=== PATIENT | male | born 1935 | race Caucasian/White ===

== ENCOUNTER → 2018-05-29 | Outpatient (CLI) | payer MEDICARE, OTHER ==
[2018-05-29 09:29] LABS: HCT 48.2 % (39.0-53.0); HGB 15.1 gm/dL (13.0-17.5); MCH 31.4 pg (25.0-35.0); MCHC 31.4 g/dL (31.0-37.0); MCV 100.2 fL (80.0-100.0); Macrocytosis Slight; Mean Platelet Volume 7.2; Platelet Count 249 k/uL (150-450); RBC 4.82 m/uL (4.30-5.90); RDW 13.8 % (11.5-15.5); WBC 7.4 k/uL (3.8-10.6)
[2018-05-29 09:56] LABS: Albumin 4.2 g/dL (3.5-5.0); Calcium 9.7 mg/dL (8.4-10.2); Potassium 3.5 mmol/L (3.5-5.1); Total Bilirubin 0.6 mg/dL (0.2-1.3); Total Protein 7.5 g/dL (6.3-8.2)
== END | disposition home or self-care (01) ==
LOC: LABWHC1 08:42
PROVIDERS: ATTEND Internal Medicine Interventional Cardiology
DX: I25.10 Atherosclerotic heart disease of native coronary artery without angina pectoris (principal)
CPT/HCPCS: 36415; 80053; 85027

== ENCOUNTER 2018-05-31 05:35 | Day surgery (SDC) | payer MEDICARE, OTHER ==
[2018-05-29 14:04] VITALS: BMI 29.0
[2018-05-31] MEDS ORDERED: NITROGLYCERIN SL TABS 0.4 MG TAB SUBLINGUAL PRN ×2 (05:52→10:31)
[2018-05-31] MEDS ORDERED: ATORVASTATIN 80 MG TAB PO STA (05:52)
[2018-05-31] MEDS ORDERED: ALPRAZolam 0.5 MG TAB PO PRN (05:52)
[2018-05-31] MEDS ORDERED: ASPIRIN 325 MG TAB PO STA (05:52)
[2018-05-31] MEDS ORDERED: ALPRAZolam 0.25 MG TAB PO PRN (05:52)
[2018-05-31] MEDS ORDERED: SODIUM CHLORIDE 0.9% 1,000 ML in EMPTY BAG 1 BAG IV ONE (06:00)
[2018-05-31 06:27] LABS: INR 1.4 (<1.2); Prothrombin Time 12.8 sec (9.0-12.0)
[2018-05-31] MEDS ORDERED: ALPRAZolam 0.25 MG TAB PO ONE (06:59)
[2018-05-31] MEDS ORDERED: VERAPAMIL 2.5 MG/ML 2 ML AMP ONE (09:01)
[2018-05-31] MEDS ORDERED: LIDOCAINE 1% INJ 10MG/ML (20 ML MDV) ONE (09:01)
[2018-05-31] MEDS ORDERED: fentaNYL (PF) 50 MCG/ML 2 ML AMP ONE (09:01)
[2018-05-31] MEDS ORDERED: HEPARIN SODIUM 1,000 UN/ML (10ML VL) ONE (09:02)
[2018-05-31] MEDS ORDERED: fentaNYL (PF) 50 MCG/ML 2 ML AMP IV ONE (09:15)
[2018-05-31] MEDS ORDERED: LIDOCAINE 1% INJ 10MG/ML (20 ML MDV) SQ ONE (09:19)
[2018-05-31] MEDS ORDERED: VERAPAMIL SYRINGE (5 MG/10 ML) INTRAARTER ONE (09:21)
[2018-05-31] MEDS ORDERED: BIVALIRUDIN 250 MG in SODIUM CHLORIDE 0.9% 50 ML IV ONE (09:31)
[2018-05-31] MEDS ORDERED: BIVALIRUDIN BOLUS 250 MG/50 ML IV ONE (09:31)
[2018-05-31] MEDS ORDERED: CLOPIDOGREL 75 MG TAB PO ONE (09:32)
[2018-05-31] MEDS ORDERED: CLOPIDOGREL 75 MG TAB ONE (09:32)
[2018-05-31] MEDS ORDERED: NITROGLYCERIN 1000MCG/10ML SYRINGE INTRACORON ONE (09:55)
[2018-05-31] MEDS ORDERED: IOPAMIDOL-370 125ML BTL INJ ONE (09:59)
[2018-05-31] MEDS ORDERED: IOPAMIDOL-300 100ML BTL INJ ONE (10:09)
[2018-05-31] MEDS ORDERED: MAG HYDROX/AL HYDROX/SIMETH 30 ML CUP PO PRN (10:31)
[2018-05-31] MEDS ORDERED: ATROPINE SULFATE 0.1 MG/ML 10ML SYRINGE IV PRN (10:31)
[2018-05-31] MEDS ORDERED: RX INFO: IV CONTRAST WAS GIVEN 1 EACH MISC MISCELLANE PRN (10:31)
[2018-05-31] MEDS ORDERED: ZOLPIDEM 5 MG TAB PO PRN (10:31)
[2018-05-31] MEDS ORDERED: SODIUM CHLORIDE 0.9% 1,000 ML IV SCH (10:45)
--- NOTE | 2018-05-31 10:59 | PTCA ---
PERCUTANEOUSTRANS CORORONARY ANGIOGRAPHY Mr. Mejia is an 82-year-old male with a known history of coronary artery disease, who presented with new onset exertional chest discomfort, underwent cardiac catheterization, was found to have critical stenosis involving the first diagonal branch in the distal right coronary artery. In view of that, recommendation was made regarding angioplasty and stenting. The procedures, risks and complications were discussed with the patient who is in full understanding and agreement. PROCEDURE: A 6-Malay FL 3.5 guiding catheter was introduced in the system, after cannulating the left main, a 0.014 balanced medium weight J-wire was advanced and positioned distal diagonal branch. Following that, a 2.5 x 12 mm Trek balloon was advanced one inflation at 8 atmospheres was done. Following that, the balloon was removed and a 2.5 x 18 mm Xience Alpine stent was deployed, postdilated at 16 atmospheres. After the last inflation, after appropriate wait, the balloon and the guidewire were withdrawn back in the guiding catheter. Images were obtained and repeated. Those images reveal stable successful stenting. At that point, the guiding catheter, the balloon and the guidewire removed and a 6-Malay FR4 guiding catheter was introduced into the system. After cannulating the ostium of the right coronary artery, a 0.014 balanced medium weight J-wire was advanced and positioned distal right coronary artery. Following that, a 2.5 x 12 mm Trek balloon was advanced and one inflation at 8 atmospheres was done. Following that, the balloon was removed and a 2.5 x 23 mm Xience Alpine stent was deployed post-dilated to 16 atmospheres. After removing the balloon, a 2.75 x 15 mm NC Trek balloon was advanced. One inflation at 14 atmospheres was done. Following that, the balloon and the guidewire were withdrawn back in the guiding catheter. Images were obtained and repeated. Those images reveal stable successful stenting. At that point, the guiding catheter, the balloon and the guidewire were removed, sheath was removed, hemostasis was obtained with deployment of a TR band. There was no immediate complication. Patient is returned to his room in stable condition. Of note, the patient received Angiomax per protocol as well as oral loading dose of clopidogrel. He also received intra-arterial verapamil. He had EKG changes with the inflation with no significant chest pain. RESULTS: 1. Successful stenting of the first diagonal branch with reduction of stenosis from 99% to 0%. 2. Successful stenting of the distal right coronary artery with reduction of stenosis from 90% to 0%. RECOMMENDATION: Patient will be continued on aspirin, Plavix, beta natividad, MAGGI inhibitor, and statin. The importance of dual antiplatelet treatment, initially was discussed with the patient. He will be re-initiated on Coumadin. Subsequently, the aspirin will be stopped. Depending on his symptoms, he will be evaluated for the need to undergo revascularization of his LAD. Those findings and recommendation were discussed with the patient and his family and they are in full understanding and agreement. Duration of the procedure: 55 minutes. MURPHY / MELISSAN: [id number] /
--- NOTE | 2018-05-31 10:59 | CC ---
CARDIAC CATHETERIZATION REPORT Mr. Mejia is an 82-year-old male with a known history of coronary artery disease, status post percutaneous revascularization in 2012, history of atrial fibrillation, hypertension, hyperlipidemia, who presented with symptoms of new onset angina pectoris with physical activity. In view of that, recommendation made regarding cardiac catheterization. The procedures, risks and complications were discussed with the patient who is in full understanding and agreement. PROCEDURE: Patient was brought to the center medical and lab director in a fasting semi-sedated state after receiving fentanyl and Benadryl and achieving moderate conscious sedated state. Using Xylocaine anesthesia and Seldinger technique, a 6-Latvian sheath was introduced in the right radial artery. Selective right and left coronary angiography performed using 5-Latvian 3.5 bend right and left Lena catheter, multiple views of the coronary artery, including hemiaxial views were obtained. Following that, catheters were removed, images were reviewed. FINDINGS: LEFT MAIN: This is a large-sized vessel bifurcating into left circumflex, left anterior descending artery. Left main coronary artery has no evidence of high-grade stenosis. LEFT ANTERIOR DESCENDING ARTERY: This is a large-sized vessel, reaching toward the apex with a wraparound apex segment, giving rise to 2 diagonal branches. The first one is large in caliber and has a 99% stenosis in the mid segment. The mid LAD prior to the takeoff of the second diagonal branch in a calcified area has a 60% plaque. The rest of the vessel has intimal disease without any evidence of high-grade stenosis. LEFT CIRCUMFLEX: This is a nondominant vessel, moderate in caliber, giving rise to three obtuse marginal branch. The left circumflex has diffuse intimal disease. The third obtuse marginal branch distally has a 99% stenosis. The vessel beyond that is small in caliber. RIGHT CORONARY ARTERY: This is a large dominant vessel, bifurcating PDA, posterolateral segment and branches. The proximal stented segment of the RCA is patent with minimal intimal restenosis. At the distal RCA prior to the bifurcation has a long tubular lesion of up to 90%. The PDA has a lesion of 80%-90% stenosis in the midsegment and there is diffuse intimal disease in the PLV. LEFT VENTRICULOGRAM: Left ventriculogram was not performed. CONCLUSION: 1. Critical stenosis involving the first diagonal branch and the distal right coronary artery with significant disease in a small distal obtuse marginal branch. 2. Moderate disease in the mid left anterior descending artery. RECOMMENDATION: In view of finding anatomy, I recommend proceeding with angioplasty and stenting. The procedures, risks and complication were discussed with the patient who is in full understanding and agreement. MMODL / IJN: [id number] /
[2018-05-31] MEDS ORDERED: MAG HYDROX/AL HYDROX/SIMETH 30 ML CUP PO ONE (15:00)
[2018-05-31] MEDS ORDERED: amLODIPine 5 MG TAB PO STA (16:08)
[2018-06-01 06:27] LABS: Calcium 9.2 mg/dL (8.4-10.2); Potassium 4.3 mmol/L (3.5-5.1)
[2018-06-01] MEDS ORDERED: ASPIRIN 81 MG PO SCH (09:00)
[2018-06-01] MEDS ORDERED: PARoxetine 10 MG TAB PO SCH (09:00)
[2018-06-01] MEDS ORDERED: LISINOPRIL 20 MG TAB PO SCH (09:00)
[2018-06-01] MEDS ORDERED: amLODIPine 5 MG TAB PO SCH (09:00)
[2018-06-01] MEDS ORDERED: CLOPIDOGREL 75 MG TAB PO SCH (09:00)
[2018-06-01] MEDS ORDERED: ATORVASTATIN 40 MG TAB PO SCH (09:00)
[2018-06-01 09:01] VITALS: BP 132/58; PULSE 64; RESP 18; TEMP 97.4
--- NOTE | 2018-06-01 10:18 | PN ---
PROGRESS NOTE Mr. Mejia is an 82-year-old male with known history of coronary artery disease who has been having new onset angina pectoris, was admitted and underwent cardiac catheterization, was found to have significant stenosis involving the first diagonal branch as well as the distal right coronary artery, underwent stenting of both vessels. He is doing well this morning, ambulating without difficulty. Denying any chest pain. No dizziness. No palpitation. No nausea. He continued to be on aspirin 81 mg daily, Plavix 75 mg daily, lisinopril 20 mg daily, amlodipine 5 mg daily and Lipitor 80 mg daily. PHYSICAL EXAMINATION: Blood pressure 130/70 with a heart rate in the 70s. LUNGS: Clear. HEART: Irregular regular. S1, S2. No S3. No rub. With a systolic murmur. ABDOMEN: Soft, nontender. EXTREMITIES: No edema. Right radial pulse intact. LAB DATA: Lab data revealed BUN and creatinine 21 and 1.24. EKG revealed atrial fibrillation with no acute ST-segment changes. IMPRESSION: 1. Status post stenting of the diagonal branch and the right coronary artery. 2. History of atrial fibrillation. 3. Hypertension. 4. Hyperlipidemia. RECOMMENDATION: The patient will be discharged home today. We will re-initiate his Coumadin and in 4 weeks we will stop the aspirin. Continue on Plavix and Coumadin. Depending on his progress, further recommendation will be made. MMODL / IJN: [id number] /
[2018-06-01] MEDS ORDERED: MULTIVITAMINS, THERA 1 EACH TAB PO SCH (12:00)
== END 2018-06-01 10:35 | disposition home or self-care (01) ==
LOC: CATHCVL 05:35 → 6SEL 10:08 → CATHCVL 06-01 10:35
PROVIDERS: ATTEND Internal Medicine Interventional Cardiology
DX: I25.110 Atherosclerotic heart disease of native coronary artery with unstable angina pectoris (principal); I48.1 Persistent atrial fibrillation; I45.10 Unspecified right bundle-branch block; I10 Essential (primary) hypertension; E78.2 Mixed hyperlipidemia; Z95.5 Presence of coronary angioplasty implant and graft; Z79.01 Long term (current) use of anticoagulants; Z79.899 Other long term (current) drug therapy; Z82.49 Family history of ischemic heart disease and other diseases of the circulatory system; Z87.891 Personal history of nicotine dependence
CPT/HCPCS: 93454; 85347; 80048; 85610; C9600; C1769 ×2; C1887 ×2; C1894; C1725 ×2; C1874; J2001; J3010; J0583; Q9967 ×2

== ENCOUNTER 2018-12-18 08:50 | Observation (INO) | payer MEDICARE ==
[2018-12-18] MEDS ORDERED: NITROGLYCERIN OINT 1 INCH/GM PACKET TOPICAL STA (09:10)
[2018-12-18] MEDS ORDERED: ASPIRIN 81 MG PO STA (09:10)
--- NOTE | 2018-12-18 09:13 | ED ---
General Adult HPI - General Chief complaint: Chest Pain Stated complaint: CHEST PAIN Time Seen by Provider: 12/18/18 08:58 Source: patient, family, RN notes reviewed Mode of arrival: ambulatory Limitations: no limitations - History of Present Illness Initial comments: Patient is a pleasant 83-year-old male presenting to the emergency Department with complaints of chest discomfort. Onset was around 4:30 this morning. Discomfort has remaining mild. Discomfort feels like tightness. No associated dyspnea, nausea, or diaphoresis. No history of similar symptoms previously. No radiation. Patient did have 2 stents placed in May. - Related Data Home Medications Medication Instructions Recorded Confirmed PARoxetine [Paxil] 20 mg PO DAILY 03/13/14 12/18/18 Warfarin [Coumadin] 5 mg PO SUTUWEFRSA 03/13/14 12/18/18 Warfarin [Coumadin] 7.5 mg PO MOTH 03/13/14 12/18/18 Multivitamins, Thera [Multivitamin 1 tab PO DAILY 01/14/15 12/18/18 (formulary)] Aspirin 81 mg PO HS 05/29/18 12/18/18 Cholecalciferol [Vitamin D3] 5,000 unit PO HS 05/29/18 12/18/18 Magnesium Oxide [Balderas] 500 mg PO HS 05/29/18 12/18/18 amLODIPine BESYLATE/BENAZEPRIL 1 cap PO DAILY 05/29/18 12/18/18 [Lotrel 5-20 MG] ALPRAZolam [Xanax] 0.5 mg PO BID PRN 12/18/18 12/18/18 Atorvastatin [Lipitor] 40 mg PO HS 12/18/18 12/18/18 Calcium Citrate/Vitamin D3 1 tab PO HS 12/18/18 12/18/18 [Calcitrate + Vit D Caplet] Clopidogrel [Plavix] 75 mg PO HS 12/18/18 12/18/18 Glucosamine/[place] A Sod [Osteo 1 tab PO DAILY 12/18/18 12/18/18 Bi-Flex Caplet] L.acidoph,Paracasei, B.lactis 1 cap PO W/SUPPER 12/18/18 12/18/18 [Probiotic] Meclizine [Antivert] 12.5 - 25 mg PO QID PRN 12/18/18 12/18/18 Pravastatin Sodium [Pravachol] 40 mg PO HS 12/18/18 12/18/18 Raloxifene [Evista] 60 mg PO DAILY 12/18/18 12/18/18 Previous Rx's Medication Instructions Recorded Nitroglycerin Sl Tabs [Nitrostat] 0.4 mg SUBLINGUAL Q5M PRN #25 tab 06/01/18 Allergies Allergy/AdvReac Type Severity Reaction Status Date / Time No Known Allergies Allergy Verified 12/18/18 09:16 Review of Systems ROS Statement: Those systems with pertinent positive or pertinent negative responses have been documented in the HPI. ROS Other: All systems not noted in ROS Statement are negative. Constitutional: Denies: fever Eyes: Denies: eye pain ENT: Denies: ear pain Respiratory: Denies: cough, dyspnea Cardiovascular: Reports: chest pain Endocrine: Denies: fatigue Gastrointestinal: Denies: abdominal pain Genitourinary: Denies: dysuria Musculoskeletal: Denies: back pain Skin: Denies: rash Neurological: Denies: weakness Past Medical History Past Medical History: Cancer, GERD/Reflux, Hypertension, Myocardial Infarction (ME), Osteoarthritis (OA), Skin Disorder Additional Past Medical History / Comment(s): HX COLON CA., HX OF THROAT CANCER WITH RADIATION TX 04/06/14-05/20/14., SEASONAL ALLERGIES. Last Myocardial Infarction Date:: 1994 History of Any Multi-Drug Resistant Organisms: None Reported Past Surgical History: Appendectomy, Bowel Resection, Heart Catheterization, He art Catheterization With Stent, Orthopedic Surgery Additional Past Surgical History / Comment(s): HEART CATH X 3 - LAST ONE WITH A STENT09/05/12, ARTHROSCOPY RT KNEE ,RT ROTATOR CUFF, CATARACT CYDNEY. , BOWEL RESECTION-(2000) 8"COLON REMOVED. VOCAL CORD LESION REMOVED 03/2014. Past Anesthesia/Blood Transfusion Reactions: No Reported Reaction Date of Last Stent Placement:: 09/05/12 Past Psychological History: Depression Smoking Status: Former smoker - Past Family History Father Family Medical History: Myocardial Infarction (ME) Additional Family Medical History / Comment(s): FATHER @ AGE 46 WITH ME Sister(s) Family Medical History: Cancer Additional Family Medical History / Comment(s): BREAST & BONE CA General Exam Limitations: no limitations General appearance: alert, in no apparent distress Head exam: Present: normocephalic Eye exam: Present: normal appearance, PERRL ENT exam: Present: normal oropharynx Neck exam: Present: normal inspection Respiratory exam: Present: normal lung sounds bilaterally Cardiovascular Exam: Present: regular rate, irregular rhythm Expanded Peripheral pulses: 2+: Radial (R), Radial (L), Posterior Tibialis (R), Posterior Tibialis (L) GI/Abdominal exam: Present: soft. Absent: distended, tenderness Extremities exam: Present: normal inspection. 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 fib with rate of 66. QRS 162. QT 474. QTC 496. Normal axis. Right bundle branch block. Nonspecific T waves. Medical Decision Making - Medical Decision Making Patient reevaluated and improved. Discomfort is near resolved at this time. Patient and family updated on results and plan. Case was discussed in detail with Dr. Kim, who will admit his patient. Consult will be placed for Dr. Mckeon who patient has previously seen. Dr. Kim and family are made aware of pulmonary nodules. - Lab Data Result diagrams: 12/18/18 09:15 12/18/18 09:15 Lab Results 12/18/18 12/18/18 12/18/18 Range/Units 09:15 09:15 09:15 WBC 7.6 (3.8-10.6) k/uL RBC 4.59 (4.30-5.90) m/uL Hgb 14.1 (13.0-17.5) gm/dL Hct 44.4 (39.0-53.0) % MCV 96.8 (80.0-100.0) fL MCH 30.7 (25.0-35.0) pg MCHC 31.7 (31.0-37.0) g/dL RDW 14.0 (11.5-15.5) % Plt Count 259 (150-450) k/uL Neutrophils % 71 % Lymphocytes % 16 % Monocytes % 8 % Eosinophils % 1 % Basophils % 1 % Neutrophils # 5.4 (1.3-7.7) k/uL Lymphocytes # 1.2 (1.0-4.8) k/uL Monocytes # 0.6 (0-1.0) k/uL Eosinophils # 0.1 (0-0.7) k/uL Basophils # 0.1 (0-0.2) k/uL PT 14.5 H (9.0-12.0) sec INR 1.4 H (<1.2) APTT 27.8 (22.0-30.0) sec Sodium 143 (137-145) mmol/L Potassium 3.6 (3.5-5.1) mmol/L Chloride 106 (98-107) mmol/L Carbon Dioxide 29 (22-30) mmol/L Anion Gap 8 mmol/L BUN 27 H (9-20) mg/dL Creatinine 1.32 H (0.66-1.25) mg/dL Est GFR (CKD-EPI)AfAm 57 (>60 ml/min/1.73 sqM) Est GFR (CKD-EPI)NonAf 49 (>60 ml/min/1.73 sqM) Glucose 96 (74-99) mg/dL Calcium 10.1 (8.4-10.2) mg/dL Magnesium 2.0 (1.6-2.3) mg/dL Total Bilirubin 0.7 (0.2-1.3) mg/dL AST 25 (17-59) U/L ALT 35 (21-72) U/L Alkaline Phosphatase 97 (38-126) U/L Troponin I (0.000-0.034) ng/mL Total Protein 7.5 (6.3-8.2) g/dL Albumin 4.3 (3.5-5.0) g/dL 12/18/18 Range/Units 09:15 WBC (3.8-10.6) k/uL RBC (4.30-5.90) m/uL Hgb (13.0-17.5) gm/dL Hct (39.0-53.0) % MCV (80.0-100.0) fL MCH (25.0-35.0) pg MCHC (31.0-37.0) g/dL RDW (11.5-15.5) % Plt Count (150-450) k/uL Neutrophils % % Lymphocytes % % Monocytes % % Eosinophils % % Basophils % % Neutrophils # (1.3-7.7) k/uL Lymphocytes # (1.0-4.8) k/uL Monocytes # (0-1.0) k/uL Eosinophils # (0-0.7) k/uL Basophils # (0-0.2) k/uL PT (9.0-12.0) sec INR (<1.2) APTT (22.0-30.0) sec Sodium (137-145) mmol/L Potassium (3.5-5.1) mmol/L Chloride (98-107) mmol/L Carbon Dioxide (22-30) mmol/L Anion Gap mmol/L BUN (9-20) mg/dL Creatinine (0.66-1.25) mg/dL Est GFR (CKD-EPI)AfAm (>60 ml/min/1.73 sqM) Est GFR (CKD-EPI)NonAf (>60 ml/min/1.73 sqM) Glucose (74-99) mg/dL Calcium (8.4-10.2) mg/dL Magnesium (1.6-2.3) mg/dL Total Bilirubin (0.2-1.3) mg/dL AST (17-59) U/L ALT (21-72) U/L Alkaline Phosphatase (38-126) U/L Troponin I <0.012 (0.000-0.034) ng/mL Total Protein (6.3-8.2) g/dL Albumin (3.5-5.0) g/dL - Radiology Data Radiology results: image reviewed (Chest x-ray does show concern for nodules, similar to previous.) Disposition Clinical Impression: Chest pain Disposition: ADMITTED IP TO THIS HOSP Is patient prescribed a controlled substance at d/c from ED?: No Referrals: Jd Kim MD [Primary Care Provider] - 1-2 days Decision Time: 11:06
--- NOTE | 2018-12-18 09:37 | XR ---
EXAMINATION TYPE: XR chest 2V DATE OF EXAM: 12/18/2018 COMPARISON: Chest x-ray September 02, 2012 HISTORY: Chest pain and pressure today. TECHNIQUE: Frontal and lateral views of the chest are obtained. FINDINGS: There is persistent cardiomegaly. Some reticular interstitial prominence bilaterally is se en. In addition there is suggestion of multifocal parenchymal nodularity. No pleural effusion or pneu mothorax is evident. Bridging osteophytes and thoracic spine are redemonstrated. IMPRESSION: Cardiomegaly and chronic parenchymal changes still present, underlying pulmonary nodular ity is not excluded. Advise chest CT follow-up.
[2018-12-18 09:56] LABS: Basophils # (A) 0.1 k/uL (0-0.2); Basophils % (A) 1 %; Eosinophils # (A) 0.1 k/uL (0-0.7); Eosinophils % (A) 1 %; HCT 44.4 % (39.0-53.0); HGB 14.1 gm/dL (13.0-17.5); Lymphocytes # (A) 1.2 k/uL (1.0-4.8); Lymphocytes % (A) 16 %; MCH 30.7 pg (25.0-35.0); MCHC 31.7 g/dL (31.0-37.0); MCV 96.8 fL (80.0-100.0); Mean Platelet Volume 7.3; Monocytes # (A) 0.6 k/uL (0-1.0); Monocytes % (A) 8 %; Neutrophils # (A) 5.4 k/uL (1.3-7.7); Neutrophils % (A) 71 %; Platelet Count 259 k/uL (150-450); RBC 4.59 m/uL (4.30-5.90); WBC 7.6 k/uL (3.8-10.6)
[2018-12-18 10:07] LABS: Albumin 4.3 g/dL (3.5-5.0); Calcium 10.1 mg/dL (8.4-10.2); Potassium 3.6 mmol/L (3.5-5.1); Total Bilirubin 0.7 mg/dL (0.2-1.3); Total Protein 7.5 g/dL (6.3-8.2)
[2018-12-18 10:17] LABS: INR 1.4 (<1.2); Partial Thromboplastin Time 27.8 sec (22.0-30.0); Prothrombin Time 14.5 sec (9.0-12.0)
[2018-12-18] MEDS ORDERED: NITROGLYCERIN SL TABS 0.4 MG TAB SUBLINGUAL PRN ×2 (11:06→16:56)
[2018-12-18] MEDS ORDERED: ALPRAZolam 0.5 MG TAB PO PRN (16:56)
[2018-12-18] MEDS ORDERED: MECLIZINE 12.5 MG TAB PO PRN (16:56)
[2018-12-18] MEDS: NITROGLYCERIN OINT 1 INCH/GM PACKET TOPICAL SCH ×2 (17:04→17:51)
[2018-12-18] MEDS ORDERED: WARFARIN 5 MG TAB PO SCH (18:00)
[2018-12-18] MEDS: LACTOBACILLUS ACIDOPH & BULGAR 1 EACH PACKET PO SCH (18:21)
[2018-12-18] MEDS: ATORVASTATIN 40 MG TAB PO SCH (19:38)
[2018-12-18] MEDS: CLOPIDOGREL 75 MG TAB PO SCH (19:39)
[2018-12-18] MEDS: CHOLECALCIFEROL 1,000 UNIT TAB PO SCH (19:39)
[2018-12-18] MEDS ORDERED: ASPIRIN 81 MG PO SCH (21:00)
[2018-12-18] MEDS ORDERED: CALCIUM CARB-VIT D 500MG-200UN 1 EACH TAB PO SCH (21:00)
[2018-12-18] MEDS ORDERED: MAGNESIUM OXIDE 400 MG TAB PO SCH (21:00)
[2018-12-18] MEDS ORDERED: PRAVASTATIN SODIUM 40 MG TAB PO SCH (21:00)
--- NOTE | 2018-12-18 23:21 | HP ---
HISTORY AND PHYSICAL CHIEF COMPLAINT: Chest pain. HISTORY OF PRESENT ILLNESS: This gentleman, 83 years of age, presented with a complaint that at about 3:30 or 4:00 in the morning he woke up with tightness in the lower chest going across the chest with no associated nausea, vomiting, palpitations, dizziness or heartburn. The patient said the symptoms lasted briefly for a few minutes and then resolved. In the morning, the patient's spouse asked the patient to have it checked to make sure that things were okay. He does have a history of coronary artery disease; back in May he had 2 stents placed, one in the first diagonal and one in the distal RCA. The patient subsequent to that has had no symptoms. Also previous to that he had stents placed. In view of this, the patient presented to the emergency room. He was evaluated, noted to have negative troponins. However, his EKG showed complete right bundle branch block, and in view of this he was admitted to the hospital with his previous history of chest discomfort suggestive of angina and bundle branch block on EKG with atrial fibrillation. The patient recently had significant GI symptoms of heartburn, etc. However, these symptoms have resolved with the use of proton pump inhibitors and he has had no further significant problems. He also had symptoms that also improved after he was treated with Flagyl for C difficile colitis. The patient does exercise regularly. He had exercised on Sunday with no symptoms. PAST MEDICAL HISTORY: Significant for: 1. Essential hypertension, controlled. 2. Coronary artery disease, stable, with previous interventions. 3. Chronic atrial fibrillation, rate controlled. 4. Anticoagulated on Coumadin. 5. Hyperlipidemia, on medical therapy. 6. Degenerative arthritis with tolerable symptoms. 7. Chronic kidney disease, stage III. 8. Previous history of colon cancer Butcher A with no recurrence. 9. 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 PERSONAL HISTORY: He was a smoker; quit many years ago. He used to smoke a pack and a half per day. Alcohol none. SOCIAL HISTORY: Patient is , lives with his spouse. He is able to take care of himself. He does exercise regularly. FAMILY MEDICAL HISTORY: Father at age of 47 with myocardial infarction. Mother at the age of 82 with myocardial infarction. A brother of coronary artery disease at age 58. Brother at the age of 76 of coronary artery disease. A sister at the age of 59 of coronary artery disease. A sister 89 with a history of rheumatoid arthritis, coronary artery disease and mild dementia. A sister 93 with history of CVA. A sister who is 93 with history of cancer of the breast. The patient has a sister 75 in good health. The patient has no children. PAST SURGICAL HISTORY: Significant for: 1. Bilateral cataracts. 2. Partial colectomy. 3. Appendectomy. 4. Right knee scope. 5. Right shoulder surgery. 6. Laryngeal biopsy. MEDICATIONS: Medications at present include: 1. Pravastatin 40 mg daily. 2. Amlodipine/benazepril 5/20 one daily. 3. Meclizine p.r.n. 4. Aspirin 81 mg daily. 5. Coumadin 5 mg 4 days a week and 7.5 mg 3 days a week. 6. Xanax 0.5 mg b.i.d. p.r.n. 7. Pepcid 40 mg daily. 8. Paxil 20 mg daily. 9. Coumadin 7.5 mg Sunday and and 5 mg other 5 days of the week. 10.Multivitamin daily. 11.Plavix 75 mg at bedtime. REVIEW OF SYSTEMS: NEURO: Denies any headaches, dizziness. No double vision or blurred vision. No symptoms of TIA or syncope or seizures. PSYCH: No anxiety, depression. CARDIAC: No chest pain, angina, palpitation. RESPIRATORY: No shortness of breath, cough, hemoptysis. GI: No nausea, vomiting, abdominal pain, diarrhea, constipation. : No symptoms of dysuria, hematuria. EXTREMITIES: No pain, edema. CONSTITUTIONAL: No fever, chills. PHYSICAL EXAMINATION: Pleasant gentleman in no distress. Vital signs reveal temperature 98, pulse 70, respirations 18, blood pressure 150/72, pulse ox 100% on 2 L. HEENT: Normocephalic. Pupils reactive. Nostrils clear. Oral cavity is moist. NECK: Supple. No JVD, carotid bruits or thyromegaly. CHEST EXAMINATION: Clear to auscultation and percussion. CARDIAC: Normal S1, S2 with no gallops. Irregularly irregular rhythm. Systolic murmur 2/6, left sternal border. ABDOMEN: Soft. No palpable masses. Bowel sounds normal. No organomegaly. No abdominal bruits. Extremities reveal no edema. Good pulses, both upper and lower extremities. Neurologically awake, alert, oriented x3 with well-coordinated movements. LABORATORY ASSESSMENT: Normal CBC. INR 1.4. Creatinine 1.32. GFR of 49. Troponins are negative. CPK 90. EKG shows atrial fibrillation, complete right bundle branch block. ASSESSMENT: 1. Chest pain suggestive of angina pectoris at rest. 2. Known history of coronary artery disease with previous stents back in May of 2018. 3. Chronic atrial fibrillation. 4. Anticoagulated status. 5. Chronic kidney disease, stage III. 6. Essential hypertension, controlled. PLAN: The patient is stable. Continue present medical regimen. Patient does not seem to have had an infarct. Will keep the patient on nitrates. Will have Cardiology see the patient. Patient's condition was discussed with the patient and spouse. Prognosis remains guarded. May require catheterization for further definition of his ailment. MMODL / IJN: [id number] /
[2018-12-19] MEDS: NITROGLYCERIN OINT 1 INCH/GM PACKET TOPICAL SCH ×3 (01:43→20:06)
[2018-12-19 04:22] LABS: Cholesterol 121 mg/dL (<200); HDL Cholesterol 36 mg/dL (40-60); LDL Cholesterol,Calculated 51 mg/dL (0-99); Triglycerides 171 mg/dL (<150)
[2018-12-19] MEDS ORDERED: ASPIRIN 325 MG TAB PO SCH (09:00)
[2018-12-19] MEDS ORDERED: amLODIPine 5 MG TAB PO SCH (09:00)
[2018-12-19] MEDS ORDERED: NON-FORMULARY DRUG (Glucosamine/Chondr Su A Sod [Osteo Bi-Flex Caplet] 1 TAB) PO SCH (09:00)
[2018-12-19] MEDS ORDERED: RALOXIFENE 60 MG TAB PO SCH (09:00)
[2018-12-19] MEDS ORDERED: SODIUM CHLORIDE 0.9% 1,000 ML in EMPTY BAG 1 BAG IV ONE (11:11)
[2018-12-19] MEDS ORDERED: ASPIRIN 325 MG TAB PO STA (11:12)
[2018-12-19] MEDS: LISINOPRIL 20 MG TAB PO SCH (11:37)
[2018-12-19] MEDS: PARoxetine 20 MG TAB PO SCH (11:38)
--- NOTE | 2018-12-19 12:01 | P.CRDCN ---
History of Present Illness History of present illness: This is a pleasant 83-year-old male past medical history significant for coronary artery disease status post multiple angioplasties, paroxysmal atrial fibrillation on long-term anticoagulation, hypertension, dyslipidemia and colon cancer status post resection. He was recently diagnosed with C. diff and was treated with antibiotics. He follows in the office with Dr. Mckeon. We have been asked to see him in consultation for symptoms of chest discomfort. He states yesterday while he was getting ready to head to the gym for his routine exercise he started feeling a tight sensation in the midsternal region. There is no radiation through to the back, down the arm, into the neck or jaw. He denies associated shortness of breath, dizziness, nausea, vomiting or diaphoresis. The tightness persisted for approximately 4 hours until he decided to come to the hospital for evaluation. Ultimately once arriving in the hospital the symptoms did subside on their own with no specific alleviating factor. He states in the past when he needed stent placement his symptoms are typically fatigue and shortness of breath. He states he did exercise Sunday his typical routine of approximately 2 hours of exercise with no symptoms of chest discomfort or tightness. He recently underwent cardiac catheterization in May 2018 revealing left main with no evidence of high-grade stenosis, LAD giving rise to 2 diagonal branches. The first one has a 99% stenosis in the midsegment, the mid LAD has a calcified lesion approximately 60% with the remainder of the vessel having intimal disease without any evidence of high- grade stenosis, circumflex artery had diffuse intimal disease, third OM distally is a 99% stenosis, RCA distally has a tubular lesion approximately 90%, PDA has a lesion of 80-90% in the midsegment. At that time he underwent successful stent placement to the distal RCA and distal OM. Prior to that in 2011 he underwent stent placement to the proximal RCA. Most recent echocardiogram obtained in the office November 2017 revealed preserved left ventricular systo lic function with ejection fraction 55%, mild TR and mild MR noted. He states he was recently diagnosed with C. diff and started on antibiotics per his primary care physician. His dosing of Coumadin was decreased at that time since the cause for his subtherapeutic INR. EKG on arrival reveals atrial fibrillation with controlled ventricular response heart rate is 66 with a right bundle branch block. Chest x-ray reveals cardiomegaly and chronic parenchymal changes with underlying pulmonary nodule suspected. Laboratory data reviewed, WBC 7.6, hemoglobin 14.1, platelets 259, INR 1.4, sodium 143, potassium 3.6, creatinine 1.32, GFR 49, magnesium 2.0, cardiac enzymes negative 3, LDL 51 and HDL 36. Current cardiac medications include aspirin 81 mg daily, atorvastatin 40 mg daily, Plavix 75 mg daily, Coumadin, amlodipine/benazepril 5/20 mg daily. At the time of my exam: CONSTITUTIONAL: Denies fever. Denies chills. EYES: Denies blurred vision. Denies vision changes. Denies eye pain. EARS, NOSE, MOUTH & THROAT: Denies headache. Denies sore throat. Denies ear pain. CARDIOVASCULAR: Denies chest pain. Denies shortness of breath. Denies orthopnea. Denies PND. Denies palpitations. RESPIRATORY: Denies cough. GASTROINTESTINAL: Denies abdominal pain. Denies diarrhea. Denies constipation. Denies nausea. Denies vomiting. MUSCULOSKELETAL: Denies myalgias. INTEGUMENTARY: Denies pruitis. Denies rash. NEUROLOGIC: Denies numbness. Denies tingling. Denies weakness. PSYCHIATRIC: Denies anxiety. Denies depression. ENDOCRINE: Denies fatigue. Denies weight change. Denies polydipsia. Denies polyurina. GENITOURINARY: Denies burning, hematuria or urgency with micturation. HEMATOLOGIC: Denies history of anemia. Denies bleeding. Blood pressure 179/99 heart rate 88 afebrile maintaining oxygen saturation on room air GENERAL: This is a 83-year-old male in no apparent distress at the time of my examination. HEENT: Head is atraumatic, normocephalic. Pupils are equal, round. Sclerae anicteric. Conjunctivae are clear. Mucous membranes of the mouth are moist. Neck is supple. There is no jugular venous distention. No carotid bruit is heard. LUNGS: Clear to auscultation no wheezes, rales or rhonchi. No chest wall tenderness is noted on palpation or with deep breathing. HEART: Irregular rate and rhythm with systolic ejection murmur at the left sternal border, no rubs or gallops. S1 and S2 heard. ABDOMEN: Soft, nontender. Bowel sounds are heard. No organomegaly noted. EXTREMITIES: No evidence of peripheral edema and no calf tenderness noted. VASCULAR: Radial and dorsalis pedis pulses palpated, no evidence of clubbing. NEUROLOGIC: Patient is awake, alert and oriented x3. ASSESSMENT Chest discomfort suggestive of unstable angina. An acute coronary event has been ruled out. Chronic persistent atrial fibrillation on long-term anticoagulation with Coumadin Subtherapeutic INR Hypertension Dyslipidemia Chronic kidney disease, GFR 49 PLAN Hold Coumadin and proceed with cardiac catheterization to assess for progression of coronary artery disease. I have discussed the risks, benefits and alternative therapies for the above-mentioned procedure and for both sedation/analgesia as well as necessary blood product administration, if indicated, as they pertain to this patient. The patient has indicated understanding and acceptance of the risks and procedures discussed. Questions have been answered appropriately and he is agreeable to move forward with the above stated procedure. Check the cost of Eliquis 5 mg BID, if reasonable will change from Coumadin. Further recommendations to follow based on clinical course. Thank you kindly for this consultation. Nurse Practitioner note has been reviewed, I agree with a documented findings and plan of care. Patient was seen and examined. Past Medical History Past Medical History: Coronary Artery Disease (CAD), Cancer, Chest Pain / Angina, GERD/Reflux, Hyperlipidemia, Hypertension, Myocardial Infarction (OK), Osteoarthritis (OA), Pneumonia, Skin Disorder Additional Past Medical History / Comment(s): Colon cancer with resection, laryngeal cancer with radiation/suspension microlarygoscopy, colon and throat polyps, postitive stool for C-Diff/Lactoferrin 11/12/18, skin cancer with removal, equilibrium problems, arthritis hands and legs, seasonal allergies. Last Myocardial Infarction Date:: 1994 History of Any Multi-Drug Resistant Organisms: None Reported Past Surgical History: Appendectomy, Bowel Resection, Heart Catheterization, Heart Catheterization With Stent, Orthopedic Surgery Additional Past Surgical History / Comment(s): PCI with at total of 3 stents with last one placed 05/31/19, PTCA, EGD, colonoscopies, bowel resection-8 inches removed, suspension microlarygoscopy for laryngeal lesion, skin cancer removals, R knee arthroscopy, R rotator cuff repair, bilateral cataract removals/lens implants. Past Anesthesia/Blood Transfusion Reactions: No Reported Reaction Date of Last Stent Placement:: 05/31/18 Smoking Status: Former smoker - Past Family History Mother Family Medical History: Diabetes Mellitus Additional Family Medical History / Comment(s): Mother lived to be 78yrs old. Father Family Medical History: Myocardial Infarction ([place]) Additional Family Medical History / Comment(s): FATHER @ AGE 46 WITH [place] Sister(s) Family Medical History: Cancer Additional Family Medical History / Comment(s): BREAST & BONE CA Medications and Allergies Home Medications Medication Instructions Recorded Confirmed Type PARoxetine [Paxil] 20 mg PO DAILY 03/13/14 12/18/18 History Warfarin [Coumadin] 5 mg PO [id number] 03/13/14 12/18/18 History Warfarin [Coumadin] 7.5 mg PO MOTH 03/13/14 12/18/18 History Multivitamins, Thera [Multivitamin 1 tab PO DAILY 01/14/15 12/18/18 History (formulary)] Aspirin 81 mg PO HS 05/29/18 12/18/18 History Cholecalciferol [Vitamin D3] 5,000 unit PO HS 05/29/18 12/18/18 History Magnesium Oxide [Balderas] 500 mg PO HS 05/29/18 12/18/18 History amLODIPine BESYLATE/BENAZEPRIL 1 cap PO DAILY 05/29/18 12/18/18 History [Lotrel 5-20 MG] Nitroglycerin Sl Tabs [Nitrostat] 0.4 mg SUBLINGUAL Q5M PRN #25 tab 06/01/18 12/18/18 Rx ALPRAZolam [Xanax] 0.5 mg PO BID PRN 12/18/18 12/18/18 History Atorvastatin [Lipitor] 40 mg PO HS 12/18/18 12/18/18 History Calcium Citrate/Vitamin D3 1 tab PO HS 12/18/18 12/18/18 History [Calcitrate + Vit D Caplet] Clopidogrel [Plavix] 75 mg PO HS 12/18/18 12/18/18 History Glucosamine/[place] A Sod [Osteo 1 tab PO DAILY 12/18/18 12/18/18 History Bi-Flex Caplet] L.acidoph,Paracasei, B.lactis 1 cap PO W/SUPPER 12/18/18 12/18/18 History [Probiotic] Meclizine [Antivert] 12.5 - 25 mg PO QID PRN 12/18/18 12/18/18 History Pravastatin Sodium [Pravachol] 40 mg PO HS 12/18/18 12/18/18 History Raloxifene [Evista] 60 mg PO DAILY 12/18/18 12/18/18 History Allergies Allergy/AdvReac Type Severity Reaction Status Date / Time No Known Allergies Allergy Verified 12/18/18 09:16 Physical Exam Vitals: Vital Signs Temp Pulse Pulse Pulse Resp BP BP 12/19/18 07:47 98.3 F 80 18 179/99 12/19/18 03:44 98.1 F 73 16 12/19/18 03:16 52 L 16 12/19/18 00:00 53 L 16 12/18/18 23:38 98.4 F 55 L 16 12/18/18 20:00 43 L 16 12/18/18 19:58 98.4 F 49 L 16 12/18/18 16:00 97.6 F 60 18 12/18/18 15:26 53 L 18 155/72 12/18/18 14:00 62 18 153/72 12/18/18 12:00 68 18 142/70 12/18/18 11:00 98.0 F 70 18 154/72 12/18/18 10:31 57 L 18 151/90 12/18/18 09:07 63 BP Pulse Ox 12/19/18 07:47 96 12/19/18 03:44 150/70 97 12/19/18 03:16 12/19/18 00:00 12/18/18 23:38 157/66 94 L 12/18/18 20:00 12/18/18 19:58 131/64 96 12/18/18 16:00 184/97 98 12/18/18 15:26 100 12/18/18 14:00 100 12/18/18 12:00 100 12/18/18 11:00 100 12/18/18 10:31 100 12/18/18 09:07 Intake and Output 12/18/18 12/19/18 12/19/18 22:59 06:59 14:59 Intake Total 240 Balance 240 Intake: Oral 240 Other: Voiding Method Toilet Toilet Toilet # Voids 1 1 Results 12/18/18 09:15 12/18/18 09:15 Cardiac Enzymes 03/20/19 03/20/19 03/20/19 Range/Units 09:15 09:15 15:20 AST 25 (17-59) U/L Troponin I <0.012 <0.012 (0.000-0.034) ng/mL 12/18/18 Range/Units 20:51 AST (17-59) U/L Troponin I <0.012 (0.000-0.034) ng/mL Coagulation 12/18/18 Range/Units 09:15 PT 14.5 H (9.0-12.0) sec APTT 27.8 (22.0-30.0) sec Lipids 12/18/18 Range/Units 09:15 Triglycerides 171 H (<150) mg/dL Cholesterol 121 (<200) mg/dL HDL Cholesterol 36 L (40-60) mg/dL CBC 12/18/18 Range/Units 09:15 WBC 7.6 (3.8-10.6) k/uL RBC 4.59 (4.30-5.90) m/uL Hgb 14.1 (13.0-17.5) gm/dL Hct 44.4 (39.0-53.0) % Plt Count 259 (150-450) k/uL Comprehensive Metabolic Panel 12/18/18 Range/Units 09:15 Sodium 143 (137-145) mmol/L Potassium 3.6 (3.5-5.1) mmol/L Chloride 106 (98-107) mmol/L Carbon Dioxide 29 (22-30) mmol/L BUN 27 H (9-20) mg/dL Creatinine 1.32 H (0.66-1.25) mg/dL Glucose 96 (74-99) mg/dL Calcium 10.1 (8.4-10.2) mg/dL AST 25 (17-59) U/L ALT 35 (21-72) U/L Alkaline Phosphatase 97 (38-126) U/L Total Protein 7.5 (6.3-8.2) g/dL Albumin 4.3 (3.5-5.0) g/dL Current Medications Generic Name Dose Route Start Last Admin Trade Name Freq PRN Reason Stop Dose Admin Alprazolam 0.5 mg 12/18/18 16:56 Xanax PO BID PRN Anxiety Amlodipine Besylate 5 mg 12/19/18 09:00 Norvasc PO DAILY TASHA Aspirin 325 mg 12/19/18 09:00 Aspirin PO DAILY [facility] Atorvastatin Calcium 40 mg 12/18/18 21:00 12/18/18 19:38 Lipitor PO 40 mg HS [facility] Administration Calcium Carbonate 1 each 12/18/18 21:00 12/18/18 19:38 Oscal 500+D PO 1 each HS TASHA Administration Cholecalciferol 5,000 unit 12/18/18 21:00 12/18/18 19:39 Vitamin D3 PO 5,000 unit HS [facility] Administration Clopidogrel Bisulfate 75 mg 12/18/18 21:00 12/18/18 19:39 Plavix PO 75 mg HS [facility] Administration Lactobacillus Acidoph/Bulgaricus 1 each 12/18/18 17:30 12/18/18 18:21 Lactinex PO 1 each W/SUPPER [facility] Administration Lisinopril 20 mg 12/19/18 09:00 Zestril PO DAILY [facility] Magnesium Oxide 400 mg 12/18/18 21:00 12/18/18 19:39 Mag-Ox PO 400 mg HS [facility] Administration Meclizine HCl 12.5 mg 12/18/18 16:56 Antivert PO QID PRN Vertigo Multivitamins 1 each 12/19/18 12:00 Theragran PO DAILY@1200 [facility] Nitroglycerin 1 inch 12/18/18 12:00 12/19/18 05:06 Nitro-Bid Oint TOPICAL Not Given Q6HR [facility] Nitroglycerin 0.4 mg 12/18/18 11:06 Nitrostat SUBLINGUAL Q5M PRN Chest Pain Paroxetine HCl 20 mg 12/19/18 09:00 Paxil PO DAILY [facility] Raloxifene HCl 60 mg 12/19/18 09:00 Evista PO DAILY [facility] Sodium Chloride 10 ml 12/18/18 21:00 12/18/18 19:36 Saline Flush IV 10 ml BID [facility] Administration Warfarin Sodium 5 mg 12/18/18 18:00 12/18/18 18:21 Coumadin PO 5 mg [id number] [facility] Administration Warfarin Sodium 7.5 mg 12/19/18 18:00 Coumadin PO [id number]@1800 [facility] Intake and Output 12/18/18 12/19/18 12/19/18 22:59 06:59 14:59 Intake Total 240 Balance 240 Intake: Oral 240 Other: Voiding Method Toilet Toilet Toilet # Voids 1 1 12/18/18 09:15 12/18/18 09:15
[2018-12-19] MEDS ORDERED: fentaNYL (PF) 50 MCG/ML 2 ML AMP ONE (12:41)
[2018-12-19] MEDS ORDERED: HEPARIN SODIUM 1,000 UN/ML (10ML VL) ONE (12:41)
[2018-12-19] MEDS ORDERED: VERAPAMIL 2.5 MG/ML 2 ML AMP ONE (12:41)
[2018-12-19] MEDS ORDERED: LIDOCAINE 1% INJ 10MG/ML (20 ML MDV) ONE (12:41)
[2018-12-19] MEDS ORDERED: IV FLUID CONTINUATION 900 ML IV ONE (12:46)
[2018-12-19] MEDS ORDERED: fentaNYL (PF) 50 MCG/ML 2 ML AMP IV ONE (12:46)
[2018-12-19] MEDS ORDERED: LIDOCAINE 1% INJ 10MG/ML (20 ML MDV) SQ ONE (12:51)
[2018-12-19] MEDS ORDERED: VERAPAMIL SYRINGE (5 MG/10 ML) INTRAARTER ONE (12:52)
[2018-12-19] MEDS ORDERED: NITROGLYCERIN SL TABS 0.4 MG TAB SUBLINGUAL ONE ×2 (12:58→12:59)
[2018-12-19] MEDS ORDERED: BIVALIRUDIN BOLUS 250 MG/50 ML IV ONE (13:08)
[2018-12-19] MEDS ORDERED: BIVALIRUDIN 250 MG in SODIUM CHLORIDE 0.9% 50 ML IV ONE (13:08)
[2018-12-19] MEDS ORDERED: CLOPIDOGREL 75 MG TAB ONE (13:10)
[2018-12-19] MEDS ORDERED: CLOPIDOGREL 75 MG TAB PO ONE (13:12)
[2018-12-19] MEDS ORDERED: NITROGLYCERIN 1000MCG/10ML SYRINGE INTRACORON ONE (13:16)
[2018-12-19] MEDS ORDERED: IOPAMIDOL-370 125ML BTL INJ ONE (13:18)
[2018-12-19] MEDS ORDERED: IOPAMIDOL-370 100ML BTL INJ ONE (13:24)
[2018-12-19] MEDS ORDERED: RX INFO: IV CONTRAST WAS GIVEN 1 EACH MISC MISCELLANE PRN (13:40)
[2018-12-19] MEDS ORDERED: MAG HYDROX/AL HYDROX/SIMETH 30 ML CUP PO PRN (13:40)
[2018-12-19] MEDS ORDERED: ZOLPIDEM 5 MG TAB PO PRN (13:40)
[2018-12-19] MEDS ORDERED: NITROGLYCERIN SL TABS 0.4 MG TAB SUBLINGUAL PRN (13:40)
[2018-12-19] MEDS ORDERED: ATROPINE SULFATE 0.1 MG/ML 10ML SYRINGE IV PRN (13:40)
[2018-12-19] MEDS ORDERED: SODIUM CHLORIDE 0.9% 1,000 ML IV SCH (13:45)
--- NOTE | 2018-12-19 16:07 | CC ---
CARDIAC CATHETERIZATION REPORT Mr. Mejia is an 83-year-old male with known history of coronary artery disease status post multivessel coronary angioplasty in the past, history of chronic persistent atrial fibrillation who presented with symptoms of chest discomfort with no enzymatic changes. He was evaluated by Dr. Stanley Hall and recommendation made regarding cardiac catheterization. The procedures as well as risks and complications were discussed with the patient who is in full understanding and agreement. PROCEDURE: Patient was brought to pharmacy laboratory technician in a fasting semi-sedated state after receiving fentanyl and Benadryl and achieving moderate conscious sedated state. Using Xylocaine anesthesia and Seldinger technique, a 6-Bulgarian sheath was introduced in the right radial artery. Selective right and left coronary angiography was performed using 5- Bulgarian 3 and a half bend right Lena and a 4 bend left Lena catheter. Multiple views of the coronary artery including hemiaxial views obtained. Following that, angioplasty and stenting was performed. Following that, 5-Bulgarian tight pigtail catheter was introduced into the left ventricle and pressures were calculated. Following that, catheter and sheaths were removed. Hemostasis was obtained with deployment of a TR band. There was no immediate complication. Patient was returned to his room in stable condition. FINDINGS: LEFT MAIN: This is a large-sized vessel bifurcating into left circumflex, left anterior descending artery, left main coronary artery has no evidence of high-grade stenosis. LEFT ANTERIOR DESCENDING CORONARY ARTERY: Left anterior descending artery, this is a large-sized vessel reaching toward the apex with a wraparound apex segment, calcified in the mid segment. The left anterior descending artery gives rise to a proximal large diagonal branch. The stented segment and diagonal branch is patent with no evidence of high-grade restenosis. The mid LAD has a tubular 50-60 percent plaque that was noted in May of last year without progression of disease. LEFT CIRCUMFLEX: This is a nondominant vessel giving rise to 2 obtuse marginal branches of small to moderate caliber. Both obtuse marginal branches have diffuse intimal disease with area of stenosis up to 80% to 90% with no significant progression compared with the previous study. RIGHT CORONARY ARTERY : This is a large dominant vessel bifurcating distally into PDA and posterolateral segment and branches. The stented segment in the mid and distal right coronary artery are patent. The right PDA has a 99% stenosis. The PLV has diffuse intimal disease. LEFT VENTRICULOGRAM: The left ventriculogram was not performed. HEMODYNAMICS: There was no gradient across the aortic valve. The left ventricular end-diastolic pressure was 8-10 mmHg. CONCLUSION: 1. No evidence of restenosis at the stented segment of the diagonal branch and the right coronary artery. 2. Significant disease in the right PDA with some progression compared with the May of 2018. 3. Moderate disease in the mid LAD with no significant progression. 4. Significant disease in the small obtuse marginal branch. RECOMMENDATION: In view of the findings and the presentation, I have recommended proceeding with angioplasty and stenting of the right PDA. The procedure as well as risks and complications were discussed with the patient who is in full understanding and agreement. MMODL / IJN: [id number] /
--- NOTE | 2018-12-19 16:16 | PTCA ---
PERCUTANEOUSTRANS CORORONARY ANGIOGRAPHY Mr. Mejia is an 83-year-old male with known history of coronary artery disease and history of percutaneous revascularization who presented with symptoms of chest discomfort, underwent cardiac catheterization and was found to have critical stenosis involving the right PDA. Recommendation was made regarding angioplasty and stenting. The procedure, its risks and complication were discussed with the patient, who was in full understanding and agreement. PROCEDURE: A 6-Cypriot FR4 guiding catheter was introduced into the system. After cannulating the right coronary ostium a 0.014 balanced medium weight J-wire was advanced across the lesion, positioned distally. Following that, a 2.25 x 12 mm Trek balloon was advanced and one inflation at 8 atmospheres was done. Following that the balloon was removed and a 2.25 x 15 mm Xience [place] stent was advanced, deployed and post dilated at 14 atmospheres. After the last inflation, after appropriate wait, the balloon and the guidewire were withdrawn back into the guiding catheter. Images were obtained and repeated. Those images revealed stable successful stenting. At that point, the guiding catheter, the balloon and the guidewire were removed. Left ventricular end- diastolic pressure was measured. Following that, the sheath was removed. Hemostasis was obtained with deployment of a TR band. There was no immediate complication. Patient was returned to his room in stable condition. Of note, the patient had no chest discomfort or EKG changes with the inflations. He received Angiomax per protocol and was continued on clopidogrel. RESULTS: Successful stenting of the right PDA with reduction of stenosis from 99% to 0%. RECOMMENDATIONS: Patient will be continued on aspirin, Plavix and statin. Anticoagulation will be re- initiated because of his history of atrial fibrillation. Those findings and recommendations were discussed with the patient and his family, and they are in full understanding and agreement. Duration of procedure was 38 minutes. MMODL / IJN: [id number] /
[2018-12-19] MEDS: MULTIVITAMINS, THERA 1 EACH TAB PO SCH (16:53)
[2018-12-19] MEDS: LACTOBACILLUS ACIDOPH & BULGAR 1 EACH PACKET PO SCH (16:53)
[2018-12-19] MEDS ORDERED: WARFARIN 7.5 MG TAB PO SCH (18:00)
[2018-12-19] MEDS ORDERED: WARFARIN 5 MG TAB PO ONE (18:00)
[2018-12-19] MEDS: CLOPIDOGREL 75 MG TAB PO SCH (20:12)
[2018-12-19] MEDS: ATORVASTATIN 40 MG TAB PO SCH (20:12)
[2018-12-19] MEDS: CHOLECALCIFEROL 1,000 UNIT TAB PO SCH (20:12)
--- NOTE | 2018-12-19 23:40 | PN ---
PROGRESS NOTE CHIEF COMPLAINT: Re-evaluation. HISTORY OF PRESENT ILLNESS: This 83-year-old gentleman was admitted to the hospital yesterday with complaints of chest tightness. The patient's symptoms occurred while he was sleeping. The patient has negative troponins. He is seen by Cardiology. The patient does have an underlying history of previous stent placement. He also has chronic atrial fibrillation. The patient in view of his symptoms was taken in for cardiac cath. On catheterization was noted to have previous stents in adequate position and status and totally patent. He had a previous occlusion which has progressed. Patient's disease is in the right PDA and due to the progression compared with May of 2018, the patient had a stent placement. The patient is seen was seen preoperatively this morning and I again re- evaluated the patient this evening. He is doing well. Has had no further symptoms. REVIEW OF SYSTEMS: NEURO: Denies any headaches or dizziness. PSYCH: No anxiety. CARDIAC: No chest pain, angina, palpitations. RESPIRATORY: No shortness of breath or cough. GI: No nausea or vomiting. No abdominal pain, diarrhea. : No symptoms of dysuria or hematuria. EXTREMITIES: No pain. CONSTITUTIONAL: No fever or chills. PHYSICAL EXAMINATION: Pleasant gentleman in no distress. Vital signs reveal temperature 98.3, pulse 80, respirations 18, blood pressure 179/99 this morning. Later down to 149/72. HEENT: Normocephalic. NECK: No JVD. CHEST: Clear to auscultation and percussion. CARDIAC: Normal S1, S2 with no gallops. Irregularly, irregular rhythm. Systolic murmur 2/6 left sternal border. ABDOMEN: Soft. Bowel sounds present. EXTREMITIES: No no, no tenderness. NEUROLOGIC: Awake, alert, oriented with well-coordinated movements. LABORATORY ASSESSMENT: None new. Troponin was 0.012. ASSESSMENT: 1. Coronary artery disease, status post stent placement. 2. Chronic atrial fibrillation. 3. Hypertension. 4. Pulmonary nodules. PLAN: The patient is stable. Continue present medical regimen. The patient's condition is discussed with the patient. Prognosis is guarded. The patient is remaining stable, will be discharged home tomorrow. We will subsequently obtain a CT scan of the chest as an outpatient. MMODL / IJN: [id number] /
[2018-12-20 07:18] LABS: INR 1.3 (<1.2)
[2018-12-20 07:19] LABS: Prothrombin Time 13.6 sec (9.0-12.0)
[2018-12-20 07:27] LABS: Calcium 9.7 mg/dL (8.4-10.2); Potassium 3.4 mmol/L (3.5-5.1)
--- NOTE | 2018-12-20 07:50 | PN ---
PROGRESS NOTE Mr. Mejia is an 83-year-old male with known history of coronary artery disease, status post percutaneous revascularization who presented with chest discomfort with no enzymatic changes. Because of his symptoms and after evaluation by Dr. Hall, he underwent cardiac catheterization that revealed a significant disease in the right PDA, underwent stenting of that vessel. He is doing well this morning. Denying any chest pain. His breathing has been stable. He denies any dizziness or palpitation. He denies any nausea. He continued to be on amlodipine 10 mg daily, aspirin 81 mg daily, Lipitor 40 mg daily, Plavix 75 mg daily, Zestril 20 mg daily and Coumadin. PHYSICAL EXAMINATION: Blood pressure running in the 160s with the heart rate in the 60s. LUNGS: Clear. HEART: Irregular, irregular. S1, S2. No S3 with a systolic murmur. ABDOMEN: Soft, nontender. EXTREMITIES: No edema. Right radial pulse intact. LAB DATA: Lab data revealed a BUN and creatinine 22 and 1.13, potassium 3.4. INR 1.3. IMPRESSION: 1. Status post stenting of the right PDA. 2. Chronic persistent atrial fibrillation. 3. Hypertension. 4. Hyperlipidemia. RECOMMENDATION: Patient will be discharged home today. He will follow his blood pressure at home. His Coumadin will be continued. Depending on his progress, further recommendation will be made. MMODL / IJN: [id number] /
[2018-12-20 07:59] VITALS: BP 164/85; PULSE 70; RESP 20; TEMP 97.9
[2018-12-20] MEDS: LISINOPRIL 20 MG TAB PO SCH (08:11)
[2018-12-20] MEDS: PARoxetine 20 MG TAB PO SCH (08:11)
[2018-12-20] MEDS: MULTIVITAMINS, THERA 1 EACH TAB PO SCH (08:11)
[2018-12-20] MEDS ORDERED: ASPIRIN 81 MG PO SCH (09:00)
[2018-12-20] MEDS ORDERED: amLODIPine 10 MG TAB PO SCH (09:00)
== END 2018-12-20 09:08 | disposition home or self-care (01) ==
LOC: EC 08:50 → 1SOBS 11:06 → 3SCARD 12-19 13:53
PROVIDERS: ADMIT Internal Medicine; ATTEND Internal Medicine
DX: I25.10 Atherosclerotic heart disease of native coronary artery without angina pectoris (principal); I48.2 Chronic atrial fibrillation; R91.8 Other nonspecific abnormal finding of lung field; K21.9 Gastro-esophageal reflux disease without esophagitis; I45.10 Unspecified right bundle-branch block; D02.0 Carcinoma in situ of larynx; I12.9 Hypertensive chronic kidney disease with stage 1 through stage 4 chronic kidney disease, or unspecified chronic kidney disease; N18.3 Chronic kidney disease, stage 3 (moderate); I25.2 Old myocardial infarction; M19.90 Unspecified osteoarthritis, unspecified site; R79.1 Abnormal coagulation profile; E78.5 Hyperlipidemia, unspecified; F32.9 Major depressive disorder, single episode, unspecified; M19.042 Primary osteoarthritis, left hand; M19.041 Primary osteoarthritis, right hand; Z79.899 Other long term (current) drug therapy; Z79.02 Long term (current) use of antithrombotics/antiplatelets; Z79.01 Long term (current) use of anticoagulants; Z79.82 Long term (current) use of aspirin; Z85.038 Personal history of other malignant neoplasm of large intestine; Z92.3 Personal history of irradiation; Z85.819 Personal history of malignant neoplasm of unspecified site of lip, oral cavity, and pharynx; Z95.5 Presence of coronary angioplasty implant and graft; Z90.49 Acquired absence of other specified parts of digestive tract; Z87.891 Personal history of nicotine dependence; Z85.828 Personal history of other malignant neoplasm of skin; Z87.01 Personal history of pneumonia (recurrent); Z80.3 Family history of malignant neoplasm of breast; Z80.8 Family history of malignant neoplasm of other organs or systems; Z82.3 Family history of stroke; Z81.8 Family history of other mental and behavioral disorders; Z83.3 Family history of diabetes mellitus
CPT/HCPCS: 99285; 36415; 93005; 93458; 85347; 80061; 80053; 80048; 83735; 84484; 85025; 85610 ×2; 85730; 71046; G0378 ×3; C9600; C1887; C1894; C1725; C1769 ×2; C1874; J2001; J3010; J0583; Q9967 ×2

== ENCOUNTER → 2019-02-26 | Outpatient (CLI) | payer MEDICARE ==
--- NOTE | 2019-03-10 23:31 | ENG ---
ELECTRONYSTAGMOGRAM REPORT DATE OF SERVICE: 02/26/2019 REQUEST PHYSICIAN: Dr. Harshil Sanchez. VNG INDICATIONS: 83-year-old male with vertigo ongoing for about 1 year, gradual in onset, getting worse, lasting for 10-30 seconds at a time. Can be triggered by rolling over in bed, right or left, going from a lying to a seated position, looking up or head back position, moving the head. VIDEO ELECTRONYSTAGMOGRAPHIC REPORT: AGE: 83 VNG INDICATIONS: Vertigo. VNG FINDINGS: SPONTANEOUS NYSTAGMUS: @@ SACCADES: VNG findings shows impaired saccade and latencies and fair peak velocities in accuracies. GAZE TEST: Gaze with fixation shows no nystagmus in any of the directions of gaze including centrally with vision denied SINUSOIDAL TRACKING: Tracking shows no significant break-ups OKN TEST: Optokinetic nystagmus shows no significant asymmetry at faster stapes but shows more than 50% asymmetry is slower speeds. ISA-HALLPIKE TEST: POSITION TEST: Static position testing was limited due to back and neck problems. Four positions tested including seated, supine, head right and head left and no nystagmus was evoked. CALORIC TEST: Caloric testing shows a bilateral weak caloric response. IMPRESSION: This is a limited VNG, however abnormalities of saccades and optokinetic nystagmus or features favoring central nervous system dysfunction. There was bilateral caloric weakness. Another test such as the head thrust test or if available, active and passive rotation testing is required to confirm presence of bilateral vestibular dysfunction. Isa Hallpike maneuvers were not able to be performed or its variation due to back and neck pain. Could not exclude benign positional vertigo. MMODL / IJN: [id number] /
== END | disposition home or self-care (01) ==
LOC: NEUROMAIN 08:37
PROVIDERS: ATTEND Otolaryngology
DX: R94.121 Abnormal vestibular function study (principal); R42 Dizziness and giddiness
CPT/HCPCS: 92537; 92540

== ENCOUNTER → 2019-03-20 | Outpatient (CLI) | payer MEDICARE ==
--- NOTE | 2019-03-20 19:03 | CT ---
EXAMINATION TYPE: CT iac wo con DATE OF EXAM: 03/20/2019 COMPARISON: None HISTORY: Vertigo, tinnitus, hearing loss CT DLP: 150mGycm Automated exposure control for dose reduction was used. FINDINGS: The external auditory canals are patent bilaterally. Mastoid air cells show no evidence of abnormal opacification bilaterally. The middle ear ossicles are symmetric and unremarkable. There is no evidence of suspicious surrounding soft tissue density to suggest cholesteatoma. The scu sincere is preserved bilaterally. The cochlea and the semicircular canals are symmetric and unremarkable. Vestibular aqueduct and inte rnal carotid canal appear unremarkable. Temporomandibular joints are maintained bilaterally. Athero sclerotic change in the intracranial vasculature. IMPRESSION: No significant abnormality seen to account for patient's symptoms.
== END | disposition home or self-care (01) ==
LOC: RADCTMAIN 15:57
PROVIDERS: ATTEND Otolaryngology
DX: H93.19 Tinnitus, unspecified ear (principal); H91.90 Unspecified hearing loss, unspecified ear; R42 Dizziness and giddiness
CPT/HCPCS: 70480

== ENCOUNTER → 2019-07-21 | Outpatient (CLI) | payer MEDICARE ==
[2019-07-21 16:22] LABS: African American GFR (CKD) 48.2 (60.0-200.0); Albumin 4.9 g/dL (3.80-4.90); Albumin/Globulin Ratio 1.88 (1.60-3.17); Anion Gap 8.7 mmol/L (4.00-12.00); BUN/Creat Ratio 19.33 Ratio (12.00-20.00); Calcium 10.3 mg/dL (8.7-10.3); Carbon Dioxide 30.3 mmol/L (21.6-31.8); Chol/HDL Ratio 3.46; Globulin 2.6 g/dL (1.6-3.3); LDL Cholesterol,Calculated 56.6 mg/dL (0.0-131.0); Potassium 4.8 mmol/L (3.5-5.5); Total Bilirubin 0.8 mg/dL (0.3-1.2); Total Protein 7.5 g/dL (6.2-8.2); VLDL Calculation 39.4 mg/dL (5.00-40.00)
== END | disposition home or self-care (01) ==
LOC: LABWHC1 08:22
PROVIDERS: ATTEND Internal Medicine Interventional Cardiology
DX: E78.2 Mixed hyperlipidemia (principal); I48.19 Other persistent atrial fibrillation
CPT/HCPCS: 36415; 80053; 80061

== ENCOUNTER 2019-09-12 22:37 | Observation (INO) | payer MEDICARE ==
--- NOTE | 2019-09-12 23:01 | ED ---
Chest Pain HPI - General Chief Complaint: Chest Pain Stated Complaint: chest pain Time Seen by Provider: 09/12/19 22:43 Source: patient, RN notes reviewed, old records reviewed Mode of arrival: ambulatory Limitations: no limitations - History of Present Illness Initial Comments: this is an 84-year-old male date ER for evaluation patient rested for evaluation regards chest pain. Patient is along come. Chest and heart history multiple stents placed 3 within the last year. Current heaviness across the anterior aspect of his chest prior to arrival been episodic felt today he has not taken nitro. No history of angina despite prior history of heart attack. Patient was able to do his normal workout today normal activity level. No sweating or shor tness of breath currently. Patient denying that this feels his prior heart attacks but with his history of heart disease very concerned for heart disease. Currently the chest pain does seem to be eased up MD Complaint: chest pain -: hour(s) Onset: during rest Pain Location: substernal, left chest Pain Radiation: none Severity: moderate Severity scale (1-10): 4 Quality: heaviness Consistency: constant, intermittent Improves With: nothing Worsens With: nothing Anginal Symptoms: dyspnea Other Symptoms: cough, palpitations Treatments Prior to Arrival: none - Related Data Home Medications Medication Instructions Recorded Confirmed PARoxetine [Paxil] 30 mg PO DAILY 03/13/14 09/13/19 Warfarin [Coumadin] 5 mg PO SUWE 03/13/14 09/13/19 Warfarin [Coumadin] 7.5 mg PO MOTUTHSA 03/13/14 09/13/19 Multivitamins, Thera [Multivitamin 1 tab PO DAILY 01/14/15 09/13/19 (formulary)] Cholecalciferol [Vitamin D3 (25 5,000 unit PO AC-SUPPER 05/29/18 09/13/19 Mcg = 1000 Iu)] ALPRAZolam [Xanax] 0.5 mg PO BID PRN 12/18/18 09/13/19 Atorvastatin [Lipitor] 40 mg PO HS 12/18/18 09/13/19 Clopidogrel [Plavix] 75 mg PO HS 12/18/18 09/13/19 L.acidoph,Paracasei, B.lactis 1 cap PO W/SUPPER 12/18/18 09/13/19 [Probiotic] Meclizine [Antivert] 12.5 - 25 mg PO QID PRN 12/18/18 09/13/19 Triamterene-Hctz 37.5-25Mg 1 tab PO DAILY 09/13/19 09/13/19 [Maxzide 37.5-25] amLODIPine BESYLATE/BENAZEPRIL 1 cap PO DAILY 09/13/19 09/13/19 [Lotrel 10-20 MG] Previous Rx's Medication Instructions Recorded Metoprolol Tartrate [Lopressor] 25 mg PO BID #60 tab 09/13/19 Allergies Allergy/AdvReac Type Severity Reaction Status Date / Time No Known Allergies Allergy Verified 09/13/19 08:17 Review of Systems ROS Statement: Those systems with pertinent positive or pertinent negative responses have been documented in the HPI. ROS Other: All systems not noted in ROS Statement are negative. EKG Findings - EKG Comments: EKG Findings:: EKG shows A. fib of 66, QRS 162, QTc 478 Past Medical History Past Medical History: Coronary Artery Disease (CAD), Cancer, Chest Pain / Angina, GERD/Reflux, Hyperlipidemia, Hypertension, Myocardial Infarction ([place]), Osteoarthritis (OA), Pneumonia, Skin Disorder Additional Past Medical History / Comment(s): Colon cancer with resection, laryngeal cancer with radiation/suspension microlarygoscopy, colon and throat polyps, postitive stool for C-Diff/Lactoferrin 11/12/18, skin cancer with removal, equilibrium problems, arthritis hands and legs, seasonal allergies. Last Myocardial Infarction Date:: 1994 History of Any Multi-Drug Resistant Organisms: None Reported Past Surgical History: Appendectomy, Bowel Resection, Heart Catheterization, Heart Catheterization With Stent, Orthopedic Surgery Additional Past Surgical History / Comment(s): PCI with at total of 3 stents with last one placed 05/31/19, PTCA, EGD, colonoscopies, bowel resection-8 inches removed, suspension microlarygoscopy for laryngeal lesion, skin cancer removals, R knee arthroscopy, R rotator cuff repair, bilateral cataract remov als/lens implants. Past Anesthesia/Blood Transfusion Reactions: No Reported Reaction Date of Last Stent Placement:: 05/31/18 Past Psychological History: Depression Smoking Status: Former smoker Past Alcohol Use History: Occasional Past Drug Use History: None Reported - Past Family History Mother Family Medical History: Diabetes Mellitus Additional Family Medical History / Comment(s): Mother lived to be 78yrs old. Father Family Medical History: Myocardial Infarction ([place]) Additional Family Medical History / Comment(s): FATHER @ AGE 46 WITH [place] Sister(s) Family Medical History: Cancer Additional Family Medical History / Comment(s): BREAST & BONE CA General Exam Limitations: no limitations General appearance: alert, in no apparent distress Head exam: Present: atraumatic, normocephalic, normal inspection Eye exam: Present: normal appearance, PERRL, EOMI. Absent: scleral icterus, conjunctival injection, periorbital swelling ENT exam: Present: normal exam, mucous membranes moist Neck exam: Present: normal inspection. Absent: tenderness, meningismus, lymphadenopathy Respiratory exam: Present: normal lung sounds bilaterally. Absent: respiratory distress, wheezes, rales, rhonchi, stridor Cardiovascular Exam: Present: regular rate, normal rhythm, normal heart sounds. Absent: systolic murmur, diastolic murmur, rubs, gallop, clicks GI/Abdominal exam: Present: soft, normal bowel sounds. Absent: distended, tenderness, guarding, rebound, rigid Extremities exam: Present: normal inspection, full ROM, normal capillary refill. Absent: tenderness, pedal edema, joint swelling, calf tenderness Back exam: Present: normal inspection Neurological exam: Present: alert, oriented X3, CN II-XII intact Psychiatric exam: Present: normal affect, normal mood Skin exam: Present: warm, dry, intact, normal color. Absent: rash Course Vital Signs 09/12/19 09/13/19 22:39 00:00 Temperature 98.5 F Pulse Rate 73 64 Respiratory 16 18 Rate Blood Pressure 174/70 148/85 O2 Sat by Pulse 97 100 Oximetry - Reevaluation(s) Reevaluation #1: 09/13/19 00:11 records reviewed including significant history of heart disease Reevaluation #2: 09/13/19 00:11 patient with episodic chest pain although much improved prior to ER visit - Consultations Consultation #1: with found doctor, Dr. Acevedo for admission is agreeable Chest Pain MDM - MDM 84 male to the ER who presented for chest pain, will look for chest pain observation telemetry cardiology consult management Critical Care Time Critical Care Time: Yes Total Critical Care Time: 31 Disposition Clinical Impression: Chest pain Disposition: ADMITTED IP TO THIS HOSP Condition: Stable Is patient prescribed a controlled substance at d/c from ED?: No
[2019-09-12 23:41] LABS: Basophils % (A) 1 %; Eosinophils # (A) 0.1 k/uL (0-0.7); Eosinophils % (A) 2 %; HCT 41.2 % (39.0-53.0); HGB 13.1 gm/dL (13.0-17.5); Lymphocytes # (A) 1.7 k/uL (1.0-4.8); Lymphocytes % (A) 25 %; MCH 29.7 pg (25.0-35.0); MCHC 31.8 g/dL (31.0-37.0); MCV 93.4 fL (80.0-100.0); Mean Platelet Volume 8.3; Monocytes # (A) 0.5 k/uL (0-1.0); Monocytes % (A) 8 %; Neutrophils # (A) 4.2 k/uL (1.3-7.7); Neutrophils % (A) 62 %; Platelet Count 245 k/uL (150-450); RBC 4.42 m/uL (4.30-5.90); RDW 14.4 % (11.5-15.5); WBC 6.8 k/uL (3.8-10.6)
[2019-09-12] MEDS ORDERED: ASPIRIN 81 MG PO STA (23:43)
[2019-09-12] MEDS ORDERED: NITROGLYCERIN SL TABS 0.4 MG TAB SUBLINGUAL PRN (23:43)
--- NOTE | 2019-09-12 23:50 | XR ---
EXAMINATION TYPE: XR chest 2V DATE OF EXAM: 09/12/2019 COMPARISON: 12/18/2018 HISTORY: Chest pain TECHNIQUE: 2 views FINDINGS: There are numerous nodules in both lungs. These measure up to 2 cm. There is no heart failu re. There is no pleural effusion. There are chest leads. Bony thorax is intact. IMPRESSION: Numerous pulmonary nodules increased in size compared to last exam. This could relate to metastatic disease. No heart failure seen.
[2019-09-13 00:05] LABS: Albumin 4.6 g/dL (3.5-5.0); Calcium 10.3 mg/dL (8.4-10.2); Magnesium 2.1 mg/dL (1.6-2.3); Potassium 3.8 mmol/L (3.5-5.1); Total Bilirubin 0.6 mg/dL (0.2-1.3); Total Protein 7.8 g/dL (6.3-8.2)
[2019-09-13 00:30] LABS: INR 2.7 (<1.2); Partial Thromboplastin Time 34.2 sec (22.0-30.0); Prothrombin Time 25.9 sec (9.0-12.0)
[2019-09-13] MEDS ORDERED: RX INFO: IV CONTRAST WAS GIVEN 1 EACH MISC MISCELLANE PRN (00:55)
--- NOTE | 2019-09-13 01:09 | P.HPIM ---
History of Present Illness H&P Date: 09/13/19 The patient is an 84 yo M with a PMH of CAD s/p multiple stents, paroxysmal Afib (on Coumadin), HTN, HLD, colon ca s/p resection (2000), and laryngeal ca s/p resection (2013) presented to the ED with complaints of chest pain. The patient notes that when he woke up this morning, he noticed a pressure like discomfort in the sternal region, lasting only a few seconds, with radiation to his L chest, with no associated SOB, palpitations, nausea, vomiting, diaphoresis, or dizziness. The pain was non-exertional. It occurred 3-4x throughout the day, which prompted the patient to come to the ED. He notes that each time, he was not exerting himself, the pain would last only a few seconds, and resolve spontaneously. The patient denied fever, chills, cough, LE pain, or recent travel. At time of the interview, he reported no complaints and states he feels back to his baseline. He underwent an extensive evaluation in the ED w/ CXR showing multiple nodularities suspicious for metastatic disease. EKG revealed Afib @ 66 bpm w/ RBBB. Laboratory evaluation revealed a Troponin of < 0.012, BNP of 872, WBC 6.8, Hgb 13.1, plt 245, Na 143, K 3.8, BUN 30, and Cr 1.39. The patient is being admitted to the medicine service for further management of chest discomfort. Review of Systems Pertinent positives and negatives as discussed in HPI, a complete review of systems was performed and all other systems are negative. Past Medical History Past Medical History: Coronary Artery Disease (CAD), Cancer, GERD/Reflux, Hyperlipidemia, Hypertension, Myocardial Infarction ([place]), Osteoarthritis (OA), Skin Disorder Additional Past Medical History / Comment(s): Colon cancer with resection, laryngeal cancer with radiation/suspension microlarygoscopy, colon and throat polyps, postitive stool for C-Diff/Lactoferrin 11/12/18, equilibrium problems, arthritis hands and legs, seasonal allergies. Last Myocardial Infarction Date:: 1994 History of Any Multi-Drug Resistant Organisms: None Reported Past Surgical History: Appendectomy, Bowel Resection, Heart Catheterization, Heart Catheterization With Stent, Orthopedic Surgery Additional Past Surgical History / Comment(s): PCI with at total of 3 stents with last one placed 05/31/19, PTCA, EGD, colonoscopies, bowel resection-8 inches removed, suspension microlarygoscopy for laryngeal lesion, skin cancer removals, R knee arthroscopy, R rotator cuff repair, bilateral cataract removals/lens implants. Past Anesthesia/Blood Transfusion Reactions: No Reported Reaction Date of Last Stent Placement:: 05/31/18 Past Psychological History: Depression Smoking Status: Former smoker Past Alcohol Use History: Occasional Past Drug Use History: None Reported - Past Family History Mother Family Medical History: Diabetes Mellitus Additional Family Medical History / Comment(s): Mother lived to be 78yrs old. Father Family Medical History: Myocardial Infarction ([place]) Additional Family Medical History / Comment(s): FATHER @ AGE 46 WITH [place] Sister(s) Family Medical History: Cancer Additional Family Medical History / Comment(s): BREAST & BONE CA Medications and Allergies Home Medications Medication Instructions Recorded Confirmed Type PARoxetine [Paxil] 20 mg PO DAILY 03/13/14 12/18/18 History Warfarin [Coumadin] 5 mg PO SUTUWEFRSA 03/13/14 12/18/18 History Warfarin [Coumadin] 7.5 mg PO MOTH 03/13/14 12/18/18 History Multivitamins, Thera [Multivitamin 1 tab PO DAILY 01/14/15 12/18/18 History (formulary)] Cholecalciferol [Vitamin D3 (25 5,000 unit PO HS 05/29/18 12/18/18 History Mcg = 1000 Iu)] amLODIPine BESYLATE/BENAZEPRIL 1 cap PO DAILY 05/29/18 12/18/18 History [Lotrel 5-20 MG] Nitroglycerin Sl Tabs [Nitrostat] 0.4 mg SUBLINGUAL Q5M PRN #25 tab 06/01/18 12/18/18 Rx ALPRAZolam [Xanax] 0.5 mg PO BID PRN 12/18/18 12/18/18 History Atorvastatin [Lipitor] 40 mg PO HS 12/18/18 12/18/18 History Clopidogrel [Plavix] 75 mg PO HS 12/18/18 12/18/18 History L.acidoph,Paracasei, B.lactis 1 cap PO W/SUPPER 12/18/18 12/18/18 History [Probiotic] Meclizine [Antivert] 12.5 - 25 mg PO QID PRN 12/18/18 12/18/18 History Aspirin 81 mg PO DAILY chew 12/20/18 Rx Nitroglycerin Sl Tabs [Nitrostat] 0.4 mg SUBLINGUAL Q5M PRN tab 12/20/18 Rx amLODIPine [Norvasc] 5 mg PO DAILY #30 tab 12/20/18 Rx Allergies Allergy/AdvReac Type Severity Reaction Status Date / Time No Known Allergies Allergy Verified 09/12/19 22:41 Physical Exam Vitals: Vital Signs Temp Pulse Resp BP Pulse Ox 09/13/19 00:00 64 18 148/85 100 09/12/19 22:39 98.5 F 73 16 174/70 97 Intake and Output 09/12/19 09/12/19 09/13/19 14:59 22:59 06:59 Other: Weight 106.594 kg General: non toxic, no distress, appears at stated age, normal weight Derm: no unusual rashes/lesions no unusual ecchymoses, warm, dry Head: atraumatic, normocephalic, symmetric Eyes: EOMI, no lid lag, anicteric sclera, pupils equal round reactive to light ENT: Nose and ears atraumatic, no thrush, no pharyngeal erythema Neck: No thyromegaly, no cervical lymphadenopathy, trachea midline, supple Mouth: no lip lesion, mucus membranes moist Cardiovascular: S1S2 reg, no chest wall tenderness, no murmur, positive posterior tibial pulse bilateral, 1+ krista LE edema, capillary refill less than 2 seconds Lungs: CTA bilateral, no rhonchi, no rales , no accessory muscle use Abdominal: soft, nontender to palpation, no guarding, no appreciable organomegaly, normal bowel sounds Ext: no gross muscle atrophy, muscle strength 5 out of 5 in all 4 extremities grossly, no contractures, Neuro: CN II-XI grossly intact, light touch intact all 4 extremities, finger to nose within normal limits, Psych: Alert, oriented, appropriate affect Results CBC & Chem 7: 09/12/19 22:50 09/12/19 22:50 Labs: Abnormal Lab Results - Last 24 Hours (Table) 09/12/19 09/12/19 Range/Units 22:50 22:50 PT 25.9 H (9.0-12.0) sec INR 2.7 H (<1.2) APTT 34.2 H (22.0-30.0) sec BUN 30 H (9-20) mg/dL Creatinine 1.39 H (0.66-1.25) mg/dL Glucose 124 H (74-99) mg/dL Calcium 10.3 H (8.4-10.2) mg/dL Assessment and Plan Plan: Chest pain, r/o ACS -Cardiology consult -Cardiac monitoring -Continue with aspirin -Trend troponin -Supplemental oxygen Nodularities on CXR -CT scan w/ contrast ordered to further evaluate -Patient agreed to CT scan Chronic conditions: HTN, HLD, Paroxysmal Afib -C/w home meds DVT prophylaxis -Coumadin The patient is admitted with an anticipated less than 2 midnight stay for evaluation of chest pain CODE STATUS: Full Code Discussed with: Patient, Anticipated discharge date: 1-[address]: Home A total of 35 minutes was spent on the care of this complex patient more than 50% of the time was spent in counseling and care coordination.
--- NOTE | 2019-09-13 01:36 | CT ---
EXAMINATION TYPE: CT chest w con DATE OF EXAM: 09/13/2019 COMPARISON: Chest x-ray today HISTORY: evaluate lung nodule CT DLP: 547.8 mGycm Automated exposure control for dose reduction was used. CONTRAST: Performed with IV Contrast, patient injected with 80 mL of Isovue 300. Multiple axial sections were obtained from the thoracic inlet to the diaphragm with intravenous contr ast. There are numerous pulmonary nodules bilaterally. These measure up to 18 mm. Most of the nodules cont ain calcification. There is no mediastinal adenopathy. Thoracic aorta is intact. There is no aneurysm or dissection. The re are a few bronchial lymph nodes that measure up to 1 cm. There is no pleural effusion. There is so me cavitation of the left lower lobe nodule that measures 2.1 cm. This also contains calcium. There is spurring in the thoracic spine. There is no compression fracture. I see no bony destructive process. There is small calcified gallstone. Bile ducts are not dilated. Heart is slightly enlarged. IMPRESSION: Numerous bilateral pulmonary nodules mostly contain calcium and are most consistent with granulomatou s disease. Some of the nodules show minimal cavitation. I have a low suspicion of malignancy.
[2019-09-13 06:56] LABS: Cholesterol 105 mg/dL (<200); HDL Cholesterol 39 mg/dL (40-60); LDL Cholesterol,Calculated 49 mg/dL (0-99); Triglycerides 83 mg/dL (<150)
[2019-09-13 07:24] VITALS: RESP 18
[2019-09-13] MEDS ORDERED: ALPRAZolam 0.5 MG TAB PO PRN (08:52)
[2019-09-13] MEDS ORDERED: TRIAMTERENE-HCTZ 37.5-25MG 1 EACH TAB PO SCH (09:00)
[2019-09-13] MEDS ORDERED: ASPIRIN 325 MG TAB PO SCH (09:00)
[2019-09-13] MEDS ORDERED: amLODIPine 10 MG TAB PO SCH (09:00)
[2019-09-13] MEDS ORDERED: PARoxetine 10 MG TAB PO SCH (09:00)
[2019-09-13] MEDS ORDERED: LISINOPRIL 20 MG TAB PO SCH (09:00)
[2019-09-13] MEDS ORDERED: METOPROLOL TARTRATE 25 MG TAB PO SCH (09:00)
[2019-09-13] MEDS ORDERED: SODIUM CHLORIDE 0.9% 1,000 ML IV ONE (11:18)
[2019-09-13 11:25] VITALS: BP 171/90; PULSE 55; TEMP 97.3
--- NOTE | 2019-09-13 11:36 | P.CRDCN ---
History of Present Illness Consult date: 09/13/19 Chief complaint: Chest tightness History of present illness: This is a very pleasant 84-year-old gentleman who sees Dr. Mckeon in the office on a regular basis with a past medical history significant for coronary artery disease and prior angioplasty and stenting, long-standing persistent atrial fibrillation on oral anticoagulation was Coumadin, hypertension, and dyslipidemia, presented to the hospital because he was having chest pain as well as shortness of breath. The patient was admitted to the hospital back in November 2018 with symptoms suggestive of unstable angina and at that point he underwent heart catheterization which revealed critical disease involving the RCA. He underwent successful stenting of the RCA. He has done well since then until yesterday when he woke up in the morning complaining of chest discomfort, in the mid of the chest, without any radiation and without any associated symptoms. The discomfort lasted for about 15 minutes and it has resolved after that. Subsequently he went to the gym and started walking and he did not have any symptoms of chest pain or chest discomfort. His was quite concerned about him and she asked her to come to the hospital. The EKG showed atrial fibrillation with no significant ST or T-wave abnormalities suggestive of ischemia. 3 sets of cardiac enzymes were checked and came in to be unremarkable. The rest of the blood work came in to be unremarkable. The INR yesterday was 2.4. The patient continues to be stable and continues to be chest pain-free since he was admitted to the hospital. The patient was seen today, Sunday, September 13. I did advise the patient to get up and around. If he is asymptomatic, he might be able to be discharged home. He was started in the hospital on metoprolol. Past Medical History Past Medical History: Coronary Artery Disease (CAD), Cancer, GERD/Reflux, Hyperlipidemia, Hypertension, Myocardial Infarction (NM), Osteoarthritis (OA), Skin Disorder Additional Past Medical History / Comment(s): Colon cancer with resection, laryngeal cancer with radiation/suspension microlarygoscopy, colon and throat polyps, postitive stool for C-Diff/Lactoferrin 11/12/18, equilibrium problems, arthritis hands and legs, seasonal allergies. Last Myocardial Infarction Date:: 1994 History of Any Multi-Drug Resistant Organisms: None Reported Date of last positivie culture/infection: 11/12/2018 MDRO Source:: stool Past Surgical History: Appendectomy, Bowel Resection, Heart Catheterization, Heart Catheterization With Stent, Orthopedic Surgery Additional Past Surgical History / Comment(s): PCI with at total of 3 stents wit h last one placed 05/31/19, PTCA, EGD, colonoscopies, bowel resection-8 inches removed, suspension microlarygoscopy for laryngeal lesion, skin cancer removals, R knee arthroscopy, R rotator cuff repair, bilateral cataract removals/lens implants. Past Anesthesia/Blood Transfusion Reactions: No Reported Reaction Date of Last Stent Placement:: 05/31/18 Past Psychological History: Depression Smoking Status: Former smoker Past Alcohol Use History: Occasional Past Drug Use History: None Reported - Past Family History Mother Family Medical History: Diabetes Mellitus Additional Family Medical History / Comment(s): Mother lived to be 78yrs old. Father Family Medical History: Myocardial Infarction (NM) Additional Family Medical History / Comment(s): FATHER @ AGE 46 WITH NM Sister(s) Family Medical History: Cancer Additional Family Medical History / Comment(s): BREAST & BONE CA Medications and Allergies Home Medications Medication Instructions Recorded Confirmed Type PARoxetine [Paxil] 30 mg PO DAILY 03/13/14 09/13/19 History Warfarin [Coumadin] 5 mg PO SUWE 03/13/14 09/13/19 History Warfarin [Coumadin] 7.5 mg PO MOTUTHSA 03/13/14 09/13/19 History Multivitamins, Thera [Multivitamin 1 tab PO DAILY 01/14/15 09/13/19 History (formulary)] Cholecalciferol [Vitamin D3 (25 5,000 unit PO AC-SUPPER 05/29/18 09/13/19 History Mcg = 1000 Iu)] ALPRAZolam [Xanax] 0.5 mg PO BID PRN 12/18/18 09/13/19 History Atorvastatin [Lipitor] 40 mg PO HS 12/18/18 09/13/19 History Clopidogrel [Plavix] 75 mg PO HS 12/18/18 09/13/19 History L.acidoph,Paracasei, B.lactis 1 cap PO W/SUPPER 12/18/18 09/13/19 History [Probiotic] Meclizine [Antivert] 12.5 - 25 mg PO QID PRN 12/18/18 09/13/19 History Triamterene-Hctz 37.5-25Mg 1 tab PO DAILY 09/13/19 09/13/19 History [Maxzide 37.5-25] amLODIPine BESYLATE/BENAZEPRIL 1 cap PO DAILY 09/13/19 09/13/19 History [Lotrel 10-20 MG] Allergies Allergy/AdvReac Type Severity Reaction Status Date / Time No Known Allergies Allergy Verified 09/13/19 08:17 Physical Exam Vitals: Vital Signs Temp Pulse Pulse Pulse Resp BP BP 09/13/19 11:24 97.3 F L 55 L 18 09/13/19 07:05 98.1 F 67 18 174/66 09/13/19 04:56 98.1 F 60 17 133/64 09/13/19 01:33 98.0 F 67 16 162/74 09/13/19 00:00 64 18 148/85 09/12/19 22:39 98.5 F 73 16 174/70 BP Pulse Ox 09/13/19 11:24 171/90 98 09/13/19 07:05 95 09/13/19 04:56 97 09/13/19 01:33 98 09/13/19 00:00 100 09/12/19 22:39 97 Intake and Output 09/12/19 09/13/19 09/13/19 22:59 06:59 14:59 Intake Total 0 Balance 0 Intake: Oral 0 Other: Voiding Method Toilet # Voids 1 Weight 106.594 kg 106.594 kg - Constitutional General appearance: no acute distress - Respiratory Respiratory: bilateral: CTA - Cardiovascular Rhythm: irregularly irregular Heart sounds: normal: S1, S2 Abnormal Heart Sounds: systolic murmur Results 09/12/19 22:50 09/12/19 22:50 Cardiac Enzymes 09/12/19 09/12/19 09/13/19 Range/Units 22:50 22:50 05:37 AST 25 (17-59) U/L Troponin I <0.012 <0.012 (0.000-0.034) ng/mL 09/13/19 Range/Units 10:29 AST (17-59) U/L Troponin I <0.012 (0.000-0.034) ng/mL Coagulation 09/12/19 Range/Units 22:50 PT 25.9 H (9.0-12.0) sec APTT 34.2 H (22.0-30.0) sec Lipids 09/13/19 Range/Units 05:37 Triglycerides 83 (<150) mg/dL Cholesterol 105 (<200) mg/dL HDL Cholesterol 39 L (40-60) mg/dL CBC 09/12/19 Range/Units 22:50 WBC 6.8 (3.8-10.6) k/uL RBC 4.42 (4.30-5.90) m/uL Hgb 13.1 (13.0-17.5) gm/dL Hct 41.2 (39.0-53.0) % Plt Count 245 (150-450) k/uL Comprehensive Metabolic Panel 09/12/19 Range/Units 22:50 Sodium 143 (137-145) mmol/L Potassium 3.8 (3.5-5.1) mmol/L Chloride 105 (98-107) mmol/L Carbon Dioxide 27 (22-30) mmol/L BUN 30 H (9-20) mg/dL Creatinine 1.39 H (0.66-1.25) mg/dL Glucose 124 H (74-99) mg/dL Calcium 10.3 H (8.4-10.2) mg/dL AST 25 (17-59) U/L ALT 22 (4-49) U/L Alkaline Phosphatase 113 (38-126) U/L Total Protein 7.8 (6.3-8.2) g/dL Albumin 4.6 (3.5-5.0) g/dL Current Medications Generic Name Dose Route Start Last Admin Trade Name Freq PRN Reason Stop Dose Admin Alprazolam 0.5 mg 09/13/19 08:52 Xanax PO BID PRN Anxiety Amlodipine Besylate 10 mg 09/13/19 09:00 09/13/19 10:42 Norvasc PO 10 mg DAILY TASHA Administration Aspirin 325 mg 09/13/19 09:00 09/13/19 10:41 Aspirin PO 325 mg DAILY TASHA Administration Atorvastatin Calcium 40 mg 09/13/19 21:00 Lipitor PO HS TASHA Clopidogrel Bisulfate 75 mg 09/13/19 21:00 Plavix PO HS TASHA Sodium Chloride 1,000 mls @ 999 mls/hr 09/13/19 11:18 Saline 0.9% IV 09/13/19 12:18 .Q1H1M ONE Lisinopril 20 mg 09/13/19 09:00 09/13/19 10:41 Zestril PO 20 mg DAILY TASHA Administration Metoprolol Tartrate 25 mg 09/13/19 09:00 09/13/19 10:40 Lopressor PO 25 mg BID TASHA Administration Miscellaneous Information 1 each 09/13/19 00:55 Rx Info: Iv Contrast Was Given MISCELLANE 09/15/19 00:56 DAILY PRN Per Protocol Nitroglycerin 0.4 mg 09/12/19 23:43 Nitrostat SUBLINGUAL Q5M PRN Chest Pain Paroxetine HCl 30 mg 09/13/19 09:00 09/13/19 10:41 Paxil PO 30 mg DAILY TASHA Administration Triamterene/HCTZ 1 each 09/13/19 09:00 09/13/19 10:40 Maxzide-25 PO 1 each DAILY TASHA Administration Warfarin Sodium 5 mg 09/14/19 18:00 Coumadin PO [id number]@1800 TASHA Warfarin Sodium 7.5 mg 09/13/19 18:00 Coumadin PO [id number]@1800 [facility] Intake and Output 09/12/19 09/13/19 09/13/19 22:59 06:59 14:59 Intake Total 0 Balance 0 Intake: Oral 0 Other: Voiding Method Toilet # Voids 1 Weight 106.594 kg 106.594 kg 09/12/19 22:50 09/12/19 22:50 Assessment and Plan Assessment: Assessment #1 intermittent episodes of chest discomfort #2 known CAD and prior angioplasty and stenting #3 long-standing persistent atrial fibrillation #4 multiple risk factors including hypertension and dyslipidemia graft Plan #1 acute coronary event was ruled out #2 the patient was started on metoprolol #3 continue the current medical regimen #4 get the patient up and around and if he is asymptomatic he might be to be discharged home #5 if the patient develop any symptoms with exertion I would consider proceeding was coronary angiogram Thank you for allowing us participate in his care
--- NOTE | 2019-09-13 13:47 | P.DS ---
Providers Date of admission: 09/12/19 23:44 Expected date of discharge: 09/13/19 Attending physician: Crow Calderon MD Consults: 09/12/19 23:44 Consult Physician Urgent Consulting Provider: Pradip Mcekon Consult Reason/Comments: cp Do you want consulting provider notified?: Yes Primary care physician: [facility] Course: The patient is an 84 yo M with a PMH of CAD s/p multiple stents, paroxysmal Afib (on Coumadin), HTN, HLD, colon ca s/p resection (2000), and laryngeal ca s/p resection (2013) presented to the ED with complaints of chest pain. The patient notes that when he woke up this morning, he noticed a pressure like discomfort in the sternal region, lasting only a few seconds, with radiation to his L chest, with no associated SOB, palpitations, nausea, vomiting, diaphoresis, or dizziness. The pain was non-exertional. It occurred 3-4x throughout the day, which prompted the patient to come to the ED. He notes that each time, he was not exerting himself, the pain would last only a few seconds, and resolve spontaneously. The patient denied fever, chills, cough, LE pain, or recent travel. At time of the interview, he reported no complaints and states he feels back to his baseline. He underwent an extensive evaluation in the ED w/ CXR showing multiple nodularities suspicious for metastatic disease. EKG revealed Afib @ 66 bpm w/ RBBB. Laboratory evaluation revealed a Troponin of < 0.012, BNP of 872, WBC 6.8, Hgb 13.1, plt 245, Na 143, K 3.8, BUN 30, and Cr 1.39. The patient is being admitted to the medicine service for further management of chest discomfort. With regard to his chest pain, troponins was less than 0.012 3 with EKG showing atrial fibrillation RBBB. Acute coronary syndrome was ruled out. Chest x-ray showed numerous pulmonary nodules and there are some concerns of cancer. CT chest was performed showed bilateral pulmonary nodules most consistent with granulomatous disease. Patient was advised to follow-up with his PCP for repeat computed tomography scan in a year. Cardiology evaluated the patient for chest pain and recommended outpatient follow-up. Patient was seen and examined. No acute events overnight. Patient was completely resolution of his chest pain. He denies shortness of breath or palpitations. No nausea or vomiting. No fever or chills. Patient is in no acute distress. assessment and plan Chest pain, rule out acute coronary syndrome with CAD and history of stent placement Nodularities on chest x-ray Acute kidney injury Chronic conditions: Hypertension, dyslipidemia, paroxysmal A. fib Acute coronary syndrome has been ruled out. Troponins have been negative 3 with EKG showing atrial fibrillation and RBBB. Patient has been evaluated by cardiology and cleared for discharge. He will need adequate follow-up with PCP and cardiology in the outpatient setting. Chest CT shows granulomatous disease. Low concerns for malignancy. He will need follow-up in the outpatient setting with his PCP for repeat CT chest in one year. [I would typically like the patient to stay overnight for IV hydration and to repeat BMP to check creatinine tomorrow morning.but patient is adamant about leaving. I will encourage hydration by mouth. Repeat BMP in 3 days. Follow-up results with PCP.] Pertinent Studies: chest x-ray, chest CT Patient Condition at Discharge: Stable Plan - Discharge Summary Discharge Rx Participant: No New Discharge Prescriptions: New Metoprolol Tartrate [Lopressor] 25 mg PO BID #60 tab Continue Warfarin [Coumadin] 7.5 mg PO MOTUTHSA Warfarin [Coumadin] 5 mg PO SUWE PARoxetine [Paxil] 30 mg PO DAILY Multivitamins, Thera [Multivitamin (formulary)] 1 tab PO DAILY Cholecalciferol [Vitamin D3 (25 Mcg = 1000 Iu)] 5,000 unit PO AC-SUPPER Meclizine [Antivert] 12.5 - 25 mg PO QID PRN PRN Reason: Vertigo L.acidoph,Paracasei, B.lactis [Probiotic] 1 cap PO W/SUPPER ALPRAZolam [Xanax] 0.5 mg PO BID PRN PRN Reason: Anxiety Clopidogrel [Plavix] 75 mg PO HS Atorvastatin [Lipitor] 40 mg PO HS Triamterene-Hctz 37.5-25Mg [Maxzide 37.5-25] 1 tab PO DAILY amLODIPine BESYLATE/BENAZEPRIL [Lotrel 10-20 MG] 1 cap PO DAILY Discharge Medication List PARoxetine [Paxil] 30 mg PO DAILY 03/13/14 [History] Warfarin [Coumadin] 5 mg PO SUWE 03/13/14 [History] Warfarin [Coumadin] 7.5 mg PO MOTUTHSA 03/13/14 [History] Multivitamins, Thera [Multivitamin (formulary)] 1 tab PO DAILY 01/14/15 [History] Cholecalciferol [Vitamin D3 (25 Mcg = 1000 Iu)] 5,000 unit PO AC-SUPPER 05/29/18 [History] ALPRAZolam [Xanax] 0.5 mg PO BID PRN 12/18/18 [History] Atorvastatin [Lipitor] 40 mg PO HS 12/18/18 [History] Clopidogrel [Plavix] 75 mg PO HS 12/18/18 [History] L.acidoph,Paracasei, B.lactis [Probiotic] 1 cap PO W/SUPPER 12/18/18 [History] Meclizine [Antivert] 12.5 - 25 mg PO QID PRN 12/18/18 [History] Metoprolol Tartrate [Lopressor] 25 mg PO BID #60 tab 09/13/19 [Rx] Triamterene-Hctz 37.5-25Mg [Maxzide 37.5-25] 1 tab PO DAILY 09/13/19 [History] amLODIPine BESYLATE/BENAZEPRIL [Lotrel 10-20 MG] 1 cap PO DAILY 09/13/19 [History] Follow up Appointment(s)/Referral(s): Jd Kim MD [Primary Care Provider] - 1-2 days Pradip Mckeon MD [STAFF PHYSICIAN] - 09/19/19 10:00 am Ambulatory/Diagnostic Orders: Basic Metabolic Panel [LAB.AMB] Time Frame: 3 Days, Location: None Selected Patient Instructions/Handouts: Chest Pain (ED) Activity/Diet/Wound Care/Special Instructions: diet: Cardiac Follow-up PCP within 3 days of discharge. Repeat BMP within 3 days of discharge. Follow-up the results with PCP.encourage hydration by mouth. Follow-up cardiology within 1 week of discharge. Discharge Disposition: HOME SELF-CARE
--- NOTE | 2019-09-13 15:45 | ECHOF ---
Referral Reason:CP MEASUREMENTS -------- HEIGHT: 188.0 cm WEIGHT: 106.6 kg BP: 174/66 RVIDd: 4.2 cm (< 3.3) IVSd: 1.7 cm (0.6 - 1.1) LVIDd: 3.6 cm (3.9 - 5.3) LVPWd: 1.6 cm (0.6 - 1.1) IVSs: 2.3 cm LVIDs: 2.2 cm LVPWs: 1.9 cm LAESV Index (A-L): 28.56 ml/m Ao Diam: 3.2 cm (2.0 - 3.7) AV Cusp: 1.9 cm (1.5 - 2.6) LA Diam: 5.9 cm (2.7 - 3.8) MV EXCURSION: 15.618 mm (> 18.000) MV EF SLOPE: 50 mm/s (70 - 150) EPSS: 0.5 cm FINDINGS -------- Resting bradycardia (HR<60bpm). This was a technically adequate study. The left ventricular size is normal. There is mild concentric left ventricular hypertrophy. Overa ll left ventricular systolic function is normal with, an EF between 55 - 60 %. The right ventricle is moderate to severely enlarged. Normal LA size by volume 22+/-6 ml/m2. The right atrial size is normal. Interatrial and interventricular septum intact. There is mild aortic valve sclerosis. There is no evidence of aortic regurgitation. There is no e vidence of aortic stenosis. Mild mitral regurgitation is present. Mild tricuspid regurgitation present. There is no evidence of pulmonary hypertension. The right v entricular systolic pressure, as measured by Doppler, is {RVSP}. There is no pulmonic regurgitation present. The aortic root size is normal. IVC Not well visulized. There is no pericardial effusion. CONCLUSIONS -------- 1. Resting bradycardia (HR<60bpm). 2. This was a technically adequate study. 3. The left ventricular size is normal. 4. There is mild concentric left ventricular hypertrophy. 5. Overall left ventricular systolic function is normal with, an EF between 55 - 60 %. 6. The right ventricle is moderate to severely enlarged. 7. Normal LA size by volume 22+/-6 ml/m2. 8. The right atrial size is normal. 9. Interatrial and interventricular septum intact. 10. There is mild aortic valve sclerosis. 11. There is no evidence of aortic regurgitation. 12. There is no evidence of aortic stenosis. 13. Mild mitral regurgitation is present. 14. Mild tricuspid regurgitation present. 15. There is no evidence of pulmonary hypertension. 16. The right ventricular systolic pressure, as measured by Doppler, is {RVSP}. 17. There is no pulmonic regurgitation present. 18. The aortic root size is normal. 19. IVC Not well visulized. 20. There is no pericardial effusion. RESOURCE MANAGER: Gillian Sparks RDCS
[2019-09-13] MEDS ORDERED: WARFARIN 7.5 MG TAB PO SCH (18:00)
[2019-09-13] MEDS ORDERED: CLOPIDOGREL 75 MG TAB PO SCH (21:00)
[2019-09-13] MEDS ORDERED: ATORVASTATIN 40 MG TAB PO SCH (21:00)
[2019-09-14] MEDS ORDERED: WARFARIN 5 MG TAB PO SCH (18:00)
== END 2019-09-13 14:38 | disposition home or self-care (01) ==
LOC: EC 22:37 → 1SOBS 23:44
PROVIDERS: ADMIT Internal Medicine; ATTEND Internal Medicine
DX: R07.89 Other chest pain (principal); R91.8 Other nonspecific abnormal finding of lung field; N17.9 Acute kidney failure, unspecified; I10 Essential (primary) hypertension; E78.5 Hyperlipidemia, unspecified; I48.11 Longstanding persistent atrial fibrillation; I25.2 Old myocardial infarction; I25.10 Atherosclerotic heart disease of native coronary artery without angina pectoris; K21.9 Gastro-esophageal reflux disease without esophagitis; M19.042 Primary osteoarthritis, left hand; M19.041 Primary osteoarthritis, right hand; M19.91 Primary osteoarthritis, unspecified site; F32.9 Major depressive disorder, single episode, unspecified; I45.10 Unspecified right bundle-branch block; Z95.5 Presence of coronary angioplasty implant and graft; Z79.899 Other long term (current) drug therapy; Z79.01 Long term (current) use of anticoagulants; Z79.02 Long term (current) use of antithrombotics/antiplatelets; Z87.01 Personal history of pneumonia (recurrent); Z87.2 Personal history of diseases of the skin and subcutaneous tissue; Z85.038 Personal history of other malignant neoplasm of large intestine; Z90.49 Acquired absence of other specified parts of digestive tract; Z85.21 Personal history of malignant neoplasm of larynx; Z92.3 Personal history of irradiation; Z86.010 Personal history of colon polyps; Z86.19 Personal history of other infectious and parasitic diseases; Z86.69 Personal history of other diseases of the nervous system and sense organs; Z91.048 Other nonmedicinal substance allergy status; Z98.890 Other specified postprocedural states; Z98.42 Cataract extraction status, left eye; Z98.41 Cataract extraction status, right eye; Z96.1 Presence of intraocular lens; Z87.891 Personal history of nicotine dependence; Z83.3 Family history of diabetes mellitus; Z82.49 Family history of ischemic heart disease and other diseases of the circulatory system; Z80.3 Family history of malignant neoplasm of breast; Z80.8 Family history of malignant neoplasm of other organs or systems
CPT/HCPCS: 93005 ×2; 99291; 36415; 93306; 83880; 80061; 80053; 83690; 83735; 84484 ×2; 85025; 85610; 85730; 71046; 71260; G0378; Q9967

== ENCOUNTER → 2020-08-25 | Outpatient (CLI) | payer MEDICARE ==
[2020-08-25 09:16] LABS: Basophils # (A) 0.1 k/uL (0-0.2); Basophils % (A) 1 %; Eosinophils # (A) 0.1 k/uL (0-0.7); Eosinophils % (A) 1 %; HCT 41.9 % (39.0-53.0); HGB 12.9 gm/dL (13.0-17.5); Hypochromasia Slight; Lymphocytes # (A) 1.4 k/uL (1.0-4.8); Lymphocytes % (A) 18 %; MCH 29.7 pg (25.0-35.0); MCHC 30.9 g/dL (31.0-37.0); MCV 96.3 fL (80.0-100.0); Mean Platelet Volume 8.5; Monocytes # (A) 0.5 k/uL (0-1.0); Monocytes % (A) 6 %; Neutrophils # (A) 5.5 k/uL (1.3-7.7); Neutrophils % (A) 72 %; Platelet Count 257 k/uL (150-450); RBC 4.35 m/uL (4.30-5.90); RDW 14.3 % (11.5-15.5); WBC 7.7 k/uL (3.8-10.6)
== END | disposition home or self-care (01) ==
LOC: LABWHC1 07:52
PROVIDERS: ATTEND Internal Medicine
DX: R19.7 Diarrhea, unspecified (principal)
CPT/HCPCS: 36415; 85025

== ENCOUNTER → 2020-10-12 | Outpatient (CLI) | payer MEDICARE ==
[2020-10-13 00:13] LABS: African American GFR (CKD) 38.4 (60.0-200.0); Albumin 4.5 g/dL (3.80-4.90); Albumin/Globulin Ratio 1.8 (1.60-3.17); Anion Gap 8.6 mmol/L (4.00-12.00); BUN/Creat Ratio 20.56 Ratio (12.00-20.00); Calcium 10.1 mg/dL (8.7-10.3); Carbon Dioxide 28.4 mmol/L (21.6-31.8); Chol/HDL Ratio 2.87; Globulin 2.5 g/dL (1.6-3.3); LDL Cholesterol,Calculated 47.6 mg/dL (0.0-131.0); Non-African American GFR(CKD) 33.1 (60.0-200.0); Potassium 3.7 mmol/L (3.5-5.5); Total Bilirubin 0.7 mg/dL (0.2-1.2); VLDL Calculation 23.4 mg/dL (5.00-40.00)
== END | disposition home or self-care (01) ==
LOC: LABWHC1 10:11
PROVIDERS: ATTEND Nurse Practitioner Adult Health
DX: I10 Essential (primary) hypertension (principal); E78.2 Mixed hyperlipidemia
CPT/HCPCS: 36415; 80053; 80061

== ENCOUNTER → 2021-05-18 | Outpatient (CLI) | payer MEDICARE ==
[2021-05-18 18:40] LABS: Albumin 4.5 g/dL (3.80-4.90); Albumin/Globulin Ratio 1.67 (1.60-3.17); Anion Gap 11.2 mmol/L (4.00-12.00); BUN/Creat Ratio 18.57 Ratio (12.00-20.00); Calcium 9.6 mg/dL (8.7-10.3); Carbon Dioxide 27.8 mmol/L (21.6-31.8); Chol/HDL Ratio 2.88; Globulin 2.7 g/dL (1.6-3.3); LDL Cholesterol,Calculated 62.8 mg/dL (0.0-131.0); Non-African American GFR(CKD) 44.9 (60.0-200.0); Potassium 4.1 mmol/L (3.5-5.5); Total Bilirubin 0.6 mg/dL (0.3-1.2); Total Protein 7.2 g/dL (6.2-8.2); VLDL Calculation 16.2 mg/dL (5.00-40.00)
== END | disposition home or self-care (01) ==
LOC: LABWHC1 07:12
PROVIDERS: ATTEND Nurse Practitioner Adult Health
DX: I10 Essential (primary) hypertension (principal); E78.2 Mixed hyperlipidemia
CPT/HCPCS: 36415; 80053; 80061

== ENCOUNTER 2021-06-25 10:11 | Emergency (ER) | payer MEDICARE ==
[2021-06-25 10:20] VITALS: BP 162/81; PULSE 96; RESP 18; TEMP 98
[2021-06-25] MEDS ORDERED: KETOROLAC 15 MG/ML 1 ML VIAL IM STA (10:28)
--- NOTE | 2021-06-25 10:58 | XR ---
EXAMINATION TYPE: XR humerus LT DATE OF EXAM: 06/25/2021 CLINICAL HISTORY: pain TECHNIQUE: Frontal and lateral images of the left humerus are obtained. COMPARISON: None. FINDINGS: There is no acute fracture/dislocation evident. The joint spaces appear within normal limi ts. The overlying soft tissue appears unremarkable. IMPRESSION: There is no acute fracture or dislocation. ICD 10 NO FRACTURE, INITIAL EVALUATION
--- NOTE | 2021-06-25 11:38 | ED ---
Upper Extremity HPI - General Chief Complaint: Extremity Injury, Upper Stated Complaint: Fall/Lt Shoulder Pain Time Seen by Provider: 06/25/21 10:21 Source: patient, RN notes reviewed Mode of arrival: ambulatory Limitations: no limitations - History of Present Illness Initial Comments: Patient is an 85-year-old male that presents to emergency department with left shoulder pain. He notes that he fell last night to losing his balance. He reports that he's been having equilibrium problems and is trying to get in with a neurologist. He denied losing consciousness hitting his head or any headaches. He was otherwise a well-appearing 85-year-old male. He notes that he does have some pain with full range of motion mostly on the abduction of his left arm. Patient did report that he hasn't some abrasions to his left elbow that occurred from the fall. Him and his both report that they cleaned it well water but antibiotic ointment on it and abdomen keeping an eye on it. He denied any chest pain shortness of breath headache nausea vomiting diarrhea constipation fever fatigue chills weakness numbness tingling in his left upper extremity. - Related Data Home Medications Medication Instructions Recorded Confirmed PARoxetine [Paxil] 30 mg PO DAILY 03/13/14 09/13/19 Warfarin [Coumadin] 5 mg PO SUWE 03/13/14 09/13/19 Warfarin [Coumadin] 7.5 mg PO MOTUTHSA 03/13/14 09/13/19 Multivitamins, Thera [Multivitamin 1 tab PO DAILY 01/14/15 09/13/19 (formulary)] Cholecalciferol [Vitamin D3 (25 5,000 unit PO AC-SUPPER 05/29/18 09/13/19 Mcg = 1000 Iu)] ALPRAZolam [Xanax] 0.5 mg PO BID PRN 12/18/18 09/13/19 Atorvastatin [Lipitor] 40 mg PO HS 12/18/18 09/13/19 Clopidogrel [Plavix] 75 mg PO HS 12/18/18 09/13/19 L.acidoph,Paracasei, B.lactis 1 cap PO W/SUPPER 12/18/18 09/13/19 [Probiotic] Meclizine [Antivert] 12.5 - 25 mg PO QID PRN 12/18/18 09/13/19 Triamterene-Hctz 37.5-25Mg 1 tab PO DAILY 09/13/19 09/13/19 [Maxzide 37.5-25] amLODIPine BESYLATE/BENAZEPRIL 1 cap PO DAILY 09/13/19 09/13/19 [Lotrel 10-20 MG] Previous Rx's Medication Instructions Recorded Metoprolol Tartrate [Lopressor] 25 mg PO BID #60 tab 09/13/19 Allergies Allergy/AdvReac Type Severity Reaction Status Date / Time No Known Allergies Allergy Verified 09/13/19 08:17 Review of Systems ROS Statement: Those systems with pertinent positive or pertinent negative responses have been documented in the HPI. ROS Other: All systems not noted in ROS Statement are negative. Past Medical History Past Medical History: Coronary Artery Disease (CAD), Cancer, Chest Pain / Angina, GERD/Reflux, Hyperlipidemia, Hypertension, Myocardial Infarction (CO), Osteoarthritis (OA), Pneumonia, Skin Disorder Additional Past Medical History / Comment(s): Colon cancer with resection, laryngeal cancer with radiation/suspension microlarygoscopy, colon and throat polyps, postitive stool for C-Diff/Lactoferrin 11/12/18, skin cancer with removal, equilibrium problems, arthritis hands and legs, seasonal allergies. Last Myocardial Infarction Date:: 1994 History of Any Multi-Drug Resistant Organisms: None Reported Date of last positivie culture/infection: 11/12/2018 MDRO Source:: stool Past Surgical History: Appendectomy, Bowel Resection, Heart Catheterization, Heart Catheterization With Stent, Orthopedic Surgery Additional Past Surgical History / Comment(s): PCI with at total of 3 stents with last one placed 05/31/19, PTCA, EGD, colonoscopies, bowel resection-8 inches removed, suspension microlarygoscopy for laryngeal lesion, skin cancer removals, R knee arthroscopy, R rotator cuff repair, bilateral cataract removals/lens implants. Past Anesthesia/Blood Transfusion Reactions: No Reported Reaction Date of Last Stent Placement:: 05/31/18 Past Psychological History: Depression Smoking Status: Never smoker Past Alcohol Use History: Occasional Past Drug Use History: None Reported - Past Family History Mother Family Medical History: Diabetes Mellitus Additional Family Medical History / Comment(s): Mother lived to be 78yrs old. Father Family Medical History: Myocardial Infarction (CO) Additional Family Medical History / Comment(s): FATHER @ AGE 46 WITH CO Sister(s) Family Medical History: Cancer Additional Family Medical History / Comment(s): BREAST & BONE CA General Exam Limitations: no limitations General appearance: alert, in no apparent distress Head exam: Present: atraumatic, normocephalic, normal inspection Eye exam: Present: normal appearance, PERRL, EOMI. Absent: scleral icterus, conjunctival injection, periorbital swelling ENT exam: Present: normal exam, mucous membranes moist Neck exam: Present: normal inspection Respiratory exam: Present: normal lung sounds bilaterally. Absent: respiratory distress, wheezes, rales, rhonchi, stridor Cardiovascular Exam: Present: regular rate, normal rhythm, normal heart sounds. Absent: systolic murmur, diastolic murmur, rubs, gallop, clicks Left Shoulder Exam: Present: normal inspection, tenderness (Over the distal lateral deltoid), ecchymosis (Over the deltoid). Absent: full ROM (Secondary to pain decreased abduction), swelling, abrasion, laceration, deformity, crepitus, dislocation, erythema Elbow exam: Present: normal inspection, full ROM, abrasion. Absent: tenderness, swelling Neurological exam: Present: alert, oriented X3 Psychiatric exam: Present: normal affect, normal mood Skin exam: Present: warm, dry, intact, normal color. Absent: rash Course Vital Signs 06/25/21 10:17 Temperature 98 F Pulse Rate 96 Respiratory 18 Rate Blood Pressure 162/81 O2 Sat by Pulse 98 Oximetry Medical Decision Making - Medical Decision Making 85-year-old male status post fall with left shoulder pain. Left shoulder x-ray, 15 mg of Toradol ordered. X-ray negative for any acute fractures or dislocations. Case discussed with Dr. Adler, patient can discharge home with follow-up to primary care and with pieces needed. - Radiology Data Radiology results: report reviewed, image reviewed Left shoulder x-ray: No acute fractures or dislocations. Disposition Clinical Impression: Left shoulder pain, Contusion of left shoulder, Abrasion of left elbow Disposition: HOME SELF-CARE Condition: Stable Instructions (If sedation given, give patient instructions): Shoulder Sprain (ED) Additional Instructions: Please return to the Emergency Department if symptoms worsen or any other concerns. Follow-up with primary care 1-3 days. Follow-up with neurologist as possible. Follow-up with orthopedics as needed. Is patient prescribed a controlled substance at d/c from ED?: No Referrals: Pradip Ceron MD [Primary Care Provider] - 1-2 days Erlin Perez MD [Medical Doctor] - 1-2 days Simón Jensen MD [STAFF PHYSICIAN] - 1-2 days Time of Disposition: 11:37
== END 2021-06-25 11:46 | disposition home or self-care (01) ==
LOC: EC 10:11
DX: S40.012A Contusion of left shoulder, initial encounter (principal); S50.312A Abrasion of left elbow, initial encounter; E78.5 Hyperlipidemia, unspecified; I10 Essential (primary) hypertension; I25.10 Atherosclerotic heart disease of native coronary artery without angina pectoris; I25.2 Old myocardial infarction; M19.90 Unspecified osteoarthritis, unspecified site; Z79.01 Long term (current) use of anticoagulants; Z79.02 Long term (current) use of antithrombotics/antiplatelets; Z79.899 Other long term (current) drug therapy; W19.XXXA Unspecified fall, initial encounter
CPT/HCPCS: 73060; 99283; 96372; J1885

== ENCOUNTER 2021-07-29 11:29 | Day surgery (SDC) | payer MEDICARE ==
[2021-07-27 14:01] VITALS: BMI 28.8
[~2021-07-29 11:29] MED LIST: LACTATED RINGERS 1,000 ML IV SCH
[2021-07-29 12:07] VITALS: RESP 16; TEMP 98.3
[2021-07-29] MEDS ORDERED: PROPOFOL 10 MG/ML 20 ML VIAL IV ONE (13:32)
--- NOTE | 2021-07-29 13:55 | P.PCN ---
Date of Procedure: 07/29/21 Procedure(s) Performed: BRIEF HISTORY: Patient is a 86-year-old pleasant white male scheduled for an elective colonoscopy as a part of value should of chronic diarrhea and intermittent rectal bleeding for the last few days duration. PROCEDURE PERFORMED: Colonoscopy with with random biopsies PREOPERATIVE DIAGNOSIS: diarrhea and intermittent rectal bleeding. IV sedation per Anesthesia. PROCEDURE: After informed consent was obtained, the patient, was brought into the endoscopy unit. IV sedation was administered by Anesthesia under continuous monitoring. Digital rectal examination was normal. Initially the Olympus CF-160 flexible video colonoscope was then inserted in the rectum, gradually advanced into the right colon without any difficulty. Careful examination was performed as the scope was gradually being withdrawn. The ileocolonic anastomosis was identified that appeared normal. Prep was excellent. Mucosa of the ascending colon, transverse colon, descending colon, sigmoid colon, and rectum appeared normal. Random biopsies were done from ascending and descending colon to rule out microscopic/collagenous colitis.Retroflexion was performed in the rectum and grade 2 internal hemorrhoids were seen. The patient tolerated the procedure well. IMPRESSION: Grade 2 internal hemorrhoids No evidence of colitis or colorectal neoplasia RECOMMENDATIONS: Findings of this examination were discussed with the patient as well as his family. He was advised to be a high-fiber diet and take fiber supplements a regular basis. Avoid straining and constipation..resume Coumadin today.
[2021-07-29 14:09] VITALS: BP 152/79; PULSE 62
== END 2021-07-29 14:45 | disposition home or self-care (01) ==
LOC: ORWHC2ENDO 11:29
PROVIDERS: ATTEND Internal Medicine Gastroenterology
DX: K52.831 Collagenous colitis (principal); K64.1 Second degree hemorrhoids; K52.9 Noninfective gastroenteritis and colitis, unspecified; K62.5 Hemorrhage of anus and rectum; I25.10 Atherosclerotic heart disease of native coronary artery without angina pectoris; I10 Essential (primary) hypertension; E78.5 Hyperlipidemia, unspecified; Z87.891 Personal history of nicotine dependence; Z85.21 Personal history of malignant neoplasm of larynx; K21.9 Gastro-esophageal reflux disease without esophagitis; I25.2 Old myocardial infarction; Z95.5 Presence of coronary angioplasty implant and graft; Z98.890 Other specified postprocedural states; Z79.01 Long term (current) use of anticoagulants; Z79.82 Long term (current) use of aspirin; Z79.899 Other long term (current) drug therapy
CPT/HCPCS: 88305; 88313; 45380; J2704

== ENCOUNTER → 2021-08-31 | Outpatient (CLI) | payer MEDICARE ==
[2021-08-31 15:03] LABS: HCT 29.3 % (39.6-50.0); HGB 8.3 g/dL (13.0-17.0); MCH 26.9 pg (27.0-32.0); MCHC 28.3 g/dL (32.0-37.0); MCV 94.8 fL (80.0-97.0); Mean Platelet Volume 10.7 fL (9.5-12.2); Platelet Count 331 X 10*3/uL (140-440); RBC 3.09 X 10*6/uL (4.40-5.60); RDW 16.4 % (11.5-14.5); WBC 7.78 X 10*3/uL (4.50-10.00)
[2021-08-31 15:47] LABS: African American GFR (CKD) 56.5 (60.0-200.0); Albumin 4.3 g/dL (3.8-4.9); Albumin/Globulin Ratio 1.59 (1.60-3.17); Anion Gap 13.7 mmol/L (10.00-18.00); BUN/Creat Ratio 15.38 Ratio (12.00-20.00); Calcium 9.8 mg/dL (8.7-10.3); Carbon Dioxide 24.3 mmol/L (20.0-27.5); Globulin 2.7 g/dL (1.6-3.3); Non-African American GFR(CKD) 48.7 (60.0-200.0); Potassium 4.9 mmol/L (3.5-5.5); Total Bilirubin 0.6 mg/dL (0.30-1.20)
== END | disposition home or self-care (01) ==
LOC: LABWHC1 08:15
PROVIDERS: ATTEND Internal Medicine Interventional Cardiology
DX: I25.10 Atherosclerotic heart disease of native coronary artery without angina pectoris (principal)
CPT/HCPCS: 36415; 80053; 85027

== ENCOUNTER → 2021-09-05 | Outpatient (CLI) | payer MEDICARE ==
[2021-09-05 23:45] LABS: Reticulocyte % 2.68 % (0.10-1.80)
[2021-09-06 03:18] LABS: % Iron Saturation 4.14 (15.00-50.00); Ferritin 24.1 ng/mL (22.0-322.0); Iron 19 ug/dL (65-175); Total Iron Binding Capacity 466 ug/dL (228-460)
[2021-09-06 04:30] LABS: Folate, Serum >20.00 ng/mL (4.40-31.00)
[2021-09-06 05:23] LABS: HCT 31.8 % (39.6-50.0); HGB 8.8 g/dL (13.0-17.0); MCH 26.1 pg (27.0-32.0); MCHC 27.7 g/dL (32.0-37.0); MCV 94.4 fL (80.0-97.0); Mean Platelet Volume 10.5 fL (9.5-12.2); Platelet Count 382 X 10*3/uL (140-440); RBC 3.37 X 10*6/uL (4.40-5.60); RDW 16.4 % (11.5-14.5); WBC 7.44 X 10*3/uL (4.50-10.00)
[2021-09-06 05:24] LABS: Hypochromasia (M) 2+
== END | disposition home or self-care (01) ==
LOC: LABWHC1 13:20
PROVIDERS: ATTEND Internal Medicine Gastroenterology
DX: D64.9 Anemia, unspecified (principal)
CPT/HCPCS: 36415; 82607; 82728; 82746; 83540; 83550; 85027; 85045

== ENCOUNTER 2021-09-07 09:31 | Day surgery (SDC) | payer MEDICARE ==
[2021-09-06 10:11] VITALS: BMI 28.2
[~2021-09-07 09:31] MED LIST changes: -LACTATED RINGERS 1,000 ML IV SCH; +LIDOCAINE 1% (10MG/ML) FOR IV START INTRADERMA PRN
[2021-09-07 10:43] VITALS: RESP 16; TEMP 98
[2021-09-07] MEDS: LACTATED RINGERS 1,000 ML IV SCH ×2 (10:59→11:33)
[2021-09-07] MEDS ORDERED: LIDOCAINE 1% INJ 10MG/ML (20 ML MDV) ONE (11:33)
[2021-09-07] MEDS ORDERED: PROPOFOL 10 MG/ML 20 ML VIAL IV ONE (11:33)
--- NOTE | 2021-09-07 11:45 | P.PCN ---
Date of Procedure: 09/07/21 Procedure(s) Performed: BRIEF HISTORY: Patient is a 86-year-old, pleasant, white male scheduled for an upper endoscopy as a part of evaluation of iron deficiency anemia. He was having some chest pain and scheduled for an elective cardiac catheterization by Dr. Mckeon 2 days ago but this preoperative ago revealed anemia with a hemoglobin of 9.3 and hence the procedure was canceled. He scheduled for an upper endoscopy to evaluate for iron deficiency anemia. He recently had a colonoscopy in July 2021 that showed grade 2 internal hemorrhoids. Patient has history of A. fib and has been on Coumadin which is currently on hold.. PROCEDURE PERFORMED: Esophagogastroduodenoscopy with biopsy. PREOPERATIVE DIAGNOSIS: . Iron Deficiency anemia and negative colonoscopy 2 months ago. IV sedation per anesthesia. PROCEDURE: After informed consent was obtained, the patient was brought into the endoscopy unit. IV sedation was administered by Anesthesia under continuous monitoring. Initially the Olympus GIF-140 video endoscope was inserted into the mouth. Esophagus intubated without any difficulty. It was gradually advanced into the stomach and duodenum and carefully examined. The bulb multiple scattered erosions and the second part of the duodenum appeared normal. Abscesses were done from the duodenum to rule out celiac disease. The scope at this time was withdrawn to the stomach, adequately insufflated with air, and upon careful examination, mucosa of the antrum multiple scattered erosions but no active bleeding. Biopsies were done from this area. The body, cardia and the fundus appeared normal. The scope was then withdrawn into the esophagus. The GE junction was located at 39 cm from the incisors. Small hiatal hernia noted. The esophagus appeared normal. There were no erosions or ulcerations seen and the patient tolerated the procedure well. IMPRESSION: 1. Multiple scattered duodenal erosions but no active bleeding. 2. Antral erosive gastritis. 3. Small hiatal hernia RECOMMENDATIONS: The findings of this examination were discussed with the patient as well as his family. He was advised to follow with the biopsy results. He will be started on Prilosec 20 mg daily and avoid NSAIDs. Start iron supplements one tablet twice daily and monitor CBC every month. If he continues to have persistent iron deficiency anemia will consider small bowel capsule endoscopy. He was advised to follow with Dr. Mckeon and start anticoagulation as per cardiology recommendations.
[2021-09-07 12:08] VITALS: PULSE 68
[2021-09-07 12:09] VITALS: BP 144/79
== END 2021-09-07 12:37 | disposition home or self-care (01) ==
LOC: ORWHC2ENDO 09:31
PROVIDERS: ATTEND Internal Medicine Gastroenterology
DX: D50.9 Iron deficiency anemia, unspecified (principal); K29.50 Unspecified chronic gastritis without bleeding; K44.9 Diaphragmatic hernia without obstruction or gangrene; I25.10 Atherosclerotic heart disease of native coronary artery without angina pectoris; I10 Essential (primary) hypertension; E78.5 Hyperlipidemia, unspecified; I48.91 Unspecified atrial fibrillation; Z79.899 Other long term (current) drug therapy; Z79.01 Long term (current) use of anticoagulants
CPT/HCPCS: 88305; 43239; J2001; J2704

== ENCOUNTER → 2021-10-26 | Outpatient (CLI) | payer MEDICARE | END | disposition home or self-care (01) | LOC: LABWHC1 11:23 | PROVIDERS: ATTEND Internal Medicine | DX: Z20.822 Contact with and (suspected) exposure to COVID-19 (principal); R50.9 Fever, unspecified | CPT/HCPCS: 87502; U0003; C9803 ==

== ENCOUNTER → 2021-11-02 | Day surgery (SDC) | payer MEDICARE ==
[2021-10-28 11:55] VITALS: BMI 28.2
[~2021-11-02] MED LIST changes: +ALPRAZolam 0.25 MG TAB PO PRN; +ALPRAZolam 0.5 MG TAB PO PRN; +ASPIRIN 325 MG TAB PO STA; +ASPIRIN 81 MG PO SCH; +ATORVASTATIN 40 MG TAB PO SCH; +HEPARIN SODIUM 1,000 UN/ML (10ML VL) IVP ONE; +HEPARIN SODIUM 1,000 UN/ML (10ML VL) ONE; +HEPARIN SODIUM,PORCINE 10,000 UNIT in SODIUM CHLORIDE 0.9% 1,000 ML IRRIGATION PRN; +HEPARIN SODIUM,PORCINE 2,500 UNIT in SODIUM CHLORIDE 0.9% 250 ML IRRIGATION PRN; +IOPAMIDOL-370 125ML BTL INJ ONE; -LIDOCAINE 1% (10MG/ML) FOR IV START INTRADERMA PRN; +LIDOCAINE 1% INJ 10MG/ML (20 ML MDV) ONE; +LIDOCAINE 1% INJ 10MG/ML (20 ML MDV) SQ ONE; +NITROGLYCERIN SL TABS 0.4 MG TAB SUBLINGUAL PRN; +RX INFO: IV CONTRAST WAS GIVEN 1 EACH MISC MISCELLANE PRN; +SODIUM CHLORIDE 0.9% 1,000 ML IV SCH; +SODIUM CHLORIDE 0.9% 1,000 ML in EMPTY BAG 1 BAG IV ONE; +VERAPAMIL 2.5 MG/ML 2 ML AMP ONE; +VERAPAMIL SYRINGE (5 MG/10 ML) INTRAARTER ONE; +amLODIPine 10 MG TAB PO SCH; +amLODIPine 10 MG TAB PO STA; +fentaNYL (PF) 50 MCG/ML 2 ML AMP IVP ONE; +fentaNYL (PF) 50 MCG/ML 2 ML AMP ONE; +lisinopriL 20 MG TAB PO SCH; +lisinopriL 20 MG TAB PO STA
[2021-11-02 07:22] VITALS: RESP 18; TEMP 98.4
--- NOTE | 2021-11-02 10:07 | P.CARDCATH ---
Date of Procedure: 11/02/21 Description of Procedure: Cardiac Catheterization: The patient is an 86-year-old male with a known history of multiple stenting, history of chronic atrial fibrillation, hypertension and hyperlipidemia who has been complaining of progressive dyspnea on exertion and progressive fatigue. In view of his multiple risk factors and his symptoms recommendations were made regarding cardiac catheterization, the risks and the complications were discussed with the patient who is in full understanding and agreement. Procedure Description: Patient was brought to collaborating supervising physician in fasting semi-sedated state after receiving Fentanyl and Benadryl achieiving moderate conscious sedated state. Using Xylocaine Anesthesia and Seldinger technique, a 6-Bengali sheath was introduced in the [] radial artery . Subsequently, selective [left] angiography performed using a [5]-Bengali [3.5] bend [left Lena] and 4 bend right Judkinscatheter. Multiple views of the coronary artery including hemiaxial views were obtained. The [right Lena] catheter was used to cross the aortic valve and [LVEDP] was calculated. Following that, catheter and sheath were removed. Hemostasis was obtained with deployment of TR band . There was no immediate complication. Patient was returned to room in stable condition. Of note, the patient received a total of [5000] units of intravenous heparin as well as intra-arterial verapamil. There was no immediate complications. Findings: Fluoroscopy there was calcification involving the LAD Left main: [This is a large size vessel, bifurcating into LAD and left circumflex, left main has no evidence of high-grade stenosis.] LAD: [This is a large size vessel, reaching to the apex, calcified, giving rise to a large diagonal branch proximally. The stented segment in the diagonal branch is patent. The LAD has diffuse intimal disease throughout its course of 30-50% with no evidence of high-grade stenosis.] Left circumflex: [This is a nondominant vessel, giving rise to a proximal large obtuse marginal branch, the second obtuse marginal branch is small in caliber. The proximal left circumflex 30-40% plaque. There is a 70-80% disease in the third obtuse marginal branch which is small in caliber.] RCA: [This is a dominant vessel, bifurcating into PDA and PLV the stented segment in the RCA and the PDA are patent. The PLV has a branching segment hospital in caliber that has 80% stenosis with no progression. The PDA beyond the stent has a 50% tubular lesion.] [Left] Ventriculogram: Was not performed Hemodynamics: [There was no gradient across the aortic valve, LVEDP 10-14 mmHg] Conclusion: 1. [Calcified LAD] 2. [Patent stent in the RCA and that branch] 3. [Significant disease in the small third obtuse marginal branch] 4. 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 The findings and recommendations were discussed with the patient and his family and they are in full understanding and agreement.] Duration of sedation is [16] minutes.
[2021-11-02 13:15] VITALS: BP 148/67; PULSE 76
== END | disposition home or self-care (01) ==
LOC: CATHCVL 06:44
PROVIDERS: ATTEND Internal Medicine Interventional Cardiology
DX: I48.20 Chronic atrial fibrillation, unspecified (principal); E78.5 Hyperlipidemia, unspecified; R06.09 Other forms of dyspnea
CPT/HCPCS: 93458; C1894; C1769; J2001; J3010; J1644; Q9967

== ENCOUNTER 2021-12-16 23:27 | Inpatient (IN) | payer MEDICARE ==
--- NOTE | 2021-12-16 23:42 | ED ---
Chest Pain HPI - General Chief Complaint: Chest Pain Stated Complaint: chest pain Time Seen by Provider: 12/16/21 23:42 Source: patient, RN notes reviewed, old records reviewed Mode of arrival: wheelchair Limitations: no limitations - History of Present Illness Initial Comments: This is an 86-year-old male here for evaluation. Patient presents today for evaluation regards to chest pain. Patient having severe anterior chest pain occasional shortness of breath symptoms woke her from sleep. Patient does have history of prior [place] with history of multiple surgeries. MD Complaint: chest pain -: minutes(s) Onset: during rest Pain Location: substernal, left chest, right chest Pain Radiation: none Severity: moderate Severity scale (1-10): 5 Quality: tightness, heaviness Consistency: constant Improves With: nothing Worsens With: nothing Context: recent illness Other Symptoms: palpitations Treatments Prior to Arrival: none - Related Data Home Medications Medication Instructions Recorded Confirmed PARoxetine [Paxil] 30 mg PO DAILY 03/13/14 12/17/21 Multivitamins, Thera [Multivitamin 1 tab PO DAILY 01/14/15 12/17/21 (formulary)] Cholecalciferol [Vitamin D3 (25 2,000 unit PO DAILY 05/29/18 12/17/21 Mcg = 1000 Iu)] Atorvastatin [Lipitor] 40 mg PO HS 12/18/18 12/17/21 LMyra alfredo B.lactis 1 cap PO DAILY 12/18/18 12/17/21 [Probiotic] amLODIPine BESYLATE/BENAZEPRIL 1 cap PO DAILY 09/13/19 12/17/21 [Lotrel 10-20 MG] Acetaminophen [Tylenol Extra 500 - 1,000 mg PO DIRECTED PRN 07/27/21 12/17/21 Strength] Aspirin [Adult Low Dose Aspirin EC] 81 mg PO HS 07/27/21 12/17/21 Apixaban [Eliquis] 2.5 mg PO BID 10/28/21 12/17/21 Ascorbic Acid [Vitamin C] 500 mg PO DAILY 10/28/21 12/17/21 Ferrous Sulfate [Iron] 325 mg PO BID 10/28/21 12/17/21 Omeprazole 20 mg PO DAILY 10/28/21 12/17/21 Triamterene-Hctz 37.5-25Mg 1 cap PO DAILY PRN 10/28/21 12/17/21 [Dyazide 37.5-25 Capsule] Nitroglycerin Sl Tabs [Nitrostat] 0.4 mg SUBLINGUAL Q5M PRN 12/17/21 12/17/21 Allergies Allergy/AdvReac Type Severity Reaction Status Date / Time No Known Allergies Allergy Verified 12/17/21 12:28 Review of Systems ROS Statement: Those systems with pertinent positive or pertinent negative responses have been documented in the HPI. ROS Other: All systems not noted in ROS Statement are negative. EKG Findings - EKG Comments: EKG Findings:: EKG is A. fib 90 QRS 153 QTC 438 Past Medical History Past Medical History: Myocardial Infarction ([place]) Additional Past Medical History / Comment(s): spouse states "unable to do recent heartcath due to low hgb, having increased SOB, and fatigue. Recent fall injurying left shoulder/rotator cuff-needing to have surgery with Dr Alcantara",Colon cancer w/ resection, laryngeal cancer w/ radiation/surgery-has intermittent coughing at times swallowing saliva, colon & throat polyps, postitive stool for C-Diff/Lactoferrin 11/12/18, skin cancer removal, equilibrium problems, arthritis hands/legs, seasonal allergies. Hx fall w/ injury Lt shoulder, in PT. Last Myocardial Infarction Date:: 1994 History of Any Multi-Drug Resistant Organisms: None Reported, C-DIFF Date of last positivie culture/infection: 2018 MDRO Source:: stool Past Surgical History: Appendectomy, Bowel Resection, Heart Catheterization, Heart Catheterization With Stent, Orthopedic Surgery Additional Past Surgical History / Comment(s): PCI with total 4 stents. EGD, colonoscopies, bowel resection-8 inches removed, suspension microlarygoscopy for laryngeal lesion, skin cancer removals, R knee arthroscopy, R rotator cuff repair, bilat cataract removals/lens implants. Past Anesthesia/Blood Transfusion Reactions: No Reported Reaction Date of Last Stent Placement:: 12/19/18 Past Psychological History: Depression Smoking Status: Former smoker Past Alcohol Use History: None Reported Past Drug Use History: None Reported - Past Family History Mother Family Medical History: Diabetes Mellitus Additional Family Medical History / Comment(s): Mother lived to be 78yrs old. Father Family Medical History: Myocardial Infarction ([place]) Additional Family Medical History / Comment(s): FATHER @ AGE 46 WITH [place] Sister(s) Family Medical History: Cancer Additional Family Medical History / Comment(s): BREAST & BONE CA Course Vital Signs 12/16/21 12/17/21 12/17/21 23:31 00:35 03:00 Temperature 98.9 F Pulse Rate 100 92 81 Pulse Rate [ Pulse Oximetery ] Respiratory 21 22 18 Rate Blood Pressure 161/92 166/86 Blood Pressure [Right Arm] O2 Sat by Pulse 97 94 L 94 L Oximetry 12/17/21 12/17/21 12/17/21 04:00 06:00 08:44 Temperature 98.4 F Pulse Rate 81 70 Pulse Rate [ 70 Pulse Oximetery ] Respiratory 18 18 18 Rate Blood Pressure 139/76 135/69 Blood Pressure 143/84 [Right Arm] O2 Sat by Pulse 96 95 98 Oximetry 12/17/21 12/17/21 12/17/21 08:48 11:26 13:29 Temperature 98.4 F Pulse Rate Pulse Rate [ 70 65 65 Pulse Oximetery ] Respiratory 18 18 18 Rate Blood Pressure Blood Pressure 137/80 [Right Arm] O2 Sat by Pulse 90 L Oximetry - Reevaluation(s) Reevaluation #1: 12/16/21 Medical records reviewed Reevaluation #2: 12/16/21 Patient still with chest pain and shortness of breath occasionally here in the emergency room Reevaluation #3: 12/16/21 A patient informed results and questions answered - Consultations Consultation #1: Spoke with sound physicians agreeable to admit this patient Chest Pain MDM - MDM 86 male to the emergency department for evaluation of chest pain, chest pain radiating across anterior chest does have bilateral pneumonia. Patient reevaluated on antibiotics. Due to chest pain history of heart disease, we'll trend cardiac enzymes Disposition Clinical Impression: Chest pain, Community acquired pneumonia, Bilateral pneumonia Disposition: ADMITTED IP TO THIS HOSP Condition: Good Is patient prescribed a controlled substance at d/c from ED?: No
[2021-12-17 00:44] LABS: Anisocytosis Slight; Basophils # (A) 0.1 k/uL (0-0.2); Basophils % (A) 1 %; Eosinophils # (A) 0.2 k/uL (0-0.7); Eosinophils % (A) 1 %; HCT 35.4 % (39.0-53.0); HGB 10.8 gm/dL (13.0-17.5); Hypochromasia Moderate; Lymphocytes # (A) 0.6 k/uL (1.0-4.8); Lymphocytes % (A) 5 %; MCH 26.9 pg (25.0-35.0); MCHC 30.5 g/dL (31.0-37.0); MCV 88.4 fL (80.0-100.0); Mean Platelet Volume 7.3; Monocytes # (A) 0.6 k/uL (0-1.0); Monocytes % (A) 4 %; Neutrophils # (A) 11.7 k/uL (1.3-7.7); Neutrophils % (A) 87 %; Platelet Count 592 k/uL (150-450); RDW 16.5 % (11.5-15.5); WBC 13.4 k/uL (3.8-10.6)
[2021-12-17 00:59] LABS: INR 1.1 (<1.2); Partial Thromboplastin Time 26.3 sec (22.0-30.0)
[2021-12-17 01:00] LABS: Albumin 3.9 g/dL (3.5-5.0); Calcium 9.7 mg/dL (8.4-10.2); Potassium 3.7 mmol/L (3.5-5.1); Total Bilirubin 0.7 mg/dL (0.2-1.3); Total Protein 7.6 g/dL (6.3-8.2)
--- NOTE | 2021-12-17 01:19 | XR ---
EXAMINATION TYPE: XR chest 2V DATE OF EXAM: 12/17/2021 COMPARISON: 09/12/2019 HISTORY: Chest pain TECHNIQUE: 2 view FINDINGS: Heart is enlarged. There is bilateral upper lobe pulmonary airspace patchy consolidation. T here are smaller infiltrates in the lower lung [place]. Bony thorax is intact. IMPRESSION: Patchy bilateral pneumonia there is mainly in the upper lobes and significantly increased compared to old exam. No heart failure. Stable cardiomegaly.
[2021-12-17 01:38] LABS: Magnesium 1.9 mg/dL (1.6-2.3)
[2021-12-17] MEDS ORDERED: MORPHINE SULFATE 4 MG/ML SYRINGE IV PRN (02:06)
[2021-12-17] MEDS ORDERED: ONDANSETRON 4 MG/2 ML VIAL IVP PRN (02:06)
[2021-12-17] MEDS ORDERED: NALOXONE 0.4 MG/ML 1 ML VIAL IV PRN (02:06)
[2021-12-17] MEDS ORDERED: IBUPROFEN 400 MG TAB PO PRN (02:06)
[2021-12-17] MEDS ORDERED: LORazepam 2 MG/ML INJ IV PRN (02:06)
[2021-12-17] MEDS ORDERED: IPRATROPIUM-ALBUTEROL 3 ML NEB INHALATION PRN (02:09)
[2021-12-17] MEDS ORDERED: AZITHROMYCIN 500 MG in SODIUM CHLORIDE 0.9% 250 ML IVPB ONE (02:30)
[2021-12-17 03:21] LABS: C Reactive Protein 4.6 mg/dL (<1.0)
[2021-12-17] MEDS: SODIUM CHLORIDE 0.9% 1,000 ML IV SCH ×3 (03:38→20:42)
--- NOTE | 2021-12-17 04:06 | P.HPIM ---
History of Present Illness H&P Date: 12/17/21 Chief Complaint: Chest tightness 86-year-old male with throat cancer, hypertension, coronary artery disease, atrial fibrillation Patient comes in with complaints of chest pain and describes it as chest tightness across his chest which started all of a sudden today about 4 hours prior to presentation to the hospital was associated with shortness of breath difficulty breathing and chills he denies any associated dizziness lightheadedness palpitations nausea vomiting or sweating. However he does feel generalized weakness and fatigue for about a month now. He is also reporting some coughing over the past few days which got worse from his baseline. This time is productive of yellowish thick phlegm denies any hemoptysis. He tried some Tylenol at home to help with his chest tightness with no improvement. Hours later he decided to come to the hospital for evaluation He otherwise denies any recent travel or hospitalization he denies any leg edema denies any smoking drug abuse or alcohol abuse. 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 He is vaccinated against Covid, Covid testing negative In the ED he was found to have bilateral pneumonia with sepsis Hemoglobin show some anemia stable patient denies any GI bleeding or melena [facility] directive types to EKG showed no acute changes compared to before. Patient had left heart cath done November of this year no intervention was required patient has history of stents in the past Review of Systems Pertinent positives as noted in HPI. All other systems were reviewed and are negative Past Medical History Past Medical History: Myocardial Infarction ([place]) Additional Past Medical History / Comment(s): spouse states "unable to do recent heartcath due to low hgb, having increased SOB, and fatigue. Recent fall injurying left shoulder/rotator cuff-needing to have surgery with Dr Jose A cutler",Colon cancer w/ resection, laryngeal cancer w/ radiation/surgery-has intermittent coughing at times swallowing saliva, colon & throat polyps, postitive stool for C-Diff/Lactoferrin 11/12/18, skin cancer removal, equilibrium problems, arthritis hands/legs, seasonal allergies. Hx fall w/ injury Lt shoulder, in PT. Last Myocardial Infarction Date:: 1994 History of Any Multi-Drug Resistant Organisms: None Reported, C-DIFF Date of last positivie culture/infection: 2018 MDRO Source:: stool Past Surgical History: Appendectomy, Bowel Resection, Heart Catheterization, Heart Catheterization With Stent, Orthopedic Surgery Additional Past Surgical History / Comment(s): PCI with total 4 stents. EGD, colonoscopies, bowel resection-8 inches removed, suspension microlarygoscopy for laryngeal lesion, skin cancer removals, R knee arthroscopy, R rotator cuff repair, bilat cataract removals/lens implants. Past Anesthesia/Blood Transfusion Reactions: No Reported Reaction Date of Last Stent Placement:: 12/19/18 Past Psychological History: Depression Smoking Status: Former smoker Past Alcohol Use History: None Reported Past Drug Use History: None Reported - Past Family History Mother Family Medical History: Diabetes Mellitus Additional Family Medical History / Comment(s): Mother lived to be 78yrs old. Father Family Medical History: Myocardial Infarction ([place]) Additional Family Medical History / Comment(s): FATHER @ AGE 46 WITH [place] Sister(s) Family Medical History: Cancer Additional Family Medical History / Comment(s): BREAST & BONE CA Medications and Allergies Home Medications Medication Instructions Recorded Confirmed Type PARoxetine [Paxil] 30 mg PO QAM 03/13/14 11/02/21 History Multivitamins, Thera [Multivitamin 1 tab PO DAILY 01/14/15 11/02/21 History (formulary)] Cholecalciferol [Vitamin D3 (25 5,000 unit PO AC-SUPPER 05/29/18 11/02/21 History Mcg = 1000 Iu)] Atorvastatin [Lipitor] 40 mg PO HS 12/18/18 11/02/21 History L.acidoph,Paracasei, B.lactis 1 cap PO W/SUPPER 12/18/18 11/02/21 History [Probiotic] amLODIPine BESYLATE/BENAZEPRIL 1 cap PO QAM 09/13/19 11/02/21 History [Lotrel 10-20 MG] Acetaminophen [Tylenol Extra 500 - 1,000 mg PO DIRECTED PRN 07/27/21 11/02/21 History Strength] Aspirin [Adult Low Dose Aspirin EC] 81 mg PO DAILY 07/27/21 11/02/21 History Apixaban [Eliquis] 2.5 mg PO BID 10/28/21 11/02/21 History Ascorbic Acid [Vitamin C] 500 mg PO DAILY 10/28/21 11/02/21 History Ferrous Sulfate [Iron] 325 mg PO BID 10/28/21 11/02/21 History Omeprazole 20 mg PO DAILY 10/28/21 11/02/21 History Triamterene-Hctz 37.5-25Mg 1 cap PO DAILY 10/28/21 11/02/21 History [Dyazide 37.5-25 Capsule] Allergies Allergy/AdvReac Type Severity Reaction Status Date / Time No Known Allergies Allergy Verified 12/16/21 23:35 Physical Exam Vitals: Vital Signs Temp Pulse Resp BP Pulse Ox 12/17/21 03:00 81 18 94 L 12/17/21 00:35 92 22 166/86 94 L 12/16/21 23:31 98.9 F 100 21 161/92 97 Intake and Output 12/16/21 12/16/21 12/17/21 14:59 22:59 06:59 Other: Weight 99.79 kg Constitutional: No acute distress, conversant, pleasant Eyes: Anicteric sclerae, moist conjunctiva, Pupils equal round reactive to light ENMT: NC/AT Oropharynx clear, no erythema, or exudates Neck: Supple, no masses, or JVD No carotid bruits No thyromegaly Lungs: Good breath sounds bilaterally no wheezing rhonchi or rales Clear to percussion Normal respiratory effort, no accessory muscle use Cardiovascular: Heart irregular No murmurs, gallops, or rubs No peripheral edema Abdominal: Soft Nontender, no guarding, rebound or rigidity Abdomen moving with respiration Normoactive bowel sounds No hepatomegaly, No splenomegaly No palpable mass No abdominal wall hernia noted Skin: Normal temperature, tone, texture, turgor No induration No subcutaneous nodules No rash, lesions No ulcers Extremities: No digital cyanosis No clubbing Pedal pulses intact and symmetrical Radial pulses intact and symmetrical No calf tenderness Psychiatric: Alert and oriented to person, place and time Appropriate affect fair judgement Neuro Muscles Strength 4/5 in all 4 extremities except for limited exam over the left upper extremity with proximal muscle groups due to pain in his left shoulder Sensation to light touch grossly present throughout Cranial nerves II-XII grossly intact No focal sensory deficits Lymphatics: no palpable cervical or supraclavicular , or inguinal lymph nodes Results CBC & Chem 7: 12/17/21 00:36 12/17/21 00:36 Labs: Abnormal Lab Results - Last 24 Hours (Table) 12/17/21 12/17/21 12/17/21 Range/Units 00:36 00:36 02:30 WBC 13.4 H (3.8-10.6) k/uL RBC 4.00 L (4.30-5.90) m/uL Hgb 10.8 L (13.0-17.5) gm/dL Hct 35.4 L (39.0-53.0) % MCHC 30.5 L (31.0-37.0) g/dL RDW 16.5 H (11.5-15.5) % Plt Count 592 H (150-450) k/uL Neutrophils # 11.7 H (1.3-7.7) k/uL Lymphocytes # 0.6 L (1.0-4.8) k/uL BUN 24 H (9-20) mg/dL Glucose 119 H (74-99) mg/dL Alkaline Phosphatase 189 H (38-126) U/L C-Reactive Protein 4.6 H (<1.0) mg/dL Assessment and Plan Assessment: Sepsis secondary to pneumonia Follow-up cultures Covid test negative Chest x-ray showed bilateral pneumonia Supplemental oxygen as needed Initiated on azithromycin and Rocephin Monitor vital signs Gentle IV fluid hydration no saline Symptomatic control Tylenol for fever Fall precautions Atypical chest pain most likely pleuritic secondary to above History of coronary artery disease status post stents Recent left heart cath in November of this year no intervention required Continue with cardiac meds Chronic conditions Chronic anemia, denies any GI bleeding A. fib on Salena Jassi History of throat cancer [facility] than [facility] midnights
[2021-12-17] MEDS: amLODIPine 10 MG TAB PO SCH (09:05)
[2021-12-17] MEDS: APIXABAN 2.5 MG TABLET PO SCH ×2 (09:05→20:44)
[2021-12-17] MEDS: ASPIRIN 81 MG PO SCH (09:05)
[2021-12-17] MEDS: lisinopriL 20 MG TAB PO SCH (09:05)
[2021-12-17] MEDS: PANTOPRAZOLE 40 MG TABLET PO SCH (09:05)
[2021-12-17] MEDS: PARoxetine 20 MG TAB PO SCH (09:06)
[2021-12-17] MEDS: TRIAMTERENE-HCTZ 37.5-25MG 1 EACH CAP PO SCH (09:06)
--- NOTE | 2021-12-17 17:22 | P.PN ---
Subjective Progress Note Date: 12/17/21 (delayed charting seen at 1215) Principal diagnosis: fevers and chest pain Patient is an 78-year-old male with history of hypertension, coronary artery disease, A. fib, and shoulder problems who presented to the emergency department with complaints of difficulty in breathing, chills, and some chest tightness. In the ER he underwent an extensive evaluation. He was ultimately found to have an elevated white blood cell count and chest x-ray consistent with bilateral u pper lobe interstitial infiltrates. He was started on antibiotics and arrangements were made for admission. He did undergo cardiac catheterization on 11/02/21 which demonstrated a calcified LAD with a patent stent in the RCA and significant disease in the third obtuse marginal branch as well as mild to moderate triple-vessel disease. There was no disease progression on the calf and they recommended continued aggressive coronary risk medications. Patient seen and examined at bedside with present. He is feeling much better at this time. He states he is breathing easier since the antibiotics. He is no longer having chills. His color is better. General: non toxic, no distress, appears at stated age Derm: warm, dry Head: atraumatic, normocephalic, symmetric Eyes: EOMI, no lid lag, anicteric sclera Mouth: no lip lesion, mucus membranes moist Cardiovascular: S1S2 reg, no murmur, positive posterior tibial pulse bilateral, Lungs: rochi bilateral apices , no accessory muscle use Abdominal: soft, nontender to palpation, no guarding, no appreciable organomegaly Ext: no gross muscle atrophy, no edema, no contractures Neuro: CN II-XI grossly intact, no focal neuro deficits Psych: Alert, oriented, appropriate affect Assesssment/plan: Community-acquired pneumonia with sepsis on presentation secondary to heart rate of 100 and white blood cell count 13. Chest pain likely due to Costochondritis Acute hypoxic respiratory failure P. A fib on eliquis CAD HLD HTN -Continue with Rocephin and Zithromax -Covid, flu, and RSV are negative -Pulmonary hygiene -Follow chest x-ray until clear - cardio recs -meds reviewed and no additional changes. Likely home in AM Objective - Vital Signs Vital signs: Vital Signs Temp 97.6 F 12/17/21 15:04 Pulse 77 12/17/21 15:04 Resp 18 03/19/22 15:04 BP 134/79 12/17/21 15:04 Pulse Ox 92 L 12/17/21 15:04 Intake & Output 12/16/21 12/17/21 12/17/21 18:59 06:59 18:59 Output Total 200 Balance -200 Weight 99.79 kg 99.79 kg Output: Urine 200 Other: Voiding Method Toilet # Voids 1 # Bowel Movements 1 - Labs CBC & Chem 7: 12/17/21 00:36 12/17/21 00:36 Labs: Abnormal Lab Results - Last 24 Hours (Table) 12/17/21 12/17/21 12/17/21 Range/Units 00:36 00:36 02:30 WBC 13.4 H (3.8-10.6) k/uL RBC 4.00 L (4.30-5.90) m/uL Hgb 10.8 L (13.0-17.5) gm/dL Hct 35.4 L (39.0-53.0) % MCHC 30.5 L (31.0-37.0) g/dL RDW 16.5 H (11.5-15.5) % Plt Count 592 H (150-450) k/uL Neutrophils # 11.7 H (1.3-7.7) k/uL Lymphocytes # 0.6 L (1.0-4.8) k/uL BUN 24 H (9-20) mg/dL Glucose 119 H (74-99) mg/dL Alkaline Phosphatase 189 H (38-126) U/L C-Reactive Protein 4.6 H (<1.0) mg/dL
--- NOTE | 2021-12-17 17:43 | P.CRDCN ---
History of Present Illness History of present illness: HISTORY OF PRESENTING ILLNESS Patient is pleasant 86-year-old male with a history of persistent atrial fibrillation, coronary artery disease with previous stenting, hypertension, hyperlipidemia, anemia. Preserved EF by echo last 09/13/2019. He follows in the office with Dr. Mckeon. He had a recent workup every second 2021 with heart catheterization which showed calcified LAD, patent RCA stent and small obtuse marginal third branch with significant disease however treated medically. He was being evaluated for possible surgery due to orthopedic complaints. Unfortunately he has been having increased episodes of chest tightness which was happening when he was just resting associated shortness breath. He was found to have new onset of bilateral infiltrates and does admit to mild cough. He states he is also been feeling fatigued over the last week. He denies any association with exertion. He states he is feeling much better since coming to the hospital yesterday. EKG shows atrial fibrillation with right bundle azul block and nonspecific ST, T-wave abnormalities. Blood work showed troponin is normal 3, white blood cell 13.4, hemoglobin 10.8, proBNP 1630. REVIEW OF SYSTEMS At the time of my exam: CONSTITUTIONAL: Denies fever, +chills. CARDIOVASCULAR: +chest pain, + mild shortness of breath, no orthopnea, PND or palpitations. RESPIRATORY: Denies cough. GASTROINTESTINAL: Denies abdominal pain, diarrhea, constipation, nausea or vomiting. MUSCULOSKELETAL: Denies myalgias. NEUROLOGIC: Denies numbness, tingling or weakness. ENDOCRINE: Denies fatigue, weight change, polydipsia or polyurina. GENITOURINARY: Denies burning, hematuria or urgency with micturation. HEMATOLOGIC: Denies history of anemia or bleeding. PHYSICAL EXAMINATION Vital signs reviewed. CONSTITUTIONAL: No apparent distress. HEENT: Head is normocephalic. Pupils are equal, round. Sclerae anicteric. Mucous membranes of the mouth are moist. No JVD. No carotid bruit. CHEST EXAMINATION: Lungs are clear to auscultation. No chest wall tenderness is noted on palpation or with deep breathing. HEART EXAMINATION: Irregular rate and rhythm. S1, S2 heard. No murmurs, gallops or rub. ABDOMEN: Soft, nontender. Positive bowel sounds. EXTREMITIES: 2+ peripheral pulses, no lower extremity edema and no calf tenderness. NEUROLOGIC EXAMINATION: Patient is awake, alert and oriented x3. ASSESSMENT 1. Chest pressure likely related to acute pneumonia, troponin is normal 3. Acute coronary syndrome ruled out 2. History of coronary artery disease with recent heart catheterization 11/2021 showing mild to moderate CAD as well as very small caliber obtuse marginal third branch treated medically 3. Hypertension 4. Hyperlipidemia 5. Persistent atrial fibrillation with controlled ventricular rates 6. Anemia appears stable 7. Community acquired pneumonia PLAN Patient's main symptoms of cough, chest pressure, shortness breath appear related to pneumonia with bilateral infiltrates, mild chills, fatigue, elevated white blood cell count. Troponin is noted to be normal 3. Patient with most recent workup including heart catheterization which was unrevealing treated medically. Do not suspect cardiac etiology of his symptoms. A. fib appears controlled. Continue with current medications. No further recommendations from a cardiology standpoint. Please call with any questions. Past Medical History Past Medical History: Myocardial Infarction ([place]) Additional Past Medical History / Comment(s): spouse states "unable to do recent heartcath due to low hgb, having increased SOB, and fatigue. Recent fall injurying left shoulder/rotator cuff-needing to have surgery with Dr Alcantara",Colon cancer w/ resection, laryngeal cancer w/ radiation/surgery-has intermittent coughing at times swallowing saliva, colon & throat polyps, postitive stool for C-Diff/Lactoferrin 11/12/18, skin cancer removal, equilibrium problems, arthritis hands/legs, seasonal allergies. Hx fall w/ injury Lt shoulder, in PT. Last Myocardial Infarction Date:: 1994 History of Any Multi-Drug Resistant Organisms: None Reported, C-DIFF Date of last positivie culture/infection: 2018 MDRO Source:: stool Past Surgical History: Appendectomy, Bowel Resection, Heart Catheterization, Heart Catheterization With Stent, Orthopedic Surgery Additional Past Surgical History / Comment(s): PCI with total 4 stents. EGD, colonoscopies, bowel resection-8 inches removed, suspension microlarygoscopy for laryngeal lesion, skin cancer removals, R knee arthroscopy, R rotator cuff repair, bilat cataract removals/lens implants. Past Anesthesia/Blood Transfusion Reactions: No Reported Reaction Date of Last Stent Placement:: 12/19/18 Past Psychological History: Depression Additional Psychological History / Comment(s): Pt resides with his spouse. He works out at the gym 3 days a week. He drives. Smoking Status: Former smoker Past Alcohol Use History: None Reported Additional Past Alcohol Use History / Comment(s): Pt started smoking in 1948, quit in 1966 Past Drug Use History: None Reported - Past Family History Mother Family Medical History: Diabetes Mellitus Additional Family Medical History / Comment(s): Mother lived to be 78yrs old. Father Family Medical History: Myocardial Infarction ([place]) Additional Family Medical History / Comment(s): FATHER @ AGE 46 WITH [place] Sister(s) Family Medical History: Cancer Additional Family Medical History / Comment(s): BREAST & BONE CA Medications and Allergies Home Medications Medication Instructions Recorded Confirmed Type PARoxetine [Paxil] 30 mg PO DAILY 03/13/14 12/17/21 History Multivitamins, Thera [Multivitamin 1 tab PO DAILY 01/14/15 12/17/21 History (formulary)] Cholecalciferol [Vitamin D3 (25 2,000 unit PO DAILY 05/29/18 12/17/21 History Mcg = 1000 Iu)] Atorvastatin [Lipitor] 40 mg PO HS 12/18/18 12/17/21 History L.acidoph,Paracasei, B.lactis 1 cap PO DAILY 12/18/18 12/17/21 History [Probiotic] amLODIPine BESYLATE/BENAZEPRIL 1 cap PO DAILY 09/13/19 12/17/21 History [Lotrel 10-20 MG] Acetaminophen [Tylenol Extra 500 - 1,000 mg PO DIRECTED PRN 07/27/21 12/17/21 History Strength] Aspirin [Adult Low Dose Aspirin EC] 81 mg PO HS 07/27/21 12/17/21 History Apixaban [Eliquis] 2.5 mg PO BID 10/28/21 12/17/21 History Ascorbic Acid [Vitamin C] 500 mg PO DAILY 10/28/21 12/17/21 History Ferrous Sulfate [Iron] 325 mg PO BID 10/28/21 12/17/21 History Omeprazole 20 mg PO DAILY 10/28/21 12/17/21 History Triamterene-Hctz 37.5-25Mg 1 cap PO DAILY PRN 10/28/21 12/17/21 History [Dyazide 37.5-25 Capsule] Nitroglycerin Sl Tabs [Nitrostat] 0.4 mg SUBLINGUAL Q5M PRN 12/17/21 12/17/21 History Allergies Allergy/AdvReac Type Severity Reaction Status Date / Time No Known Allergies Allergy Verified 12/17/21 12:28 Physical Exam Vitals: Vital Signs Temp Pulse Pulse Resp BP BP Pulse Ox 12/17/21 15:04 97.6 F 77 18 134/79 92 L 12/17/21 13:29 65 18 12/17/21 11:26 98.4 F 65 18 137/80 90 L 12/17/21 08:48 70 18 12/17/21 08:44 98.4 F 70 18 143/84 98 12/17/21 06:00 70 18 135/69 95 12/17/21 04:00 81 18 139/76 96 12/17/21 03:00 81 18 94 L 12/17/21 00:35 92 22 166/86 94 L 12/16/21 23:31 98.9 F 100 21 161/92 97 Intake and Output 12/17/21 12/17/21 12/17/21 06:59 14:59 22:59 Output Total 200 Balance -200 Output: Urine 200 Other: Voiding Method Toilet # Voids 1 1 # Bowel Movements 1 Weight 99.79 kg 99.79 kg Results 12/17/21 00:36 12/17/21 00:36 Cardiac Enzymes 12/17/21 12/17/21 12/17/21 Range/Units 00:36 00:36 02:28 AST 28 (17-59) U/L Lactate Dehydrogenase (313-618) U/L Troponin I <0.012 <0.012 (0.000-0.034) ng/mL 12/17/21 12/17/21 Range/Units 02:30 06:05 AST (17-59) U/L Lactate Dehydrogenase 358 (313-618) U/L Troponin I <0.012 (0.000-0.034) ng/mL Coagulation 12/17/21 Range/Units 00:36 PT 12.0 (9.0-12.0) sec APTT 26.3 (22.0-30.0) sec CBC 12/17/21 Range/Units 00:36 WBC 13.4 H (3.8-10.6) k/uL RBC 4.00 L (4.30-5.90) m/uL Hgb 10.8 L (13.0-17.5) gm/dL Hct 35.4 L (39.0-53.0) % Plt Count 592 H (150-450) k/uL Comprehensive Metabolic Panel 12/17/21 Range/Units 00:36 Sodium 139 (137-145) mmol/L Potassium 3.7 (3.5-5.1) mmol/L Chloride 102 (98-107) mmol/L Carbon Dioxide 27 (22-30) mmol/L BUN 24 H (9-20) mg/dL Creatinine 1.18 (0.66-1.25) mg/dL Glucose 119 H (74-99) mg/dL Calcium 9.7 (8.4-10.2) mg/dL AST 28 (17-59) U/L ALT 30 (4-49) U/L Alkaline Phosphatase 189 H (38-126) U/L Total Protein 7.6 (6.3-8.2) g/dL Albumin 3.9 (3.5-5.0) g/dL Current Medications Generic Name Dose Route Start Last Admin Trade Name Freq PRN Reason Stop Dose Admin Acetaminophen 650 mg 12/17/21 02:06 Acetaminophen Tab 325 Mg Tab PO Q6HR PRN Mild Pain or Fever > 100.5 Albuterol/Ipratropium 3 ml 12/17/21 02:09 Ipratropium-Albuterol 3 Ml Neb INHALATION RT-TID PRN Shortness Of Breath Or Wheezing Amlodipine Besylate 10 mg 12/17/21 09:00 12/17/21 09:05 Amlodipine 10 Mg Tab PO Not Given QAM [facility] Apixaban 2.5 mg 12/17/21 09:00 12/17/21 09:05 Apixaban 2.5 Mg Tablet PO Not Given BID [facility] Protocol Aspirin 81 mg 12/17/21 09:00 12/17/21 09:05 Aspirin 81 Mg PO Not Given DAILY [facility] Atorvastatin Calcium 40 mg 12/17/21 21:00 Atorvastatin 40 Mg Tab PO HS [facility] Sodium Chloride 1,000 mls @ 130 mls/hr 12/17/21 02:15 12/17/21 10:24 Saline 0.9% IV Not Given .Q7H42M [facility] Azithromycin 500 mg/ Sodium 250 mls @ 250 mls/hr 12/18/21 06:00 Chloride IVPB 03/21/22 09:59 DAILY [facility] Protocol Ceftriaxone Sodium 2 gm/ 50 mls @ 100 mls/hr 12/17/21 21:00 Sodium Chloride IVPB Q24H [facility] Protocol Ibuprofen 400 mg 12/17/21 02:06 Ibuprofen 400 Mg Tab PO Q6HR PRN Mild Pain or Fever > 100.5 Lisinopril 20 mg 12/17/21 09:00 12/17/21 09:05 Lisinopril 20 Mg Tab PO Not Given DAILY [facility] Lorazepam 0.5 mg 12/17/21 02:06 Lorazepam 2 Mg/Ml Inj IV Q6HR PRN Anxiety Morphine Sulfate 4 mg 12/17/21 02:06 Morphine Sulfate 4 Mg/Ml Syringe IV Q4HR PRN Severe Pain Naloxone HCl 0.2 mg 12/17/21 02:06 Naloxone 0.4 Mg/Ml 1 Ml Vial IV Q2M PRN Opioid Reversal Ondansetron HCl 4 mg 12/17/21 02:06 Ondansetron 4 Mg/2 Ml Vial IVP Q8HR PRN Nausea And Vomiting Pantoprazole Sodium 40 mg 12/17/21 09:00 12/17/21 09:05 Pantoprazole 40 Mg Tablet PO Not Given DAILY [facility] Paroxetine HCl 30 mg 12/17/21 09:00 12/17/21 09:06 Paroxetine 20 Mg Tab PO Not [facility] Triamterene/Hydrochlorothiazide 1 each 12/17/21 09:00 12/17/21 09:06 Triamterene-Hctz 37.5-25mg 1 Each Cap PO Not Given DAILY [facility] Intake and Output 12/17/21 12/17/21 12/17/21 06:59 14:59 22:59 Output Total 200 Balance -200 Output: Urine 200 Other: Voiding Method Toilet # Voids 1 1 # Bowel Movements 1 Weight 99.79 kg 99.79 kg Patient Weight 12/18/21 06:59 Weight 99.79 kg 12/17/21 00:36 12/17/21 00:36
[2021-12-17] MEDS: ACETAMINOPHEN TAB 325 MG TAB PO PRN (18:05)
[2021-12-17] MEDS ORDERED: ATORVASTATIN 40 MG TAB PO SCH (21:00)
[2021-12-18] MEDS: SODIUM CHLORIDE 0.9% 1,000 ML IV SCH (04:10)
[2021-12-18] MEDS: AZITHROMYCIN 500 MG in SODIUM CHLORIDE 0.9% 250 ML IVPB SCH ×2 (06:20→09:34)
[2021-12-18 07:49] LABS: Albumin 3.4 g/dL (3.5-5.0); Calcium 9.4 mg/dL (8.4-10.2); Potassium 3.8 mmol/L (3.5-5.1); Total Bilirubin 0.7 mg/dL (0.2-1.3)
[2021-12-18 08:23] LABS: Anisocytosis Slight; Basophils # (A) 0.1 k/uL (0-0.2); Basophils % (A) 1 %; Eosinophils # (A) 0.1 k/uL (0-0.7); Eosinophils % (A) 1 %; Hypochromasia Marked; Lymphocytes % (A) 10 %; MCH 26.7 pg (25.0-35.0); MCHC 29.4 g/dL (31.0-37.0); MCV 90.9 fL (80.0-100.0); Mean Platelet Volume 7.8; Monocytes # (A) 0.7 k/uL (0-1.0); Monocytes % (A) 7 %; Neutrophils # (A) 7.9 k/uL (1.3-7.7); Neutrophils % (A) 79 %; Platelet Count 482 k/uL (150-450); RBC 3.41 m/uL (4.30-5.90); RDW 16.3 % (11.5-15.5)
[2021-12-18 08:25] LABS: HGB 9.1 gm/dL (13.0-17.5)
--- NOTE | 2021-12-18 08:41 | XR ---
EXAMINATION TYPE: XR chest 1V portable DATE OF EXAM: 12/18/2021 CLINICAL HISTORY: Difficulty breathing and pneumonia progress study. TECHNIQUE: Single AP portable upright view of the chest is obtained. COMPARISON: Chest x-ray from one day earlier. CT chest September 13, 2019. FINDINGS: Chronic parenchymal changes bilaterally with increased left basilar and bilateral upper myrna ng increased opacities remain present. Stable cardiomegaly. Multilevel spurring and thoracic spine re demonstrated. IMPRESSION: Chronic changes and cardiomegaly with bilateral upper lung and left basilar opacities cou ld reflect areas of acute infiltrate. Patient has known underlying bilateral chronic nodularity. Luis Antonio elate clinically. No significant change from most recent x-ray.
[2021-12-18] MEDS ORDERED: CEFDINIR 300 MG CAP PO STA (09:15)
[2021-12-18 09:32] VITALS: BP 136/66; PULSE 63; RESP 18; TEMP 98.2
[2021-12-18] MEDS: PARoxetine 20 MG TAB PO SCH (09:33)
[2021-12-18] MEDS: APIXABAN 2.5 MG TABLET PO SCH (09:33)
[2021-12-18] MEDS: amLODIPine 10 MG TAB PO SCH (09:34)
[2021-12-18] MEDS: PANTOPRAZOLE 40 MG TABLET PO SCH (09:34)
[2021-12-18] MEDS: lisinopriL 20 MG TAB PO SCH (09:34)
[2021-12-18] MEDS: ASPIRIN 81 MG PO SCH (09:34)
[2021-12-18] MEDS: TRIAMTERENE-HCTZ 37.5-25MG 1 EACH CAP PO SCH (09:37)
[2021-12-18] MEDS: ACETAMINOPHEN TAB 325 MG TAB PO PRN (11:43)
--- NOTE | 2021-12-18 16:33 | P.DS ---
Providers Date of admission: 12/17/21 02:08 Expected date of discharge: 12/18/21 Attending physician: Janette León MD Primary care physician: Pradip Ceron MD Hospital Course: Discharge Diagnosis: Community-acquired pneumonia with sepsis on presentation secondary to heart rate of 100 and white blood cell count 13. Chest pain likely due to Costochondritis Acute hypoxic respiratory failure P. A fib on eliquis CAD HLD HTN Hospital Course: Patient is an 78-year-old male with history of hypertension, coronary artery disease, A. fib, and shoulder problems who presented to the emergency department with complaints of difficulty in breathing, chills, and some chest tightness. In the ER he underwent an extensive evaluation. He was ultimately found to have an elevated white blood cell count and chest x-ray consistent with bilateral upper lobe interstitial infiltrates. He was started on antibiotics and arrangements were made for admission. He did undergo cardiac catheterization on 11/02/21 which demonstrated a calcified LAD with a patent stent in the RCA and significant disease in the third obtuse marginal branch as well as mild to moderate triple-vessel disease. There was no disease progression on the calf and they recommended continued aggressive coronary risk medications. He was seen by cardiology and acute coronary syndrome was ruled out. His white blood cell count improved and chest x-ray was minimally improved. He was determined stable for discharge home on oral antibiotics. He will follow-up with Dr. Ceron next week prior to his shoulder surgery to ensure that his pneumonia is cleared prior to surgery. Patient seen and examined at bedside. No chest pain, SOB and cough are improved, No Nausea or vomiting. No other complaints currently. Vital signs reviewed and stable. General: non toxic, no distress, appears at stated age Derm: warm, dry Head: atraumatic, normocephalic, symmetric Eyes: EOMI, no lid lag, anicteric sclera Mouth: no lip lesion, mucus membranes moist Cardiovascular: S1S2 reg, no murmur, positive posterior tibial pulse bilateral, Lungs: COurse bs bilateral, no rhonchi, no rales , no accessory muscle use Abdominal: soft, nontender to palpation, no guarding, no appreciable organomegaly Ext: no gross muscle atrophy, no edema, no contractures Neuro: CN II-XI grossly intact, no focal neuro deficits Psych: Alert, oriented, appropriate affect A total of 37 minutes of time were spent preparing this complex discharge summary . Patient Condition at Discharge: Good Plan - Discharge Summary Discharge Rx Participant: No New Discharge Prescriptions: New Cefdinir [Omnicef] 300 mg PO Q12HR #6 capsule Azithromycin [Zithromax] 500 mg PO DAILY 3 Days #3 tab Continue PARoxetine [Paxil] 30 mg PO DAILY Multivitamins, Thera [Multivitamin (formulary)] 1 tab PO DAILY Cholecalciferol [Vitamin D3 (25 Mcg = 1000 Iu)] 2,000 unit PO DAILY L.acidoph,Paracasei, B.lactis [Probiotic] 1 cap PO DAILY Atorvastatin [Lipitor] 40 mg PO HS amLODIPine BESYLATE/BENAZEPRIL [Lotrel 10-20 MG] 1 cap PO DAILY Aspirin [Adult Low Dose Aspirin EC] 81 mg PO HS Acetaminophen [Tylenol Extra Strength] 500 - 1,000 mg PO DIRECTED PRN PRN Reason: Pain Ascorbic Acid [Vitamin C] 500 mg PO DAILY Triamterene-Hctz 37.5-25Mg [Dyazide 37.5-25 Capsule] 1 cap PO DAILY PRN PRN Reason: SWEELLING Nitroglycerin Sl Tabs [Nitrostat] 0.4 mg SUBLINGUAL Q5M PRN PRN Reason: Chest Pain Omeprazole 20 mg PO DAILY Ferrous Sulfate [Iron] 325 mg PO BID Apixaban [Eliquis] 2.5 mg PO BID Discharge Medication List PARoxetine [Paxil] 30 mg PO DAILY 03/13/14 [History] Multivitamins, Thera [Multivitamin (formulary)] 1 tab PO DAILY 01/14/15 [History] Cholecalciferol [Vitamin D3 (25 Mcg = 1000 Iu)] 2,000 unit PO DAILY 05/29/18 [History] Atorvastatin [Lipitor] 40 mg PO HS 12/18/18 [History] L.acidoph,Paracasei, B.lactis [Probiotic] 1 cap PO DAILY 12/18/18 [History] amLODIPine BESYLATE/BENAZEPRIL [Lotrel 10-20 MG] 1 cap PO DAILY 09/13/19 [History] Acetaminophen [Tylenol Extra Strength] 500 - 1,000 mg PO DIRECTED PRN 07/27/21 [History] Aspirin [Adult Low Dose Aspirin EC] 81 mg PO HS 07/27/21 [History] Apixaban [Eliquis] 2.5 mg PO BID 10/28/21 [History] Ascorbic Acid [Vitamin C] 500 mg PO DAILY 10/28/21 [History] Ferrous Sulfate [Iron] 325 mg PO BID 10/28/21 [History] Omeprazole 20 mg PO DAILY 10/28/21 [History] Triamterene-Hctz 37.5-25Mg [Dyazide 37.5-25 Capsule] 1 cap PO DAILY PRN 10/28/21 [History] Nitroglycerin Sl Tabs [Nitrostat] 0.4 mg SUBLINGUAL Q5M PRN 12/17/21 [History] Azithromycin [Zithromax] 500 mg PO DAILY 3 Days #3 tab 12/18/21 [Rx] Cefdinir [Omnicef] 300 mg PO Q12HR #6 capsule 12/18/21 [Rx] Follow up Appointment(s)/Referral(s): Pradip Ceron MD [Primary Care Provider] - 1-2 days Patient Instructions/Handouts: Community Acquired Pneumonia (DC) Activity/Diet/Wound Care/Special Instructions: Activity: as tolerated Diet: heart healthy Special Instructions: Take all antibiotics as prescribed Discharge Disposition: HOME SELF-CARE
== END 2021-12-18 11:49 | disposition home or self-care (01) | DRG 871 ==
LOC: EC 23:27 → 3SCARD 12-17 02:08
PROVIDERS: ADMIT Internal Medicine; ATTEND Internal Medicine
DX: A41.9 Sepsis, unspecified organism (principal); J18.9 Pneumonia, unspecified organism; J96.01 Acute respiratory failure with hypoxia; I48.19 Other persistent atrial fibrillation; I25.10 Atherosclerotic heart disease of native coronary artery without angina pectoris; I10 Essential (primary) hypertension; I45.10 Unspecified right bundle-branch block; J30.2 Other seasonal allergic rhinitis; Z20.822 Contact with and (suspected) exposure to COVID-19; D64.9 Anemia, unspecified; E78.5 Hyperlipidemia, unspecified; F32.A Depression, unspecified; I25.2 Old myocardial infarction; M94.0 Chondrocostal junction syndrome [Tietze]; Z79.01 Long term (current) use of anticoagulants; Z79.82 Long term (current) use of aspirin; Z82.49 Family history of ischemic heart disease and other diseases of the circulatory system; Z83.3 Family history of diabetes mellitus; Z85.038 Personal history of other malignant neoplasm of large intestine; Z85.21 Personal history of malignant neoplasm of larynx; Z85.819 Personal history of malignant neoplasm of unspecified site of lip, oral cavity, and pharynx; Z85.828 Personal history of other malignant neoplasm of skin; Z87.891 Personal history of nicotine dependence; Z95.5 Presence of coronary angioplasty implant and graft; Z96.1 Presence of intraocular lens; Z98.42 Cataract extraction status, left eye; Z98.41 Cataract extraction status, right eye; Z79.899 Other long term (current) drug therapy; Z92.3 Personal history of irradiation
CPT/HCPCS: 36415; 71045; 71046; 80053; 83615; 83735; 83880; 84484; 85025; 85610; 85730; 86140; 87040; 87502; 87634; 87635; 93005; 96365; 96366; 96367; 99285

== ENCOUNTER 2021-12-27 10:16 | Emergency (ER) | payer MEDICARE ==
[2021-12-27] MEDS ORDERED: ASPIRIN 81 MG PO STA (10:47)
[2021-12-27 11:02] LABS: Anisocytosis Slight; Basophils # (A) 0.1 k/uL (0-0.2); Basophils % (A) 1 %; Eosinophils # (A) 0.2 k/uL (0-0.7); Eosinophils % (A) 2 %; HCT 33.5 % (39.0-53.0); HGB 10.1 gm/dL (13.0-17.5); Hypochromasia Marked; Lymphocytes # (A) 0.9 k/uL (1.0-4.8); Lymphocytes % (A) 9 %; MCH 27.1 pg (25.0-35.0); MCHC 30.1 g/dL (31.0-37.0); MCV 90.1 fL (80.0-100.0); Mean Platelet Volume 7.4; Monocytes # (A) 0.7 k/uL (0-1.0); Monocytes % (A) 6 %; Neutrophils # (A) 8.8 k/uL (1.3-7.7); Neutrophils % (A) 81 %; Platelet Count 533 k/uL (150-450); RBC 3.72 m/uL (4.30-5.90); RDW 16.4 % (11.5-15.5)
[2021-12-27 11:12] LABS: INR 1.1 (<1.2); Partial Thromboplastin Time 27.2 sec (22.0-30.0)
[2021-12-27 11:13] LABS: Albumin 3.7 g/dL (3.5-5.0); Calcium 9.9 mg/dL (8.4-10.2); Magnesium 2.1 mg/dL (1.6-2.3); Potassium 4.2 mmol/L (3.5-5.1); Total Bilirubin 0.7 mg/dL (0.2-1.3); Total Protein 7.4 g/dL (6.3-8.2)
--- NOTE | 2021-12-27 11:29 | ED ---
General Adult HPI - General Chief complaint: Shortness of Breath Stated complaint: SOB Time Seen by Provider: 12/27/21 10:35 Source: patient, RN notes reviewed, old records reviewed Mode of arrival: ambulatory Limitations: no limitations - History of Present Illness Initial comments: Patient is an 86-year-old male with past medical history remarkable for prior MIs with stents, recently diagnosed pneumonia after a full course of antibiotics was completed who presents emergency Department complaining of return of generalized fatigue as well as shortness of breath with mild cough. These are similar symptoms that he had when he was diagnosed with pneumonia. He is also complaining of a chest "tightness sensation" across his chest. He did recently have a heart catheterization 3 weeks ago with no acute intervention. Denies any nausea, vomiting. Denies any worsening leg swelling but does have a degree of baseline leg swelling. Denies any fevers, sick contacts. Patient is on Eliquis. He denies any nausea, vomiting, diarrhea. No other acute complaints at this time. Has been compliant with his blood thinner medication. No other acute complaints at this time. - Related Data Home Medications Medication Instructions Recorded Confirmed PARoxetine [Paxil] 30 mg PO DAILY 03/13/14 12/17/21 Multivitamins, Thera [Multivitamin 1 tab PO DAILY 01/14/15 12/17/21 (formulary)] Atorvastatin [Lipitor] 40 mg PO HS 12/18/18 12/17/21 L.acidoph,Paracasei, B.lactis 1 cap PO DAILY 12/18/18 12/17/21 [Probiotic] amLODIPine BESYLATE/BENAZEPRIL 1 cap PO DAILY 09/13/19 12/17/21 [Lotrel 10-20 MG] Acetaminophen [Tylenol Extra 500 - 1,000 mg PO DIRECTED PRN 07/27/21 12/17/21 Strength] Aspirin [Adult Low Dose Aspirin EC] 81 mg PO HS 07/27/21 12/17/21 Apixaban [Eliquis] 2.5 mg PO BID 10/28/21 12/17/21 Ascorbic Acid [Vitamin C] 500 mg PO DAILY 10/28/21 12/17/21 Ferrous Sulfate [Iron] 325 mg PO BID 10/28/21 12/17/21 Omeprazole 20 mg PO DAILY 10/28/21 12/17/21 Triamterene-Hctz 37.5-25Mg 1 cap PO DAILY PRN 10/28/21 12/17/21 [Dyazide 37.5-25 Capsule] Nitroglycerin Sl Tabs [Nitrostat] 0.4 mg SUBLINGUAL Q5M PRN 12/17/21 12/17/21 Cholecalciferol [Vitamin D3 (25 50 mcg PO DAILY 12/27/21 12/27/21 Mcg = 1000 Iu)] Previous Rx's Medication Instructions Recorded Levofloxacin [Levaquin] 750 mg PO DAILY 7 Days #7 tab 12/27/21 Allergies Allergy/AdvReac Type Severity Reaction Status Date / Time No Known Allergies Allergy Verified 12/27/21 14:21 Review of Systems ROS Statement: Those systems with pertinent positive or pertinent negative responses have been documented in the HPI. Review of Systems: CONST: Denies fever EYES: Denies blurry vision ENT: Denies nasal congestion C/V: Endorses chest tightness RESP: Endorses shortness of breath GI: Denies abdominal pain : Denies dysuria SKIN: Denies rash. MSK: Denies joint pain. NEURO: Denies headache ROS Other: All systems not noted in ROS Statement are negative. Past Medical History Past Medical History: Myocardial Infarction ([place]) Additional Past Medical History / Comment(s): spouse states "unable to do recent heartcath due to low hgb, having increased SOB, and fatigue. Recent fall injurying left shoulder/rotator cuff-needing to have surgery with Dr Alcantara",Colon cancer w/ resection, laryngeal cancer w/ radiation/surgery-has intermittent coughing at times swallowing saliva, colon & throat polyps, postitive stool for C-Diff/Lactoferrin 11/12/18, skin cancer removal, equilibrium problems, arthritis hands/legs, seasonal allergies. Hx fall w/ injury Lt shoulder, in PT. Last Myocardial Infarction Date:: 1994 History of Any Multi-Drug Resistant Organisms: None Reported, C-DIFF Date of last positivie culture/infection: 2018 MDRO Source:: stool Past Surgical History: Appendectomy, Bowel Resection, Heart Catheterization, Heart Catheterization With Stent, Orthopedic Surgery Additional Past Surgical History / Comment(s): PCI with total 4 stents. EGD, colonoscopies, bowel resection-8 inches removed, suspension microlarygoscopy for laryngeal lesion, skin cancer removals, R knee arthroscopy, R rotator cuff repair, bilat cataract removals/lens implants. Past Anesthesia/Blood Transfusion Reactions: No Reported Reaction Date of Last Stent Placement:: 12/19/18 Past Psychological History: Depression Smoking Status: Former smoker Past Alcohol Use History: None Reported Past Drug Use History: None Reported - Past Family History Mother Family Medical History: Diabetes Mellitus Additional Family Medical History / Comment(s): Mother lived to be 78yrs old. Father Family Medical History: Myocardial Infarction ([place]) Additional Family Medical History / Comment(s): FATHER @ AGE 46 WITH NC Sister(s) Family Medical History: Cancer Additional Family Medical History / Comment(s): BREAST & BONE CA General Exam - General Exam Comments Initial Comments: General: Appears in no acute distress. HEAD: Normal with no signs of head trauma. EYES: PERRLA, EOMI, conjunctiva normal, no discharge. ENT: Hearing grossly intact, normal oropharynx. RESPIRATORY: Clear breath sounds bilaterally. No wheezes, rales, or rhonchi. No hypoxia. No increased work of breathing. C/V: Regular rate and rhythm. S1 and S2 auscultated. Peripheral pulses 2+ intact. 1-2+ pitting edema in bilateral lower extremities which is chronic for the patient. Unchanged per patient. ABD: Abd is soft, nontender, nondistended EXT: Normal range of motion, no obvious deformity SKIN: No rashes or lesions observed on exposed skin. NEURO: Alert and oriented 4. No focal deficits. Limitations: no limitations Course Vital Signs 12/27/21 12/27/21 12/27/21 10:23 10:39 12:11 Temperature 97.4 F L Pulse Rate 72 96 62 Respiratory 18 22 18 Rate Blood Pressure 140/80 142/95 141/74 O2 Sat by Pulse 97 98 96 Oximetry 12/27/21 12/27/21 12:55 14:04 Temperature Pulse Rate 79 73 Respiratory 18 18 Rate Blood Pressure 144/80 136/84 O2 Sat by Pulse 97 97 Oximetry Medical Decision Making - Medical Decision Making Based on the patient's presentation and physical exam, I'm concerned for cardio pulmonary cause for current symptoms. Patient is a recent pneumonia. Therefore we will obtain chest x-ray in addition to cardiac labs. He was in agreement this plan. Patient is compliant with his anticoagulation and I have no concern for PE. She was given an aspirin. EKG shows no signs of acute ischemia. Chest x-ray reveals slightly worsening upper lobe pneumonia and bilateral upper lobes. Appears infiltrates are more dense. Laboratory studies are remarkable for a leukocytosis of 11. Covid influenza negative. Troponin is negative. Remainder the labs are unremarkable. Patient does have a normocytic anemia with a hemoglobin of 10.1.Patient's lactic acid is unremarkable. Remainder the labs are unremarkable. On reevaluation, states she patient states he feels improved. He ambulates without difficulty. States he is not short of breath. I discussed the findings with him. Due to his symptomatic URI, which appears to be return of his bilateral upper lobe pneumonia, I would like to continue him on antibiotics. Patient would like to go home. I believe this is reasonable as he is not hypoxic, in no respiratory distress, with relatively normal workup. We will start him on Levaquin, and provide him with IV piggyback dose prior to discharge today. He was in agreement this plan. I will provide the patient with a prescription for Levaquin 750 mg daily for 7 days. I instructed the patient to follow up with their PCP in the next 3 days. I explained that the patient should return to the emergency department if they experience any worsening symptoms. Strict return precautions were discussed with the patient. The patient expressed understanding of these instructions. I answered all questions that the patient had. The patient was discharged home in good condition with their prescriptions and follow up information. - Lab Data Result diagrams: 12/27/21 10:50 12/27/21 10:50 Lab Results 12/27/21 12/27/21 12/27/21 Range/Units 10:50 10:50 10:50 WBC 11.0 H (3.8-10.6) k/uL RBC 3.72 L (4.30-5.90) m/uL Hgb 10.1 L (13.0-17.5) gm/dL Hct 33.5 L (39.0-53.0) % MCV 90.1 (80.0-100.0) fL MCH 27.1 (25.0-35.0) pg MCHC 30.1 L (31.0-37.0) g/dL RDW 16.4 H (11.5-15.5) % Plt Count 533 H (150-450) k/uL MPV 7.4 Neutrophils % 81 % Lymphocytes % 9 % Monocytes % 6 % Eosinophils % 2 % Basophils % 1 % Neutrophils # 8.8 H (1.3-7.7) k/uL Lymphocytes # 0.9 L (1.0-4.8) k/uL Monocytes # 0.7 (0-1.0) k/uL Eosinophils # 0.2 (0-0.7) k/uL Basophils # 0.1 (0-0.2) k/uL Hypochromasia Marked Anisocytosis Slight PT 12.0 (9.0-12.0) sec INR 1.1 (<1.2) APTT 27.2 (22.0-30.0) sec Sodium 140 (137-145) mmol/L Potassium 4.2 (3.5-5.1) mmol/L Chloride 107 (98-107) mmol/L Carbon Dioxide 23 (22-30) mmol/L Anion Gap 10 mmol/L BUN 29 H (9-20) mg/dL Creatinine 1.22 (0.66-1.25) mg/dL Est GFR (CKD-EPI)AfAm 61 (>60 ml/min/1.73 sqM) Est GFR (CKD-EPI)NonAf 53 (>60 ml/min/1.73 sqM) Glucose 118 H (74-99) mg/dL Plasma Lactic Acid Sahil (0.7-2.0) mmol/L Calcium 9.9 (8.4-10.2) mg/dL Magnesium 2.1 (1.6-2.3) mg/dL Total Bilirubin 0.7 (0.2-1.3) mg/dL AST 28 (17-59) U/L ALT 31 (4-49) U/L Alkaline Phosphatase 175 H (38-126) U/L Troponin I (0.000-0.034) ng/mL NT-Pro-B Natriuret Pep pg/mL Total Protein 7.4 (6.3-8.2) g/dL Albumin 3.7 (3.5-5.0) g/dL Urine Color Urine Appearance (Clear) Urine pH (5.0-8.0) Ur Specific [place] (1.001-1.035) Urine Protein (Negative) Urine Glucose (UA) (Negative) Urine Ketones (Negative) Urine Blood (Negative) Urine Nitrite (Negative) Urine Bilirubin (Negative) Urine Urobilinogen (<2.0) mg/dL Ur Leukocyte Esterase (Negative) Coronavirus (PCR) (Not Detectd) Influenza Type A RNA (Not Detectd) Influenza Type B (PCR) (Not Detectd) 12/27/21 12/27/21 12/27/21 Range/Units 10:50 10:50 10:50 WBC (3.8-10.6) k/uL RBC (4.30-5.90) m/uL Hgb (13.0-17.5) gm/dL Hct (39.0-53.0) % MCV (80.0-100.0) fL MCH (25.0-35.0) pg MCHC (31.0-37.0) g/dL RDW (11.5-15.5) % Plt Count (150-450) k/uL MPV Neutrophils % % Lymphocytes % % Monocytes % % Eosinophils % % Basophils % % Neutrophils # (1.3-7.7) k/uL Lymphocytes # (1.0-4.8) k/uL Monocytes # (0-1.0) k/uL Eosinophils # (0-0.7) k/uL Basophils # (0-0.2) k/uL Hypochromasia Anisocytosis PT (9.0-12.0) sec INR (<1.2) APTT (22.0-30.0) sec Sodium (137-145) mmol/L Potassium (3.5-5.1) mmol/L Chloride (98-107) mmol/L Carbon Dioxide (22-30) mmol/L Anion Gap mmol/L BUN (9-20) mg/dL Creatinine (0.66-1.25) mg/dL Est GFR (CKD-EPI)AfAm (>60 ml/min/1.73 sqM) Est GFR (CKD-EPI)NonAf (>60 ml/min/1.73 sqM) Glucose (74-99) mg/dL Plasma Lactic Acid Sahil 1.3 (0.7-2.0) mmol/L Calcium (8.4-10.2) mg/dL Magnesium (1.6-2.3) mg/dL Total Bilirubin (0.2-1.3) mg/dL AST (17-59) U/L ALT (4-49) U/L Alkaline Phosphatase (38-126) U/L Troponin I <0.012 (0.000-0.034) ng/mL NT-Pro-B Natriuret Pep 687 pg/mL Total Protein (6.3-8.2) g/dL Albumin (3.5-5.0) g/dL Urine Color Urine Appearance (Clear) Urine pH (5.0-8.0) Ur Specific [place] (1.001-1.035) Urine Protein (Negative) Urine Glucose (UA) (Negative) Urine Ketones (Negative) Urine Blood (Negative) Urine Nitrite (Negative) Urine Bilirubin (Negative) Urine Urobilinogen (<2.0) mg/dL Ur Leukocyte Esterase (Negative) Coronavirus (PCR) (Not Detectd) Influenza Type A RNA (Not Detectd) Influenza Type B (PCR) (Not Detectd) 12/27/21 12/27/21 12/27/21 Range/Units 10:50 10:50 11:29 WBC (3.8-10.6) k/uL RBC (4.30-5.90) m/uL Hgb (13.0-17.5) gm/dL Hct (39.0-53.0) % MCV (80.0-100.0) fL MCH (25.0-35.0) pg MCHC (31.0-37.0) g/dL RDW (11.5-15.5) % Plt Count (150-450) k/uL MPV Neutrophils % % Lymphocytes % % Monocytes % % Eosinophils % % Basophils % % Neutrophils # (1.3-7.7) k/uL Lymphocytes # (1.0-4.8) k/uL Monocytes # (0-1.0) k/uL Eosinophils # (0-0.7) k/uL Basophils # (0-0.2) k/uL Hypochromasia Anisocytosis PT (9.0-12.0) sec INR (<1.2) APTT (22.0-30.0) sec Sodium (137-145) mmol/L Potassium (3.5-5.1) mmol/L Chloride (98-107) mmol/L Carbon Dioxide (22-30) mmol/L Anion Gap mmol/L BUN (9-20) mg/dL Creatinine (0.66-1.25) mg/dL Est GFR (CKD-EPI)AfAm (>60 ml/min/1.73 sqM) Est GFR (CKD-EPI)NonAf (>60 ml/min/1.73 sqM) Glucose (74-99) mg/dL Plasma Lactic Acid Sahil (0.7-2.0) mmol/L Calcium (8.4-10.2) mg/dL Magnesium (1.6-2.3) mg/dL Total Bilirubin (0.2-1.3) mg/dL AST (17-59) U/L ALT (4-49) U/L Alkaline Phosphatase (38-126) U/L Troponin I (0.000-0.034) ng/mL NT-Pro-B Natriuret Pep pg/mL Total Protein (6.3-8.2) g/dL Albumin (3.5-5.0) g/dL Urine Color Yellow Urine Appearance Clear (Clear) Urine pH 5.0 (5.0-8.0) Ur Specific [place] 1.016 (1.001-1.035) Urine Protein Negative (Negative) Urine Glucose (UA) Negative (Negative) Urine Ketones Negative (Negative) Urine Blood Negative (Negative) Urine Nitrite Negative (Negative) Urine Bilirubin Negative (Negative) Urine Urobilinogen <2.0 (<2.0) mg/dL Ur Leukocyte Esterase Negative (Negative) Coronavirus (PCR) Not Detected (Not Detectd) Influenza Type A RNA Not Detected (Not Detectd) Influenza Type B (PCR) Not Detected (Not Detectd) - EKG Data -: EKG Interpreted by Me EKG Comments: 12-lead Electrocardiogram Interpretation Note EKG was reviewed and interpreted by myself. 12-lead ECG performed at 1035 is interpreted by me as revealing atrial fibrillation at a rate of 80 beats per minute. [place] is normal. There is a right bundle branch block. MN interval is unobtainable. QRS durations 154 ms, QTc is 431 ms.. There were no acute ST or T wave abnormalities to suggest myocardial ischemia or injury. MN wave progression across the precordium was satisfactory. By my interpretation this EKG is non-diagnostic for acute ischemia. Her chronic changes seen on this EKG which are unchanged from priors. Disposition Clinical Impression: Pneumonia Disposition: HOME SELF-CARE Condition: Good Instructions (If sedation given, give patient instructions): Bacterial Pneumonia (ED) Prescriptions: Levofloxacin [Levaquin] 750 mg PO DAILY 7 Days #7 tab Is patient prescribed a controlled substance at d/c from ED?: No Referrals: Pradip Ceron MD [Primary Care Provider] - 1-2 days
[2021-12-27 12:03] LABS: Appearance,Urine Clear (Clear); Bilirubin,Urine Negative (Negative); Blood,Urine Negative (Negative); Color,Urine Yellow; Glucose,Urine (UA) Negative (Negative); Ketones,Urine Negative (Negative); Leukocyte Esterase,Urine Negative (Negative); Nitrite,Urine Negative (Negative); Protein,Urine Negative (Negative); Specific Gravity,Urine 1.016 (1.001-1.035); Urobilinogen,Urine <2.0 mg/dL (<2.0)
[2021-12-27 12:12] VITALS: RESP 18
--- NOTE | 2021-12-27 12:13 | XR ---
EXAMINATION TYPE: XR chest 2V DATE OF EXAM: 12/27/2021 COMPARISON: Chest x-ray 12/18/[address] chest 09/13/2019 HISTORY: Chest pain TECHNIQUE: Frontal and lateral views of the chest are obtained. FINDINGS: Patchy bilateral areas of increased attenuation are again noted within the lungs. No evide nt pneumothorax or pleural effusion. The heart is enlarged. Coronary artery calcifications are presen t. IMPRESSION: Findings are similar to prior exam. Correlate to exclude pneumonia, there is underlying old granulomatous disease, coronary artery disease. Suggested.
[2021-12-27] MEDS ORDERED: LEVOFLOXACIN 750MG-D5W PMX 750 MG in DEXTROSE/WATER 1 150ML.BAG IVPB STA (12:54)
[2021-12-27 14:48] VITALS: BP 152/85; PULSE 76; TEMP 98.6
== END 2021-12-27 14:48 | disposition home or self-care (01) ==
LOC: EC 10:16
DX: J18.9 Pneumonia, unspecified organism (principal); I25.2 Old myocardial infarction; F32.A Depression, unspecified; Z79.82 Long term (current) use of aspirin; Z79.01 Long term (current) use of anticoagulants; Z85.21 Personal history of malignant neoplasm of larynx; Z90.49 Acquired absence of other specified parts of digestive tract; Z85.828 Personal history of other malignant neoplasm of skin; Z87.891 Personal history of nicotine dependence; Z85.038 Personal history of other malignant neoplasm of large intestine; Z20.822 Contact with and (suspected) exposure to COVID-19
CPT/HCPCS: 99285; 96365; 96366; 36415; 93005; 83880; 80053; 83605; 83735; 84484; 85025; 85610; 85730; 81003; 87040; 87502; 87635; 71046; J1956

== ENCOUNTER 2021-12-31 19:24 | Inpatient (IN) | payer MEDICARE ==
--- NOTE | 2021-12-31 20:08 | ED ---
General Adult HPI - General Chief complaint: Shortness of Breath Stated complaint: SOB, chest pain Time Seen by Provider: 12/31/21 19:50 Source: patient, family Mode of arrival: ambulatory Limitations: no limitations - History of Present Illness Initial comments: Dictation was produced using [employer] dictation software. please excuse any grammatical, word or spelling errors. Chief Complaint: 86-year-old male presents to the emergency department for chest tightness and shortness of breath History of Present Illness: Patient is an 86-year-old male who presents to the emergency department for shortness of breath and chest tightness. He is accompanied by . Patient states his symptoms have been ongoing for the last couple days. He is recently diagnosed with pneumonia. Patient was seen here in emergency department 3 days ago treated for pneumonia. He was prescribed antibiotics for discharge. Advised follow-up with PCP. Patient states the symptoms did not go away. States he feels short of breath especially with ambul ation. Worse when he lies flat. Patient denies any history of heart failure. Feels like his legs are much more swollen this morning. Denies any fevers. No cough constitutional symptoms. The ROS documented in this emergency department record has been reviewed and confirmed by me. Those systems with pertinent positive or negative responses have been documented in the HPI. All other systems are other negative and/or noncontributory. PHYSICAL EXAM: General Impression: Alert and oriented x3, not in acute distress HEENT: Normocephalic atraumatic, extra-ocular movements intact, pupils equal and reactive to light bilaterally, mucous membranes moist. Cardiovascular: Heart regular rate and rhythm Chest: Able to complete full sentences, no retractions, no tachypnea, clear to auscultation Abdomen: abdomen soft, non-tender, non-distended, no organomegaly Musculoskeletal: Pulses present and equal in all extremities, 4+ pitting edema to bilateral lower extremities Motor: no focal deficits noted Neurological: CN II-XII grossly intact, no focal motor or sensory deficits noted Skin: Intact with no visualized rashes Psych: Normal affect and mood ED course: 78-year-old male presents emergency department for exertional shortness of breath, chest tightness and orthopnea. Vital signs upon arrival shows findings within acceptable limits. Patient is unable course. EKG shows A. fib. Laboratory evaluation obtained. Mild leukocytosis of 14.9. Patient has been taking antibiotics. His last dose was yesterday. Platelet count 533. Coag panel is negative. Metabolic panel was within acceptable limits. Troponin is negative. Brain natruretic peptide is elevated at 1480. For panel viral PCR is negative. Chest x-ray shows unchanged mild cardiomegaly with bilateral upper lobe opacities unchanged since December 27. Patient given a dose of Unasyn. Lasix. Patient states he feels short of breath however is not hypoxic he is mildly dyspneic. Patient agreeable to trial of BiPAP. Patient be admitted for serial troponins, cardiac monitoring and inpatient management of heart failure. Chart review shows that most recent echocardiogram was from August 2019 showing normal EF. Patient had a cardiac catheterization in November of this year showing coronary artery disease. Patient and is agreeable. EKG interpretation: Ventricular rate 95, A. fib, QS 144, QTC 424. , no QTC prolongation, no ST or T-wave changes noted. EKG compared to 12/27/2021 showing no changes. Overall, this EKG is unremarkable - Related Data Home Medications Medication Instructions Recorded Confirmed PARoxetine [Paxil] 30 mg PO DAILY 03/13/14 12/31/21 Multivitamins, Thera [Multivitamin 1 tab PO DAILY 01/14/15 12/31/21 (formulary)] Atorvastatin [Lipitor] 40 mg PO HS 12/18/18 12/31/21 L.acidoph,Paracasei, B.lactis 1 cap PO DAILY 12/18/18 12/31/21 [Probiotic] amLODIPine BESYLATE/BENAZEPRIL 1 cap PO DAILY 09/13/19 12/31/21 [Lotrel 10-20 MG] Acetaminophen [Tylenol Extra 500 - 1,000 mg PO Q6H PRN 07/27/21 12/31/21 Strength] Aspirin [Adult Low Dose Aspirin EC] 81 mg PO HS 07/27/21 12/31/21 Apixaban [Eliquis] 2.5 mg PO BID 10/28/21 12/31/21 Ascorbic Acid [Vitamin C] 500 mg PO DAILY 10/28/21 12/31/21 Ferrous Sulfate [Iron] 325 mg PO BID 10/28/21 12/31/21 Omeprazole 20 mg PO DAILY 10/28/21 12/31/21 Triamterene-Hctz 37.5-25Mg 1 cap PO DAILY PRN 10/28/21 12/31/21 [Dyazide 37.5-25 Capsule] Nitroglycerin Sl Tabs [Nitrostat] 0.4 mg SL Q5M PRN 12/17/21 12/31/21 Cholecalciferol [Vitamin D3 (25 50 mcg PO DAILY 12/27/21 12/31/21 Mcg = 1000 Iu)] Amoxicillin 1,000 mg PO Q8H 12/31/21 12/31/21 Azithromycin [Zithromax Z-pack (6 See Taper PO DAILY 12/31/21 12/31/21 tabs)] Allergies Allergy/AdvReac Type Severity Reaction Status Date / Time No Known Allergies Allergy Verified 12/31/21 21:08 Review of Systems ROS Statement: Those systems with pertinent positive or pertinent negative responses have been documented in the HPI. ROS Other: All systems not noted in ROS Statement are negative. Past Medical History Past Medical History: Myocardial Infarction ([place]) Additional Past Medical History / Comment(s): spouse states "unable to do recent heartcath due to low hgb, having increased SOB, and fatigue. Recent fall injury ing left shoulder/rotator cuff-needing to have surgery with Dr Alcantara",Colon cancer w/ resection, laryngeal cancer w/ radiation/surgery-has intermittent coughing at times swallowing saliva, colon & throat polyps, postitive stool for C-Diff/Lactoferrin 11/12/18, skin cancer removal, equilibrium problems, arthritis hands/legs, seasonal allergies. Hx fall w/ injury Lt shoulder, in PT. Last Myocardial Infarction Date:: 1994 History of Any Multi-Drug Resistant Organisms: None Reported, C-DIFF Date of last positivie culture/infection: 2018 MDRO Source:: stool Past Surgical History: Appendectomy, Bowel Resection, Heart Catheterization, Heart Catheterization With Stent, Orthopedic Surgery Additional Past Surgical History / Comment(s): PCI with total 4 stents. EGD, colonoscopies, bowel resection-8 inches removed, suspension microlarygoscopy for laryngeal lesion, skin cancer removals, R knee arthroscopy, R rotator cuff repair, bilat cataract removals/lens implants. Past Anesthesia/Blood Transfusion Reactions: No Reported Reaction Date of Last Stent Placement:: 12/19/18 Past Psychological History: Depression Smoking Status: Former smoker Past Alcohol Use History: None Reported Past Drug Use History: None Reported - Past Family History Mother Family Medical History: Diabetes Mellitus Additional Family Medical History / Comment(s): Mother lived to be 78yrs old. Father Family Medical History: Myocardial Infarction ([place]) Additional Family Medical History / Comment(s): FATHER @ AGE 46 WITH [place] Sister(s) Family Medical History: Cancer Additional Family Medical History / Comment(s): BREAST & BONE CA General Exam Limitations: no limitations Course Vital Signs 12/31/21 12/31/21 19:29 19:57 Temperature 99.8 F H Pulse Rate 89 Respiratory 24 18 Rate Blood Pressure 117/81 O2 Sat by Pulse 97 Oximetry Medical Decision Making - Lab Data Result diagrams: 12/31/21 20:08 12/31/21 20:08 Lab Results 12/31/21 12/31/21 12/31/21 Range/Units 20:08 20:08 20:08 WBC 14.9 H (3.8-10.6) k/uL RBC 3.86 L (4.30-5.90) m/uL Hgb 10.2 L (13.0-17.5) gm/dL Hct 34.1 L (39.0-53.0) % MCV 88.3 (80.0-100.0) fL MCH 26.4 (25.0-35.0) pg MCHC 29.9 L (31.0-37.0) g/dL RDW 16.7 H (11.5-15.5) % Plt Count 533 H (150-450) k/uL MPV 7.2 Neutrophils % 87 % Lymphocytes % 5 % Monocytes % 5 % Eosinophils % 2 % Basophils % 0 % Neutrophils # 12.9 H (1.3-7.7) k/uL Lymphocytes # 0.7 L (1.0-4.8) k/uL Monocytes # 0.8 (0-1.0) k/uL Eosinophils # 0.2 (0-0.7) k/uL Basophils # 0.1 (0-0.2) k/uL Hypochromasia Moderate Anisocytosis Slight PT 13.0 H (9.0-12.0) sec INR 1.2 H (<1.2) APTT 28.6 (22.0-30.0) sec Sodium 136 L (137-145) mmol/L Potassium 3.9 (3.5-5.1) mmol/L Chloride 105 (98-107) mmol/L Carbon Dioxide 20 L (22-30) mmol/L Anion Gap 11 mmol/L BUN 30 H (9-20) mg/dL Creatinine 1.18 (0.66-1.25) mg/dL Est GFR (CKD-EPI)AfAm 63 (>60 ml/min/1.73 sqM) Est GFR (CKD-EPI)NonAf 55 (>60 ml/min/1.73 sqM) Glucose 146 H (74-99) mg/dL Calcium 9.4 (8.4-10.2) mg/dL Magnesium 2.0 (1.6-2.3) mg/dL Total Bilirubin 0.8 (0.2-1.3) mg/dL AST 32 (17-59) U/L ALT 27 (4-49) U/L Alkaline Phosphatase 135 H (38-126) U/L Troponin I (0.000-0.034) ng/mL NT-Pro-B Natriuret Pep pg/mL Total Protein 7.0 (6.3-8.2) g/dL Albumin 3.5 (3.5-5.0) g/dL Influenza Type A (PCR) (Not Detectd) Influenza Type B (PCR) (Not Detectd) RSV (PCR) (Not Detectd) SARS-CoV-2 (PCR) (Not Detectd) 12/31/21 12/31/21 12/31/21 Range/Units 20:08 20:08 20:10 WBC (3.8-10.6) k/uL RBC (4.30-5.90) m/uL Hgb (13.0-17.5) gm/dL Hct (39.0-53.0) % MCV (80.0-100.0) fL MCH (25.0-35.0) pg MCHC (31.0-37.0) g/dL RDW (11.5-15.5) % Plt Count (150-450) k/uL MPV Neutrophils % % Lymphocytes % % Monocytes % % Eosinophils % % Basophils % % Neutrophils # (1.3-7.7) k/uL Lymphocytes # (1.0-4.8) k/uL Monocytes # (0-1.0) k/uL Eosinophils # (0-0.7) k/uL Basophils # (0-0.2) k/uL Hypochromasia Anisocytosis PT (9.0-12.0) sec INR (<1.2) APTT (22.0-30.0) sec Sodium (137-145) mmol/L Potassium (3.5-5.1) mmol/L Chloride (98-107) mmol/L Carbon Dioxide (22-30) mmol/L Anion Gap mmol/L BUN (9-20) mg/dL Creatinine (0.66-1.25) mg/dL Est GFR (CKD-EPI)AfAm (>60 ml/min/1.73 sqM) Est GFR (CKD-EPI)NonAf (>60 ml/min/1.73 sqM) Glucose (74-99) mg/dL Calcium (8.4-10.2) mg/dL Magnesium (1.6-2.3) mg/dL Total Bilirubin (0.2-1.3) mg/dL AST (17-59) U/L ALT (4-49) U/L Alkaline Phosphatase (38-126) U/L Troponin I <0.012 (0.000-0.034) ng/mL NT-Pro-B Natriuret Pep 1480 pg/mL Total Protein (6.3-8.2) g/dL Albumin (3.5-5.0) g/dL Influenza Type A (PCR) Not Detected (Not Detectd) Influenza Type B (PCR) Not Detected (Not Detectd) RSV (PCR) Not Detected (Not Detectd) SARS-CoV-2 (PCR) Not Detected (Not Detectd) Disposition Clinical Impression: Chest pain Disposition: ADMITTED IP TO THIS HOSP Condition: Serious Referrals: Pradip Ceron MD [Primary Care Provider] - 1-2 days
[2021-12-31 20:14] LABS: Anisocytosis Slight; Basophils # (A) 0.1 k/uL (0-0.2); Basophils % (A) 0 %; Eosinophils # (A) 0.2 k/uL (0-0.7); Eosinophils % (A) 2 %; HCT 34.1 % (39.0-53.0); HGB 10.2 gm/dL (13.0-17.5); Hypochromasia Moderate; Lymphocytes # (A) 0.7 k/uL (1.0-4.8); Lymphocytes % (A) 5 %; MCH 26.4 pg (25.0-35.0); MCHC 29.9 g/dL (31.0-37.0); MCV 88.3 fL (80.0-100.0); Mean Platelet Volume 7.2; Monocytes # (A) 0.8 k/uL (0-1.0); Monocytes % (A) 5 %; Neutrophils # (A) 12.9 k/uL (1.3-7.7); Neutrophils % (A) 87 %; Platelet Count 533 k/uL (150-450); RBC 3.86 m/uL (4.30-5.90); RDW 16.7 % (11.5-15.5); WBC 14.9 k/uL (3.8-10.6)
[2021-12-31 20:24] LABS: INR 1.2 (<1.2); Partial Thromboplastin Time 28.6 sec (22.0-30.0)
[2021-12-31 20:27] LABS: Albumin 3.5 g/dL (3.5-5.0); Calcium 9.4 mg/dL (8.4-10.2); Potassium 3.9 mmol/L (3.5-5.1); Total Bilirubin 0.8 mg/dL (0.2-1.3)
--- NOTE | 2021-12-31 20:27 | XR ---
EXAMINATION TYPE: XR chest 1V portable DATE OF EXAM: 12/31/2021 Comparison: 12/27/2021 Clinical History: 86-year-old male dyspnea, chest tightness Findings: Heart mildly enlarged. Patchy peripheral opacities in the bilateral upper lobes and left lower lung. Appearance is relatively unchanged from prior exam. Impression: 1. Unchanged mild cardiomegaly. 2. Bilateral upper lobe opacities as well as left basilar opacity remain unchanged from 12/27/2021. Co rrelate for underlying pneumonia.
[2021-12-31] MEDS ORDERED: AMPICILLIN-SULBACTAM 3 GM in SODIUM CHLORIDE 0.9% 100 ML IVPB STA (21:49)
[2021-12-31] MEDS ORDERED: FUROSEMIDE 10 MG/ML 4 ML VIAL IV STA (21:49)
[2021-12-31] MEDS ORDERED: NITROGLYCERIN SL TABS 0.4 MG TAB SUBLINGUAL PRN (21:53)
[2021-12-31] MEDS ORDERED: ASPIRIN 81 MG PO STA (21:53)
[2022-01-01] MEDS ORDERED: ALPRAZolam 0.5 MG TAB PO STA (01:02)
--- NOTE | 2022-01-01 03:34 | P.HPIM ---
History of Present Illness H&P Date: 12/31/21 Patient is an 86-year-old male with a PMH of coronary artery disease, A. fib on Eliquis, hypertension, and history of laryngeal cancer who presents to the emergency room with complaints of shortness of breath. The patient reports that he has been experiencing exertional dyspnea for the past 2-3 weeks as well as worsening lower extremity edema and PND. He states receiving multiple courses of antibiotics for pneumonia. Reports the chest tightness accompanied with the exertional dyspnea. Denied cough, fever, chills. Also denied nausea, vomiting, abdominal pain. Reports that his legs have been persistently edematous for the past several years but recently worsened in the past 2 weeks. Of note, the patient underwent cardiac cath on 11/02/21 with no progression of disease and no intervention made. He was initially admitted on 12/17 for chest discomfort and was discharged on 12/18 after ACS was ruled out and following cardiology evaluation. Chest x-ray in the emergency room revealed bilateral upper lobe opacities unchanged from 12/27 with unchanged mild cardiomegaly. EKG revealed A. fib at 95 bpm with PVCs and right bundle branch block. Laboratory evaluation was remarkable for leukocytosis of 14.9, hemoglobin 10.2, platelets 533, BUN 30, creatinine 1.18, troponin less than 0.012, and proBNP 1480. Review of systems: Pertinent positives and negatives as discussed in HPI, a complete review of systems was performed and all other systems are negative. Physical examination: General: non toxic, no distress, appears at stated age, overweight Derm: no unusual rashes/lesions no unusual ecchymoses, warm, dry Head: atraumatic, normocephalic, symmetric Eyes: EOMI, no lid lag, anicteric sclera, pupils equal round reactive to light ENT: Nose and ears atraumatic, no thrush, no pharyngeal erythema Neck: No thyromegaly, no cervical lymphadenopathy, trachea midline, supple Mouth: no lip lesion, mucus membranes moist Cardiovascular: S1S2 reg, no murmur, positive posterior tibial pulse bilateral, no edema, capillary refill less than 2 seconds Lungs: Scattered rhonchi with mild bibasilar rales, no accessory muscle use Abdominal: soft, nontender to palpation, no guarding, no appreciable organomegaly, normal bowel sounds Ext: no gross muscle atrophy, muscle strength 5 out of 5 in all 4 extremities grossly, no contractures, Neuro: CN II-XI grossly intact, light touch intact all 4 extremities, finger to nose within normal limits, Psych: Alert, oriented, appropriate affect Assessment/plan Shortness of breath, suspected secondary to acute CHF exacerbation, unable to rule out persistent pneumonia -Obtain pro-calcitonin -Obtain CT chest -Continue with Lasix IV 40 every 12 hourly -Cardiology consult -Cardiac monitoring -Intake output -Daily weights -Continue with Unasyn for now in light of worsening leukocytosis Chronic conditions: A. fib, coronary artery disease, hypertension -Continue with home meds DVT prophylaxis -Eliquis The patient is admitted with an anticipated greater than 2 midnight stay for evaluation of SOB CODE STATUS: No Code Discussed with: Patient Anticipated discharge date: 01/[address]: Home Past Medical History Past Medical History: [place] Inf[place]ction ([place]) Additional Past Medical History / Comment(s): spouse states "unable to do recent heartcath due to low hgb, having increased SOB, and fatigue. Recent fall injurying left shoulder/rotator cuff-needing to have surgery with Dr Alcantara",Colon cancer w/ resection, laryngeal cancer w/ radiation/surgery-has intermittent coughing at times swallowing saliva, colon & throat polyps, postitive stool for C-Diff/Lactoferrin 11/12/18, skin cancer removal, equilibrium problems, arthritis hands/legs, seasonal allergies. Hx fall w/ injury Lt shoulder, in PT. Last Myocardial Infarction Date:: 1994 History of Any Multi-Drug Resistant Organisms: None Reported, C-DIFF Date of last positivie culture/infection: 2018 MDRO Source:: stool Past Surgical History: Appendectomy, Bowel Resection, Heart Catheterization, Heart Catheterization With Stent, Orthopedic Surgery Additional Past Surgical History / Comment(s): PCI with total 4 stents. EGD, colonoscopies, bowel resection-8 inches removed, suspension microlarygoscopy for laryngeal lesion, skin cancer removals, R knee arthroscopy, R rotator cuff repair, bilat cataract removals/lens implants. Past Anesthesia/Blood Transfusion Reactions: No Reported Reaction Date of Last Stent Placement:: 12/19/18 Past Psychological History: Depression Smoking Status: Former smoker Past Alcohol Use History: None Reported Past Drug Use History: None Reported - Past Family History Mother Family Medical History: Diabetes Mellitus Additional Family Medical History / Comment(s): Mother lived to be 78yrs old. Father Family Medical History: Myocardial Infarction ([place]) Additional Family Medical History / Comment(s): FATHER @ AGE 46 WITH [place] Sister(s) Family Medical History: Cancer Additional Family Medical History / Comment(s): BREAST & BONE CA Medications and Allergies Home Medications Medication Instructions Recorded Confirmed Type PARoxetine [Paxil] 30 mg PO DAILY 03/13/14 12/31/21 History Multivitamins, Thera [Multivitamin 1 tab PO DAILY 01/14/15 12/31/21 History (formulary)] Atorvastatin [Lipitor] 40 mg PO HS 12/18/18 12/31/21 History L.acidoph,Paracasei, B.lactis 1 cap PO DAILY 12/18/18 12/31/21 History [Probiotic] amLODIPine BESYLATE/BENAZEPRIL 1 cap PO DAILY 09/13/19 12/31/21 History [Lotrel 10-20 MG] Acetaminophen [Tylenol Extra 500 - 1,000 mg PO Q6H PRN 07/27/21 12/31/21 History Strength] Aspirin [Adult Low Dose Aspirin EC] 81 mg PO HS 07/27/21 12/31/21 History Apixaban [Eliquis] 2.5 mg PO BID 10/28/21 12/31/21 History Ascorbic Acid [Vitamin C] 500 mg PO DAILY 10/28/21 12/31/21 History Ferrous Sulfate [Iron] 325 mg PO BID 10/28/21 12/31/21 History Omeprazole 20 mg PO DAILY 10/28/21 12/31/21 History Triamterene-Hctz 37.5-25Mg 1 cap PO DAILY PRN 10/28/21 12/31/21 History [Dyazide 37.5-25 Capsule] Nitroglycerin Sl Tabs [Nitrostat] 0.4 mg SL Q5M PRN 12/17/21 12/31/21 History Cholecalciferol [Vitamin D3 (25 50 mcg PO DAILY 12/27/21 12/31/21 History Mcg = 1000 Iu)] Amoxicillin 1,000 mg PO Q8H 12/31/21 12/31/21 History Azithromycin [Zithromax Z-pack (6 See Taper PO DAILY 12/31/21 12/31/21 History tabs)] Allergies Allergy/AdvReac Type Severity Reaction Status Date / Time No Known Allergies Allergy Verified 12/31/21 21:08 Physical Exam Vitals: Vital Signs Temp Pulse Resp BP Pulse Ox 12/31/21 23:00 87 22 147/91 100 12/31/21 22:00 93 20 160/68 95 12/31/21 19:57 18 12/31/21 19:29 99.8 F H 89 24 117/81 97 Intake and Output 12/31/21 12/31/21 01/01/22 14:59 22:59 06:59 Other: Weight 102.058 kg Results CBC & Chem 7: 12/31/21 20:08 12/31/21 20:08 Labs: Abnormal Lab Results - Last 24 Hours (Table) 12/31/21 12/31/21 12/31/21 Range/Units 20:08 20:08 20:08 WBC 14.9 H (3.8-10.6) k/uL RBC 3.86 L (4.30-5.90) m/uL Hgb 10.2 L (13.0-17.5) gm/dL Hct 34.1 L (39.0-53.0) % MCHC 29.9 L (31.0-37.0) g/dL RDW 16.7 H (11.5-15.5) % Plt Count 533 H (150-450) k/uL Neutrophils # 12.9 H (1.3-7.7) k/uL Lymphocytes # 0.7 L (1.0-4.8) k/uL PT 13.0 H (9.0-12.0) sec INR 1.2 H (<1.2) Sodium 136 L (137-145) mmol/L Carbon Dioxide 20 L (22-30) mmol/L BUN 30 H (9-20) mg/dL Glucose 146 H (74-99) mg/dL Alkaline Phosphatase 135 H (38-126) U/L
[2022-01-01] MEDS: AMPICILLIN-SULBACTAM 1.5 GM in SODIUM CHLORIDE 0.9% 50 ML IVPB SCH ×3 (05:49→17:46)
[2022-01-01] MEDS: PARoxetine 10 MG TAB PO SCH (07:06)
[2022-01-01] MEDS: amLODIPine 10 MG TAB PO SCH (07:06)
[2022-01-01] MEDS: APIXABAN 2.5 MG TABLET PO SCH ×2 (07:06→23:16)
[2022-01-01] MEDS: lisinopriL 20 MG TAB PO SCH (07:06)
[2022-01-01] MEDS: FUROSEMIDE 10 MG/ML 4 ML VIAL IV SCH ×2 (07:53→23:16)
--- NOTE | 2022-01-01 08:50 | CT ---
EXAMINATION TYPE: CT chest wo con DATE OF EXAM: 01/01/2022 COMPARISON: CT chest September 13, 2019. Chest x-ray from yesterday. HISTORY: SOB, Persistent Pneumonia CT DLP: 591 mGycm. Automated Exposure Control for Dose Reduction was Utilized. TECHNIQUE: CT scan of the thorax is performed without IV contrast. FINDINGS: Current exam is suboptimal as patient unable to hold breath, repeat sequences performed darnell w persistent respiratory motion artifact degradation. LUNGS: There are new small to moderate sized bilateral pleural effusions extending to lung apex level s. Scattered bilateral pulmonary nodules with some areas of calcification are redemonstrated. There i s new consolidation in the right upper lobe along with new thin-walled 1.5 cm cyst having central den sity axial image 16. There is mild to moderate bibasilar linear scarring and/or atelectasis. Some krista ateral interstitial edema is felt present. MEDIASTINUM: Lack of IV contrast is noted to limit evaluation for mediastinal and especially hilar ad enopathy. There are no definitive new greater than 1 cm mediastinal lymph nodes. New small to moderat e sized pericardial effusion. This measures up to 2.6 cm inferiorly axial image 48. Heart size stable and upper limits of normal. Severe three-vessel coronary artery calcification redemonstrated. Main p ulmonary artery measures upper limits of normal at 2.9 cm. Adjacent ascending aorta measures up to 3. 9 cm in size. Moderate right atrial dilatation redemonstrated. OTHER: Small degree of bilateral gynecomastia is redemonstrated. Large bridging osteophytes in the th oracic spine are again seen, possible underlying DISH. IMPRESSION: 1. New small to moderate-sized pleural effusions and mild interstitial edema. Correlate for CHF exace rbation and/or fluid overload state. 2. Scattered partially calcified bilateral pulmonary nodules suboptimally evaluated likely benign and stable. 3. New right upper lung pneumonic consolidation is thought present. Correlate clinically. 4. New small to moderate-sized pericardial effusion of uncertain etiology.
[2022-01-01] MEDS ORDERED: ASPIRIN 325 MG TAB PO SCH (09:00)
[2022-01-01 10:01] LABS: HGB 9.2 g/dL (13.0-17.0); MCH 25.7 pg (27.0-32.0); MCHC 28.8 g/dL (32.0-37.0); MCV 89.4 fL (80.0-97.0); Mean Platelet Volume 9.9 fL (9.5-12.2); NRBC Per 100 WBC 0 /100 WBCS (0.0-0.0); Platelet Count 455 X 10*3/uL (140-440); RBC 3.58 X 10*6/uL (4.40-5.60); RDW 17.6 % (11.5-14.5); WBC 16.19 X 10*3/uL (4.50-10.00)
[2022-01-01 10:26] LABS: HDL Cholesterol 42.5 mg/dL (40.00-60.00); Triglycerides 47.5 mg/dL (0.00-149.00)
[2022-01-01 10:38] LABS: Chol/HDL Ratio 1.8 Ratio; LDL Cholesterol,Direct Reflex 28.2 mg/dL (0.00-129.00)
--- NOTE | 2022-01-01 11:01 | P.PN ---
Subjective Progress Note Date: 01/01/22 Patient is requiring 4 L of oxygen today. Able to ambulate with minimal support. Had chest CT done today, which shows large pleural effusions bilaterally which are new, also demonstrates findings of right upper lobe cavitary lesion with calcified mass inside, as well as several pulmonary nodules. Gen: awake, alert HEENT: normocephalic, atraumatic, good hearing acuity, moist mucous membranes Resp: good air exchange, breathing comfortably with no accessory muscle use CVS: good distal perfusion x 4, GI: soft, NTTP, ND : no SPT, no CVAT, camarena catheter not present MSK: no pitting edema, no clubbing Neuro: non-focal, moving all extremities Psych: cooperative, euthymic mood Assessment/plan: Sepsis with acute hypoxemic respiratory failure Right upper lobe pneumonia Possible mycetoma Acute Congestive heart failure, previously preserved ejection fraction -Obtain pro-calcitonin -Obtain CT chest -Continue with Lasix IV 40 every 12 hourly -Cardiology consult -Cardiac monitoring -Intake output -Daily weights -Continue with Unasyn for now in light of worsening leukocytosis Chronic conditions: A. fib, coronary artery disease, hypertension -Continue with home meds DVT prophylaxis -Eliquis The patient is admitted with an anticipated greater than 2 midnight stay for evaluation of SOB CODE STATUS: No Code Discussed with: Patient Anticipated discharge date: 01/[address]: Home Objective - Vital Signs Vital signs: Vital Signs Temp 98.8 F 01/01/22 08:00 Pulse 99 01/01/22 08:00 Resp 17 01/01/22 07:54 BP 106/66 01/01/22 08:00 Pulse Ox 96 01/01/22 08:00 Intake & Output 12/31/21 01/01/22 01/01/22 18:59 06:59 18:59 Intake Total 100 Output Total 900 100 Balance -800 -100 Weight 94.3 kg Intake: Oral 100 Output: Urine 900 100 Other: Voiding Method Urinal Urinal - Labs CBC & Chem 7: 01/01/22 05:38 12/31/21 20:08 Labs: Abnormal Lab Results - Last 24 Hours (Table) 12/31/21 12/31/21 12/31/21 Range/Units 20:08 20:08 20:08 WBC 14.9 H (3.8-10.6) k/uL RBC 3.86 L (4.30-5.90) m/uL Hgb 10.2 L (13.0-17.5) gm/dL Hct 34.1 L (39.0-53.0) % MCH (27.0-32.0) pg MCHC 29.9 L (31.0-37.0) g/dL RDW 16.7 H (11.5-15.5) % Plt Count 533 H (150-450) k/uL Neutrophils # 12.9 H (1.3-7.7) k/uL Lymphocytes # 0.7 L (1.0-4.8) k/uL PT 13.0 H (9.0-12.0) sec INR 1.2 H (<1.2) Sodium 136 L (137-145) mmol/L Carbon Dioxide 20 L (22-30) mmol/L BUN 30 H (9-20) mg/dL Glucose 146 H (74-99) mg/dL Alkaline Phosphatase 135 H (38-126) U/L 01/01/22 Range/Units 05:38 WBC 16.19 H (3.8-10.6) k/uL RBC 3.58 L (4.30-5.90) m/uL Hgb 9.2 L (13.0-17.5) gm/dL Hct 32.0 L (39.0-53.0) % MCH 25.7 L (27.0-32.0) pg MCHC 28.8 L (31.0-37.0) g/dL RDW 17.6 H (11.5-15.5) % Plt Count 455 H (150-450) k/uL Neutrophils # (1.3-7.7) k/uL Lymphocytes # (1.0-4.8) k/uL PT (9.0-12.0) sec INR (<1.2) Sodium (137-145) mmol/L Carbon Dioxide (22-30) mmol/L BUN (9-20) mg/dL Glucose (74-99) mg/dL Alkaline Phosphatase (38-126) U/L
[2022-01-01 11:13] LABS: African American GFR (CKD) 51.6 (60.0-200.0); Anion Gap 18.6 mmol/L (10.00-18.00); BUN/Creat Ratio 20.21 Ratio (12.00-20.00); Blood Urea Nitrogen 28.3 mg/dL (9.0-27.0); Calcium 9.6 mg/dL (8.7-10.3); Carbon Dioxide 18.4 mmol/L (20.0-27.5); Magnesium 2.1 mg/dL (1.5-2.4); Non-African American GFR(CKD) 44.5 (60.0-200.0); Potassium 4.6 mmol/L (3.5-5.5)
--- NOTE | 2022-01-01 14:44 | P.CNPUL ---
History of Present Illness Consult date: 01/01/22 Requesting physician: Bon Adler Reason for consult: dyspnea, chest pain Chief complaint: chest tightness, shortness of breath History of present illness: 86-year-old white male patient of Dr. Ceron and Dr. Mckeon, was recently hospitalized for community acquired pneumonia in November 2021, presented to the emergency department on December 31, 2021 with complaints of shortness of breath and chest tightness. His symptoms have been ongoing for the past couple of days. Patient was also in the emergency department 3 days prior and was treated for pneumonia she was prescribed antibiotics for discharge, however his symptoms did not improve. Patient felt short of breath especially with ambulation, he was having symptoms of orthopnea, and increased swelling in his bilateral lower extremities. Denied any fevers, no cough, no phlegm production. Patient has an extensive medical history including history of coronary artery disease with previous stenting, chronic A. fib on Eliquis, previous history of myocardial infarction, recent fall with injury to the left shoulder and rotator cuff and this is being followed by orthopedic surgery, previous history of colon cancer with resection, laryngeal cancer with radiation and surgery, depression, and former smoking history. His chest x-ray on admission showed mild cardiomegaly, bilateral upper lobe opacities as well as left basilar opacity which was unchanged compared to the previous chest x-ray from 12/27/2021. Patient tested negative for COVID-19, RSV and influenza A and B. Admission blood work showed white blood cell count of 14.9, hemoglobin of 10.2, platelet count of 533, INR is 1.2, sodium is 136, potassium is 3.9, CO2 is 20, BUN is 30, creatinine is 1.18, troponins were less than 0.012, proBNP was 1480. CT of the chest has been completely showing new small to moderate-sized pleural effusions and mild interstitial edema correlating for CHF and fluid overload state. There was a new right upper lung pneumonic consolidation, and a new small to moderate-sized pericardial effusion of uncertain etiology. Patient was started on Unasyn for empiric antibiotic coverage. Review of Systems All systems: negative Constitutional: Denies chills, Denies fever Eyes: denies blurred vision, denies pain Ears, nose, mouth and throat: Denies headache, Denies sore throat Cardiovascular: Reports decreased exercise tolerance, Reports dyspnea on exertion, Reports edema, Denies chest pain, Denies shortness of breath Respiratory: Reports dyspnea, Denies cough Gastrointestinal: Denies abdominal pain, Denies diarrhea, Denies nausea, Denies vomiting Musculoskeletal: Denies myalgias Integumentary: Denies pruritus, Denies rash Neurological: Denies numbness, Denies weakness Psychiatric: Denies anxiety, Denies depression Endocrine: Denies fatigue, Denies weight change Past Medical History Past Medical History: Myocardial Infarction ([place]) Additional Past Medical History / Comment(s): spouse states "unable to do recent heartcath due to low hgb, having increased SOB, and fatigue. Recent fall injurying left shoulder/rotator cuff-needing to have surgery with Dr Alcantara",Colon cancer w/ resection, laryngeal cancer w/ radiation/surgery-has intermittent coughing at times swallowing saliva, colon & throat polyps, postitive stool for C-Diff/Lactoferrin 11/12/18, skin cancer removal, equilibrium problems, arthritis hands/legs, seasonal allergies. Hx fall w/ injury Lt shoulder, in PT. Last Myocardial Infarction Date:: 1994 History of Any Multi-Drug Resistant Organisms: None Reported, C-DIFF Date of last positivie culture/infection: 2018 MDRO Source:: stool Past Surgical History: Appendectomy, Bowel Resection, Heart Catheterization, Heart Catheterization With Stent, Orthopedic Surgery Additional Past Surgical History / Comment(s): PCI with total 4 stents. EGD, colonoscopies, bowel resection-8 inches removed, suspension microlarygoscopy for laryngeal lesion, skin cancer removals, R knee arthroscopy, R rotator cuff repair, bilat cataract removals/lens implants. Past Anesthesia/Blood Transfusion Reactions: No Reported Reaction Date of Last Stent Placement:: 12/19/18 Past Psychological History: Depression Smoking Status: Former smoker Past Alcohol Use History: None Reported Past Drug Use History: None Reported - Past Family History Mother Family Medical History: Diabetes Mellitus Additional Family Medical History / Comment(s): Mother lived to be 78yrs old. Father Family Medical History: Myocardial Infarction ([place]) Additional Family Medical History / Comment(s): FATHER @ AGE 46 WITH [place] Sister(s) Family Medical History: Cancer Additional Family Medical History / Comment(s): BREAST & BONE CA Medications and Allergies Home Medications Medication Instructions Recorded Confirmed Type PARoxetine [Paxil] 30 mg PO DAILY 03/13/14 12/31/21 History Multivitamins, Thera [Multivitamin 1 tab PO DAILY 01/14/15 12/31/21 History (formulary)] Atorvastatin [Lipitor] 40 mg PO HS 12/18/18 12/31/21 History L.acidoph,Paracasei, B.lactis 1 cap PO DAILY 12/18/18 12/31/21 History [Probiotic] amLODIPine BESYLATE/BENAZEPRIL 1 cap PO DAILY 09/13/19 12/31/21 History [Lotrel 10-20 MG] Acetaminophen [Tylenol Extra 500 - 1,000 mg PO Q6H PRN 07/27/21 12/31/21 History Strength] Aspirin [Adult Low Dose Aspirin EC] 81 mg PO HS 07/27/21 12/31/21 History Apixaban [Eliquis] 2.5 mg PO BID 10/28/21 12/31/21 History Ascorbic Acid [Vitamin C] 500 mg PO DAILY 10/28/21 12/31/21 History Ferrous Sulfate [Iron] 325 mg PO BID 10/28/21 12/31/21 History Omeprazole 20 mg PO DAILY 10/28/21 12/31/21 History Triamterene-Hctz 37.5-25Mg 1 cap PO DAILY PRN 10/28/21 12/31/21 History [Dyazide 37.5-25 Capsule] Nitroglycerin Sl Tabs [Nitrostat] 0.4 mg SL Q5M PRN 12/17/21 12/31/21 History Cholecalciferol [Vitamin D3 (25 50 mcg PO DAILY 12/27/21 12/31/21 History Mcg = 1000 Iu)] Amoxicillin 1,000 mg PO Q8H 12/31/21 12/31/21 History Azithromycin [Zithromax Z-pack (6 See Taper PO DAILY 12/31/21 12/31/21 History tabs)] Allergies Allergy/AdvReac Type Severity Reaction Status Date / Time No Known Allergies Allergy Verified 12/31/21 21:08 Physical Exam Vitals: Vital Signs Temp Pulse Pulse Resp BP BP Pulse Ox 01/01/22 08:00 98.8 F 99 106/66 96 01/01/22 07:54 99 17 01/01/22 04:53 98.9 F 01/01/22 02:00 97.6 F 81 17 105/55 100 01/01/22 00:05 18 12/31/21 23:00 87 22 147/91 100 12/31/21 22:00 93 20 160/68 95 12/31/21 19:57 18 12/31/21 19:29 99.8 F H 89 24 117/81 97 Intake and Output 12/31/21 01/01/22 01/01/22 22:59 06:59 14:59 Intake Total 100 Output Total 900 100 Balance -800 -100 Intake: Oral 100 Output: Urine 900 100 Other: Voiding Method Urinal Urinal Weight 102.058 kg 94.3 kg GENERAL EXAM: Alert, very pleasant, 86-year-old white male, on 4 L of oxygen and the pulse ox 100%, comfortable in no apparent distress. HEAD: Normocephalic/atraumatic. EYES: Normal reaction of pupils, equal size. Conjunctiva pink, sclera white. NOSE: Clear with pink turbinates. THROAT: No erythema or exudates. NECK: No masses, no JVD, no thyroid enlargement, no adenopathy. CHEST: No chest wall deformity. Symmetrical expansion. LUNGS: Equal air entry with diminished breath sounds at the bases CVS: Irregular rate and rhythm, normal S1 and S2, no gallops, no murmurs, no rubs ABDOMEN: Soft, nontender. No hepatosplenomegaly, normal bowel sounds, no guarding or rigidity. EXTREMITIES: No clubbing, 2+ pitting lower extremity edema, no cyanosis, 2+ pulses and upper and lower extremities. MUSCULOSKELETAL: Muscle strength and tone normal. SPINE: No scoliosis or deformity SKIN: No rashes CENTRAL NERVOUS SYSTEM: Alert and oriented -3. No focal deficits, tone is normal in all 4 extremities. PSYCHIATRIC: Alert and oriented -3. Appropriate affect. Intact judgment and insight. Results - Laboratory Findings CBC and BMP: 01/01/22 05:38 01/01/22 05:38 PT/INR, D-dimer PT 13.0 sec (9.0-12.0) H 12/31/21 20:08 INR 1.2 (<1.2) H 12/31/21 20:08 Abnormal lab findings: Abnormal Labs 12/31/21 12/31/21 12/31/21 20:08 20:08 20:08 WBC 14.9 H RBC 3.86 L Hgb 10.2 L Hct 34.1 L MCH MCHC 29.9 L RDW 16.7 H Plt Count 533 H Neutrophils # 12.9 H Lymphocytes # 0.7 L PT 13.0 H INR 1.2 H Sodium 136 L Carbon Dioxide 20 L Anion Gap BUN 30 H Est GFR (CKD-EPI)AfAm Est GFR (CKD-EPI)NonAf BUN/Creatinine Ratio Glucose 146 H Alkaline Phosphatase 135 H 01/01/22 01/01/22 05:38 05:38 WBC 16.19 H RBC 3.58 L Hgb 9.2 L Hct 32.0 L MCH 25.7 L MCHC 28.8 L RDW 17.6 H Plt Count 455 H Neutrophils # Lymphocytes # PT INR Sodium Carbon Dioxide 18.4 L Anion Gap 18.60 H BUN 28.3 H Est GFR (CKD-EPI)AfAm 51.6 L Est GFR (CKD-EPI)NonAf 44.5 L BUN/Creatinine Ratio 20.21 H Glucose 126 H Alkaline Phosphatase - Diagnostic Findings Chest x-ray: report reviewed, image reviewed CT scan - chest: report reviewed, image reviewed Assessment and Plan Plan: Assessment: #1. Acute hypoxic respiratory failure related to acute exacerbation of CHF with diastolic dysfunction and possibility of pneumonia #2. Bilateral pleural effusions, and pericardial effusion #3. Recent hospitalization for community acquired pneumonia in November 2021 #4. Chronic anemia #5. Chronic atrial on Eliquis, currently in controlled Afib #6. History of coronary artery disease with previous stenting #7. Hypertension #8. Hyperlipidemia #9. Depression #10. Left shoulder injury from a recent fall, awaiting medical clearance for surgery #11. Previous history of bowel resection for colon cancer #12. History of laryngeal cancer with radiation and surgery #13. History of skin cancer Plan: Continue current antibiotics Currently on Unasyn Chest x-ray and CT chest have been reviewed Agree with IV diuretics Obtain echocardiogram, and ultrasound of the chest We'll continue to follow his clinical course I have personally seen and examined the patient, performed the documentation and the assessment and plan as written. Number of minutes spent on the visit: [10] Time with Patient: Greater than 30
--- NOTE | 2022-01-01 15:47 | US ---
EXAMINATION TYPE: US chest DATE OF EXAM: 01/01/2022 COMPARISON: NONE CLINICAL HISTORY: shortnes of breath, pleural effusions. SOB TECHNIQUE: Targeted ultrasound of the posterior lower bilateral hemithoraces EXAM MEASUREMENTS: Right Pleural Effusion pocket size: 10.1 cm Right skin surface to fluid distance: 2.8 cm Left Pleural Effusion pocket size: 10.9 cm Left skin surface to fluid distance: 2.4 cm Right side marked for possible thoracentesis outside the dept. Left side marked for possible thoracentesis outside the dept. Pulmonologists are able to review the images in the patient?s EMR. Bilateral Pleural Effusions seen IMPRESSIONS: Moderate bilateral pleural effusions.
--- NOTE | 2022-01-01 17:48 | P.CRDCN ---
History of Present Illness History of present illness: HISTORY OF PRESENTING ILLNESS Patient is pleasant 86-year-old male with a history of persistent atrial fibrillation, coronary artery disease with previous stenting, hypertension, hyperlipidemia, anemia, preserved EF by echo last 09/13/2019. He follows in the office with Dr. Mckeon. He had a recent workup nov with heart catheterization which showed calcified LAD, patent RCA stent and small obtuse marginal third branch with significant disease however treated medically. He was being evaluated for possible surgery due to orthopedic complaints. Patient was recently hospitalized for pneumonia in November 2021 where he had been having some fevers and chills and cough. He admits he never really recovered from prior admission and still having significant dyspnea. He does have lower extremity edema and appears to have JVD however admits he has actually lost 10 pounds in the last month or so with significant decreased appetite. He does have a history of cancer however no recent recurrence. He also admits that since his catheterization in November he feels he has still been having chest pain and shortness breath which can occur with exertion but also at rest. CT of the chest showed new small to moderate-sized pleural effusions and interstitial edema as well as a right upper lung consolidation a new small to moderate size pericardial effusion. EKG shows atrial fibrillation with right bundle branch block and nonspecific ST, T-wave abnormalities. REVIEW OF SYSTEMS At the time of my exam: CONSTITUTIONAL: Denies fever, +chills. CARDIOVASCULAR: +chest pain, + mild shortness of breath, no orthopnea, PND or palpitations. RESPIRATORY: Denies cough. GASTROINTESTINAL: Denies abdominal pain, diarrhea, constipation, nausea or vomiting. MUSCULOSKELETAL: Denies myalgias. NEUROLOGIC: Denies numbness, tingling or weakness. ENDOCRINE: Denies fatigue, weight change, polydipsia or polyurina. GENITOURINARY: Denies burning, hematuria or urgency with micturation. HEMATOLOGIC: Denies history of anemia or bleeding. PHYSICAL EXAMINATION Vital signs reviewed. CONSTITUTIONAL: Ill appearing HEENT: Head is normocephalic. Pupils are equal, round. Sclerae anicteric. Mucous membranes of the mouth are moist. No JVD. No carotid bruit. CHEST EXAMINATION: Lungs are clear to auscultation. No chest wall tenderness is noted on palpation or with deep breathing. HEART EXAMINATION: Irregular rate and rhythm. S1, S2 heard. No murmurs, gallops or rub. ABDOMEN: Soft, nontender. Positive bowel sounds. EXTREMITIES: 2+ peripheral pulses, n2+ lower extremity edema and no calf tenderness. NEUROLOGIC EXAMINATION: Patient is awake, alert and oriented x3. ASSESSMENT 1. Atypical chest pain likely related to pneumonia with normal troponins 2. History of coronary artery disease with recent heart catheterization 11/2021 showing mild to moderate CAD as well as very small caliber obtuse marginal third branch treated medically 3. Hypertension 4. Hyperlipidemia 5. Persistent atrial fibrillation with controlled ventricular rates 6. Anemia appears stable 7. Community acquired pneumonia, failed outpatient therapy, recently treated last month 8. Acute on chronic diastolic heart failure 9. Small to moderate pericardial effusion by CAT scan PLAN Patient with complex presentation with recent hospitalization appearing mainly related to pneumonia however has not had any improvement. He does appear volume overloaded on exam with JVD and lower extremity edema and bilateral crackles however also has infiltrates noted on CAT scan. Continue diuresis however monitor closely especially with pericardial effusion. If patient becomes hypotensive give fluids back. Check 2-D echo to evaluate pericardial effusion. Check blood cultures. Chest pain overall appears fairly atypical and recent heart catheterization showing no significant interventional targets. Past Medical History Past Medical History: Myocardial Infarction ([place]) Additional Past Medical History / Comment(s): spouse states "unable to do recent heartcath due to low hgb, having increased SOB, and fatigue. Recent fall injurying left shoulder/rotator cuff-needing to have surgery with Dr Alcantara",Colon cancer w/ resection, laryngeal cancer w/ radiation/surgery-has intermittent coughing at times swallowing saliva, colon & throat polyps, p ostitive stool for C-Diff/Lactoferrin 11/12/18, skin cancer removal, equilibrium problems, arthritis hands/legs, seasonal allergies. Hx fall w/ injury Lt shoulder, in PT. Last Myocardial Infarction Date:: 1994 History of Any Multi-Drug Resistant Organisms: None Reported, C-DIFF Date of last positivie culture/infection: 2018 MDRO Source:: stool Past Surgical History: Appendectomy, Bowel Resection, Heart Catheterization, Heart Catheterization With Stent, Orthopedic Surgery Additional Past Surgical History / Comment(s): PCI with total 4 stents. EGD, colonoscopies, bowel resection-8 inches removed, suspension microlarygoscopy for laryngeal lesion, skin cancer removals, R knee arthroscopy, R rotator cuff repair, bilat cataract removals/lens implants. Past Anesthesia/Blood Transfusion Reactions: No Reported Reaction Date of Last Stent Placement:: 12/19/18 Past Psychological History: Depression Smoking Status: Former smoker Past Alcohol Use History: None Reported Past Drug Use History: None Reported - Past Family History Mother Family Medical History: Diabetes Mellitus Additional Family Medical History / Comment(s): Mother lived to be 78yrs old. Father Family Medical History: Myocardial Infarction ([place]) Additional Family Medical History / Comment(s): FATHER @ AGE 46 WITH [place] Sister(s) Family Medical History: Cancer Additional Family Medical History / Comment(s): BREAST & BONE CA Medications and Allergies Home Medications Medication Instructions Recorded Confirmed Type PARoxetine [Paxil] 30 mg PO DAILY 03/13/14 12/31/21 History Multivitamins, Thera [Multivitamin 1 tab PO DAILY 01/14/15 12/31/21 History (formulary)] Atorvastatin [Lipitor] 40 mg PO HS 12/18/18 12/31/21 History L.acidoph,Paracasei, B.lactis 1 cap PO DAILY 12/18/18 12/31/21 History [Probiotic] amLODIPine BESYLATE/BENAZEPRIL 1 cap PO DAILY 09/13/19 12/31/21 History [Lotrel 10-20 MG] Acetaminophen [Tylenol Extra 500 - 1,000 mg PO Q6H PRN 07/27/21 12/31/21 History Strength] Aspirin [Adult Low Dose Aspirin EC] 81 mg PO HS 07/27/21 12/31/21 History Apixaban [Eliquis] 2.5 mg PO BID 10/28/21 12/31/21 History Ascorbic Acid [Vitamin C] 500 mg PO DAILY 10/28/21 12/31/21 History Ferrous Sulfate [Iron] 325 mg PO BID 10/28/21 12/31/21 History Omeprazole 20 mg PO DAILY 10/28/21 12/31/21 History Triamterene-Hctz 37.5-25Mg 1 cap PO DAILY PRN 10/28/21 12/31/21 History [Dyazide 37.5-25 Capsule] Nitroglycerin Sl Tabs [Nitrostat] 0.4 mg SL Q5M PRN 12/17/21 12/31/21 History Cholecalciferol [Vitamin D3 (25 50 mcg PO DAILY 12/27/21 12/31/21 History Mcg = 1000 Iu)] Amoxicillin 1,000 mg PO Q8H 12/31/21 12/31/21 History Azithromycin [Zithromax Z-pack (6 See Taper PO DAILY 12/31/21 12/31/21 History tabs)] Allergies Allergy/AdvReac Type Severity Reaction Status Date / Time No Known Allergies Allergy Verified 12/31/21 21:08 Physical Exam Vitals: Vital Signs Temp Pulse Pulse Resp BP BP Pulse Ox 01/01/22 14:00 97.9 F 81 129/73 100 01/01/22 08:00 98.8 F 99 106/66 96 01/01/22 07:54 99 17 01/01/22 04:53 98.9 F 01/01/22 02:00 97.6 F 81 17 105/55 100 01/01/22 00:05 18 12/31/21 23:00 87 22 147/91 100 12/31/21 22:00 93 20 160/68 95 12/31/21 19:57 18 12/31/21 19:29 99.8 F H 89 24 117/81 97 Intake and Output 01/01/22 01/01/22 01/01/22 06:59 14:59 22:59 Intake Total 100 Output Total 900 100 Balance -800 -100 Intake: Oral 100 Output: Urine 900 100 Other: Voiding Method Urinal Urinal Weight 94.3 kg Results 01/01/22 05:38 01/01/22 05:38 Cardiac Enzymes 12/31/21 12/31/21 01/01/22 Range/Units 20:08 20:08 02:00 AST 32 (17-59) U/L Troponin I <0.012 <0.012 (0.000-0.034) ng/mL Coagulation 12/31/21 Range/Units 20:08 PT 13.0 H (9.0-12.0) sec APTT 28.6 (22.0-30.0) sec Lipids 01/01/22 Range/Units 02:00 Triglycerides 47.50 (0.00-149.00) mg/dL Cholesterol 77.00 (0.00-200.00) mg/dL HDL Cholesterol 42.50 (40.00-60.00) mg/dL Cholesterol/HDL Ratio 1.80 Ratio CBC 12/31/21 01/01/22 Range/Units 20:08 05:38 WBC 14.9 H 16.19 H (3.8-10.6) k/uL RBC 3.86 L 3.58 L (4.30-5.90) m/uL Hgb 10.2 L 9.2 L (13.0-17.5) gm/dL Hct 34.1 L 32.0 L (39.0-53.0) % Plt Count 533 H 455 H (150-450) k/uL Comprehensive Metabolic Panel 12/31/21 01/01/22 Range/Units 20:08 05:38 Sodium 136 L 140 (137-145) mmol/L Potassium 3.9 4.6 (3.5-5.1) mmol/L Chloride 105 103 (98-107) mmol/L Carbon Dioxide 20 L 18.4 L (22-30) mmol/L BUN 30 H 28.3 H (9-20) mg/dL Creatinine 1.18 1.4 (0.66-1.25) mg/dL Glucose 146 H 126 H (74-99) mg/dL Calcium 9.4 9.6 (8.4-10.2) mg/dL AST 32 (17-59) U/L ALT 27 (4-49) U/L Alkaline Phosphatase 135 H (38-126) U/L Total Protein 7.0 (6.3-8.2) g/dL Albumin 3.5 (3.5-5.0) g/dL Current Medications Generic Name Dose Route Start Last Admin Trade Name Freq PRN Reason Stop Dose Admin Amlodipine Besylate 10 mg 01/01/22 09:00 01/01/22 07:06 Amlodipine 10 Mg Tab PO 10 mg DAILY TASHA Administration Apixaban 2.5 mg 01/01/22 09:00 01/01/22 07:06 Apixaban 2.5 Mg Tablet PO 2.5 mg BID TASHA Administration Protocol Aspirin 81 mg 01/01/22 21:00 Aspirin 81 Mg PO HS TASHA Atorvastatin Calcium 40 mg 01/01/22 21:00 Atorvastatin 40 Mg Tab PO HS TASHA Furosemide 40 mg 01/01/22 09:00 01/01/22 07:53 Furosemide 10 Mg/Ml 4 Ml Vial IV 40 mg Q12HR TASHA Administration Ampicillin Sodium/Sulbactam 50 mls @ 100 mls/hr 01/01/22 06:00 01/01/22 11:20 Sodium 1.5 gm/ Sodium Chloride IVPB 100 mls/hr Q6HR TASHA Administration Protocol Lisinopril 20 mg 01/01/22 09:00 01/01/22 07:06 Lisinopril 20 Mg Tab PO 20 mg DAILY TASHA Administration Nitroglycerin 0.4 mg 12/31/21 21:53 Nitroglycerin Sl Tabs 0.4 Mg Tab SUBLINGUAL Q5M PRN Chest Pain Paroxetine HCl 30 mg 01/01/22 09:00 01/01/22 07:06 Paroxetine 10 Mg Tab PO 30 mg DAILY TASHA Administration Intake and Output 01/01/22 01/01/22 01/01/22 06:59 14:59 22:59 Intake Total 100 Output Total 900 100 Balance -800 -100 Intake: Oral 100 Output: Urine 900 100 Other: Voiding Method Urinal Urinal Weight 94.3 kg 01/01/22 05:38 01/01/22 05:38
[2022-01-01] MEDS: ACETAMINOPHEN TAB 325 MG TAB PO PRN (18:51)
--- NOTE | 2022-01-01 20:44 | P.CONS ---
History of Present Illness - Reason for Consult Consult date: 01/01/22 Cavitation with inner mass Requesting physician: Heri Levin - Chief Complaint Shortness of breath x weeks - History of Present Illness Patient is 86-year-old male presenting to the ER last night for evaluation of increasing shortness of breath and this patient symptom has been going on for more than a week or 2 and has been mostly shortness of breath and some chest tightness patient apparently was recently evaluated in the ER has been diagnosed with a pneumonia and was discharged home on oral antibiotic however the patient symptoms did not improve and have been increasing shortness of breath on minimal exertion and even at rest he also have a chest pressure patient denies significant cough or sputum production he denies any nausea no vomiting no abdominal pain no diarrhea did have some lower extremity swelling with the symptom the patient was reevaluated by the ER physician on arrival to the ER did have a low-grade fever of 99.8 F patient is currently 96% on 4 L nasal cannula did have white count of 16.19 with a left shift creatinine is 1.4 morales PCR was negative Covid testing is negative Covid assay was negative patient did have a chest x-ray mild cardiomegaly bilateral upper lobe opacities as well as left basilar process remains unchanged patient subsequent did have a CT of the chest new small to moderate pleural effusion and mild interstitial edema correlate for CHF exacerbation there was scattered partially calcified bilateral pulmonary nodules new upper lobe pneumonia consolidation and moderate- sized pericardial effusion patient has been started on Unasyn has been admitted to hospital infectious disease was consulted for pneumonia concern for underlying cavitation blood cultures obtained which are currently pending Review of Systems Positive point has been mentioned in the HPI rest of the systems are negative Past Medical History Past Medical History: Myocardial Infarction ([place]) Additional Past Medical History / Comment(s): spouse states "unable to do recent heartcath due to low hgb, having increased SOB, and fatigue. Recent fall injurying left shoulder/rotator cuff-needing to have surgery with Dr Alcantara",Colon cancer w/ resection, laryngeal cancer w/ radiation/surgery-has intermittent coughing at times swallowing saliva, colon & throat polyps, postitive stool for C-Diff/Lactoferrin 11/12/18, skin cancer removal, equilibrium problems, arthritis hands/legs, seasonal allergies. Hx fall w/ injury Lt shoulder, in PT. Last Myocardial Infarction Date:: 1994 History of Any Multi-Drug Resistant Organisms: None Reported, C-DIFF Year Discovered:: 2019 MDRO Source:: stool Past Surgical History: Appendectomy, Bowel Resection, Heart Catheterization, Heart Catheterization With Stent, Orthopedic Surgery Additional Past Surgical History / Comment(s): PCI with total 4 stents. EGD, colonoscopies, bowel resection-8 inches removed, suspension microlarygoscopy for laryngeal lesion, skin cancer removals, R knee arthroscopy, R rotator cuff repair, bilat cataract removals/lens implants. Past Anesthesia/Blood Transfusion Reactions: No Reported Reaction Date of Last Stent Placement:: 12/19/18 Past Psychological History: Depression Smoking Status: Former smoker Past Alcohol Use History: None Reported Past Drug Use History: None Reported - Past Family History Mother Family Medical History: Diabetes Mellitus Additional Family Medical History / Comment(s): Mother lived to be 78yrs old. Father Family Medical History: Myocardial Infarction ([place]) Additional Family Medical History / Comment(s): FATHER @ AGE 46 WITH [place] Sister(s) Family Medical History: Cancer Additional Family Medical History / Comment(s): BREAST & BONE CA Medications and Allergies Home Medications Medication Instructions Recorded Confirmed Type PARoxetine [Paxil] 30 mg PO DAILY 03/13/14 12/31/21 History Multivitamins, Thera [Multivitamin 1 tab PO DAILY 01/14/15 12/31/21 History (formulary)] Atorvastatin [Lipitor] 40 mg PO HS 12/18/18 12/31/21 History L.acidoph,Paracasei, B.lactis 1 cap PO DAILY 12/18/18 12/31/21 History [Probiotic] amLODIPine BESYLATE/BENAZEPRIL 1 cap PO DAILY 09/13/19 12/31/21 History [Lotrel 10-20 MG] Acetaminophen [Tylenol Extra 500 - 1,000 mg PO Q6H PRN 07/27/21 12/31/21 History Strength] Aspirin [Adult Low Dose Aspirin EC] 81 mg PO HS 07/27/21 12/31/21 History Apixaban [Eliquis] 2.5 mg PO BID 10/28/21 12/31/21 History Ascorbic Acid [Vitamin C] 500 mg PO DAILY 10/28/21 12/31/21 History Ferrous Sulfate [Iron] 325 mg PO BID 10/28/21 12/31/21 History Omeprazole 20 mg PO DAILY 10/28/21 12/31/21 History Triamterene-Hctz 37.5-25Mg 1 cap PO DAILY PRN 10/28/21 12/31/21 History [Dyazide 37.5-25 Capsule] Nitroglycerin Sl Tabs [Nitrostat] 0.4 mg SL Q5M PRN 12/17/21 12/31/21 History Cholecalciferol [Vitamin D3 (25 50 mcg PO DAILY 12/27/21 12/31/21 History Mcg = 1000 Iu)] Amoxicillin 1,000 mg PO Q8H 12/31/21 12/31/21 History Azithromycin [Zithromax Z-pack (6 See Taper PO DAILY 12/31/21 12/31/21 History tabs)] Allergies Allergy/AdvReac Type Severity Reaction Status Date / Time No Known Allergies Allergy Verified 12/31/21 21:08 Physical Exam Vitals: Vital Signs Temp Pulse Pulse Resp BP BP Pulse Ox 01/01/22 08:00 98.8 F 99 106/66 96 01/01/22 07:54 99 17 01/01/22 04:53 98.9 F 01/01/22 02:00 97.6 F 81 17 105/55 100 01/01/22 00:05 18 12/31/21 23:00 87 22 147/91 100 12/31/21 22:00 93 20 160/68 95 12/31/21 19:57 18 12/31/21 19:29 99.8 F H 89 24 117/81 97 Intake and Output 12/31/21 01/01/22 01/01/22 22:59 06:59 14:59 Intake Total 100 Output Total 900 100 Balance -800 -100 Intake: Oral 100 Output: Urine 900 100 Other: Voiding Method Urinal Urinal Weight 102.058 kg 94.3 kg GENERAL DESCRIPTION: An elderly male up in the chair, no distress. No tachypnea or accessory muscle of respiration use. HEENT: Shows Pallor , no scleral icterus. Oral mucous membrane is dry. No pharyngeal erythema or thrush NECK: Trachea central, no thyromegaly. LUNGS: Unlabored breathing. Decreased present at the base. No wheeze or crackle. HEART: S1, S2, regular rate and rhythm. No loud murmur ABDOMEN: Soft, no tenderness , guarding or rigidity, no organomegaly EXTREMITIES: 2+ edema of feet. SKIN: No rash, no masses palpable. NEUROLOGICAL: The patient is awake, alert, oriented x3, mood and affect normal. Results CBC & Chem 7: 01/01/22 05:38 01/01/22 05:38 Labs: Abnormal Lab Results - Last 24 Hours (Table) 12/31/21 12/31/21 12/31/21 Range/Units 20:08 20:08 20:08 WBC 14.9 H (3.8-10.6) k/uL RBC 3.86 L (4.30-5.90) m/uL Hgb 10.2 L (13.0-17.5) gm/dL Hct 34.1 L (39.0-53.0) % MCH (27.0-32.0) pg MCHC 29.9 L (31.0-37.0) g/dL RDW 16.7 H (11.5-15.5) % Plt Count 533 H (150-450) k/uL Neutrophils # 12.9 H (1.3-7.7) k/uL Lymphocytes # 0.7 L (1.0-4.8) k/uL PT 13.0 H (9.0-12.0) sec INR 1.2 H (<1.2) Sodium 136 L (137-145) mmol/L Carbon Dioxide 20 L (22-30) mmol/L Anion Gap (10.00-18.00) mmol/L BUN 30 H (9-20) mg/dL Est GFR (CKD-EPI)AfAm (60.0-200.0) Est GFR (CKD-EPI)NonAf (60.0-200.0) BUN/Creatinine Ratio (12.00-20.00) Ratio Glucose 146 H (74-99) mg/dL Alkaline Phosphatase 135 H (38-126) U/L 01/01/22 01/01/22 Range/Units 05:38 05:38 WBC 16.19 H (3.8-10.6) k/uL RBC 3.58 L (4.30-5.90) m/uL Hgb 9.2 L (13.0-17.5) gm/dL Hct 32.0 L (39.0-53.0) % MCH 25.7 L (27.0-32.0) pg MCHC 28.8 L (31.0-37.0) g/dL RDW 17.6 H (11.5-15.5) % Plt Count 455 H (150-450) k/uL Neutrophils # (1.3-7.7) k/uL Lymphocytes # (1.0-4.8) k/uL PT (9.0-12.0) sec INR (<1.2) Sodium (137-145) mmol/L Carbon Dioxide 18.4 L (22-30) mmol/L Anion Gap 18.60 H (10.00-18.00) mmol/L BUN 28.3 H (9-20) mg/dL Est GFR (CKD-EPI)AfAm 51.6 L (60.0-200.0) Est GFR (CKD-EPI)NonAf 44.5 L (60.0-200.0) BUN/Creatinine Ratio 20.21 H (12.00-20.00) Ratio Glucose 126 H (74-99) mg/dL Alkaline Phosphatase (38-126) U/L Assessment and Plan (1) Pneumonia Current Visit: No Status: Acute Code(s): J18.9 - PNEUMONIA, UNSPECIFIED ORGANISM SNOMED Code(s): 776897323 Plan: 1patient presented to hospital with increasing shortness of breath symptom has been going on for more than a week or 2 recently admitted to the hospital and treated for pneumonia in November now with worsening respiratory symptoms and evidence of right upper lobe pneumonia question of aspiration etiology versus underlying malignancy and secondary postobstructive pneumonia 2- we will try to obtain a sputum for Gram stain culture 3-discontinue Unasyn start the patient on Zosyn as high risk for gram-negative infection We will follow on clinical condition and cultures to further adjust medication if needed Thank you for this consultation will follow this patient along with you Time with Patient: Greater than 30
[2022-01-01] MEDS ORDERED: ASPIRIN 81 MG PO SCH (21:00)
[2022-01-01] MEDS: ATORVASTATIN 40 MG TAB PO SCH (23:17)
[2022-01-01] MEDS: PIPERACILLIN-TAZOBACTAM 3.375 GM in SODIUM CHLORIDE 0.9% 100 ML IVPB SCH (23:17)
[2022-01-02] MEDS: lisinopriL 20 MG TAB PO SCH (07:41)
[2022-01-02] MEDS: PIPERACILLIN-TAZOBACTAM 3.375 GM in SODIUM CHLORIDE 0.9% 100 ML IVPB SCH ×2 (07:41→19:31)
[2022-01-02] MEDS: PARoxetine 10 MG TAB PO SCH (07:42)
[2022-01-02] MEDS: FUROSEMIDE 10 MG/ML 4 ML VIAL IV SCH ×2 (07:42→19:30)
[2022-01-02] MEDS: amLODIPine 10 MG TAB PO SCH (07:42)
[2022-01-02] MEDS: APIXABAN 2.5 MG TABLET PO SCH ×2 (07:42→19:31)
[2022-01-02 08:48] LABS: Basophils # (A) 0.06 X 10*3/uL (0.00-0.10); Basophils % (A) 0.5 %; Eosinophils # (A) 0.06 X 10*3/uL (0.04-0.35); Eosinophils % (A) 0.5 %; HCT 30.2 % (39.6-50.0); HGB 8.6 g/dL (13.0-17.0); Immature Grans, Automated 0.5 %; Lymphocytes # (A) 0.89 X 10*3/uL (0.90-5.00); MCH 25.8 pg (27.0-32.0); MCHC 28.5 g/dL (32.0-37.0); MCV 90.7 fL (80.0-97.0); Mean Platelet Volume 9.7 fL (9.5-12.2); Monocytes # (A) 1.42 X 10*3/uL (0.20-1.00); Monocytes % (A) 11.1 %; NRBC Per 100 WBC 0 /100 WBCS (0.0-0.0); Neutrophils # (A) 10.29 X 10*3/uL (1.80-7.70); Neutrophils % (A) 80.4 %; Platelet Count 426 X 10*3/uL (140-440); RBC 3.33 X 10*6/uL (4.40-5.60); RDW 17.8 % (11.5-14.5); WBC 12.79 X 10*3/uL (4.50-10.00)
[2022-01-02 09:19] LABS: African American GFR (CKD) 43.9 (60.0-200.0); Anion Gap 17.8 mmol/L (10.00-18.00); BUN/Creat Ratio 24.81 Ratio (12.00-20.00); Blood Urea Nitrogen 39.7 mg/dL (9.0-27.0); Calcium 9.5 mg/dL (8.7-10.3); Carbon Dioxide 19.2 mmol/L (20.0-27.5); Magnesium 2.2 mg/dL (1.5-2.4); Non-African American GFR(CKD) 37.9 (60.0-200.0); Potassium 4.6 mmol/L (3.5-5.5)
--- NOTE | 2022-01-02 10:30 | P.PN ---
Subjective Progress Note Date: 01/02/22 PROGRESS NOTE The patient is an 86-year-old male with a known history of atrial fibrillation, coronary disease prior stenting who recently underwent repeat cardiac catheterization that showed no evidence of significant progression of disease. He presented with symptoms of progressive dyspnea and cough as well as worsening peripheral edema. He was diagnosed with pneumonia and pleural effusion. He continues to be dyspneic. He denies any chest discomfort dizziness or palpitations. He has been evaluated by the infectious disease and pulmonary service. He continues to be on amlodipine 10 mg daily, aspirin 81 mg daily, Lipitor 40 mg daily, Lasix 40 mg IV every 12 hours, lisinopril 20 mg daily,Eliqu is 20 half milligrams twice a day. PHYSICAL EXAMINATION: Blood pressure 117/65. heart rate 90 LUNGS: Decreased breath sounds bilaterally, mainly at the bases HEART: Irregular rate and rhythm, S1, S2. No S3. systolic ejection murmur at the base ABDOMEN: Soft, nontender, no organomegaly EXTREMETIES: 2+ pitting edema bilaterally LAB: BUN 39, creatinine 1.6, potassium 4.6, hemoglobin 8.6 IMPRESSION: 1. Progressive dyspnea with CHF exacerbation and preserved systolic function in addition to pneumonia 2. History of CAD stable 3. Chronic persistent H for ablation, anticoagulated 4. Anemia, noted in the past and underwent workup recently 5. History of hypertension 6. Hyperlipidemia PLAN: 1. Continue IV diuresis for 24 hours and depending on the progress further recommendations will be made in that regard 2. Follow hemoglobin and renal function 3. Depending on the pleural effusion he may require thoracentesis 4. Hold aspirin for now 5. Depending on his progress further recommendations will be made. Objective - Vital Signs Vital signs: Vital Signs Temp 98.2 F 01/02/22 07:39 Pulse 91 01/02/22 07:39 Resp 16 01/02/22 07:39 BP 117/65 01/02/22 07:39 Pulse Ox 100 01/02/22 07:39 Intake & Output 01/01/22 01/02/22 01/02/22 18:59 06:59 18:59 Intake Total 100 Output Total 100 1850 Balance -100 -1750 Intake: Oral 100 Output: Urine 100 1850 Other: Voiding Method Urinal Toilet Urinal # Voids 1 1 - Labs CBC & Chem 7: 01/02/22 03:42 01/02/22 03:42 Labs: Abnormal Lab Results - Last 24 Hours (Table) 01/01/22 01/01/22 01/02/22 Range/Units 05:38 05:38 03:42 WBC (4.50-10.00) X 10*3/uL RBC (4.40-5.60) X 10*6/uL Hgb (13.0-17.0) g/dL Hct (39.6-50.0) % MCH (27.0-32.0) pg MCHC (32.0-37.0) g/dL RDW (11.5-14.5) % Immature Gran # (0.00-0.04) X 10*3/uL Neutrophils # (1.80-7.70) X 10*3/uL Lymphocytes # (0.90-5.00) X 10*3/uL Monocytes # (0.20-1.00) X 10*3/uL Carbon Dioxide 18.4 L 19.2 L (20.0-27.5) mmol/L Anion Gap 18.60 H (10.00-18.00) mmol/L BUN 28.3 H 39.7 H (9.0-27.0) mg/dL Creatinine 1.6 H (0.6-1.5) mg/dL Est GFR (CKD-EPI)AfAm 51.6 L 43.9 L (60.0-200.0) Est GFR (CKD-EPI)NonAf 44.5 L 37.9 L (60.0-200.0) BUN/Creatinine Ratio 20.21 H 24.81 H (12.00-20.00) Ratio Glucose 126 H 114 H (70-110) mg/dL Procalcitonin 0.12 H (0.02-0.09) ng/mL 01/02/22 Range/Units 03:42 WBC 12.79 H (4.50-10.00) X 10*3/uL RBC 3.33 L (4.40-5.60) X 10*6/uL Hgb 8.6 L (13.0-17.0) g/dL Hct 30.2 L (39.6-50.0) % MCH 25.8 L (27.0-32.0) pg MCHC 28.5 L (32.0-37.0) g/dL RDW 17.8 H (11.5-14.5) % Immature Gran # 0.07 H (0.00-0.04) X 10*3/uL Neutrophils # 10.29 H (1.80-7.70) X 10*3/uL Lymphocytes # 0.89 L (0.90-5.00) X 10*3/uL Monocytes # 1.42 H (0.20-1.00) X 10*3/uL Carbon Dioxide (20.0-27.5) mmol/L Anion Gap (10.00-18.00) mmol/L BUN (9.0-27.0) mg/dL Creatinine (0.6-1.5) mg/dL Est GFR (CKD-EPI)AfAm (60.0-200.0) Est GFR (CKD-EPI)NonAf (60.0-200.0) BUN/Creatinine Ratio (12.00-20.00) Ratio Glucose (70-110) mg/dL Procalcitonin (0.02-0.09) ng/mL Microbiology - Last 24 Hours (Table) 12/31/21 23:02 Blood Culture - Preliminary Blood No Growth after 24 hours 12/31/21 22:45 Blood Culture - Preliminary Blood No Growth after 24 hours
--- NOTE | 2022-01-02 11:19 | P.PN ---
Subjective Progress Note Date: 01/02/22 Patient is requiring 4 L of oxygen today. Able to ambulate with minimal support. Had chest CT done today, which shows large pleural effusions bilaterally which are new, also demonstrates findings of right upper lobe cavitary lesion with calcified mass inside, as well as several pulmonary nodules. Gen: awake, alert HEENT: normocephalic, atraumatic, good hearing acuity, moist mucous membranes Resp: good air exchange, breathing comfortably with no accessory muscle use CVS: good distal perfusion x 4, GI: soft, NTTP, ND : no SPT, no CVAT, camarena catheter not present MSK: no pitting edema, no clubbing Neuro: non-focal, moving all extremities Psych: cooperative, euthymic mood Assessment/plan: Sepsis with acute hypoxemic respiratory failure Right upper lobe pneumonia Possible mycetoma Acute Congestive heart failure, previously preserved ejection fraction -Obtain pro-calcitonin = 0.12 -Obtain CT chest, b/l pleural effusions, RUL pneumonia with cavitary lesion -Continue with Lasix IV 40 every 12 hourly -Cardiology consult -Cardiac monitoring -Intake output -Daily weights -Continue with Unasyn for now in light of worsening leukocytosis -echo read is pending -ID consult, pulmonary consult Chronic conditions: A. fib, coronary artery disease, hypertension -Continue with home meds DVT prophylaxis -Eliquis The patient is admitted with an anticipated greater than 2 midnight stay for evaluation of SOB CODE STATUS: No Code Discussed with: Patient Anticipated discharge date: 01/[address]: Home Objective - Vital Signs Vital signs: Vital Signs Temp 98.2 F 01/02/22 07:39 Pulse 91 01/02/22 07:39 Resp 16 01/02/22 07:39 BP 117/65 01/02/22 07:39 Pulse Ox 100 01/02/22 07:39 Intake & Output 01/01/22 01/02/22 01/02/22 18:59 06:59 18:59 Intake Total 100 Output Total 100 1850 Balance -100 -1750 Intake: Oral 100 Output: Urine 100 1850 Other: Voiding Method Urinal Toilet Urinal # Voids 1 1 - Labs CBC & Chem 7: 01/02/22 03:42 01/02/22 03:42 Labs: Abnormal Lab Results - Last 24 Hours (Table) 01/01/22 01/02/2222 Range/Units 05:38 03:42 03:42 WBC 12.79 H (4.50-10.00) X 10*3/uL RBC 3.33 L (4.40-5.60) X 10*6/uL Hgb 8.6 L (13.0-17.0) g/dL Hct 30.2 L (39.6-50.0) % MCH 25.8 L (27.0-32.0) pg MCHC 28.5 L (32.0-37.0) g/dL RDW 17.8 H (11.5-14.5) % Immature Gran # 0.07 H (0.00-0.04) X 10*3/uL Neutrophils # 10.29 H (1.80-7.70) X 10*3/uL Lymphocytes # 0.89 L (0.90-5.00) X 10*3/uL Monocytes # 1.42 H (0.20-1.00) X 10*3/uL Carbon Dioxide 19.2 L (20.0-27.5) mmol/L BUN 39.7 H (9.0-27.0) mg/dL Creatinine 1.6 H (0.6-1.5) mg/dL Est GFR (CKD-EPI)AfAm 43.9 L (60.0-200.0) Est GFR (CKD-EPI)NonAf 37.9 L (60.0-200.0) BUN/Creatinine Ratio 24.81 H (12.00-20.00) Ratio Glucose 114 H (70-110) mg/dL Procalcitonin 0.12 H (0.02-0.09) ng/mL Microbiology - Last 24 Hours (Table) 12/31/21 23:02 Blood Culture - Preliminary Blood No Growth after 24 hours 12/31/21 22:45 Blood Culture - Preliminary Blood No Growth after 24 hours
[2022-01-02] MEDS: IPRATROPIUM-ALBUTEROL 3 ML NEB INHALATION PRN ×2 (12:12→16:25)
--- NOTE | 2022-01-02 12:31 | ECHOF ---
Referral Reason:pericardial effusion MEASUREMENTS -------- HEIGHT: 188.0 cm WEIGHT: 93.9 kg BP: 115/69 RVIDd: 4.4 cm (< 3.3) IVSd: 1.4 cm (0.6 - 1.1) LVIDd: 4.1 cm (3.9 - 5.3) LVPWd: 1.3 cm (0.6 - 1.1) IVSs: 2.2 cm LVIDs: 2.3 cm LVPWs: 1.6 cm LAESV Index (A-L): 45.00 ml/m Ao Diam: 3.6 cm (2.0 - 3.7) AV Cusp: 2.0 cm (1.5 - 2.6) RAP: 5.00 mmHg RVSP: 37.85 mmHg FINDINGS -------- Atrial fibrillation. This was a technically difficult study with suboptimal views. The left ventricular size is normal. There is moderate concentric left ventricular hypertrophy. O verall left ventricular systolic function is low-normal with, an EF between 50 - 55 %. Septal wall motion is delayed, and consistent with conduction delay/bundle branch block. The right ventricle is severely enlarged. LA is severely dilated >40 ml/m2 The right atrium was not well visualized. 5.0mg of Lumason was utilized for enhancement of images Interatrial and interventricular septum intact. There is mild aortic valve sclerosis. There is no evidence of aortic regurgitation. There is no e vidence of aortic stenosis. Mild mitral annular calcification present. Mild mitral regurgitation is present. The tricuspid valve appears structurally normal. Mild tricuspid regurgitation present. There is m ild pulmonary hypertension. The right ventricular systolic pressure, as measured by Doppler, is 37. 85mmHg. There is no pulmonic regurgitation present. The aortic root size is normal. IVC Not well visulized. There is a small, generalized pericardial effusion present. CONCLUSIONS -------- 1. Atrial fibrillation. 2. This was a technically difficult study with suboptimal views. 3. There is moderate concentric left ventricular hypertrophy. 4. Overall left ventricular systolic function is low-normal with, an EF between 50 - 55 %. 5. The right ventricle is severely enlarged. 6. LA is severely dilated >40 ml/m2 7. Mild mitral regurgitation is present. 8. Mild tricuspid regurgitation present. 9. There is mild pulmonary hypertension. 10. There is a small, generalized pericardial effusion present. ORGANISATIONAL PSYCHOLOGIST: Gillian Sparks RDCS
[2022-01-02] MEDS: ACETAMINOPHEN TAB 325 MG TAB PO PRN (14:21)
--- NOTE | 2022-01-02 15:52 | P.PN ---
Subjective Progress Note Date: 01/02/22 Principal diagnosis: Shortness of breath 86-year-old white male patient of Dr. Ceron and Dr. Mckeon, was recently hospitalized for community acquired pneumonia in November 2021, presented to the emergency department on December 31, 2021 with complaints of shortness of breath and chest tightness. His symptoms have been ongoing for the past couple of days. Patient was also in the emergency department 3 days prior and was treated for pneumonia she was prescribed antibiotics for discharge, however his symptoms did not improve. Patient felt short of breath especially with ambulation, he was having symptoms of orthopnea, and increased swelling in his bilateral lower extremities. Denied any fevers, no cough, no phlegm production. Patient has an extensive medical history including history of coronary artery disease with previous stenting, chronic A. fib on Eliquis, previous history of myocardial infarction, recent fall with injury to the left shoulder and rotator cuff and t his is being followed by orthopedic surgery, previous history of colon cancer with resection, laryngeal cancer with radiation and surgery, depression, and former smoking history. His chest x-ray on admission showed mild cardiomegaly, bilateral upper lobe opacities as well as left basilar opacity which was unchanged compared to the previous chest x-ray from 12/27/2021. Patient tested negative for COVID-19, RSV and influenza A and B. Admission blood work showed white blood cell count of 14.9, hemoglobin of 10.2, platelet count of 533, INR is 1.2, sodium is 136, potassium is 3.9, CO2 is 20, BUN is 30, creatinine is 1.18, troponins were less than 0.012, proBNP was 1480. CT of the chest has been completely showing new small to moderate-sized pleural effusions and mild interstitial edema correlating for CHF and fluid overload state. There was a new right upper lung pneumonic consolidation, and a new small to moderate-sized pericardial effusion of uncertain etiology. Patient was started on Unasyn for empiric antibiotic coverage. On 01/02/2022 patient seen in follow-up on medical surgical floor. He is awake and alert, he is still very short of breath with any exertion, audibly wheezing today, he is currently on 2 L of oxygen pulse ox is 100%, afebrile, hemodynamically blood pressure has been stable. Still has quite significant edema in his bilateral lower extremities. Chest ultrasound has been completed showing a moderately sized bilateral pleural effusions with 10.1 cm pocket on the right, and 10.9 cm left pleural effusion pocket. Echocardiogram has been completed showing moderate concentric LVH, EF of 50-55%, severely enlarged right ventricle no evidence of AAI or left ear, mild MR and mild TR, mild pulmonary hypertension with right-sided pressure of 37.8 mmHg. And there was a small generalized pericardial effusion. Patient remains on empiric antibiotics in the form of Zosyn, patient remains on IV Lasix at 40 mg every 12 hours. He is in - 1.8 L net fluid balance over 24 hours Objective - Vital Signs Vital signs: Vital Signs Temp 98.2 F 01/02/22 07:39 Pulse 88 01/02/22 12:21 Resp 16 01/02/22 07:39 BP 117/65 01/02/22 07:39 Pulse Ox 100 01/02/22 07:39 Intake & Output 01/01/22 01/02/22 01/02/22 18:59 06:59 18:59 Intake Total 100 Output Total 100 1850 Balance -100 -1750 Intake: Oral 100 Output: Urine 100 1850 Other: Voiding Method Urinal Toilet Urinal # Voids 1 1 - Exam GENERAL EXAM: Alert, very pleasant, 86-year-old white male, on 4 L of oxygen and the pulse ox 100%, dyspneic with ambulation HEAD: Normocephalic/atraumatic. EYES: Normal reaction of pupils, equal size. Conjunctiva pink, sclera white. NOSE: Clear with pink turbinates. THROAT: No erythema or exudates. NECK: No masses, no JVD, no thyroid enlargement, no adenopathy. CHEST: No chest wall deformity. Symmetrical expansion. LUNGS: Equal air entry with diminished breath sounds at the bases CVS: Irregular rate and rhythm, normal S1 and S2, no gallops, no murmurs, no rubs ABDOMEN: Soft, nontender. No hepatosplenomegaly, normal bowel sounds, no guarding or rigidity. EXTREMITIES: No clubbing, 2+ pitting lower extremity edema, no cyanosis, 2+ pulses and upper and lower extremities. MUSCULOSKELETAL: Muscle strength and tone normal. SPINE: No scoliosis or deformity SKIN: No rashes CENTRAL NERVOUS SYSTEM: Alert and oriented -3. No focal deficits, tone is normal in all 4 extremities. PSYCHIATRIC: Alert and oriented -3. Appropriate affect. Intact judgment and insight. - Labs CBC & Chem 7: 01/02/22 03:42 01/02/22 03:42 Labs: Abnormal Lab Results - Last 24 Hours (Table) 01/01/22 01/02/22 01/02/22 Range/Units 05:38 03:42 03:42 WBC 12.79 H (4.50-10.00) X 10*3/uL RBC 3.33 L (4.40-5.60) X 10*6/uL Hgb 8.6 L (13.0-17.0) g/dL Hct 30.2 L (39.6-50.0) % MCH 25.8 L (27.0-32.0) pg MCHC 28.5 L (32.0-37.0) g/dL RDW 17.8 H (11.5-14.5) % Immature Gran # 0.07 H (0.00-0.04) X 10*3/uL Neutrophils # 10.29 H (1.80-7.70) X 10*3/uL Lymphocytes # 0.89 L (0.90-5.00) X 10*3/uL Monocytes # 1.42 H (0.20-1.00) X 10*3/uL Carbon Dioxide 19.2 L (20.0-27.5) mmol/L BUN 39.7 H (9.0-27.0) mg/dL Creatinine 1.6 H (0.6-1.5) mg/dL Est GFR (CKD-EPI)AfAm 43.9 L (60.0-200.0) Est GFR (CKD-EPI)NonAf 37.9 L (60.0-200.0) BUN/Creatinine Ratio 24.81 H (12.00-20.00) Ratio Glucose 114 H (70-110) mg/dL Procalcitonin 0.12 H (0.02-0.09) ng/mL Microbiology - Last 24 Hours (Table) 12/31/21 23:02 Blood Culture - Preliminary Blood No Growth after 24 hours 12/31/21 22:45 Blood Culture - Preliminary Blood No Growth after 24 hours Assessment and Plan Plan: Assessment: #1. Acute hypoxic respiratory failure related to acute exacerbation of CHF with diastolic dysfunction and possibility of pneumonia. CT chest has been completed showing moderately sized pleural effusions, interstitial edema, scattered partially calcified bilateral pulmonary nodules. The possibilities would include chronic granulomatous infections, atypical mycobacterial and the possibility of malignancy cannot be completely ruled out based on the CAT scan findings. There are multiple calcified pulmonary nodules in addition to areas of cavitation #2. Bilateral pleural effusions, and pericardial effusion #3. Recent hospitalization for community acquired pneumonia in November 2021 #4. Chronic anemia #5. Chronic atrial on Eliquis, currently in controlled Afib #6. History of coronary artery disease with previous stenting #7. Hypertension #8. Hyperlipidemia #9. Depression #10. Left shoulder injury from a recent fall, awaiting medical clearance for surgery #11. Previous history of bowel resection for colon cancer #12. History of laryngeal cancer with radiation and surgery #13. History of skin cancer Plan: Current medical treatment Continue IV Lasix and antibiotics Patient is still quite fluid overloaded Monitor electrolytes and renal profile If renal function continues to get worse we may consider thoracentesis Follow-up chest x-ray in the morning I have personally seen and examined the patient, performed the documentation and the assessment and plan as written. Number of minutes spent on the visit: [10] I have personally seen and examined the patient, reviewed the [employer] /PAs history, exam and MDM and agree with the assessment and plan as written. Based on total visit time, I have performed more than 50% of the visit.. Continue IV Lasix regarding decompensated heart failure. Pleural effusions were noted. May consider thoracentesis if no improvement. CAT scan of the chest was noted. The patient has multiple calcified nodular lesions in addition to areas of cavitation. Consider underlying chronic granulomatous/atypical mycobacterium infection. Malignancy cannot be completely ruled out. Time with Patient: Less than 30
--- NOTE | 2022-01-02 18:51 | P.PN ---
Subjective Progress Note Date: 01/02/22 Principal diagnosis: Pneumonia Patient is 86 year old male with a past medical history. 8. Patient chronic stasis hypertension presenting to the hospital with increasing shortness of breath that have been getting worse for more than a week or 2, patient on presentation to hospital did have a low-grade fever and evidence of pleural effusion and upper lobe consultation concerning for pneumonia. On today's evaluation that is 01/02/2022, patient denies having any fevers or any chills, the patient is breathing slightly comfortably, denies having any chest pain did have minimal cough but not bringing up any sputum abdominal pain no diarrhea Objective - Vital Signs Vital signs: Vital Signs Temp 98.2 F 01/02/22 07:39 Pulse 88 01/02/22 12:21 Resp 16 01/02/22 07:39 BP 117/65 01/02/22 07:39 Pulse Ox 100 01/02/22 07:39 Intake & Output 01/01/22 01/02/22 01/02/22 18:59 06:59 18:59 Intake Total 100 Output Total 100 1850 Balance -100 -1750 Intake: Oral 100 Output: Urine 100 1850 Other: Voiding Method Urinal Toilet Urinal # Voids 1 1 - Exam GENERAL DESCRIPTION: An elderly male lying in bed in no distress RESPIRATORY SYSTEM: Unlabored breathing , decreased breath sounds at bases HEART: S1 S2 regular rate and rhythm , ABDOMEN: Soft , no tenderness EXTREMITIES: 2+ edema feet - Labs CBC & Chem 7: 01/02/22 03:42 01/02/22 03:42 Labs: Abnormal Lab Results - Last 24 Hours (Table) 01/01/22 01/02/22 01/02/22 Range/Units 05:38 03:42 03:42 WBC 12.79 H (4.50-10.00) X 10*3/uL RBC 3.33 L (4.40-5.60) X 10*6/uL Hgb 8.6 L (13.0-17.0) g/dL Hct 30.2 L (39.6-50.0) % MCH 25.8 L (27.0-32.0) pg MCHC 28.5 L (32.0-37.0) g/dL RDW 17.8 H (11.5-14.5) % Immature Gran # 0.07 H (0.00-0.04) X 10*3/uL Neutrophils # 10.29 H (1.80-7.70) X 10*3/uL Lymphocytes # 0.89 L (0.90-5.00) X 10*3/uL Monocytes # 1.42 H (0.20-1.00) X 10*3/uL Carbon Dioxide 19.2 L (20.0-27.5) mmol/L BUN 39.7 H (9.0-27.0) mg/dL Creatinine 1.6 H (0.6-1.5) mg/dL Est GFR (CKD-EPI)AfAm 43.9 L (60.0-200.0) Est GFR (CKD-EPI)NonAf 37.9 L (60.0-200.0) BUN/Creatinine Ratio 24.81 H (12.00-20.00) Ratio Glucose 114 H (70-110) mg/dL Procalcitonin 0.12 H (0.02-0.09) ng/mL Microbiology - Last 24 Hours (Table) 12/31/21 23:02 Blood Culture - Preliminary Blood No Growth after 24 hours 12/31/21 22:45 Blood Culture - Preliminary Blood No Growth after 24 hours Assessment and Plan (1) Pneumonia Current Visit: No Status: Acute Code(s): J18.9 - PNEUMONIA, UNSPECIFIED ORGANISM SNOMED Code(s): 444951393 Plan: 1patient presented to hospital with increasing shortness of breath symptom has been going on for more than a week or 2 recently admitted to the hospital and treated for pneumonia in November now with worsening respiratory symptoms and evidence of right upper lobe pneumonia question of aspiration etiology versus underlying malignancy and secondary postobstructive pneumonia 2- we will try to obtain a sputum for Gram stain culture Patient to continue with Zosyn while waiting for the cultures to finalize Time with Patient: Less than 30
[2022-01-02] MEDS: ATORVASTATIN 40 MG TAB PO SCH (19:31)
[2022-01-03] MEDS: PIPERACILLIN-TAZOBACTAM 3.375 GM in SODIUM CHLORIDE 0.9% 100 ML IVPB SCH ×3 (03:25→18:34)
[2022-01-03 05:33] LABS: African American GFR (CKD) 49 (>60 ml/min/1.73 sqM); Anion Gap 8 mmol/L; Blood Urea Nitrogen 41 mg/dL (9-20); Calcium 9.1 mg/dL (8.4-10.2); Carbon Dioxide 28 mmol/L (22-30); Chloride 102 mmol/L (98-107); Glucose 102 mg/dL (74-99); Magnesium 2.2 mg/dL (1.6-2.3); Non-African American GFR(CKD) 43 (>60 ml/min/1.73 sqM); Potassium 4.5 mmol/L (3.5-5.1); Sodium 138 mmol/L (137-145)
[2022-01-03] MEDS: APIXABAN 2.5 MG TABLET PO SCH ×2 (08:31→22:14)
[2022-01-03] MEDS: lisinopriL 20 MG TAB PO SCH (08:32)
[2022-01-03] MEDS: amLODIPine 10 MG TAB PO SCH (08:32)
--- NOTE | 2022-01-03 08:33 | XR ---
EXAMINATION TYPE: XR chest 1V portable DATE OF EXAM: 01/03/2022 COMPARISON: Chest x-ray 12/31/[address] chest 01/01/2022 HISTORY: Shortness of breath TECHNIQUE: Single frontal view of the chest is obtained. FINDINGS: Lung volumes are low. Left heart border and portions of the left hemidiaphragm are obscure d. Patchy densities present within the lungs. No evident pneumothorax. There are overlying leads. Int erstitium is increased. IMPRESSION: Correlate for pneumonia, atelectasis versus scarring, possible associated effusions and congestive failure. Cardiomegaly, patient with known pericardial effusion.
[2022-01-03] MEDS: PARoxetine 10 MG TAB PO SCH (08:35)
[2022-01-03] MEDS: FUROSEMIDE 10 MG/ML 4 ML VIAL IV SCH ×2 (08:37→22:14)
[2022-01-03] MEDS: ACETAMINOPHEN TAB 325 MG TAB PO PRN ×2 (08:57→22:19)
[2022-01-03 09:12] LABS: Basophils # (A) 0.04 X 10*3/uL (0.00-0.10); Basophils % (A) 0.3 %; Eosinophils # (A) 0.12 X 10*3/uL (0.04-0.35); Eosinophils % (A) 0.9 %; HCT 29.7 % (39.6-50.0); HGB 8.6 g/dL (13.0-17.0); Immature Grans, Automated 0.5 %; Lymphocytes # (A) 0.82 X 10*3/uL (0.90-5.00); Lymphocytes % (A) 6.4 %; MCH 25.9 pg (27.0-32.0); MCV 89.5 fL (80.0-97.0); Mean Platelet Volume 9.9 fL (9.5-12.2); Monocytes # (A) 1.14 X 10*3/uL (0.20-1.00); Monocytes % (A) 8.9 %; NRBC Per 100 WBC 0 /100 WBCS (0.0-0.0); Neutrophils # (A) 10.65 X 10*3/uL (1.80-7.70); Platelet Count 419 X 10*3/uL (140-440); RBC 3.32 X 10*6/uL (4.40-5.60); RDW 17.6 % (11.5-14.5); WBC 12.83 X 10*3/uL (4.50-10.00)
--- NOTE | 2022-01-03 11:07 | P.PN ---
Subjective Progress Note Date: 01/03/22 Patient is requiring 2 L of oxygen today. Able to ambulate with minimal support. Repeat CXR for tomorrow is pending. Gen: awake, alert HEENT: normocephalic, atraumatic, good hearing acuity, moist mucous membranes Resp: good air exchange, breathing comfortably with no accessory muscle use CVS: good distal perfusion x 4, GI: soft, NTTP, ND : no SPT, no CVAT, camarena catheter not present MSK: no pitting edema, no clubbing Neuro: non-focal, moving all extremities Psych: cooperative, euthymic mood Assessment/plan: Sepsis with acute hypoxemic respiratory failure Right upper lobe pneumonia Possible mycetoma Acute Congestive heart failure, previously preserved ejection fraction -Obtain pro-calcitonin = 0.12 -Obtain CT chest, b/l pleural effusions, RUL pneumonia with cavitary lesion -Continue with Lasix IV 40 every 12 hourly -Cardiology consult -Cardiac monitoring -Intake output -Daily weights -Continue with zosyn for now -echo with low normal EF, severe RVE, mild pHTN -ID consult, pulmonary consult Chronic conditions: A. fib, coronary artery disease, hypertension -Continue with home meds DVT prophylaxis -Eliquis The patient is admitted with an anticipated greater than 2 midnight stay for evaluation of SOB CODE STATUS: No Code Discussed with: Patient Anticipated discharge date: 01/[address]: Home Objective - Vital Signs Vital signs: Vital Signs Temp 97.7 F 01/03/22 07:24 Pulse 86 01/03/22 08:09 Resp 24 01/03/22 08:09 BP 142/74 01/03/22 07:24 Pulse Ox 97 01/03/22 08:02 Intake & Output 01/02/22 01/03/22 01/03/22 18:59 06:59 18:59 Intake Total 480 Output Total 100 Balance 480 -100 Weight 104.808 kg Intake: Oral 480 Output: Urine 100 Other: Voiding Method Toilet Urinal # Voids 1 3 1 # Bowel Movements 1 - Labs CBC & Chem 7: 01/03/22 03:46 01/03/22 03:46 Labs: Abnormal Lab Results - Last 24 Hours (Table) 01/03/22 01/03/22 Range/Units 03:46 03:46 WBC 12.83 H (4.50-10.00) X 10*3/uL RBC 3.32 L (4.40-5.60) X 10*6/uL Hgb 8.6 L (13.0-17.0) g/dL Hct 29.7 L (39.6-50.0) % MCH 25.9 L (27.0-32.0) pg MCHC 29.0 L (32.0-37.0) g/dL RDW 17.6 H (11.5-14.5) % Immature Gran # 0.06 H (0.00-0.04) X 10*3/uL Neutrophils # 10.65 H (1.80-7.70) X 10*3/uL Lymphocytes # 0.82 L (0.90-5.00) X 10*3/uL Monocytes # 1.14 H (0.20-1.00) X 10*3/uL BUN 41 H (9-20) mg/dL Creatinine 1.45 H (0.66-1.25) mg/dL Glucose 102 H (74-99) mg/dL Microbiology - Last 24 Hours (Table) 12/31/21 23:02 Blood Culture - Preliminary Blood No Growth after 48 hours 12/31/21 22:45 Blood Culture - Preliminary Blood No Growth after 48 hours
--- NOTE | 2022-01-03 11:22 | P.PN ---
Subjective Progress Note Date: 01/03/22 HISTORY OF PRESENT ILLNESS: Patient is pleasant 86-year-old male with a history of persistent atrial fibrillation, coronary artery disease with previous stenting, hypertension, hype rlipidemia, anemia, preserved EF by echo last 09/13/2019. He follows in the office with Dr. Mckeon. He had a recent workup nov with heart catheterization which showed calcified LAD, patent RCA stent and small obtuse marginal third branch with significant disease however treated medically. He was being evaluated for possible surgery due to orthopedic complaints. Patient was recently hospitalized for pneumonia in November 2021 where he had been having some fevers and chills and cough. He admits he never really recovered from prior admission and still having significant dyspnea. He does have lower extremity edema and appears to have JVD however admits he has actually lost 10 pounds in the last month or so with significant decreased appetite. He does have a history of cancer however no recent recurrence. He also admits that since his catheterization in November he feels he has still been having chest pain and shortness breath which can occur with exertion but also at rest. CT of the chest showed new small to moderate-sized pleural effusions and interstitial edema as well as a right upper lung consolidation a new small to moderate size pericardial effusion. EKG shows atrial fibrillation with right bundle branch block and nonspecific ST, T-wave abnormalities. 01/02/2022 The patient is an 86-year-old male with a known history of atrial fibrillation, coronary disease prior stenting who recently underwent repeat cardiac catheterization that showed no evidence of significant progression of disease. He presented with symptoms of progressive dyspnea and cough as well as worsening peripheral edema. He was diagnosed with pneumonia and pleural effusion. He continues to be dyspneic. He denies any chest discomfort dizziness or palpitations. He has been evaluated by the infectious disease and pulmonary service. He continues to be on amlodipine 10 mg daily, aspirin 81 mg daily, Lipitor 40 mg daily, Lasix 40 mg IV every 12 hours, lisinopril 20 mg daily,Eliquis 20 half milligrams twice a day. PHYSICAL EXAM: VITAL SIGNS: Reviewed. GENERAL: Well-developed in no acute distress. NECK: Supple. No JVD or thyromegaly LUNGS: Respirations even and unlabored. Lungs diminished with mild expiratory wheezing. HEART: Irregular rate and rhythm. S1 and S2 heard. Systolic murmur noted. EXTREMITIES: Normal range of motion. No clubbing or cyanosis. Peripheral pulses intact. 1+ bilateral lower extremity edema ASSESSMENT: 1. Progressive dyspnea with CHF exacerbation and preserved systolic function in addition to pneumonia 2. History of CAD stable 3. Chronic persistent atrial fibrillation, anticoagulated 4. Anemia, noted in the past and underwent workup recently 5. History of hypertension 6. Hyperlipidemia PLAN: Continue current cardiac medications Continue IV lasix Pulmonary following CT chest ordered Further recommendations pending evaluation by Dr. Mckeon Nurse practitioner note has been reviewed by physician. Signing provider agrees with the documented findings, assessment, and plan of care. Objective - Vital Signs Vital signs: Vital Signs Temp 97.7 F 01/03/22 07:24 Pulse 86 01/03/22 08:09 Resp 24 01/03/22 08:09 BP 142/74 01/03/22 07:24 Pulse Ox 97 01/03/22 08:02 Intake & Output 01/02/22 01/03/22 01/03/22 18:59 06:59 18:59 Intake Total 480 Output Total 100 Balance 480 -100 Weight 104.808 kg Intake: Oral 480 Output: Urine 100 Other: Voiding Method Toilet Urinal # Voids 1 3 1 # Bowel Movements 1 - Labs CBC & Chem 7: 01/03/22 03:46 01/03/22 03:46 Labs: Abnormal Lab Results - Last 24 Hours (Table) 01/03/22 01/03/22 Range/Units 03:46 03:46 WBC 12.83 H (4.50-10.00) X 10*3/uL RBC 3.32 L (4.40-5.60) X 10*6/uL Hgb 8.6 L (13.0-17.0) g/dL Hct 29.7 L (39.6-50.0) % MCH 25.9 L (27.0-32.0) pg MCHC 29.0 L (32.0-37.0) g/dL RDW 17.6 H (11.5-14.5) % Immature Gran # 0.06 H (0.00-0.04) X 10*3/uL Neutrophils # 10.65 H (1.80-7.70) X 10*3/uL Lymphocytes # 0.82 L (0.90-5.00) X 10*3/uL Monocytes # 1.14 H (0.20-1.00) X 10*3/uL BUN 41 H (9-20) mg/dL Creatinine 1.45 H (0.66-1.25) mg/dL Glucose 102 H (74-99) mg/dL Microbiology - Last 24 Hours (Table) 12/31/21 23:02 Blood Culture - Preliminary Blood No Growth after 48 hours 12/31/21 22:45 Blood Culture - Preliminary Blood No Growth after 48 hours
--- NOTE | 2022-01-03 12:57 | P.PN ---
Subjective Progress Note Date: 01/03/22 86-year-old white male patient of Dr. Ceron and Dr. Mckeon, was recently hospitalized for community acquired pneumonia in November 2021, presented to the emergency department on December 31, 2021 with complaints of shortness of breath and chest tightness. His symptoms have been ongoing for the past couple of days. Patient was also in the emergency department 3 days prior and was treated for pneumonia she was prescribed antibiotics for discharge, however his symptoms did not improve. Patient felt short of breath especially with ambulation, he was having symptoms of orthopnea, and increased swelling in his bilateral lower extremities. Denied any fevers, no cough, no phlegm production. Patient has an extensive medical history including history of coronary artery disease with previous stenting, chronic A. fib on Eliquis, previous history of myocardial infarction, recent fall with injury to the left shoulder and rotator cuff and this is being followed by orthopedic surgery, previous history of colon cancer with resection, laryngeal cancer with radiation and surgery, depression, and former smoking history. His chest x-ray on admission showed mild cardiomegaly, bilateral upper lobe opacities as well as left basilar opacity which was unchanged compared to the previous chest x-ray from 12/27/2021. Patient tested negative for COVID-19, RSV and influenza A and B. Admission blood work showed w qi blood cell count of 14.9, hemoglobin of 10.2, platelet count of 533, INR is 1.2, sodium is 136, potassium is 3.9, CO2 is 20, BUN is 30, creatinine is 1.18, troponins were less than 0.012, proBNP was 1480. CT of the chest has been completely showing new small to moderate-sized pleural effusions and mild interstitial edema correlating for CHF and fluid overload state. There was a new right upper lung pneumonic consolidation, and a new small to moderate-sized pericardial effusion of uncertain etiology. Patient was started on Unasyn for empiric antibiotic coverage. On 01/02/2022 patient seen in follow-up on medical surgical floor. He is awake and alert, he is still very short of breath with any exertion, audibly wheezing today, he is currently on 2 L of oxygen pulse ox is 100%, afebrile, hemodynamically blood pressure has been stable. Still has quite significant edema in his bilateral lower extremities. Chest ultrasound has been completed showing a moderately sized bilateral pleural effusions with 10.1 cm pocket on the right, and 10.9 cm left pleural effusion pocket. Echocardiogram has been completed showing moderate concentric LVH, EF of 50-55%, severely enlarged right ventricle no evidence of AAI or left ear, mild MR and mild TR, mild pulmonary hypertension with right-sided pressure of 37.8 mmHg. And there was a small generalized pericardial effusion. Patient remains on empiric antibiotics in the form of Zosyn, patient remains on IV Lasix at 40 mg every 12 hours. He is in - 1.8 L net fluid balance over 24 hours Patient is seen today the 2019 follow-up on the regular medical floor. He is currently sitting up in a chair at the bedside. Awake and alert in no acute distress. He remains in atrial fibrillation with a controlled ventricular response. 18 in good O2 saturations in the mid 90s on 2 L/m per nasal cannula. He's been afebrile. Hemodynamically stable. Chest x-ray reveals atelectasis versus scarring with associated effusions and evidence of congestive heart failure. There is cardiomegaly. Known pericardial effusion. Blood cultures r eveal no growth to date. White count 12.8. Hemoglobin 8.6. Platelet count 419. Sodium 138. Potassium 4.5. BUN 41. Creatinine 1.45. Glucose 102. He is continued on Lasix 40 mg IV every 12 hours. Currently -1.8 L. Antibiotics in the form of Zosyn. Anticoagulated with Eliquis. Objective - Vital Signs Vital signs: Vital Signs Temp 97.7 F 01/03/22 07:24 Pulse 86 01/03/22 08:09 Resp 24 01/03/22 08:09 BP 142/74 01/03/22 07:24 Pulse Ox 97 01/03/22 08:02 Intake & Output 01/02/22 01/03/22 01/03/22 18:59 06:59 18:59 Intake Total 480 Output Total 100 Balance 480 -100 Weight 104.808 kg Intake: Oral 480 Output: Urine 100 Other: Voiding Method Toilet Urinal # Voids 1 3 1 # Bowel Movements 1 - Exam GENERAL EXAM: Alert, very pleasant, 86-year-old male, on 2 L of oxygen and the pulse ox 97%, comfortable at rest HEAD: Normocephalic/atraumatic. EYES: Normal reaction of pupils, equal size. Conjunctiva pink, sclera white. NOSE: Clear with pink turbinates. THROAT: No erythema or exudates. NECK: No masses, no JVD, no thyroid enlargement, no adenopathy. CHEST: No chest wall deformity. Symmetrical expansion. LUNGS: Equal air entry with diminished breath sounds at the bases CVS: Irregular rate and rhythm, normal S1 and S2, no gallops, no murmurs, no rubs ABDOMEN: Soft, nontender. No hepatosplenomegaly, normal bowel sounds, no guarding or rigidity. EXTREMITIES: No clubbing, 2+ pitting lower extremity edema, no cyanosis, 2+ pulses and upper and lower extremities. MUSCULOSKELETAL: Muscle strength and tone normal. SPINE: No scoliosis or deformity SKIN: No rashes CENTRAL NERVOUS SYSTEM: No focal deficits, tone is normal in all 4 extremities. PSYCHIATRIC: Alert and oriented -3. Appropriate affect. Intact judgment and insight. - Labs CBC & Chem 7: 01/03/22 03:46 01/03/22 03:46 Labs: Abnormal Lab Results - Last 24 Hours (Table) 01/03/22 01/03/22 Range/Units 03:46 03:46 WBC 12.83 H (4.50-10.00) X 10*3/uL RBC 3.32 L (4.40-5.60) X 10*6/uL Hgb 8.6 L (13.0-17.0) g/dL Hct 29.7 L (39.6-50.0) % MCH 25.9 L (27.0-32.0) pg MCHC 29.0 L (32.0-37.0) g/dL RDW 17.6 H (11.5-14.5) % Immature Gran # 0.06 H (0.00-0.04) X 10*3/uL Neutrophils # 10.65 H (1.80-7.70) X 10*3/uL Lymphocytes # 0.82 L (0.90-5.00) X 10*3/uL Monocytes # 1.14 H (0.20-1.00) X 10*3/uL BUN 41 H (9-20) mg/dL Creatinine 1.45 H (0.66-1.25) mg/dL Glucose 102 H (74-99) mg/dL Microbiology - Last 24 Hours (Table) 12/31/21 23:02 Blood Culture - Preliminary Blood No Growth after 48 hours 12/31/21 22:45 Blood Culture - Preliminary Blood No Growth after 48 hours Assessment and Plan Assessment: 1 Acute hypoxic respiratory failure related to acute exacerbation of CHF with diastolic dysfunction and possibility of pneumonia. CT chest has been completed showing moderately sized pleural effusions, interstitial edema, scattered partially calcified bilateral pulmonary nodules. The possibilities would include chronic granulomatous infections, atypical mycobacterial and the possibility of malignancy cannot be completely ruled out based on the CAT scan findings. There are multiple calcified pulmonary nodules in addition to areas of cavitation 2 Bilateral pleural effusions, and pericardial effusion 3 Recent hospitalization for community acquired pneumonia in November 2021 4 Chronic anemia 5 Chronic atrial on Eliquis, currently in controlled Afib 6 History of coronary artery disease with previous stenting 7 Hypertension 8 Hyperlipidemia 9 Depression 10 Left shoulder injury from a recent fall, awaiting medical clearance for surgery 11 Previous history of bowel resection for colon cancer 12 History of laryngeal cancer with radiation and surgery 13 History of skin cancer Plan: The patient was seen and evaluated Chest x-ray and labs reviewed Improved but not quite back to baseline Continued on diuretics and antibiotics Anticoagulated with Eliquis Increase his activity as tolerated Titrate the FiO2 as tolerated We will continue to follow I have personally seen and examined the patient, performed the documentation and the assessment and plan as written. Number of minutes spent on the visit: 10. Plan: I have personally seen and examined the patient and reviewed the documentation. I performed a joint evaluation with the nurse practitioner in this evaluation was done more than 20 minutes. I fully agree with the documentation above and the plan of care. This evaluation was done more than 20 minutes and the joint evaluation was done with the nurse practitioner. I tested information mentioned above.
[2022-01-03] MEDS: ATORVASTATIN 40 MG TAB PO SCH (22:14)
--- NOTE | 2022-01-03 23:09 | P.PN ---
Subjective Progress Note Date: 01/03/22 Principal diagnosis: Pneumonia Patient is 86 year old male with a past medical history. 8. Patient chronic stasis hypertension presenting to the hospital with increasing shortness of breath that have been getting worse for more than a week or 2, patient on presentation to hospital did have a low-grade fever and evidence of pleural effusion and upper lobe consultation concerning for pneumonia. On today's evaluation that is 01/03/2022, patient remains to be afebrile, the patient is breathing slightly comfortably on nasal cannula oxygen, the patient denies having any chest pain did have minimal cough but not bringing up any sputum abdominal pain no diarrhea Objective - Vital Signs Vital signs: Vital Signs Temp 98.3 F 01/03/22 14:00 Pulse 74 01/03/22 14:00 Resp 18 01/03/22 14:00 BP 127/74 01/03/22 14:00 Pulse Ox 98 01/03/22 14:00 Intake & Output 01/02/22 01/03/22 01/03/22 18:59 06:59 18:59 Intake Total 480 Output Total 100 Balance 480 -100 Weight 104.808 kg Intake: Oral 480 Output: Urine 100 Other: Voiding Method Toilet Urinal # Voids 1 3 1 # Bowel Movements 1 - Exam GENERAL DESCRIPTION: An elderly male lying in bed in no distress RESPIRATORY SYSTEM: Unlabored breathing , decreased breath sounds at bases HEART: S1 S2 regular rate and rhythm , ABDOMEN: Soft , no tenderness EXTREMITIES: 2+ edema feet - Labs CBC & Chem 7: 01/03/22 03:46 01/03/22 03:46 Labs: Abnormal Lab Results - Last 24 Hours (Table) 01/03/22 01/03/22 Range/Units 03:46 03:46 WBC 12.83 H (4.50-10.00) X 10*3/uL RBC 3.32 L (4.40-5.60) X 10*6/uL Hgb 8.6 L (13.0-17.0) g/dL Hct 29.7 L (39.6-50.0) % MCH 25.9 L (27.0-32.0) pg MCHC 29.0 L (32.0-37.0) g/dL RDW 17.6 H (11.5-14.5) % Immature Gran # 0.06 H (0.00-0.04) X 10*3/uL Neutrophils # 10.65 H (1.80-7.70) X 10*3/uL Lymphocytes # 0.82 L (0.90-5.00) X 10*3/uL Monocytes # 1.14 H (0.20-1.00) X 10*3/uL BUN 41 H (9-20) mg/dL Creatinine 1.45 H (0.66-1.25) mg/dL Glucose 102 H (74-99) mg/dL Microbiology - Last 24 Hours (Table) 12/31/21 23:02 Blood Culture - Preliminary Blood No Growth after 48 hours 12/31/21 22:45 Blood Culture - Preliminary Blood No Growth after 48 hours Assessment and Plan (1) Pneumonia Current Visit: No Status: Acute Code(s): J18.9 - PNEUMONIA, UNSPECIFIED ORGANISM SNOMED Code(s): 391630024 Plan: 1patient presented to hospital with increasing shortness of breath symptom has been going on for more than a week or 2 recently admitted to the hospital and treated for pneumonia in November now with worsening respiratory symptoms and evidence of right upper lobe pneumonia question of aspiration etiology versus underlying malignancy and secondary postobstructive pneumonia 2- sputum for Gram stain culture were requested and has not been obtained as the patient was going wrong cup per the nursing staff 3- Patient to continue with Zosyn while waiting for the cultures to finalize Time with Patient: Less than 30
[2022-01-04] MEDS: PIPERACILLIN-TAZOBACTAM 3.375 GM in SODIUM CHLORIDE 0.9% 100 ML IVPB SCH ×3 (01:54→18:06)
[2022-01-04] MEDS: APIXABAN 2.5 MG TABLET PO SCH (07:18)
[2022-01-04] MEDS: PARoxetine 10 MG TAB PO SCH (07:18)
[2022-01-04] MEDS: lisinopriL 20 MG TAB PO SCH (07:18)
[2022-01-04] MEDS: amLODIPine 10 MG TAB PO SCH (07:18)
--- NOTE | 2022-01-04 08:52 | CT ---
EXAMINATION TYPE: CT chest wo con DATE OF EXAM: 01/04/2022 COMPARISON: Chest CT 3 days ago and older study September 13, 2019 HISTORY: Abnormal Chest Xray CT DLP: 586 mGycm. Automated Exposure Control for Dose Reduction was Utilized. TECHNIQUE: CT scan of the thorax is performed without IV contrast. FINDINGS: Exam remains suboptimal as patient unable to hold breath. LUNGS: There are fairly stable small to moderate sized bilateral pleural effusions extending to lung apex levels redemonstrated. There is associated compressive atelectasis in the lower lungs. Scattere d bilateral pulmonary nodules with some areas of calcification are obscured by motion artifact along with multifocal areas of organizing consolidations redemonstrated. Stable thin-walled 1.5 cm cyst hav ing central density axial image 16. Fungal ball would be in the differential. There is mild bibasilar linear scarring and/or atelectasis redemonstrated. Central areas of groundglass opacity suspected mi ld edema remain present. MEDIASTINUM: Lack of IV contrast is noted to limit evaluation for mediastinal and especially hilar ad enopathy. There are no definitive new greater than 1 cm mediastinal lymph nodes. Stable small to mode rate sized pericardial effusion. Heart size stable and mildly enlarged. Severe three-vessel coronary artery calcification redemonstrated. Prominent pulmonary arteries redemonstrated r. Adjacent ascendin g aorta measures up to 3.8 cm in size. Moderate to severe right greater than left biatrial dilatation redemonstrated. OTHER: Small degree of bilateral subareolar gynecomastia is redemonstrated. Large bridging osteophyte s in the thoracic spine are again seen, possible underlying DISH. Scoliotic curvature and exaggerated thoracic kyphosis redemonstrated IMPRESSION: Suboptimal study. 1. Stable small to moderate-sized pleural effusions and mild central edema. Correlate for continued C HF exacerbation and/or fluid overload state. 2. Scattered partially calcified bilateral pulmonary nodules suboptimally evaluated likely benign and stable. 3. Areas of organizing consolidation in the bilateral upper lobes redemonstrated. Infectious process is suspected. Stable 1.5 cm thin-walled cyst right upper lobe possible fungal ball. Correlate clinica lly. 4. Stable small to moderate-sized pericardial effusion of uncertain etiology.
[2022-01-04] MEDS: FUROSEMIDE 10 MG/ML 4 ML VIAL IV SCH ×2 (09:33→19:28)
[2022-01-04 09:52] LABS: Basophils # (A) 0.08 X 10*3/uL (0.00-0.10); Basophils % (A) 0.7 %; Eosinophils # (A) 0.24 X 10*3/uL (0.04-0.35); Eosinophils % (A) 2.1 %; HCT 29.7 % (39.6-50.0); HGB 8.6 g/dL (13.0-17.0); Immature Grans, Automated 0.4 %; Lymphocytes # (A) 0.97 X 10*3/uL (0.90-5.00); Lymphocytes % (A) 8.5 %; MCH 26.1 pg (27.0-32.0); Mean Platelet Volume 9.7 fL (9.5-12.2); Monocytes % (A) 8.8 %; NRBC Per 100 WBC 0 /100 WBCS (0.0-0.0); Neutrophils # (A) 9.01 X 10*3/uL (1.80-7.70); Neutrophils % (A) 79.5 %; Platelet Count 430 X 10*3/uL (140-440); RDW 17.6 % (11.5-14.5); WBC 11.35 X 10*3/uL (4.50-10.00)
[2022-01-04 10:03] LABS: Magnesium 2.3 mg/dL (1.5-2.4)
[2022-01-04 10:04] LABS: African American GFR (CKD) 51.6 (60.0-200.0); Anion Gap 13.2 mmol/L (10.00-18.00); Blood Urea Nitrogen 37.8 mg/dL (9.0-27.0); Calcium 9.2 mg/dL (8.7-10.3); Carbon Dioxide 24.8 mmol/L (20.0-27.5); Non-African American GFR(CKD) 44.5 (60.0-200.0); Potassium 4.2 mmol/L (3.5-5.5)
--- NOTE | 2022-01-04 10:48 | P.PN ---
Subjective Progress Note Date: 01/04/22 HISTORY OF PRESENT ILLNESS: Patient is pleasant 86-year-old male with a history of persistent atrial fibrillation, coronary artery disease with previous stenting, hypertension, hype rlipidemia, anemia, preserved EF by echo last 09/13/2019. He follows in the office with Dr. Mckeon. He had a recent workup nov with heart catheterization which showed calcified LAD, patent RCA stent and small obtuse marginal third branch with significant disease however treated medically. He was being evaluated for possible surgery due to orthopedic complaints. Patient was recently hospitalized for pneumonia in November 2021 where he had been having some fevers and chills and cough. He admits he never really recovered from prior admission and still having significant dyspnea. He does have lower extremity edema and appears to have JVD however admits he has actually lost 10 pounds in the last month or so with significant decreased appetite. He does have a history of cancer however no recent recurrence. He also admits that since his catheterization in November he feels he has still been having chest pain and shortness breath which can occur with exertion but also at rest. CT of the chest showed new small to moderate-sized pleural effusions and interstitial edema as well as a right upper lung consolidation a new small to moderate size pericardial effusion. EKG shows atrial fibrillation with right bundle branch block and nonspecific ST, T-wave abnormalities. 01/02/2022 The patient is an 86-year-old male with a known history of atrial fibrillation, coronary disease prior stenting who recently underwent repeat cardiac catheterization that showed no evidence of significant progression of disease. He presented with symptoms of progressive dyspnea and cough as well as worsening peripheral edema. He was diagnosed with pneumonia and pleural effusion. He continues to be dyspneic. He denies any chest discomfort dizziness or palpitations. He has been evaluated by the infectious disease and pulmonary service. He continues to be on amlodipine 10 mg daily, aspirin 81 mg daily, Lipitor 40 mg daily, Lasix 40 mg IV every 12 hours, lisinopril 20 mg daily,Eliquis 20 half milligrams twice a day. 01/04/2022 Patient examined this morning. He is sitting up in the chair. He denies chest pain or pressure. Reports improvement in his shortness of breath. He remains on IV Lasix. Creatinine today is stable at 1.4. Chest CT completed revealing s table small to moderate-sized pleural effusions and mild central edema. Correlate for continued CHF exacerbation and/or fluid overload state. PHYSICAL EXAM: VITAL SIGNS: Reviewed. GENERAL: Well-developed in no acute distress. NECK: Supple. No JVD or thyromegaly LUNGS: Respirations even and unlabored. Lungs diminished bilaterally HEART: Irregular rate and rhythm. S1 and S2 heard. Systolic murmur noted. EXTREMITIES: Normal range of motion. No clubbing or cyanosis. Peripheral pulses intact. Minimal bilateral lower extremity edema ASSESSMENT: 1. Progressive dyspnea with CHF exacerbation and preserved systolic function in addition to pneumonia 2. History of CAD stable 3. Chronic persistent atrial fibrillation, anticoagulated 4. Anemia, noted in the past and underwent workup recently 5. History of hypertension 6. Hyperlipidemia PLAN: Continue current cardiac medications Continue IV lasix Accurate I&O Daily weights Pulmonary following Further recommendations pending patient course Nurse practitioner note has been reviewed by physician. Signing provider agrees with the documented findings, assessment, and plan of care. Objective - Vital Signs Vital signs: Vital Signs Temp 97.6 F 01/04/22 07:53 Pulse 74 01/04/22 07:53 Resp 18 01/04/22 07:53 BP 145/65 01/04/22 07:53 Pulse Ox 100 01/04/22 07:53 Intake & Output 01/03/22 01/04/22 01/04/22 18:59 06:59 18:59 Intake Total 1080 Output Total 100 Balance 980 Weight 104.8 kg Intake: Oral 1080 Output: Urine 100 Other: Voiding Method Toilet Urinal # Voids 3 2 # Bowel Movements 2 1 - Labs CBC & Chem 7: 01/04/22 03:14 01/04/22 03:14 Labs: Abnormal Lab Results - Last 24 Hours (Table) 01/04/22 01/04/22 Range/Units 03:14 03:14 WBC 11.35 H (4.50-10.00) X 10*3/uL RBC 3.30 L (4.40-5.60) X 10*6/uL Hgb 8.6 L (13.0-17.0) g/dL Hct 29.7 L (39.6-50.0) % MCH 26.1 L (27.0-32.0) pg MCHC 29.0 L (32.0-37.0) g/dL RDW 17.6 H (11.5-14.5) % Immature Gran # 0.05 H (0.00-0.04) X 10*3/uL Neutrophils # 9.01 H (1.80-7.70) X 10*3/uL BUN 37.8 H (9.0-27.0) mg/dL Est GFR (CKD-EPI)AfAm 51.6 L (60.0-200.0) Est GFR (CKD-EPI)NonAf 44.5 L (60.0-200.0) BUN/Creatinine Ratio 27.00 H (12.00-20.00) Ratio Microbiology - Last 24 Hours (Table) 01/03/22 17:40 Gram Stain - Preliminary Sputum Sputum Culture - Preliminary 12/31/21 23:02 Blood Culture - Preliminary Blood No Growth after 72 hours 12/31/21 22:45 Blood Culture - Preliminary Blood No Growth after 72 hours
--- NOTE | 2022-01-04 12:07 | CDI ---
Documentation Clarification Form Date: 01/04/2022 11:53:23 AM From: Chiquita Heath CCS, CCDS Admit Date: 12/31/2021 09:54:00 PM Patient Name: Erlin Mejia Visit Number: [id number] Discharge Date: ATTENTION: The Clinical Documentation Specialists (CDI) and [facility] Coding Staff appreciate your assistance in clarifying documentation. Please respond to the clarification below the line at the bottom and electronically sign. The CDI & [facility] Coding staff will review the response and follow-up if needed. Please note: Queries are made part of the Legal Health Record. If you have any questions, please contact the author of this message via ITS. Dr. Estefania Velázquez: Anemia without further specificity is documented in the following documents in the record: Per the 01/01 Pulmonary Consult: Chronic Anemia. Per the 01/01 Cardiology Consult: Anemia appears stable. Per the 01/02 Cardiology Progress Note: Anemia, noted in the past & underwent workup recently. Additional specificity regarding the Type & Acuity of anemia is requested. History/Risk Factors per the 12/31 H/P: CAD, Atrial Fibrillation on Eliquis, Hypertension, Laryngeal Cancer status post Radiation & Surgery, Colon Cancer status post Resection, Skin Cancer, Osteoarthritis, [place] 1994, Depression, Former smoker. Clinical indicators: Presented to the ED on 12/31 with SOB, Chest tightness. Recently diagnosed with Pneumonia, started on antibiotics. Legs are swollen with 4+ pitting edema bilateral lower extremities. Admit with Chest Pain. 12/31 H/P Impression: SOB suspected secondary to Acute CHF exacerbation, rule out persistent Pneumonia. 12/31 Hemoglobin: 10.2. 01/01: 9.2. 01/02: 8.6. 01/03: 8.6. 01/04: 8.6 12/31 Hematocrit: 34.1. 01/01: 32.0. 01/02: 30.2. 01/03: 29.7. 01/04: 29.7 10/22/2021 Iron Studies: Iron 54, TIBC 421, % Sat 12.86, Transferrin 301.0, Ferritin 31.0 Treatment 12/31: Blood cultures, O2 2L nc (on 4Lnc 01/01), IV Ampicillin 100 mls @ 200 mls/hr x1, IV Lasix 40 mg x1, po Aspirin 324 mg x1, Nitro sl q5M/prn, IV Ampicillin 50 mls @ 100 mls/hr q6H, po Eliquis 2.5 mg BID Home meds: Lotrel, Dyazide, Paxil, Omeprazole, Nitro sl, Probiotic, Iron, Vit D3, Lipitor, Aspirin low dose, Vit C, Eliquis. Please clarify the type and acuity of Anemia, if known: [ ] Chronic blood loss anemia [ ] Iron deficiency anemia [ ] Hemolytic anemia [ ] Drug induced anemia [ ] Anemia due to malignancy [ ] Anemia of chronic disease [ ] Unable to determine [ ] Other, please specify: (Template Last Revised: November 2020) Anemia of chronic disease MTDD
--- NOTE | 2022-01-04 12:36 | P.PN ---
Subjective Progress Note Date: 01/04/22 History of present illness: 86-year-old white male patient of Dr. Ceron and Dr. Mckeon, was recently hospitalized for community acquired pneumonia in November 2021, presented to the emergency department on December 31, 2021 with complaints of shortness of breath and chest tightness. His symptoms have been ongoing for the past couple of days. Patient was also in the emergency department 3 days prior and was treated for pneumonia she was prescribed antibiotics for discharge, however his symptoms did not improve. Patient felt short of breath especially with ambulation, he was having symptoms of orthopnea, and increased swelling in his bilateral lower extremities. Denied any fevers, no cough, no phlegm production. Patient has an extensive medical history including history of coronary artery disease with previous stenting, chronic A. fib on Eliquis, previous history of myocardial infarction, recent fall with injury to the left shoulder and rotator cuff and this is being followed by orthopedic surgery, previous history of colon cancer with resection, laryngeal cancer with radiation and surgery, depression, and former smoking history. His chest x-ray on admission showed mild cardiomegaly, bilateral upper lobe opacities as well as left basilar opacity which was unchanged compared to the previous chest x-ray from 12/27/2021. Patient tested negative for COVID-19, RSV and influenza A and B. Admission blood work showed white blood cell count of 14.9, hemoglobin of 10.2, platelet count of 533, INR is 1.2, sodium is 136, potassium is 3.9, CO2 is 20, BUN is 30, creatinine is 1.18, troponins were less than 0.012, proBNP was 1480. CT of the chest has been completely showing new small to moderate-sized pleural effusions and mild interstitial edema correlating for CHF and fluid overload state. There was a new right upper lung pneumonic consolidation, and a new small to moderate-sized pericardial effusion of uncertain etiology. Patient was started on Unasyn for e mpiric antibiotic coverage. Interval history 01/04 patient seen and examined at bedside. Still complaining of shortness of breath. He is currently on 2 L. He denies any chest pain. Objective - Vital Signs Vital signs: Vital Signs Temp 97.6 F 01/04/22 07:53 Pulse 74 01/04/22 07:53 Resp 18 01/04/22 07:53 BP 145/65 01/04/22 07:53 Pulse Ox 100 01/04/22 07:53 Intake & Output 01/03/22 01/04/22 01/04/22 18:59 06:59 18:59 Intake Total 1080 Output Total 100 Balance 980 Weight 104.8 kg Intake: Oral 1080 Output: Urine 100 Other: Voiding Method Toilet Toilet Urinal Urinal # Voids 3 2 # Bowel Movements 2 1 - Exam Physical examination: GENERAL EXAM: Alert, no acute distress HEAD: Normocephalic/atraumatic. EYES: Normal reaction of pupils, equal size. Conjunctiva pink, sclera white. NOSE: Clear with pink turbinates. THROAT: No erythema or exudates. NECK: No masses, no JVD, no thyroid enlargement, no adenopathy. CHEST: No chest wall deformity. Symmetrical expansion. LUNGS: Equal air entry with diminished breath sounds at the bases CVS: Irregular rate and rhythm, normal S1 and S2, no gallops, no murmurs, no rubs ABDOMEN: Soft, nontender. No hepatosplenomegaly, normal bowel sounds, no guarding or rigidity. EXTREMITIES: No clubbing, 2+ pitting lower extremity edema, no cyanosis, 2+ pulses and upper and lower extremities. MUSCULOSKELETAL: Muscle strength and tone normal. SPINE: No scoliosis or deformity SKIN: No rashes CENTRAL NERVOUS SYSTEM: No focal deficits, tone is normal in all 4 extremities. - Labs CBC & Chem 7: 01/04/22 03:14 01/04/22 03:14 Labs: Abnormal Lab Results - Last 24 Hours (Table) 01/04/22 01/04/22 Range/Units 03:14 03:14 WBC 11.35 H (4.50-10.00) X 10*3/uL RBC 3.30 L (4.40-5.60) X 10*6/uL Hgb 8.6 L (13.0-17.0) g/dL Hct 29.7 L (39.6-50.0) % MCH 26.1 L (27.0-32.0) pg MCHC 29.0 L (32.0-37.0) g/dL RDW 17.6 H (11.5-14.5) % Immature Gran # 0.05 H (0.00-0.04) X 10*3/uL Neutrophils # 9.01 H (1.80-7.70) X 10*3/uL BUN 37.8 H (9.0-27.0) mg/dL Est GFR (CKD-EPI)AfAm 51.6 L (60.0-200.0) Est GFR (CKD-EPI)NonAf 44.5 L (60.0-200.0) BUN/Creatinine Ratio 27.00 H (12.00-20.00) Ratio Microbiology - Last 24 Hours (Table) 01/03/22 17:40 Gram Stain - Preliminary Sputum Sputum Culture - Preliminary 12/31/21 23:02 Blood Culture - Preliminary Blood No Growth after 72 hours 12/31/21 22:45 Blood Culture - Preliminary Blood No Growth after 72 hours Assessment and Plan Plan: Assessment and plan: #Acute hypoxic respiratory failure related to acute exacerbation of CHF with diastolic dysfunction and possibility of pneumonia. -CT chest has been completed showing moderately sized pleural effusions, inter stitial edema, scattered partially calcified bilateral pulmonary nodules. The possibilities would include chronic granulomatous infections, atypical mycobacterial and the possibility of malignancy cannot be completely ruled out based on the CAT scan findings. -There are multiple calcified pulmonary nodules in addition to areas of cavitation. -Patient treated empirically with IV Zosyn -Continue diuresis with IV Lasix 40 mg IV push every 12 -2-D echo showed/4 EF 50-55% mild tricuspid regurgitation. Mild mitral regurgitation. Mild pulmonary hypertension. Small pericardial -Daily weights -Pulmonary, cardiology and infectious disease following #Bilateral pleural effusions, and pericardial effusion -Thoracentesis per pulmonary #Recent hospitalization for community acquired pneumonia in November 2021 -Given IV Zosyn per infectious disease #Chronic anemia #Chronic atrial on Eliquis, currently in controlled Afib #History of coronary artery disease with previous stenting -Recent cardiac catheterization showed no evidence of significant progression of disease. #Hypertension #Hyperlipidemia #Depression #Left shoulder injury from a recent fall, awaiting medical clearance for surgery #Previous history of bowel resection for colon cancer #History of laryngeal cancer with radiation and surgery #History of skin cancer #DVT prophylaxis on Eliquis
--- NOTE | 2022-01-04 12:45 | P.PN ---
Subjective Progress Note Date: 01/04/22 86-year-old white male patient of Dr. Ceron and Dr. Mckeon, was recently hospitalized for community acquired pneumonia in November 2021, presented to the emergency department on December 31, 2021 with complaints of shortness of breath and chest tightness. His symptoms have been ongoing for the past couple of days. Patient was also in the emergency department 3 days prior and was treated for pneumonia she was prescribed antibiotics for discharge, however his symptoms did not improve. Patient felt short of breath especially with ambulation, he was having symptoms of orthopnea, and increased swelling in his bilateral lower extremities. Denied any fevers, no cough, no phlegm production. Patient has an extensive medical history including history of coronary artery disease with previous stenting, chronic A. fib on Eliquis, previous history of myocardial infarction, recent fall with injury to the left shoulder and rotator cuff and this is being followed by orthopedic surgery, previous history of colon cancer with resection, laryngeal cancer with radiation and surgery, depression, and former smoking history. His chest x-ray on admission showed mild cardiomegaly, bilateral upper lobe opacities as well as left basilar opacity which was unchanged compared to the previous chest x-ray from 12/27/2021. Patient tested negative for COVID-19, RSV and influenza A and B. Admission blood work showed w qi blood cell count of 14.9, hemoglobin of 10.2, platelet count of 533, INR is 1.2, sodium is 136, potassium is 3.9, CO2 is 20, BUN is 30, creatinine is 1.18, troponins were less than 0.012, proBNP was 1480. CT of the chest has been completely showing new small to moderate-sized pleural effusions and mild interstitial edema correlating for CHF and fluid overload state. There was a new right upper lung pneumonic consolidation, and a new small to moderate-sized pericardial effusion of uncertain etiology. Patient was started on Unasyn for empiric antibiotic coverage. On 01/02/2022 patient seen in follow-up on medical surgical floor. He is awake and alert, he is still very short of breath with any exertion, audibly wheezing today, he is currently on 2 L of oxygen pulse ox is 100%, afebrile, hemodynamically blood pressure has been stable. Still has quite significant edema in his bilateral lower extremities. Chest ultrasound has been completed showing a moderately sized bilateral pleural effusions with 10.1 cm pocket on the right, and 10.9 cm left pleural effusion pocket. Echocardiogram has been completed showing moderate concentric LVH, EF of 50-55%, severely enlarged right ventricle no evidence of AAI or left ear, mild MR and mild TR, mild pulmonary hypertension with right-sided pressure of 37.8 mmHg. And there was a small generalized pericardial effusion. Patient remains on empiric antibiotics in the form of Zosyn, patient remains on IV Lasix at 40 mg every 12 hours. He is in - 1.8 L net fluid balance over 24 hours Patient is seen today the 2019 follow-up on the regular medical floor. He is currently sitting up in a chair at the bedside. Awake and alert in no acute distress. He remains in atrial fibrillation with a controlled ventricular response. 18 in good O2 saturations in the mid 90s on 2 L/m per nasal cannula. He's been afebrile. Hemodynamically stable. Chest x-ray reveals atelectasis versus scarring with associated effusions and evidence of congestive heart failure. There is cardiomegaly. Known pericardial effusion. Blood cultures r eveal no growth to date. White count 12.8. Hemoglobin 8.6. Platelet count 419. Sodium 138. Potassium 4.5. BUN 41. Creatinine 1.45. Glucose 102. He is continued on Lasix 40 mg IV every 12 hours. Currently -1.8 L. Antibiotics in the form of Zosyn. Anticoagulated with Eliquis. On 01/04/2022, the patient is reporting limited improvement in shortness of breath. The patient is still on Lasix 40 mg IV every 12 hours. He remains a negative fluid balance. Note that the patient has moderate concentric LVH with an ejection fraction of 50-55% along with severely enlarged RV, mild MR, mild TR, mild pulmonary hypertension. The patient is also on empiric antibiotic coverage with IV Zosyn. I repeated a CAT scan of the chest without contrast and there was evidence of bilateral pleural effusions. At the same time, the patient has multiple bilateral pulmonary opacities that are calcified and addition to that there is a area of calcification in the upper lobe demonstrated with particular area of interest in the right upper lobe where there is a thin cystic structure/cavity with possibly an internal fungal ball. In any rate, the patient didn't have these abnormalities on previous CAT scan of the chest dating back in 2019. I do suspect an underlying chronic illnesses infection of the lung, could be related to an atypical mycobacterial infection. The white cell count today is up to 11.3 with hemoglobin 8.6 and a platelet count of 430. Sodium is at 141 with a potassium level of 4.2, BUN is at 37 with a creatinine of 1.4. Objective - Vital Signs Vital signs: Vital Signs Temp 97.6 F 01/04/22 07:53 Pulse 74 01/04/22 07:53 Resp 18 01/04/22 07:53 BP 145/65 01/04/22 07:53 Pulse Ox 100 01/04/22 07:53 Intake & Output 01/03/22 01/04/22 01/04/22 18:59 06:59 18:59 Intake Total 1080 Output Total 100 Balance 980 Weight 104.8 kg Intake: Oral 1080 Output: Urine 100 Other: Voiding Method Toilet Toilet Urinal Urinal # Voids 3 2 # Bowel Movements 2 1 - Exam GENERAL EXAM: Alert, very pleasant, 86-year-old male, on 2 L of oxygen and the pulse ox 97%, comfortable at rest HEAD: Normocephalic/atraumatic. EYES: Normal reaction of pupils, equal size. Conjunctiva pink, sclera white. NOSE: Clear with pink turbinates. THROAT: No erythema or exudates. NECK: No masses, no JVD, no thyroid enlargement, no adenopathy. CHEST: No chest wall deformity. Symmetrical expansion. LUNGS: Equal air entry with diminished breath sounds at the bases CVS: Irregular rate and rhythm, normal S1 and S2, no gallops, no murmurs, no rubs ABDOMEN: Soft, nontender. No hepatosplenomegaly, normal bowel sounds, no guarding or rigidity. EXTREMITIES: No clubbing, 2+ pitting lower extremity edema, no cyanosis, 2+ p ulses and upper and lower extremities. MUSCULOSKELETAL: Muscle strength and tone normal. SPINE: No scoliosis or deformity SKIN: No rashes CENTRAL NERVOUS SYSTEM: No focal deficits, tone is normal in all 4 extremities. PSYCHIATRIC: Alert and oriented -3. Appropriate affect. Intact judgment and insight. - Labs CBC & Chem 7: 01/04/22 03:14 01/04/22 03:14 Labs: Abnormal Lab Results - Last 24 Hours (Table) 01/04/22 01/04/22 Range/Units 03:14 03:14 WBC 11.35 H (4.50-10.00) X 10*3/uL RBC 3.30 L (4.40-5.60) X 10*6/uL Hgb 8.6 L (13.0-17.0) g/dL Hct 29.7 L (39.6-50.0) % MCH 26.1 L (27.0-32.0) pg MCHC 29.0 L (32.0-37.0) g/dL RDW 17.6 H (11.5-14.5) % Immature Gran # 0.05 H (0.00-0.04) X 10*3/uL Neutrophils # 9.01 H (1.80-7.70) X 10*3/uL BUN 37.8 H (9.0-27.0) mg/dL Est GFR (CKD-EPI)AfAm 51.6 L (60.0-200.0) Est GFR (CKD-EPI)NonAf 44.5 L (60.0-200.0) BUN/Creatinine Ratio 27.00 H (12.00-20.00) Ratio Microbiology - Last 24 Hours (Table) 01/03/22 17:40 Gram Stain - Preliminary Sputum Sputum Culture - Preliminary 12/31/21 23:02 Blood Culture - Preliminary Blood No Growth after 72 hours 12/31/21 22:45 Blood Culture - Preliminary Blood No Growth after 72 hours Assessment and Plan Assessment: 1 Acute hypoxic respiratory failure related to acute exacerbation of CHF with diastolic dysfunction and possibility of pneumonia. CT chest has been completed showing moderately sized pleural effusions, interstitial edema, scattered partially calcified bilateral pulmonary nodules. The possibilities would include chronic granulomatous infections, atypical mycobacterial and the possibility of malignancy cannot be completely ruled out based on the CAT scan findings. There are multiple calcified pulmonary nodules in addition to areas of cavitation in addition to an area of cavity formation right upper lobe with questionable fungal ball. No major change compared to the earlier CAT scan of the chest from 2019. I think this is a post infectious or active dermatosis infectious process. 2 Bilateral pleural effusions, and pericardial effusion, unchanged the patient has moderate-sized bilateral pleural effusion, probably related to CHF 3 Recent hospitalization for community acquired pneumonia in November 2021 4 Chronic anemia 5 Chronic atrial on Eliquis, currently in controlled Afib 6 History of coronary artery disease with previous stenting 7 Hypertension 8 Hyperlipidemia 9 Depression 10 Left shoulder injury from a recent fall, awaiting medical clearance for surgery 11 Previous history of bowel resection for colon cancer 12 History of laryngeal cancer with radiation and surgery 13 History of skin cancer Plan: *Hold the Anticoagulation with Eliquis We'll plan for a thoracentesis of the right lung tomorrow and the patient was agreeable Continue IV Lasix The pleural fluid was sent for analysis and cultures Increase his activity as tolerated Titrate the FiO2 as tolerated We will continue to follow
[2022-01-04] MEDS: ACETAMINOPHEN TAB 325 MG TAB PO PRN (19:28)
[2022-01-04] MEDS: ATORVASTATIN 40 MG TAB PO SCH (19:29)
[2022-01-05] MEDS: PIPERACILLIN-TAZOBACTAM 3.375 GM in SODIUM CHLORIDE 0.9% 100 ML IVPB SCH ×3 (03:09→18:06)
[2022-01-05] MEDS: ACETAMINOPHEN TAB 325 MG TAB PO PRN (08:04)
--- NOTE | 2022-01-05 08:20 | XR ---
EXAMINATION TYPE: XR chest 1V DATE OF EXAM: 01/05/2022 COMPARISON: 01/03/2022 HISTORY: Shortness of breath TECHNIQUE: Single frontal view of the chest is obtained. FINDINGS: Bilateral patchy areas of infiltrate and pleural effusion. Heart enlarged. No pneumothorax . Osseous structures are stable. Hypertrophic and degenerative change of the spine and arthropathy sh oulders. Bilateral pulmonary nodule suspected. IMPRESSION: 1. Cardiomegaly correlate for cardiomyopathy or pericardial effusion. 2. Bilateral pleural-parenchymal changes correlate for CHF versus pneumonia. Bilateral pulmonary nodu les are seen.
[2022-01-05 09:06] LABS: Basophils # (A) 0.08 X 10*3/uL (0.00-0.10); Basophils % (A) 0.7 %; Eosinophils # (A) 0.14 X 10*3/uL (0.04-0.35); Eosinophils % (A) 1.2 %; HGB 8.6 g/dL (13.0-17.0); Immature Grans, Automated 0.4 %; Lymphocytes # (A) 0.97 X 10*3/uL (0.90-5.00); Lymphocytes % (A) 8.1 %; MCH 25.8 pg (27.0-32.0); MCHC 28.7 g/dL (32.0-37.0); MCV 90.1 fL (80.0-97.0); Mean Platelet Volume 9.8 fL (9.5-12.2); Monocytes # (A) 1.08 X 10*3/uL (0.20-1.00); Monocytes % (A) 9.1 %; NRBC Per 100 WBC 0 /100 WBCS (0.0-0.0); Neutrophils % (A) 80.5 %; Platelet Count 449 X 10*3/uL (140-440); RBC 3.33 X 10*6/uL (4.40-5.60); RDW 17.5 % (11.5-14.5); WBC 11.92 X 10*3/uL (4.50-10.00)
[2022-01-05 09:20] LABS: African American GFR (CKD) 54.9 (60.0-200.0); Albumin 3.6 g/dL (3.8-4.9); Albumin/Globulin Ratio 1.25 (1.60-3.17); Anion Gap 11.5 mmol/L (10.00-18.00); BUN/Creat Ratio 25.19 Ratio (12.00-20.00); Blood Urea Nitrogen 33.5 mg/dL (9.0-27.0); Calcium 9.3 mg/dL (8.7-10.3); Carbon Dioxide 27.7 mmol/L (20.0-27.5); Globulin 2.9 g/dL (1.6-3.3); Magnesium 2.3 mg/dL (1.5-2.4); Non-African American GFR(CKD) 47.4 (60.0-200.0); Potassium 3.9 mmol/L (3.5-5.5); Total Bilirubin 0.6 mg/dL (0.30-1.20); Total Protein 6.4 g/dL (6.2-8.2)
[2022-01-05] MEDS: lisinopriL 20 MG TAB PO SCH (10:17)
[2022-01-05] MEDS: amLODIPine 10 MG TAB PO SCH (10:17)
[2022-01-05] MEDS: FUROSEMIDE 10 MG/ML 4 ML VIAL IV SCH ×2 (10:17→20:14)
[2022-01-05] MEDS: PARoxetine 10 MG TAB PO SCH (10:17)
--- NOTE | 2022-01-05 10:26 | XR ---
EXAMINATION TYPE: XR chest 1V portable DATE OF EXAM: 01/05/2022 COMPARISON: 01/05/2022 HISTORY: Postthoracentesis TECHNIQUE: Single frontal view of the chest is obtained. FINDINGS: No sizable pneumothorax with near complete resolution of left-sided pleural effusion. Nodu lar area of density in the left upper lobe persist and there is a small right pleural effusion with a dditional patchy bilateral infiltrate. Heart enlarged. Hypertrophic and degenerative change of the sp ine. Arthropathy of the shoulder. Subcentimeter areas of nodularity in the right lung noted. IMPRESSION: 1. Near complete resolution of left-sided pleural effusion postthoracentesis with no sizable pneumoth orax. 2. Patchy bilateral infiltrate persists with small right effusion. Pulmonary nodularity not excluded suspected as reported by recent CT scan. 3. Cardiac enlargement can be associated with pericardial effusion or cardiomyopathy
--- NOTE | 2022-01-05 12:46 | P.PN ---
Subjective Progress Note Date: 01/05/22 Principal diagnosis: Shortness of breath 86-year-old white male patient of Dr. Ceron and Dr. Mckeon, was recently hospitalized for community acquired pneumonia in November 2021, presented to the emergency department on December 31, 2021 with complaints of shortness of breath and chest tightness. His symptoms have been ongoing for the past couple of days. Patient was also in the emergency department 3 days prior and was treated for pneumonia she was prescribed antibiotics for discharge, however his symptoms did not improve. Patient felt short of breath especially with ambulation, he was having symptoms of orthopnea, and increased swelling in his bilateral lower extremities. Denied any fevers, no cough, no phlegm production. Patient has an extensive medical history including history of coronary artery disease with previous stenting, chronic A. fib on Eliquis, previous history of myocardial infarction, recent fall with injury to the left shoulder and rotator cuff and t his is being followed by orthopedic surgery, previous history of colon cancer with resection, laryngeal cancer with radiation and surgery, depression, and former smoking history. His chest x-ray on admission showed mild cardiomegaly, bilateral upper lobe opacities as well as left basilar opacity which was unchanged compared to the previous chest x-ray from 12/27/2021. Patient tested negative for COVID-19, RSV and influenza A and B. Admission blood work showed white blood cell count of 14.9, hemoglobin of 10.2, platelet count of 533, INR is 1.2, sodium is 136, potassium is 3.9, CO2 is 20, BUN is 30, creatinine is 1.18, troponins were less than 0.012, proBNP was 1480. CT of the chest has been completely showing new small to moderate-sized pleural effusions and mild interstitial edema correlating for CHF and fluid overload state. There was a new right upper lung pneumonic consolidation, and a new small to moderate-sized pericardial effusion of uncertain etiology. Patient was started on Unasyn for empiric antibiotic coverage. On 01/02/2022 patient seen in follow-up on medical surgical floor. He is awake and alert, he is still very short of breath with any exertion, audibly wheezing today, he is currently on 2 L of oxygen pulse ox is 100%, afebrile, hemodynamically blood pressure has been stable. Still has quite significant edema in his bilateral lower extremities. Chest ultrasound has been completed showing a moderately sized bilateral pleural effusions with 10.1 cm pocket on the right, and 10.9 cm left pleural effusion pocket. Echocardiogram has been completed showing moderate concentric LVH, EF of 50-55%, severely enlarged right ventricle no evidence of AAI or left ear, mild MR and mild TR, mild pulmonary hypertension with right-sided pressure of 37.8 mmHg. And there was a small generalized pericardial effusion. Patient remains on empiric antibiotics in the form of Zosyn, patient remains on IV Lasix at 40 mg every 12 hours. He is in - 1.8 L net fluid balance over 24 hours On 01/05/2022 patient seen in follow-up on medical surgical floor. He is sittin g up in the chair, appears to be in no acute distress, currently on 2 L of oxygen pulse ox is 98%. He remains on diuretics with Lasix 40 mg IV every 12 hours. Patient has been avoiding in the urinal, no accurate I&O is available, his weight is a -0.2 kg according to the recorded weight in the chart. He is his coughing up some whitish yellowish colored phlegm. No hemoptysis, no chest pain. Yesterday CT of the chest without contrast shows stable small to moderate-sized pleural effusions and mild central edema, and stable small to moderate-sized pericardial effusion of uncertain etiology. Today's labs have been reviewed, white blood cell count is stable at 11.92, hemoglobin is 8.6, sodium is 142, potassium is 3.9, BUN is 33.5, and creatinine is 1.3. Pro- calcitonin level is 0.12. Remains on Zosyn. ID service is following, so far blood and sputum cultures have been negative, lung sounds have been stable, patient has been afebrile, overall he is feeling better but in view of modera tely sized bilateral pleural effusions despite the diuretics the decision has been made to proceed with left-sided thoracentesis today with the patient's and his spouse's consent and 1.7 l of tannish colored pleural fluid was removed from the left side and sent for pleural fluid analysis, cytology and cultures. Patient tolerated procedure very well. Following the procedure a chest x-ray has been obtained showing near complete resolution of the left-sided pleural effusion postthoracentesis with no sizable pneumothorax, and patchy bilateral infiltrate persisting with small right pleural effusion. Pulmonary nodularity was not excluded Objective - Vital Signs Vital signs: Vital Signs Temp 98.0 F 01/05/22 07:40 Pulse 89 01/05/22 07:40 Resp 18 01/05/22 08:38 BP 97/65 01/05/22 07:40 Pulse Ox 98 01/05/22 07:40 Intake & Output 01/04/22 01/05/22 01/05/22 18:59 06:59 18:59 Intake Total 200 Balance 200 Weight 104.8 kg 103.3 kg 104.6 kg Intake: Oral 200 Other: Voiding Method Toilet Toilet Urinal Urinal # Voids 1 # Bowel Movements 1 1 - Exam GENERAL EXAM: Alert, very pleasant, 86-year-old white male, on 2 L of oxygen and the pulse ox 98%, dyspneic with ambulation HEAD: Normocephalic/atraumatic. EYES: Normal reaction of pupils, equal size. Conjunctiva pink, sclera white. NOSE: Clear with pink turbinates. THROAT: No erythema or exudates. NECK: No masses, no JVD, no thyroid enlargement, no adenopathy. CHEST: No chest wall deformity. Symmetrical expansion. LUNGS: Equal air entry with diminished breath sounds at the bases CVS: Irregular rate and rhythm, normal S1 and S2, no gallops, no murmurs, no rubs ABDOMEN: Soft, nontender. No hepatosplenomegaly, normal bowel sounds, no guarding or rigidity. EXTREMITIES: No clubbing, 1+ pitting lower extremity edema, no cyanosis, 2+ pulses and upper and lower extremities. MUSCULOSKELETAL: Muscle strength and tone normal. SPINE: No scoliosis or deformity SKIN: No rashes CENTRAL NERVOUS SYSTEM: Alert and oriented -3. No focal deficits, tone is normal in all 4 extremities. PSYCHIATRIC: Alert and oriented -3. Appropriate affect. Intact judgment and insight. - Labs CBC & Chem 7: 01/05/22 04:08 01/05/22 04:08 Labs: Abnormal Lab Results - Last 24 Hours (Table) 01/05/22 01/05/22 Range/Units 04:08 04:08 WBC 11.92 H (4.50-10.00) X 10*3/uL RBC 3.33 L (4.40-5.60) X 10*6/uL Hgb 8.6 L (13.0-17.0) g/dL Hct 30.0 L (39.6-50.0) % MCH 25.8 L (27.0-32.0) pg MCHC 28.7 L (32.0-37.0) g/dL RDW 17.5 H (11.5-14.5) % Plt Count 449 H (140-440) X 10*3/uL Immature Gran # 0.05 H (0.00-0.04) X 10*3/uL Neutrophils # 9.60 H (1.80-7.70) X 10*3/uL Monocytes # 1.08 H (0.20-1.00) X 10*3/uL Carbon Dioxide 27.7 H (20.0-27.5) mmol/L BUN 33.5 H (9.0-27.0) mg/dL Est GFR (CKD-EPI)AfAm 54.9 L (60.0-200.0) Est GFR (CKD-EPI)NonAf 47.4 L (60.0-200.0) BUN/Creatinine Ratio 25.19 H (12.00-20.00) Ratio Alkaline Phosphatase 207 H (41-126) U/L Albumin 3.6 L (3.8-4.9) g/dL Albumin/Globulin Ratio 1.25 L (1.60-3.17) g/dL Microbiology - Last 24 Hours (Table) 12/31/21 23:02 Blood Culture - Preliminary Blood No Growth after 96 hours 12/31/21 22:45 Blood Culture - Preliminary Blood No Growth after 96 hours Assessment and Plan Plan: Assessment: #1. Acute hypoxic respiratory failure related to acute exacerbation of CHF with diastolic dysfunction and possibility of pneumonia. CT chest has been completed showing moderately sized pleural effusions, interstitial edema, scattered partially calcified bilateral pulmonary nodules. The possibilities would include chronic granulomatous infections, atypical mycobacterial in the possibility of malignancy cannot be completely ruled out based on the computed tomography scan of the chest findings. There are multiple calcified pulmonary nodules in addition to areas of cavitation and an area of cavity formation in the right upper lobe with questionable fungal ball. There is no major change compared to the earlier computed tomography scan of the chest from 2019. This could be a post infectious or active dermatosis infectious process #2. Bilateral pleural effusions, and pericardial effusion, likely related to CHF, status post left-sided thoracentesis today on 01/05/2022 would removal of 1.7 L of pruett-colored pleural fluid which was sent for pleural fluid analysis, cytology and cultures #3. Recent hospitalization for community acquired pneumonia in November 2021 #4. Chronic anemia #5. Chronic atrial on Eliquis, currently in controlled Afib #6. History of coronary artery disease with previous stenting #7. Hypertension #8. Hyperlipidemia #9. Depression #10. Left shoulder injury from a recent fall, awaiting medical clearance for andujar rgery #11. Previous history of bowel resection for colon cancer #12. History of laryngeal cancer with radiation and surgery #13. History of skin cancer Plan: Patient tolerated left-sided thoracentesis very well Pleural fluid has been sent for pleural fluid analysis, cytology and cultures Continue current diuretics Continue antibiotics Will await results of the pleural fluid analysis and cultures Postprocedure chest x-ray has been reviewed showing near complete resolution of the left-sided pleural effusion We'll consider proceeding with a right-sided thoracentesis tomorrow Follow-up chest x-ray in the morning I have personally seen and examined the patient, performed the documentation and the assessment and plan as written. Number of minutes spent on the visit: [10] this is a joint evaluation for a split shared evaluation that was done along with a nurse practitioner. I was involved in more than 90% of this evaluation in terms of history taking, examination, and treatment. The patient underwent a thoracentesis of the bedside and total of 1750. Fluid was aspirated from the right lung without any major complications. We'll send the fluid for analysis. Further recommendations to follow based on the results.this evaluation was done and more than 20 minutes. Time with Patient: Less than 30
--- NOTE | 2022-01-05 13:59 | P.PN ---
Subjective Progress Note Date: 01/05/22 History of present illness: 86-year-old white male patient of Dr. Ceron and Dr. Mckeon, was recently hospitalized for community acquired pneumonia in November 2021, presented to the emergency department on December 31, 2021 with complaints of shortness of breath and chest tightness. His symptoms have been ongoing for the past couple of days. Patient was also in the emergency department 3 days prior and was treated for pneumonia she was prescribed antibiotics for discharge, however his symptoms did not improve. Patient felt short of breath especially with ambulation, he was having symptoms of orthopnea, and increased swelling in his bilateral lower extremities. Denied any fevers, no cough, no phlegm production. Patient has an extensive medical history including history of coronary artery disease with previous stenting, chronic A. fib on Eliquis, previous history of myocardial infarction, recent fall with injury to the left shoulder and rotator cuff and this is being followed by orthopedic surgery, previous history of colon cancer with resection, laryngeal cancer with radiation and surgery, depression, and former smoking history. His chest x-ray on admission showed mild cardiomegaly, bilateral upper lobe opacities as well as left basilar opacity which was unchanged compared to the previous chest x-ray from 12/27/2021. Patient tested negative for COVID-19, RSV and influenza A and B. Admission blood work showed white blood cell count of 14.9, hemoglobin of 10.2, platelet count of 533, INR is 1.2, sodium is 136, potassium is 3.9, CO2 is 20, BUN is 30, creatinine is 1.18, troponins were less than 0.012, proBNP was 1480. CT of the chest has been completely showing new small to moderate-sized pleural effusions and mild interstitial edema correlating for CHF and fluid overload state. There was a new right upper lung pneumonic consolidation, and a new small to moderate-sized pericardial effusion of uncertain etiology. Patient was started on Unasyn for e mpiric antibiotic coverage. Interval history 01/04 patient seen and examined at bedside. He is feeling better after the left- sided thoracentesis with removal 0.7 L. He is currently on 2 L. He denies any chest pain. Otherwise no acute changes overnight Objective - Vital Signs Vital signs: Vital Signs Temp 98.0 F 01/05/22 07:40 Pulse 89 04/07/22 12:36 Resp 16 01/05/22 12:36 BP 97/65 01/05/22 07:40 Pulse Ox 98 01/05/22 07:40 Intake & Output 01/04/22 01/05/22 01/05/22 18:59 06:59 18:59 Intake Total 200 Balance 200 Weight 104.8 kg 103.3 kg 104.6 kg Intake: Oral 200 Other: Voiding Method Toilet Toilet Urinal # Voids 1 # Bowel Movements 1 1 - Exam Physical examination: GENERAL EXAM: Alert, no acute distress HEAD: Normocephalic/atraumatic. EYES: Normal reaction of pupils, equal size. Conjunctiva pink, sclera white. NOSE: Clear with pink turbinates. THROAT: No erythema or exudates. NECK: No masses, no JVD, no thyroid enlargement, no adenopathy. CHEST: No chest wall deformity. Symmetrical expansion. LUNGS: Equal air entry with diminished breath sounds at the bases CVS: Irregular rate and rhythm, normal S1 and S2, no gallops, no murmurs, no rubs ABDOMEN: Soft, nontender. No hepatosplenomegaly, normal bowel sounds, no guarding or rigidity. EXTREMITIES: No clubbing, 2+ pitting lower extremity edema, no cyanosis, 2+ pulses and upper and lower extremities. MUSCULOSKELETAL: Muscle strength and tone normal. SPINE: No scoliosis or deformity SKIN: No rashes CENTRAL NERVOUS SYSTEM: No focal deficits, tone is normal in all 4 extremities. - Labs CBC & Chem 7: 01/05/22 04:08 01/05/22 04:08 Labs: Abnormal Lab Results - Last 24 Hours (Table) 01/05/22 01/05/22 Range/Units 04:08 04:08 WBC 11.92 H (4.50-10.00) X 10*3/uL RBC 3.33 L (4.40-5.60) X 10*6/uL Hgb 8.6 L (13.0-17.0) g/dL Hct 30.0 L (39.6-50.0) % MCH 25.8 L (27.0-32.0) pg MCHC 28.7 L (32.0-37.0) g/dL RDW 17.5 H (11.5-14.5) % Plt Count 449 H (140-440) X 10*3/uL Immature Gran # 0.05 H (0.00-0.04) X 10*3/uL Neutrophils # 9.60 H (1.80-7.70) X 10*3/uL Monocytes # 1.08 H (0.20-1.00) X 10*3/uL Carbon Dioxide 27.7 H (20.0-27.5) mmol/L BUN 33.5 H (9.0-27.0) mg/dL Est GFR (CKD-EPI)AfAm 54.9 L (60.0-200.0) Est GFR (CKD-EPI)NonAf 47.4 L (60.0-200.0) BUN/Creatinine Ratio 25.19 H (12.00-20.00) Ratio Alkaline Phosphatase 207 H (41-126) U/L Albumin 3.6 L (3.8-4.9) g/dL Albumin/Globulin Ratio 1.25 L (1.60-3.17) g/dL Microbiology - Last 24 Hours (Table) 12/31/21 23:02 Blood Culture - Preliminary Blood No Growth after 96 hours 12/31/21 22:45 Blood Culture - Preliminary Blood No Growth after 96 hours Assessment and Plan Plan: Assessment and plan: #Acute hypoxic respiratory failure related to acute exacerbation of CHF with diastolic dysfunction and possibility of pneumonia. -CT chest has been completed showing moderately sized pleural effusions, interstitial edema, scattered partially calcified bilateral pulmonary nodules. The possibilities would include chronic granulomatous infections, atypical mycobacterial and the possibility of malignancy cannot be completely ruled out based on the CAT scan findings. -There are multiple calcified pulmonary nodules in addition to areas of cavitation. -Patient treated empirically with IV Zosyn -Continue diuresis with IV Lasix 40 mg IV push every 12 -2-D echo showed/4 EF 50-55% mild tricuspid regurgitation. Mild mitral regurgitation. Mild pulmonary hypertension. Small pericardial -Daily weights -Pulmonary, cardiology and infectious disease following #Bilateral pleural effusions, and pericardial effusion -likely related to CHF, status post left-sided thoracentesis today on 01/05/2022 would removal of 1.7 L of pruett-colored pleural fluid which was sent for pleural fluid analysis, cytology and cultures. -Plan for right-sided thoracentesis tomorrow #Recent hospitalization for community acquired pneumonia in November 2021 -Given IV Zosyn per infectious disease #Chronic anemia #Chronic atrial on Eliquis, currently in controlled Afib #History of coronary artery disease with previous stenting -Recent cardiac catheterization showed no evidence of significant progression of disease. #Hypertension #Hyperlipidemia #Depression #Left shoulder injury from a recent fall, awaiting medical clearance for surgery #Previous history of bowel resection for colon cancer #History of laryngeal cancer with radiation and surgery #History of skin cancer #DVT prophylaxis on Eliquis
--- NOTE | 2022-01-05 14:21 | P.PN ---
Subjective Progress Note Date: 01/05/22 HISTORY OF PRESENT ILLNESS: Patient is pleasant 86-year-old male with a history of persistent atrial fibrillation, coronary artery disease with previous stenting, hypertension, hype rlipidemia, anemia, preserved EF by echo last 09/13/2019. He follows in the office with Dr. Mckeon. He had a recent workup nov with heart catheterization which showed calcified LAD, patent RCA stent and small obtuse marginal third branch with significant disease however treated medically. He was being evaluated for possible surgery due to orthopedic complaints. Patient was recently hospitalized for pneumonia in November 2021 where he had been having some fevers and chills and cough. He admits he never really recovered from prior admission and still having significant dyspnea. He does have lower extremity edema and appears to have JVD however admits he has actually lost 10 pounds in the last month or so with significant decreased appetite. He does have a history of cancer however no recent recurrence. He also admits that since his catheterization in November he feels he has still been having chest pain and shortness breath which can occur with exertion but also at rest. CT of the chest showed new small to moderate-sized pleural effusions and interstitial edema as well as a right upper lung consolidation a new small to moderate size pericardial effusion. EKG shows atrial fibrillation with right bundle branch block and nonspecific ST, T-wave abnormalities. 01/02/2022 The patient is an 86-year-old male with a known history of atrial fibrillation, coronary disease prior stenting who recently underwent repeat cardiac catheterization that showed no evidence of significant progression of disease. He presented with symptoms of progressive dyspnea and cough as well as worsening peripheral edema. He was diagnosed with pneumonia and pleural effusion. He continues to be dyspneic. He denies any chest discomfort dizziness or palpitations. He has been evaluated by the infectious disease and pulmonary service. He continues to be on amlodipine 10 mg daily, aspirin 81 mg daily, Lipitor 40 mg daily, Lasix 40 mg IV every 12 hours, lisinopril 20 mg daily,Eliquis 20 half milligrams twice a day. 01/04/2022 Patient examined this morning. He is sitting up in the chair. He denies chest pain or pressure. Reports improvement in his shortness of breath. He remains on IV Lasix. Creatinine today is stable at 1.4. Chest CT completed revealing s table small to moderate-sized pleural effusions and mild central edema. Correlate for continued CHF exacerbation and/or fluid overload state. 01/05/2022 Patient examined this afternoon. Patient is sitting up in the chair. Patient denies chest pain or pressure. He reports continued improvement in his shortness of breath. Patient underwent left-sided thoracentesis today with 1.7 L of fluid removed. Vital signs are stable. PHYSICAL EXAM: VITAL SIGNS: Reviewed. GENERAL: Well-developed in no acute distress. NECK: Supple. No JVD or thyromegaly LUNGS: Respirations even and unlabored. Lungs diminished bilaterally HEART: Irregular rate and rhythm. S1 and S2 heard. Systolic murmur noted. EXTREMITIES: Normal range of motion. No clubbing or cyanosis. Peripheral pulses intact. Minimal bilateral lower extremity edema ASSESSMENT: 1. Progressive dyspnea with CHF exacerbation and preserved systolic function in addition to pneumonia 2. History of CAD stable 3. Chronic persistent atrial fibrillation, anticoagulated 4. Anemia, noted in the past and underwent workup recently 5. History of hypertension 6. Hyperlipidemia 7. Bilateral pleural effusions, status post left thoracentesis PLAN: Continue current cardiac medications Continue IV lasix Accurate I&O Daily weights Pulmonary following Possible right-sided thoracentesis tomorrow Further recommendations pending patient course Nurse practitioner note has been reviewed by physician. Signing provider agrees with the documented findings, assessment, and plan of care. Objective - Vital Signs Vital signs: Vital Signs Temp 98.0 F 01/05/22 07:40 Pulse 89 01/05/22 12:36 Resp 16 01/05/22 12:36 BP 97/65 01/05/22 07:40 Pulse Ox 98 01/05/22 07:40 Intake & Output 01/04/22 01/05/22 01/05/22 18:59 06:59 18:59 Intake Total 200 Balance 200 Weight 104.8 kg 103.3 kg 104.6 kg Intake: Oral 200 Other: Voiding Method Toilet Toilet Urinal # Voids 1 # Bowel Movements 1 1 - Labs CBC & Chem 7: 01/05/22 04:08 01/05/22 04:08 Labs: Abnormal Lab Results - Last 24 Hours (Table) 01/05/22 01/05/22 Range/Units 04:08 04:08 WBC 11.92 H (4.50-10.00) X 10*3/uL RBC 3.33 L (4.40-5.60) X 10*6/uL Hgb 8.6 L (13.0-17.0) g/dL Hct 30.0 L (39.6-50.0) % MCH 25.8 L (27.0-32.0) pg MCHC 28.7 L (32.0-37.0) g/dL RDW 17.5 H (11.5-14.5) % Plt Count 449 H (140-440) X 10*3/uL Immature Gran # 0.05 H (0.00-0.04) X 10*3/uL Neutrophils # 9.60 H (1.80-7.70) X 10*3/uL Monocytes # 1.08 H (0.20-1.00) X 10*3/uL Carbon Dioxide 27.7 H (20.0-27.5) mmol/L BUN 33.5 H (9.0-27.0) mg/dL Est GFR (CKD-EPI)AfAm 54.9 L (60.0-200.0) Est GFR (CKD-EPI)NonAf 47.4 L (60.0-200.0) BUN/Creatinine Ratio 25.19 H (12.00-20.00) Ratio Alkaline Phosphatase 207 H (41-126) U/L Albumin 3.6 L (3.8-4.9) g/dL Albumin/Globulin Ratio 1.25 L (1.60-3.17) g/dL Microbiology - Last 24 Hours (Table) 12/31/21 23:02 Blood Culture - Preliminary Blood No Growth after 96 hours 12/31/21 22:45 Blood Culture - Preliminary Blood No Growth after 96 hours
--- NOTE | 2022-01-05 14:58 | P.PCN ---
Date of Procedure: 01/05/22 Preoperative Diagnosis: right-sided pleural effusion Postoperative Diagnosis: right-sided pleural effusions Procedure(s) Performed: right-sided thoracentesis Anesthesia: local Surgeon: Marbin Smith Estimated Blood Loss (ml): 0 Pathology: other Condition: stable Disposition: same day Operative Findings: A time out was performed and the chest x-ray was reviewed, the appropriate side was confirmed and marked. My hands were washed immediately prior to the procedure. I wore a surgical cap, mask with protective eyewear, sterile gown and sterile gloves throughout the procedure. The patient was prepped and draped in a sterile manner using chlorhexidine scrub after the appropriate level was percussed and confirmed by ultrasound. 1% lidocaine was used to anesthesize the skin, subcutaneous tissue, superior aspect of the rib periosteum and parietal pleura. A finder needle was then introduced over the superior aspect of the rib to locate the pleural fluid; 2colored fluid was aspirated at a depth of approximately 2 cm. A 10-blade scalpel was used to leon the skin at the inse rtion site. The [id number] needle was then introduced through the skin incision into the pleural space using negative aspiration pressure and the red colometric indicator to confirm appropriate positioning of the needle. The thoracentesis catheter was then threaded without difficulty. 1750 ml of turbid colored fluid was removed without difficulty. The catheter was then removed. No immediate complications were noted during the procedure. A post-procedure chest x-ray is pending at the time of this note. The fluid will be sent for studies. Estimated blood loss is 0cc
[2022-01-05] MEDS: HYDROcodone/APAP 5-325MG 1 EACH TAB PO PRN (16:14)
[2022-01-05] MEDS: ATORVASTATIN 40 MG TAB PO SCH (20:14)
[2022-01-06 02:15] LABS: Appearance,BF Cloudy
[2022-01-06] MEDS: PIPERACILLIN-TAZOBACTAM 3.375 GM in SODIUM CHLORIDE 0.9% 100 ML IVPB SCH ×2 (04:10→10:35)
[2022-01-06 04:25] LABS: Glucose, BF Source Pleural Fluid; Glucose, Body Fluid 107 mg/dL; LDH, Body Fluid Source Pleural Fluid; T. Protein, Body Fluid Source Pleural Fluid; Total Protein, Body Fluid 3690 mg/dL
[2022-01-06 07:20] VITALS: TEMP 98.3
--- NOTE | 2022-01-06 09:00 | XR ---
EXAMINATION TYPE: XR chest 1V portable DATE OF EXAM: 01/06/2022 COMPARISON: 01/05/2022 HISTORY: Shortness of breath TECHNIQUE: Single frontal view of the chest is obtained. FINDINGS: Bilateral areas of patchy infiltrate and small effusion noted. Heart is enlarged. Hypertro phic and degenerative change of pneumothorax. Arthropathy shoulders. Bilateral pulmonary nodules note d. IMPRESSION: Bilateral infiltrate and small effusion.
[2022-01-06] MEDS: FUROSEMIDE 10 MG/ML 4 ML VIAL IV SCH (09:24)
[2022-01-06] MEDS: PARoxetine 10 MG TAB PO SCH (09:25)
[2022-01-06] MEDS: lisinopriL 20 MG TAB PO SCH (09:25)
[2022-01-06] MEDS: amLODIPine 10 MG TAB PO SCH (09:25)
[2022-01-06] MEDS: HYDROcodone/APAP 5-325MG 1 EACH TAB PO PRN (10:02)
[2022-01-06 10:25] LABS: Basophils # (A) 0.07 X 10*3/uL (0.00-0.10); Basophils % (A) 0.7 %; Eosinophils # (A) 0.31 X 10*3/uL (0.04-0.35); HCT 27.1 % (39.6-50.0); Immature Grans, Automated 0.5 %; Lymphocytes % (A) 9.7 %; MCH 26.3 pg (27.0-32.0); MCHC 29.5 g/dL (32.0-37.0); MCV 89.1 fL (80.0-97.0); Monocytes # (A) 0.98 X 10*3/uL (0.20-1.00); Monocytes % (A) 9.5 %; NRBC Per 100 WBC 0 /100 WBCS (0.0-0.0); Neutrophils # (A) 7.93 X 10*3/uL (1.80-7.70); Neutrophils % (A) 76.6 %; Platelet Count 412 X 10*3/uL (140-440); RBC 3.04 X 10*6/uL (4.40-5.60); RDW 17.3 % (11.5-14.5); WBC 10.34 X 10*3/uL (4.50-10.00)
--- NOTE | 2022-01-06 10:27 | P.PN ---
Subjective Progress Note Date: 01/06/22 HISTORY OF PRESENT ILLNESS: Patient is pleasant 86-year-old male with a history of persistent atrial fibrillation, coronary artery disease with previous stenting, hypertension, hype rlipidemia, anemia, preserved EF by echo last 09/13/2019. He follows in the office with Dr. Mckeon. He had a recent workup nov with heart catheterization which showed calcified LAD, patent RCA stent and small obtuse marginal third branch with significant disease however treated medically. He was being evaluated for possible surgery due to orthopedic complaints. Patient was recently hospitalized for pneumonia in November 2021 where he had been having some fevers and chills and cough. He admits he never really recovered from prior admission and still having significant dyspnea. He does have lower extremity edema and appears to have JVD however admits he has actually lost 10 pounds in the last month or so with significant decreased appetite. He does have a history of cancer however no recent recurrence. He also admits that since his catheterization in November he feels he has still been having chest pain and shortness breath which can occur with exertion but also at rest. CT of the chest showed new small to moderate-sized pleural effusions and interstitial edema as well as a right upper lung consolidation a new small to moderate size pericardial effusion. EKG shows atrial fibrillation with right bundle branch block and nonspecific ST, T-wave abnormalities. 01/02/2022 The patient is an 86-year-old male with a known history of atrial fibrillation, coronary disease prior stenting who recently underwent repeat cardiac catheterization that showed no evidence of significant progression of disease. He presented with symptoms of progressive dyspnea and cough as well as worsening peripheral edema. He was diagnosed with pneumonia and pleural effusion. He continues to be dyspneic. He denies any chest discomfort dizziness or palpitations. He has been evaluated by the infectious disease and pulmonary service. He continues to be on amlodipine 10 mg daily, aspirin 81 mg daily, Lipitor 40 mg daily, Lasix 40 mg IV every 12 hours, lisinopril 20 mg daily,Eliquis 20 half milligrams twice a day. 01/04/2022 Patient examined this morning. He is sitting up in the chair. He denies chest pain or pressure. Reports improvement in his shortness of breath. He remains on IV Lasix. Creatinine today is stable at 1.4. Chest CT completed revealing s table small to moderate-sized pleural effusions and mild central edema. Correlate for continued CHF exacerbation and/or fluid overload state. 01/05/2022 Patient examined this afternoon. Patient is sitting up in the chair. Patient denies chest pain or pressure. He reports continued improvement in his shortness of breath. Patient underwent left-sided thoracentesis today with 1.7 L of fluid removed. Vital signs are stable. 01/06/2022 Patient examined this morning. Patient is sitting up in the chair. Patient denies chest pain or pressure. He currently denies shortness of breath. He remains on IV Lasix 40 mg every 12 hours. Chest x-ray this morning reveals bilateral infiltrates and small effusion. PHYSICAL EXAM: VITAL SIGNS: Reviewed. GENERAL: Well-developed in no acute distress. NECK: Supple. No JVD or thyromegaly LUNGS: Respirations even and unlabored. Lungs diminished bilaterally HEART: Irregular rate and rhythm. S1 and S2 heard. Systolic murmur noted. EXTREMITIES: Normal range of motion. No clubbing or cyanosis. Peripheral pulses intact. Minimal bilateral lower extremity edema ASSESSMENT: 1. Progressive dyspnea with CHF exacerbation and preserved systolic function in addition to pneumonia 2. History of CAD stable 3. Chronic persistent atrial fibrillation, anticoagulated 4. Anemia, noted in the past and underwent workup recently 5. History of hypertension 6. Hyperlipidemia 7. Bilateral pleural effusions, status post left thoracentesis PLAN: Continue current cardiac medications Continue IV lasix Accurate I&O Daily weights Pulmonary following Possible right-sided thoracentesis today. Await further evaluation by pulmonary Resume Elidianais post thoracentesis Further recommendations pending patient course Nurse practitioner note has been reviewed by physician. Signing provider agrees with the documented findings, assessment, and plan of care. Objective - Vital Signs Vital signs: Vital Signs Temp 98.3 F 01/06/22 07:16 Pulse 98 01/06/22 07:16 Resp 16 01/06/22 08:00 BP 120/68 01/06/22 07:16 Pulse Ox 98 01/06/22 07:16 Intake & Output 01/05/22 01/06/22 01/06/22 18:59 06:59 18:59 Intake Total 200 Balance 200 Weight 104.6 kg 104.2 kg Intake: Oral 200 Other: Voiding Method Toilet Toilet # Voids 3 1 # Bowel Movements 2 - Labs CBC & Chem 7: 01/05/22 04:08 01/05/22 04:08 Labs: Microbiology - Last 24 Hours (Table) 01/03/22 17:40 Gram Stain - Final Sputum Sputum Culture - Final Monica albicans 01/05/22 09:54 Gram Stain - Preliminary Pleural Fluid Body Fluid Culture - Preliminary 12/31/21 23:02 Blood Culture - Preliminary Blood No Growth after 120 hours 12/31/21 22:45 Blood Culture - Preliminary Blood No Growth after 120 hours 01/05/22 09:54 Fungal Culture - Preliminary Pleural Fluid 01/05/22 09:54 Acid Fast Bacilli Culture - Preliminary Pleural Fluid 01/05/22 09:54 Anaerobic Culture - Preliminary Pleural Fluid
[2022-01-06 10:43] LABS: Magnesium 2.2 mg/dL (1.5-2.4)
--- NOTE | 2022-01-06 10:56 | P.PN ---
Subjective History of present illness: 86-year-old white male patient of Dr. Ceron and Dr. Mckeon, was recently hospitalized for community acquired pneumonia in November 2021, presented to the emergency department on December 31, 2021 with complaints of shortness of breath and chest tightness. His symptoms have been ongoing for the past couple of days. Patient was also in the emergency department 3 days prior and was treated for pneumonia she was prescribed antibiotics for discharge, however his symptoms did not improve. Patient felt short of breath especially with ambulation, he was having symptoms of orthopnea, and increased swelling in his bilateral lower extremities. Denied any fevers, no cough, no phlegm production. Patient has an extensive medical history including history of coronary artery disease with previous stenting, chronic A. fib on Eliquis, previous history of myocardial infarction, recent fall with injury to the left shoulder and rotator cuff and this is being followed by orthopedic surgery, previous history of colon cancer with resection, laryngeal cancer with radiation and surgery, depression, and former smoking history. His chest x-ray on admission showed mild cardiomegaly, bilateral upper lobe opacities as well as left basilar opacity which was unchanged compared to the previous chest x-ray from 12/27/2021. Patient tested negative for COVID-19, RSV and influenza A and B. Admission blood work showed white blood cell count of 14.9, hemoglobin of 10.2, platelet count of 533, INR is 1.2, sodium is 136, potassium is 3.9, CO2 is 20, BUN is 30, creatinine is 1.18, troponins were less than 0.012, proBNP was 1480. CT of the chest has been completely showing new small to moderate-sized pleural effusions and mild interstitial edema correlating for CHF and fluid overload state. There was a new right upper lung pneumonic consolidation, and a new small to moderate-sized pericardial effusion of uncertain etiology. Patient was started on Unasyn for empiric antibiotic coverage. Interval history 01/04 patient seen and examined at bedside. He is feeling better after the left- sided thoracentesis with removal 1.7 L on 01/05. He is currently on 2 L. He denies any chest pain. Otherwise no acute changes overnight. Objective - Vital Signs Vital signs: Vital Signs Temp 98.3 F 01/06/22 07:16 Pulse 98 01/06/22 07:16 Resp 16 01/06/22 08:00 BP 120/68 01/06/22 07:16 Pulse Ox 98 01/06/22 07:16 Intake & Output 01/05/22 01/06/22 01/06/22 18:59 06:59 18:59 Intake Total 200 Balance 200 Weight 104.6 kg 104.2 kg Intake: Oral 200 Other: Voiding Method Toilet Toilet # Voids 3 1 # Bowel Movements 2 - Exam Physical examination: GENERAL EXAM: Alert, no acute distress HEAD: Normocephalic/atraumatic. EYES: Normal reaction of pupils, equal size. Conjunctiva pink, sclera white. NOSE: Clear with pink turbinates. THROAT: No erythema or exudates. NECK: No masses, no JVD, no thyroid enlargement, no adenopathy. CHEST: No chest wall deformity. Symmetrical expansion. LUNGS: Equal air entry with diminished breath sounds at the bases CVS: Irregular rate and rhythm, normal S1 and S2, no gallops, no murmurs, no rubs ABDOMEN: Soft, nontender. No hepatosplenomegaly, normal bowel sounds, no guarding or rigidity. EXTREMITIES: No clubbing, 2+ pitting lower extremity edema, no cyanosis, 2+ pulses and upper and lower extremities. MUSCULOSKELETAL: Muscle strength and tone normal. SPINE: No scoliosis or deformity SKIN: No rashes CENTRAL NERVOUS SYSTEM: No focal deficits, tone is normal in all 4 extremities. - Labs CBC & Chem 7: 01/06/22 06:50 01/05/22 04:08 Labs: Abnormal Lab Results - Last 24 Hours (Table) 01/06/22 Range/Units 06:50 WBC 10.34 H (4.50-10.00) X 10*3/uL RBC 3.04 L (4.40-5.60) X 10*6/uL Hgb 8.0 L (13.0-17.0) g/dL Hct 27.1 L (39.6-50.0) % MCH 26.3 L (27.0-32.0) pg MCHC 29.5 L (32.0-37.0) g/dL RDW 17.3 H (11.5-14.5) % Immature Gran # 0.05 H (0.00-0.04) X 10*3/uL Neutrophils # 7.93 H (1.80-7.70) X 10*3/uL Microbiology - Last 24 Hours (Table) 01/03/22 17:40 Gram Stain - Final Sputum Sputum Culture - Final Monica albicans 01/05/22 09:54 Gram Stain - Preliminary Pleural Fluid Body Fluid Culture - Preliminary 12/31/21 23:02 Blood Culture - Preliminary Blood No Growth after 120 hours 12/31/21 22:45 Blood Culture - Preliminary Blood No Growth after 120 hours 01/05/22 09:54 Fungal Culture - Preliminary Pleural Fluid 01/05/22 09:54 Acid Fast Bacilli Culture - Preliminary Pleural Fluid 01/05/22 09:54 Anaerobic Culture - Preliminary Pleural Fluid Assessment and Plan Plan: Assessment and plan: #Acute hypoxic respiratory failure related to acute exacerbation of CHF with diastolic dysfunction -Pneumonia has been ruled out per pulmonary -CT chest has been completed showing moderately sized pleural effusions, interstitial edema, scattered partially calcified bilateral pulmonary nodules. The possibilities would include chronic granulomatous infections, atypical mycobacterial and the possibility of malignancy cannot be completely ruled out based on the CAT scan findings. -There are multiple calcified pulmonary nodules in addition to areas of cavitation. -Per pulmonary no evidence of pneumonia -Continue diuresis with IV Lasix 40 mg IV push every 12 -2-D echo showed/4 EF 50-55% mild tricuspid regurgitation. Mild mitral regurgitation. Mild pulmonary hypertension. Small pericardial -Daily weights -Pulmonary, cardiology following #Bilateral pleural effusions, and pericardial effusion -likely related to CHF, status post left-sided thoracentesis today on 01/05/2022 would removal of 1.7 L of pruett-colored pleural fluid which was sent for pleural fluid analysis, cytology and cultures. -Plan for right-sided thoracentesis today #Recent hospitalization for community acquired pneumonia in November 2021 -IV Zosyn discontinued 01/06 #Chronic anemia #Chronic atrial on Eliquis, currently in controlled Afib #History of coronary artery disease with previous stenting -Recent cardiac catheterization showed no evidence of significant progression of disease. #Hypertension #Hyperlipidemia #Depression #Left shoulder injury from a recent fall, awaiting medical clearance for surgery #Previous history of bowel resection for colon cancer #History of laryngeal cancer with radiation and surgery #History of skin cancer #DVT prophylaxis on Eliquis
[2022-01-06 11:00] LABS: African American GFR (CKD) 51.6 (60.0-200.0); Albumin/Globulin Ratio 1.07 (1.60-3.17); Anion Gap 10.5 mmol/L (10.00-18.00); BUN/Creat Ratio 21.43 Ratio (12.00-20.00); Calcium 8.9 mg/dL (8.7-10.3); Carbon Dioxide 27.5 mmol/L (20.0-27.5); Globulin 2.8 g/dL (1.6-3.3); Non-African American GFR(CKD) 44.5 (60.0-200.0); Potassium 3.3 mmol/L (3.5-5.5); Total Bilirubin 0.6 mg/dL (0.30-1.20); Total Protein 5.8 g/dL (6.2-8.2)
[2022-01-06] MEDS ORDERED: POTASSIUM CHLORIDE ER 20 MEQ TAB.ER PO STA (12:09)
--- NOTE | 2022-01-06 12:24 | P.DS ---
Providers Date of admission: 12/31/21 21:54 Expected date of discharge: 01/06/22 Attending physician: Crow Calderon MD Consults: 12/31/21 21:54 Consult Physician Urgent Consulting Provider: Luis Albreto Schwarz Consult Reason/Comments: heart failure, chest pain Do you want consulting provider notified?: Yes 01/01/22 09:06 Consult Physician Routine Consulting Provider: Simran Mercado Consult Reason/Comments: cavitation with inner mass Do you want consulting provider notified?: Yes 01/01/22 09:10 Consult Physician Routine Consulting Provider: Fredo Horan Consult Reason/Comments: cavitation with inner mass, multiple nodules, pneumonia Do you want consulting provider notified?: Yes Primary care physician: Pradip Ceron MD Hospital Course: History of present illness: 86-year-old white male patient of Dr. Ceron and Dr. Mckeon, was recently hospitalized for community acquired pneumonia in November 2021, presented to the emergency department on December 31, 2021 with complaints of shortness of breath and chest tightness. His symptoms have been ongoing for the past couple of days. Patient was also in the emergency department 3 days prior and was treated for pneumonia she was prescribed antibiotics for discharge, however his symptoms did not improve. Patient felt short of breath especially with ambulation, he was having symptoms of orthopnea, and increased swelling in his bilateral lower extremities. Denied any fevers, no cough, no phlegm production. Patient has an extensive medical history including history of coronary artery disease with previous stenting, chronic A. fib on Eliquis, previous history of myocardial infarction, recent fall with injury to the left shoulder and rotator cuff and this is being followed by orthopedic surgery, previous history of colon cancer with resection, laryngeal cancer with radiation and surgery, depression, and former smoking history. His chest x-ray on admission showed mild cardiomegaly, bilateral upper lobe opacities as well as left basilar opacity which was unchanged compared to the previous chest x-ray from 12/27/2021. Patient tested negative for COVID-19, RSV and influenza A and B. Admission blood work showed white blood cell count of 14.9, hemoglobin of 10.2, platelet count of 533, INR is 1.2, sodium is 136, potassium is 3.9, CO2 is 20, BUN is 30, creatinine is 1.18, troponins were less than 0.012, proBNP was 1480. CT of the chest has been completely showing new small to moderate-sized pleural effusions and mild interstitial edema correlating for CHF and fluid overload state. There was a new right upper lung pneumonic consolidation, and a new small to moderate-sized pericardial effusion of uncertain etiology. Patient was started on Unasyn for empiric antibiotic coverage. Detailed problem list: #Acute hypoxic respiratory failure related to acute exacerbation of CHF with diastolic dysfunction -Pneumonia has been ruled out per pulmonary -CT chest has been completed showing moderately sized pleural effusions, interstitial edema, scattered partially calcified bilateral pulmonary nodules. The possibilities would include chronic granulomatous infections, atypical mycobacterial and the possibility of malignancy cannot be completely ruled out based on the CAT scan findings. -There are multiple calcified pulmonary nodules in addition to areas of cavitation. -Per pulmonary no evidence of pneumonia -IV Lasix was switched to by mouth Lasix 40 mg twice daily -2-D echo showed/4 EF 50-55% mild tricuspid regurgitation. Mild mitral regurgitation. Mild pulmonary hypertension. Small pericardial -Daily weights -Pulmonary, cardiology cleared the patient for discharge -O2 evaluation prior to discharge -Patient needs to follow with primary care physician 1 week to check his basic metabolic profile to monitor electrolytes #Chronic kidney disease stage III -Creatinine at baseline #Bilateral pleural effusions, and pericardial effusion -likely related to CHF, status post left-sided thoracentesis today on 01/05/2022 would removal of 1.7 L of pruett-colored pleural fluid which was sent for pleural fluid analysis, cytology and cultures. -Pulmonary canceled by thoracentesis and once the patient to follow up with his office for possible outpatient by thoracentesis #Chronic persistent A. fib -Rate controlled -Resume Eliquis #Hypokalemia -Replaced #Recent hospitalization for community acquired pneumonia in November 2021 -IV Zosyn discontinued 01/06 since patient does not have pneumonia this admission #Chronic anemia #Chronic atrial on Eliquis, currently in controlled Afib #History of coronary artery disease with previous stenting -Recent cardiac catheterization showed no evidence of significant progression of disease. #Hypertension #Hyperlipidemia #Depression #Left shoulder injury from a recent fall, awaiting medical clearance for surgery #Previous history of bowel resection for colon cancer #History of laryngeal cancer with radiation and surgery #History of skin cancer Time spent on discharge process was 35 minutes. Patient discharged home with home healthcare. Conditions on discharge stable Patient Condition at Discharge: Stable Plan - Discharge Summary Discharge Rx Participant: Yes New Discharge Prescriptions: New Furosemide [Lasix] 40 mg PO BID@0900,1600 30 Days #60 tab Continue PARoxetine [Paxil] 30 mg PO DAILY Atorvastatin [Lipitor] 40 mg PO HS amLODIPine BESYLATE/BENAZEPRIL [Lotrel 10-20 MG] 1 cap PO DAILY Aspirin [Adult Low Dose Aspirin EC] 81 mg PO HS Acetaminophen [Tylenol Extra Strength] 500 - 1,000 mg PO Q6H PRN PRN Reason: Pain Nitroglycerin Sl Tabs [Nitrostat] 0.4 mg SL Q5M PRN PRN Reason: Chest Pain Ferrous Sulfate [Iron] 325 mg PO BID Apixaban [Eliquis] 2.5 mg PO BID Discontinued Triamterene-Hctz 37.5-25Mg [Dyazide 37.5-25 Capsule] 1 cap PO DAILY PRN PRN Reason: Edema Amoxicillin 1,000 mg PO Q8H Azithromycin [Zithromax Z-pack (6 tabs)] See Taper PO DAILY No Action Multivitamins, Thera [Multivitamin (formulary)] 1 tab PO DAILY L.acidoph,Paracasei, B.lactis [Probiotic] 1 cap PO DAILY Ascorbic Acid [Vitamin C] 500 mg PO DAILY Omeprazole 20 mg PO DAILY Cholecalciferol [Vitamin D3 (25 Mcg = 1000 Iu)] 50 mcg PO DAILY Discharge Medication List PARoxetine [Paxil] 30 mg PO DAILY 03/13/14 [History] Multivitamins, Thera [Multivitamin (formulary)] 1 tab PO DAILY 01/14/15 [ History] Atorvastatin [Lipitor] 40 mg PO HS 12/18/18 [History] L.acidoph,Paracasei, B.lactis [Probiotic] 1 cap PO DAILY 12/18/18 [History] amLODIPine BESYLATE/BENAZEPRIL [Lotrel 10-20 MG] 1 cap PO DAILY 09/13/19 [History] Acetaminophen [Tylenol Extra Strength] 500 - 1,000 mg PO Q6H PRN 07/27/21 [History] Aspirin [Adult Low Dose Aspirin EC] 81 mg PO HS 07/27/21 [History] Apixaban [Eliquis] 2.5 mg PO BID 10/28/21 [History] Ascorbic Acid [Vitamin C] 500 mg PO DAILY 10/28/21 [History] Ferrous Sulfate [Iron] 325 mg PO BID 10/28/21 [History] Omeprazole 20 mg PO DAILY 10/28/21 [History] Nitroglycerin Sl Tabs [Nitrostat] 0.4 mg SL Q5M PRN 12/17/21 [History] Cholecalciferol [Vitamin D3 (25 Mcg = 1000 Iu)] 50 mcg PO DAILY 12/27/21 [History] Furosemide [Lasix] 40 mg PO BID@0900,1600 30 Days #60 tab 01/06/22 [Rx] Follow up Appointment(s)/Referral(s): [facility], [NON-STAFF] - ([facility] will call you to schedule your in home nursing and physical therapy visits. ) Pradip Ceron MD [Primary Care Provider] - 1-2 days Marbin Smith MD [STAFF PHYSICIAN] - 1 Week
[2022-01-06 13:12] VITALS: BMI 29.5
[2022-01-06 13:41] VITALS: BP 111/56; PULSE 78; RESP 16
--- NOTE | 2022-01-06 14:13 | P.PN ---
Subjective Progress Note Date: 01/06/22 Principal diagnosis: Shortness of breath 86-year-old white male patient of Dr. Ceron and Dr. Mckeon, was recently hospitalized for community acquired pneumonia in November 2021, presented to the emergency department on December 31, 2021 with complaints of shortness of breath and chest tightness. His symptoms have been ongoing for the past couple of days. Patient was also in the emergency department 3 days prior and was treated for pneumonia she was prescribed antibiotics for discharge, however his symptoms did not improve. Patient felt short of breath especially with ambulation, he was having symptoms of orthopnea, and increased swelling in his bilateral lower extremities. Denied any fevers, no cough, no phlegm production. Patient has an extensive medical history including history of coronary artery disease with previous stenting, chronic A. fib on Eliquis, previous history of myocardial infarction, recent fall with injury to the left shoulder and rotator cuff and t his is being followed by orthopedic surgery, previous history of colon cancer with resection, laryngeal cancer with radiation and surgery, depression, and former smoking history. His chest x-ray on admission showed mild cardiomegaly, bilateral upper lobe opacities as well as left basilar opacity which was unchanged compared to the previous chest x-ray from 12/27/2021. Patient tested negative for COVID-19, RSV and influenza A and B. Admission blood work showed white blood cell count of 14.9, hemoglobin of 10.2, platelet count of 533, INR is 1.2, sodium is 136, potassium is 3.9, CO2 is 20, BUN is 30, creatinine is 1.18, troponins were less than 0.012, proBNP was 1480. CT of the chest has been completely showing new small to moderate-sized pleural effusions and mild interstitial edema correlating for CHF and fluid overload state. There was a new right upper lung pneumonic consolidation, and a new small to moderate-sized pericardial effusion of uncertain etiology. Patient was started on Unasyn for empiric antibiotic coverage. On 01/02/2022 patient seen in follow-up on medical surgical floor. He is awake and alert, he is still very short of breath with any exertion, audibly wheezing today, he is currently on 2 L of oxygen pulse ox is 100%, afebrile, hemodynamically blood pressure has been stable. Still has quite significant edema in his bilateral lower extremities. Chest ultrasound has been completed showing a moderately sized bilateral pleural effusions with 10.1 cm pocket on the right, and 10.9 cm left pleural effusion pocket. Echocardiogram has been completed showing moderate concentric LVH, EF of 50-55%, severely enlarged right ventricle no evidence of AAI or left ear, mild MR and mild TR, mild pulmonary hypertension with right-sided pressure of 37.8 mmHg. And there was a small generalized pericardial effusion. Patient remains on empiric antibiotics in the form of Zosyn, patient remains on IV Lasix at 40 mg every 12 hours. He is in - 1.8 L net fluid balance over 24 hours On 01/05/2022 patient seen in follow-up on medical surgical floor. He is sittin g up in the chair, appears to be in no acute distress, currently on 2 L of oxygen pulse ox is 98%. He remains on diuretics with Lasix 40 mg IV every 12 hours. Patient has been avoiding in the urinal, no accurate I&O is available, his weight is a -0.2 kg according to the recorded weight in the chart. He is his coughing up some whitish yellowish colored phlegm. No hemoptysis, no chest pain. Yesterday CT of the chest without contrast shows stable small to moderate-sized pleural effusions and mild central edema, and stable small to moderate-sized pericardial effusion of uncertain etiology. Today's labs have been reviewed, white blood cell count is stable at 11.92, hemoglobin is 8.6, sodium is 142, potassium is 3.9, BUN is 33.5, and creatinine is 1.3. Pro- calcitonin level is 0.12. Remains on Zosyn. ID service is following, so far blood and sputum cultures have been negative, lung sounds have been stable, patient has been afebrile, overall he is feeling better but in view of modera tely sized bilateral pleural effusions despite the diuretics the decision has been made to proceed with left-sided thoracentesis today with the patient's and his spouse's consent and 1.7 l of tannish colored pleural fluid was removed from the left side and sent for pleural fluid analysis, cytology and cultures. Patient tolerated procedure very well. Following the procedure a chest x-ray has been obtained showing near complete resolution of the left-sided pleural effusion postthoracentesis with no sizable pneumothorax, and patchy bilateral infiltrate persisting with small right pleural effusion. Pulmonary nodularity was not excluded. On 01/06/2022 patient seen in follow-up on medical surgical floor. Breathing comfortably, had no acute events overnight, patient underwent left-sided tho racentesis yesterday, tolerated procedure well, breathing much easier. He remains on IV diuretics there will be transitioned to oral diuretics. Patient continues on nebulized bronchodilators. No complains of chest discomfort, vital signs have been stable, no fever or chills. Pleural fluid analysis showed exudative pleural fluid, pleural fluid cultures and cytology are still pending. Patient has been treated with empiric antibiotics and patient has completed a course. Preliminary pleural fluid Gram stain showed moderate PMNs. Objective - Vital Signs Vital signs: Vital Signs Temp 98.3 F 01/06/22 13:39 Pulse 78 01/06/22 13:39 Resp 16 01/06/22 13:39 BP 111/56 01/06/22 13:39 Pulse Ox 94 L 01/06/22 13:39 Intake & Output 01/05/22 01/06/22 01/06/22 18:59 06:59 18:59 Intake Total 200 200 Balance 200 200 Weight 104.6 kg 104.2 kg 104.2 kg Intake: Oral 200 200 Other: Voiding Method Toilet Toilet # Voids 3 1 # Bowel Movements 2 - Exam GENERAL EXAM: Alert, very pleasant, 86-year-old white male, on 2 L of oxygen and the pulse ox 98%, dyspneic with ambulation HEAD: Normocephalic/atraumatic. EYES: Normal reaction of pupils, equal size. Conjunctiva pink, sclera white. NOSE: Clear with pink turbinates. THROAT: No erythema or exudates. NECK: No masses, no JVD, no thyroid enlargement, no adenopathy. CHEST: No chest wall deformity. Symmetrical expansion. LUNGS: Equal air entry with diminished breath sounds at the bases CVS: Irregular rate and rhythm, normal S1 and S2, no gallops, no murmurs, no rubs ABDOMEN: Soft, nontender. No hepatosplenomegaly, normal bowel sounds, no guarding or rigidity. EXTREMITIES: No clubbing, 1+ pitting lower extremity edema, no cyanosis, 2+ pulses and upper and lower extremities. MUSCULOSKELETAL: Muscle strength and tone normal. SPINE: No scoliosis or deformity SKIN: No rashes CENTRAL NERVOUS SYSTEM: Alert and oriented -3. No focal deficits, tone is normal in all 4 extremities. PSYCHIATRIC: Alert and oriented -3. Appropriate affect. Intact judgment and insight. - Labs CBC & Chem 7: 01/06/22 06:50 01/06/22 06:50 Labs: Abnormal Lab Results - Last 24 Hours (Table) 01/06/22 01/06/22 Range/Units 06:50 06:50 WBC 10.34 H (4.50-10.00) X 10*3/uL RBC 3.04 L (4.40-5.60) X 10*6/uL Hgb 8.0 L (13.0-17.0) g/dL Hct 27.1 L (39.6-50.0) % MCH 26.3 L (27.0-32.0) pg MCHC 29.5 L (32.0-37.0) g/dL RDW 17.3 H (11.5-14.5) % Immature Gran # 0.05 H (0.00-0.04) X 10*3/uL Neutrophils # 7.93 H (1.80-7.70) X 10*3/uL Potassium 3.3 L (3.5-5.5) mmol/L BUN 30.0 H (9.0-27.0) mg/dL Est GFR (CKD-EPI)AfAm 51.6 L (60.0-200.0) Est GFR (CKD-EPI)NonAf 44.5 L (60.0-200.0) BUN/Creatinine Ratio 21.43 H (12.00-20.00) Ratio Alkaline Phosphatase 183 H (41-126) U/L Total Protein 5.8 L (6.2-8.2) g/dL Albumin 3.0 L (3.8-4.9) g/dL Albumin/Globulin Ratio 1.07 L (1.60-3.17) g/dL Microbiology - Last 24 Hours (Table) 01/03/22 17:40 Gram Stain - Final Sputum Sputum Culture - Final Monica albicans 01/05/22 09:54 Gram Stain - Preliminary Pleural Fluid Body Fluid Culture - Preliminary 12/31/21 23:02 Blood Culture - Preliminary Blood No Growth after 120 hours 12/31/21 22:45 Blood Culture - Preliminary Blood No Growth after 120 hours 01/05/22 09:54 Fungal Culture - Preliminary Pleural Fluid 01/05/22 09:54 Acid Fast Bacilli Culture - Preliminary Pleural Fluid 01/05/22 09:54 Anaerobic Culture - Preliminary Pleural Fluid Assessment and Plan Plan: Assessment: Acute hypoxic respiratory failure related to acute exacerbation of CHF with diastolic dysfunction and possibility of pneumonia. CT chest has been completed showing moderately sized pleural effusions, interstitial edema, scattered parti ally calcified bilateral pulmonary nodules. The possibilities would include chronic granulomatous infections, atypical mycobacterial in the possibility of malignancy cannot be completely ruled out based on the computed tomography scan of the chest findings. There are multiple calcified pulmonary nodules in addition to areas of cavitation and an area of cavity formation in the right upper lobe with questionable fungal ball. There is no major change compared to the earlier computed tomography scan of the chest from 2019. This could be a post infectious or active dermatosis infectious process Bilateral pleural effusions, and pericardial effusion, likely related to CHF, status post left-sided thoracentesis today on 01/05/2022 with removal of 1.7 L of pruett-colored pleural fluid which was sent for pleural fluid analysis, cytology and cultures. Pleural fluid analysis showed exudative fluid, pleural fluid cultures are still pending, cytology is pending Recent hospitalization for community acquired pneumonia in November 2021 Chronic anemia Chronic atrial on Eliquis, currently in controlled Afib History of coronary artery disease with previous stenting Hypertension Hyperlipidemia Depression Left shoulder injury from a recent fall, awaiting medical clearance for surgery Previous history of bowel resection for colon cancer History of laryngeal cancer with radiation and surgery History of skin cancer Plan: Patient is breathing quite comfortably today's chest x-ray has been reviewed She is breathing quite comfortably, does not need right-sided thoracentesis His IV Lasix can be switched to oral Lasix 40 mg twice daily Patient can be considered for discharge home today on home oxygen if he qualifies, oral diuretics Patient will need outpatient follow-up with Dr. Smith in the office in one week I have personally seen and examined the patient, performed the documentation and the assessment and plan as written. Number of minutes spent on the visit: [10] this is a split joint evaluation that was done with the nurse practitioner. I was involved in more than 90% of the evaluation, decision making, and a diagnostic and therapeutic plan. This evaluation was done in 10 minutes. The patient has a negative pleural effusion and a left-sided pleural fluid was paco guido. The patient will be started back on his anticoagulants. No need for right-sided thoracentesis. The patient will be discharged home to be followed up with me on outpatient basis. Home O2 evaluation will be done also today. Time with Patient: Less than 30
[2022-01-06] MEDS ORDERED: FUROSEMIDE 40 MG TAB PO SCH (16:00)
== END 2022-01-06 14:39 | disposition home health service (06) | DRG 291 ==
LOC: EC 19:24 → 4SSUR 21:54
PROVIDERS: ADMIT Internal Medicine; ATTEND Internal Medicine
PROC: 0W993ZZ Drainage of Right Pleural Cavity, Percutaneous Approach (ICD-10-PCS; principal; 2022-01-05)
DX: I13.0 Hypertensive heart and chronic kidney disease with heart failure and stage 1 through stage 4 chronic kidney disease, or unspecified chronic kidney disease (principal); J96.01 Acute respiratory failure with hypoxia; I50.33 Acute on chronic diastolic (congestive) heart failure; I48.19 Other persistent atrial fibrillation; I31.3 Pericardial effusion (noninflammatory); J90 Pleural effusion, not elsewhere classified; D64.9 Anemia, unspecified; E78.5 Hyperlipidemia, unspecified; E87.6 Hypokalemia; F32.A Depression, unspecified; I25.10 Atherosclerotic heart disease of native coronary artery without angina pectoris; I25.2 Old myocardial infarction; I27.20 Pulmonary hypertension, unspecified; I45.10 Unspecified right bundle-branch block; N18.30 Chronic kidney disease, stage 3 unspecified; Z87.01 Personal history of pneumonia (recurrent); L98.9 Disorder of the skin and subcutaneous tissue, unspecified; Z20.822 Contact with and (suspected) exposure to COVID-19; Z79.01 Long term (current) use of anticoagulants; Z79.82 Long term (current) use of aspirin; Z79.899 Other long term (current) drug therapy; Z82.49 Family history of ischemic heart disease and other diseases of the circulatory system; Z83.3 Family history of diabetes mellitus; Z85.038 Personal history of other malignant neoplasm of large intestine; Z85.21 Personal history of malignant neoplasm of larynx; Z85.828 Personal history of other malignant neoplasm of skin; Z87.891 Personal history of nicotine dependence; Z90.49 Acquired absence of other specified parts of digestive tract; Z95.5 Presence of coronary angioplasty implant and graft; Z96.1 Presence of intraocular lens; D63.8 Anemia in other chronic diseases classified elsewhere
CPT/HCPCS: 36415; 71045; 71250; 76604; 80048; 80053; 80061; 82785; 82945; 83615; 83721; 83735; 83880; 84145; 84157; 84484; 85025; 85027; 85610; 85730; 87040; 87070; 87075; 87102; 87116; 87205; 87206; 87252; 87305; 87449; 87496; 87498; 87502; 87529; 87634; 87636; 87798; 88108; 88305; 88341; 88342; 89050; 93005; 93306; 94640; 94760; 96374; 96375; 99285

== ENCOUNTER → 2022-02-14 | Outpatient (CLI) | payer MEDICARE ==
--- NOTE | 2022-02-14 10:19 | XR ---
EXAMINATION TYPE: XR chest 2V DATE OF EXAM: 02/14/2022 COMPARISON: 02/02/2022 TECHNIQUE: PA and lateral views submitted. HISTORY: Cough FINDINGS: Left lower lobe infiltrate and small effusion. Right upper lobe infiltrate seen. Improving right-side d infiltrate at the lung bases with persistent vague infiltrate in the right upper lobe. Heart is enl arged and there is hypertrophic degenerative change spine. Small left pleural effusion. No pneumothor ax. IMPRESSION: 1. Multifocal areas of infiltrate with slight improvement at the right lung base. Left-sided pleural effusion persists. Follow resolution to exclude other etiologies. Pulmonary nodules noted by recent C T scan are not as well-seen by standard x-ray.
== END | disposition home or self-care (01) ==
LOC: RADXRMAIN 09:51
PROVIDERS: ATTEND Internal Medicine
DX: J90 Pleural effusion, not elsewhere classified (principal); R91.8 Other nonspecific abnormal finding of lung field
CPT/HCPCS: 71046

== ENCOUNTER → 2022-02-15 | Outpatient (CLI) | payer MEDICARE ==
[2022-02-15 13:39] LABS: Anisocytosis Slight; HCT 33.1 % (39.0-53.0); HGB 9.5 gm/dL (13.0-17.5); Hypochromasia Marked; MCH 25.6 pg (25.0-35.0); MCHC 28.6 g/dL (31.0-37.0); MCV 89.7 fL (80.0-100.0); Mean Platelet Volume 7.8; Platelet Count 323 k/uL (150-450); RBC 3.69 m/uL (4.30-5.90); RDW 17.6 % (11.5-15.5); WBC 7.4 k/uL (3.8-10.6)
[2022-02-15 13:40] LABS: ALT 19 U/L (4-49); AST 25 U/L (17-59); African American GFR (CKD) 69 (>60 ml/min/1.73 sqM); Albumin/Globulin Ratio 1.2; Alkaline Phosphatase 139 U/L (38-126); Anion Gap 8 mmol/L; Blood Urea Nitrogen 28 mg/dL (9-20); Calcium 9.4 mg/dL (8.4-10.2); Carbon Dioxide 28 mmol/L (22-30); Chloride 105 mmol/L (98-107); Globulin 3.3 g/dL; Glucose 105 mg/dL (74-99); Non-African American GFR(CKD) 60 (>60 ml/min/1.73 sqM); Potassium 4.5 mmol/L (3.5-5.1); Sodium 141 mmol/L (137-145); Total Bilirubin 0.5 mg/dL (0.2-1.3); Total Protein 7.3 g/dL (6.3-8.2)
== END | disposition home or self-care (01) ==
LOC: LABWHC1 12:05
PROVIDERS: ATTEND Internal Medicine
DX: I48.20 Chronic atrial fibrillation, unspecified (principal)
CPT/HCPCS: 36415; 80053; 85027

== ENCOUNTER → 2022-03-14 | Outpatient (CLI) | payer MEDICARE ==
[2022-03-14 14:47] LABS: HGB 9.9 g/dL (13.0-17.0); MCH 25.2 pg (27.0-32.0); MCHC 28.3 g/dL (32.0-37.0); MCV 89.1 fL (80.0-97.0); NRBC Per 100 WBC 0 /100 WBCS (0.0-0.0); Platelet Count 208 X 10*3/uL (140-440); RBC 3.93 X 10*6/uL (4.40-5.60); RDW 18.6 % (11.5-14.5); WBC 7.14 X 10*3/uL (4.50-10.00)
[2022-03-14 14:52] LABS: Ferritin 37.7 ng/mL (22.0-322.0)
[2022-03-14 14:53] LABS: % Iron Saturation 8.95 (15.00-50.00)
== END | disposition home or self-care (01) ==
LOC: LABWHC1 09:37
PROVIDERS: ATTEND Internal Medicine Gastroenterology
DX: D50.9 Iron deficiency anemia, unspecified (principal)
CPT/HCPCS: 36415; 82728; 83540; 83550; 85027

== ENCOUNTER → 2022-05-01 | Outpatient (CLI) | payer MEDICARE ==
--- NOTE | 2022-05-01 16:00 | XR ---
EXAMINATION TYPE: XR chest 2V DATE OF EXAM: 05/01/2022 COMPARISON: Chest x-ray 02/14/2022, chest CT 01/04/2022 HISTORY: Wheezing and dyspnea TECHNIQUE: Frontal and lateral views of the chest are obtained. FINDINGS: Pleural-parenchymal changes are similar to prior exam. Patchy densities are present within the lungs. There is no evident pneumothorax. Cardiac mediastinal silhouette shows a stable appearanc e. Difficult to exclude effusion. IMPRESSION: Findings are similar to previous abnormal chest x-ray, there may be scarring, difficult pneumonia, effusion, there is cardiomegaly
== END | disposition home or self-care (01) ==
LOC: RADXRMAIN 15:02
PROVIDERS: ATTEND Internal Medicine
DX: R06.02 Shortness of breath (principal)
CPT/HCPCS: 71046

== ENCOUNTER → 2022-07-13 | Outpatient (CLI) | payer MEDICARE ==
[2022-07-13 15:36] LABS: ALT 22 U/L (10-49); AST 21 U/L (14-35); African American GFR (CKD) 66.4 (60.0-200.0); Albumin 4.3 g/dL (3.8-4.9); Albumin/Globulin Ratio 1.52 (1.60-3.17); Alkaline Phosphatase 116 U/L (41-126); BUN/Creat Ratio 24.16 Ratio (12.00-20.00); Blood Urea Nitrogen 27.3 mg/dL (9.0-27.0); Carbon Dioxide 29.3 mmol/L (20.0-27.5); Chloride 106 mmol/L (96-109); Globulin 2.8 g/dL (1.6-3.3); Glucose 100 mg/dL (70-110); LDL Cholesterol,Calculated 60.2 mg/dL (0.0-131.0); Non-African American GFR(CKD) 57.3 (60.0-200.0); Potassium 3.8 mmol/L (3.5-5.5); Sodium 146 mmol/L (135-145); Total Protein 7.1 g/dL (6.2-8.2)
== END | disposition home or self-care (01) ==
LOC: LABWHC1 08:52
PROVIDERS: ATTEND Internal Medicine Interventional Cardiology
DX: E78.2 Mixed hyperlipidemia (principal)
CPT/HCPCS: 36415; 80053; 80061

== ENCOUNTER → 2022-12-13 | Outpatient (CLI) | payer MEDICARE ==
--- NOTE | 2022-12-13 16:24 | XR ---
EXAMINATION TYPE: XR chest 2V DATE OF EXAM: 12/13/2022 4:01 PM COMPARISON: Chest radiographs from 11/10/2021 CT chest 01/04/2022 TECHNIQUE: XR chest 2V Frontal and lateral views of the chest. CLINICAL INDICATION:Male, 87 years old with history of R06.00; FINDINGS: Lungs/Pleura: Small left pleural effusion with adjacent patchy airspace opacities. Similar scattered patchy densities. Pulmonary vascularity: Unremarkable. Heart/mediastinum: Cardiomediastinal silhouette is prominent in size. Musculoskeletal: No acute osseous pathology. IMPRESSION: Small left pleural effusion with adjacent airspace opacities. Additionally there are similar scattere d densities throughout the lungs. There may be scarring demonstrated with superimposed infiltrate not excluded.
== END | disposition home or self-care (01) ==
LOC: RADXRMAIN 15:42
PROVIDERS: ATTEND Internal Medicine Interventional Cardiology
DX: J90 Pleural effusion, not elsewhere classified (principal); J98.4 Other disorders of lung; R91.8 Other nonspecific abnormal finding of lung field
CPT/HCPCS: 71046

== ENCOUNTER → 2022-12-13 | Outpatient (CLI) | payer MEDICARE ==
[2022-12-13 23:19] LABS: African American GFR (CKD) 53.6 (60.0-200.0); Anion Gap 11.6 mmol/L (10.00-18.00); BUN/Creat Ratio 17.85 Ratio (12.00-20.00); Blood Urea Nitrogen 24.1 mg/dL (9.0-27.0); Calcium 9.5 mg/dL (8.7-10.3); Carbon Dioxide 27.5 mmol/L (20.0-27.5); Non-African American GFR(CKD) 46.2 (60.0-200.0); Potassium 4.5 mmol/L (3.5-5.5)
== END | disposition home or self-care (01) ==
LOC: LABWHC1 14:26
PROVIDERS: ATTEND Nurse Practitioner Adult Health
DX: R60.0 Localized edema (principal)
CPT/HCPCS: 36415; 80048; 83880

== ENCOUNTER 2022-12-21 02:33 | Observation (INO) | payer MEDICARE ==
[2022-12-21 04:01] LABS: Basophils # (A) 0.1 k/uL (0-0.2); Basophils % (A) 1 %; Eosinophils # (A) 0.1 k/uL (0-0.7); Eosinophils % (A) 1 %; HCT 34.5 % (39.0-53.0); HGB 10.9 gm/dL (13.0-17.5); Hypochromasia Slight; Lymphocytes # (A) 1.3 k/uL (1.0-4.8); Lymphocytes % (A) 19 %; MCH 29.7 pg (25.0-35.0); MCHC 31.7 g/dL (31.0-37.0); MCV 93.8 fL (80.0-100.0); Mean Platelet Volume 9.1; Monocytes # (A) 0.5 k/uL (0-1.0); Monocytes % (A) 7 %; Neutrophils # (A) 4.6 k/uL (1.3-7.7); Neutrophils % (A) 69 %; Platelet Count 216 k/uL (150-450); RBC 3.68 m/uL (4.30-5.90); RDW 15.4 % (11.5-15.5); WBC 6.6 k/uL (3.8-10.6)
[2022-12-21 04:10] LABS: Albumin 4.1 g/dL (3.5-5.0); Calcium 9.4 mg/dL (8.4-10.2); Magnesium 2.1 mg/dL (1.6-2.3); Potassium 4.1 mmol/L (3.5-5.1); Total Bilirubin 0.8 mg/dL (0.2-1.3); Total Protein 6.9 g/dL (6.3-8.2)
[2022-12-21 04:19] LABS: INR 1.1 (<1.2); Partial Thromboplastin Time 26.6 sec (22.0-30.0); Prothrombin Time 11.8 sec (9.0-12.0)
--- NOTE | 2022-12-21 05:15 | XR ---
EXAMINATION TYPE: XR chest 2V DATE OF EXAM: 12/21/2022 COMPARISON: 12/13/2022 HISTORY: Chest pain TECHNIQUE: 2 views FINDINGS: Heart appears enlarged. There is coarse interstitial density throughout the lungs. There ar e no hilar masses. No pleural effusion. There are chest leads. There is mild thickening of the fissur es. The thoracic spine is intact. IMPRESSION: There is moderate coarse interstitial density throughout the lungs that could relate to p ulmonary fibrosis and not significantly different than last exam. No significant pleural fluid seen t o suggest heart failure. Stable mild cardiomegaly. Heart failure however is suspected in view of the history of leg swelling.
[2022-12-21] MEDS ORDERED: NALOXONE 0.4 MG/ML 1 ML VIAL IV PRN (05:17)
[2022-12-21] MEDS ORDERED: FUROSEMIDE 10 MG/ML 4 ML VIAL IV STA (05:17)
--- NOTE | 2022-12-21 05:48 | ED ---
General Adult HPI - General Chief complaint: Shortness of Breath Stated complaint: NALINI Time Seen by Provider: 12/21/22 02:51 Source: patient, family Mode of arrival: ambulatory Limitations: no limitations - History of Present Illness Initial comments: This is an 87-year-old male with a past mental history including previous congestive heart failure on Lasix, previous cardiac stents presents emergency department for increasing exertional shortness of breath. The patient stated over the last 1-1/2 weeks, he has had increasing exertional dyspnea. The patient stated that it became acutely worse today where he takes a few steps to become short of breath. The patient also stated that when he lays flat he needs to sit upright because he cannot catch his breath and not breathe. 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 The patient stated because of his symptoms worsening, he came to the emergency department today for further evaluation. On arrival and on evaluation, the patient was resting in bed comfortably without any acute distress, chest pain or shortness of breath. - Related Data Home Medications Medication Instructions Recorded Confirmed PARoxetine [Paxil] 30 mg PO DAILY 03/13/14 12/31/21 Multivitamins, Thera [Multivitamin 1 tab PO DAILY 01/14/15 12/31/21 (formulary)] Atorvastatin [Lipitor] 40 mg PO HS 12/18/18 12/31/21 L.acidoph,Myra, B.lactis 1 cap PO DAILY 12/18/18 12/31/21 [Probiotic] amLODIPine BESYLATE/BENAZEPRIL 1 cap PO DAILY 09/13/19 12/31/21 [Lotrel 10-20 MG] Acetaminophen [Tylenol Extra 500 - 1,000 mg PO Q6H PRN 07/27/21 12/31/21 Strength] Aspirin [Adult Low Dose Aspirin EC] 81 mg PO HS 07/27/21 12/31/21 Apixaban [Eliquis] 2.5 mg PO BID 10/28/21 12/31/21 Ascorbic Acid [Vitamin C] 500 mg PO DAILY 10/28/21 12/31/21 Ferrous Sulfate [Iron] 325 mg PO BID 10/28/21 12/31/21 Omeprazole 20 mg PO DAILY 10/28/21 12/31/21 Nitroglycerin Sl Tabs [Nitrostat] 0.4 mg SL Q5M PRN 12/17/21 12/31/21 Cholecalciferol [Vitamin D3 (25 50 mcg PO DAILY 12/27/21 12/31/21 Mcg = 1000 Iu)] Previous Rx's Medication Instructions Recorded Furosemide [Lasix] 40 mg PO BID@0900,1600 30 Days #60 01/06/22 tab Allergies Allergy/AdvReac Type Severity Reaction Status Date / Time No Known Allergies Allergy Verified 12/31/21 21:08 Review of Systems ROS Statement: Those systems with pertinent positive or pertinent negative responses have been documented in the HPI. ROS Other: All systems not noted in ROS Statement are negative. Past Medical History Past Medical History: [place] Infarction ([place]) Additional Past Medical History / Comment(s): spouse states "unable to do recent heartcath due to low hgb, having increased SOB, and fatigue. Recent fall injurying left shoulder/rotator cuff-needing to have surgery with Dr Ximena tucker",Colon cancer w/ resection, laryngeal cancer w/ radiation/surgery-has intermittent coughing at times swallowing saliva, colon & throat polyps, postitive stool for C-Diff/Lactoferrin 11/12/18, skin cancer removal, equilibrium problems, arthritis hands/legs, seasonal allergies. Hx fall w/ injury Lt shoulder, in PT. Last Myocardial Infarction Date:: 1994 History of Any Multi-Drug Resistant Organisms: None Reported, C-DIFF Date of last positivie culture/infection: 2018 MDRO Source:: stool Past Surgical History: Appendectomy, Bowel Resection, Heart Catheterization, Heart Catheterization With Stent, Orthopedic Surgery Additional Past Surgical History / Comment(s): PCI with total 4 stents. EGD, colonoscopies, bowel resection-8 inches removed, suspension microlarygoscopy for laryngeal lesion, skin cancer removals, R knee arthroscopy, R rotator cuff repair, bilat cataract removals/lens implants. Past Anesthesia/Blood Transfusion Reactions: No Reported Reaction Date of Last Stent Placement:: 12/19/18 Past Psychological History: Depression Smoking Status: Former smoker Past Alcohol Use History: None Reported Past Drug Use History: None Reported - Past Family History Mother Family Medical History: Diabetes Mellitus Additional Family Medical History / Comment(s): Mother lived to be 78yrs old. Father Family Medical History: [place]ocardial Infarction ([place]) Additional Family Medical History / Comment(s): FATHER @ AGE 46 WITH [place] Sister(s) Family Medical History: Cancer Additional Family Medical History / Comment(s): BREAST & BONE CA General Exam Limitations: no limitations General appearance: alert, in no apparent distress Head exam: Present: atraumatic, normocephalic, normal inspection Eye exam: Present: normal appearance, PERRL Pupils: Present: normal accommodation ENT exam: Present: normal exam, normal oropharynx, mucous membranes moist Neck exam: Present: normal inspection, full ROM Respiratory exam: Present: normal lung sounds bilaterally Cardiovascular Exam: Present: bradycardia, irregular rhythm GI/Abdominal exam: Present: soft, normal bowel sounds Extremities exam: Present: full ROM, pedal edema Back exam: Present: normal inspection, full ROM Neurological exam: Present: alert, oriented X3, CN II-XII intact Psychiatric exam: Present: normal affect, normal mood Skin exam: Present: warm, dry Course Vital Signs 12/21/22 02:58 Temperature 98.3 F Pulse Rate 71 Respiratory 16 Rate Blood Pressure 173/61 O2 Sat by Pulse 95 Oximetry EKG Findings - EKG Comments: EKG Findings:: An EKG was obtained and was interpreted by myself showing a rate of 64, QRS duration of 176, QTC of 501. This EKG showed an atrial fibrillation with a right bundle branch block. This atrial fibrillation does appear new compared to old history. Medical Decision Making - Medical Decision Making Was pt. sent in by a medical professional or institution (, PA, [employer], urgent care, hospital, or longterm...) When possible be specific @ -No Did you speak to anyone other than the patient for history (EMS, parent, family, police, friend...)? What history was obtained from this source @ -Yes, patient's Did you review nursing and triage notes (agree or disagree)? Why? @ -I reviewed and agree with nursing and triage notes Were old charts reviewed (outside hosp., previous admission, EMS record, old EKG, old radiological studies, urgent care reports/EKG's, longterm records)? Report findings @ -No old charts were reviewed Differential Diagnosis (chest pain, altered mental status, abdominal pain women, abdominal pain men, vaginal bleeding, weakness, fever, dyspnea, syncope, headache, dizziness, GI bleed, back pain, seizure, CVA, palpatations, mental health)? @ -CHF exacerbation, pneumonia, ACS EKG interpreted by me (3pts min.). @ -As above X-rays interpreted by me (1pt min.). @ -Chest x-ray was obtained was interpreted by myself showing moderate course interstitial density throughout the lungs occur related to pulmonary fibrosis and not significantly different than the previous exam. There is no significant pleural effusion fluid to suggest heart failure. There was stable mild cardiomegaly. CT interpreted by me (1pt min.). @ -None done U/S interpreted by me (1pt. min.). @ -None done What testing was considered but not performed or refused? (CT, X-rays, U/S, labs)? Why? @ -None What meds were considered but not given or refused? Why? @ -None Did you discuss the management of the patient with other professionals (professionals i.e. , PA, [employer], lab, RT, psych nurse, director of social services, director of anesthesia services, teacher, patrol community service officer, major case detective)? Give summary @ -Yes, admitting physician Was smoking cessation discussed for >3mins.? @ -No Was critical care preformed (if so, how long)? @ -No Were there social determinants of health that impacted care today? How? (Homelessness, low income, unemployed, alcoholism, drug addiction, transportation, low edu. Level, literacy, decrease access to med. care, skilled nursing, rehab)? @ -No Was there de-escalation of care discussed even if they declined (Discuss DNR or withdrawal of care, Hospice)? DNR status @ -No What co-morbidities impacted this encounter? (DM, HTN, Smoking, COPD, CAD, Cancer, CVA, ARF, Chemo, Hep., AIDS, mental health diagnosis, sleep apnea, morbid obesity)? @ -CHF, previous cardiac stents Was patient admitted / discharged? Hospital course, mention meds given and route, prescriptions, significant lab abnormalities, going to OR and other pertinent info. @ -The patient was seen and evaluated in the emergency department. On physical exam, the patient was resting in bed comfortably without any acute distress. Vital signs admission were stable. Workup did show a mild CHF exacerbation in the setting of exertional dyspnea and likely new onset atrial fibrillation, the patient will be placed in observation to be seen by cardiology. The patient was given a dose of IV Lasix and was placed observation in stable condition. The patient and his had all their questions answered appropriately and were agreeable to the plan. Undiagnosed new problem with uncertain prognosis? @ -No Drug Therapy requiring intensive monitoring for toxicity (Heparin, Nitro, Insulin, Cardizem)? @ -No Were any procedures done? @ -No Diagnosis/symptom? @ -CHF exacerbation Acute, or Chronic, or Acute on Chronic? @ -Acute on chronic Uncomplicated (without systemic symptoms) or Complicated (systemic symptoms)? @ -Uncomplicated Side effects of treatment? @ -No Exacerbation, Progression, or Severe Exacerbation? @ -Exacerbation Poses a threat to life or bodily function? How? (Chest pain, [place], [place], pneumonia, PE, COPD, DKA, ARF, appy, cholecystitis, CVA, Diverticulitis, Homicidal, Suicidal, threat to staff... and all critical care pts) @ -No - Lab Data Result diagrams: 12/21/22 03:55 12/21/22 03:55 Lab Results 12/21/22 12/21/22 12/21/22 Range/Units 03:55 03:55 03:55 WBC 6.6 (3.8-10.6) k/uL RBC 3.68 L (4.30-5.90) m/uL Hgb 10.9 L (13.0-17.5) gm/dL Hct 34.5 L (39.0-53.0) % MCV 93.8 (80.0-100.0) fL MCH 29.7 (25.0-35.0) pg MCHC 31.7 (31.0-37.0) g/dL RDW 15.4 (11.5-15.5) % Plt Count 216 (150-450) k/uL MPV 9.1 Neutrophils % 69 % Lymphocytes % 19 % Monocytes % 7 % Eosinophils % 1 % Basophils % 1 % Neutrophils # 4.6 (1.3-7.7) k/uL Lymphocytes # 1.3 (1.0-4.8) k/uL Monocytes # 0.5 (0-1.0) k/uL Eosinophils # 0.1 (0-0.7) k/uL Basophils # 0.1 (0-0.2) k/uL Hypochromasia Slight PT 11.8 (9.0-12.0) sec INR 1.1 (<1.2) APTT 26.6 (22.0-30.0) sec Sodium 146 H (137-145) mmol/L Potassium 4.1 (3.5-5.1) mmol/L Chloride 108 H (98-107) mmol/L Carbon Dioxide 29 (22-30) mmol/L Anion Gap 9 mmol/L BUN 28 H (9-20) mg/dL Creatinine 1.18 (0.66-1.25) mg/dL Est GFR (CKD-EPI)AfAm 63 (>60 ml/min/1.73 sqM) Est GFR (CKD-EPI)NonAf 54 (>60 ml/min/1.73 sqM) Glucose 107 H (74-99) mg/dL Calcium 9.4 (8.4-10.2) mg/dL Magnesium 2.1 (1.6-2.3) mg/dL Total Bilirubin 0.8 (0.2-1.3) mg/dL AST 22 (17-59) U/L ALT 19 (4-49) U/L Alkaline Phosphatase 113 (38-126) U/L Troponin I (0.000-0.034) ng/mL NT-Pro-B Natriuret Pep pg/mL Total Protein 6.9 (6.3-8.2) g/dL Albumin 4.1 (3.5-5.0) g/dL Lipase 81 (23-300) U/L 12/21/22 12/21/22 Range/Units 03:55 03:55 WBC (3.8-10.6) k/uL RBC (4.30-5.90) m/uL Hgb (13.0-17.5) gm/dL Hct (39.0-53.0) % MCV (80.0-100.0) fL MCH (25.0-35.0) pg MCHC (31.0-37.0) g/dL RDW (11.5-15.5) % Plt Count (150-450) k/uL MPV Neutrophils % % Lymphocytes % % Monocytes % % Eosinophils % % Basophils % % Neutrophils # (1.3-7.7) k/uL Lymphocytes # (1.0-4.8) k/uL Monocytes # (0-1.0) k/uL Eosinophils # (0-0.7) k/uL Basophils # (0-0.2) k/uL Hypochromasia PT (9.0-12.0) sec INR (<1.2) APTT (22.0-30.0) sec Sodium (137-145) mmol/L Potassium (3.5-5.1) mmol/L Chloride (98-107) mmol/L Carbon Dioxide (22-30) mmol/L Anion Gap mmol/L BUN (9-20) mg/dL Creatinine (0.66-1.25) mg/dL Est GFR (CKD-EPI)AfAm (>60 ml/min/1.73 sqM) Est GFR (CKD-EPI)NonAf (>60 ml/min/1.73 sqM) Glucose (74-99) mg/dL Calcium (8.4-10.2) mg/dL Magnesium (1.6-2.3) mg/dL Total Bilirubin (0.2-1.3) mg/dL AST (17-59) U/L ALT (4-49) U/L Alkaline Phosphatase (38-126) U/L Troponin I <0.012 (0.000-0.034) ng/mL NT-Pro-B Natriuret Pep 1900 pg/mL Total Protein (6.3-8.2) g/dL Albumin (3.5-5.0) g/dL Lipase (23-300) U/L Disposition Clinical Impression: Congestive heart failure Disposition: ADMITTED IP TO THIS HOSP Condition: Stable Is patient prescribed a controlled substance at d/c from ED?: No Referrals: Cristian Mari MD [Primary Care Provider] - 1-2 days Time of Disposition: 05:20 Decision to Admit Reason: Admit from EC Decision Date: 12/21/22 Decision Time: 05:20
--- NOTE | 2022-12-21 06:08 | P.HPIM ---
History of Present Illness H&P Date: 12/21/22 Chief Complaint: dyspenea 87 year old male with CAD, CHF , not on home oxygen patient coming in due to worsening shortness of breath over the past week, reporting orthopnea, and PNDs, along with exertional dyspnea with mild exertion. he claims that his weight has been stable, no changes in his meds, no chest pain, he is compliant with his meds. no recent travel , no sick contact, no fever, no chills, no runny nose, no abd pain , no GI bleeding . he noticed some cough that has bothering him , no wheezing he saw his financial reporting manager just Sunday 2 days ago , and there were no changes in his meds. however, recommendations were made to follow up with pulmonary patient denies any smoking, he has remote history of 10 pack year smoking . he also noticed increase swelling of his legs. Review of Systems Pertinent positives as noted in HPI. All other systems were reviewed and are negative Past Medical History Past Medical History: Heart Failure, Myocardial Infarction ([place]) Additional Past Medical History / Comment(s): spouse states "unable to do recent heartcath due to low hgb, having increased SOB, and fatigue. Recent fall injurying left shoulder/rotator cuff-needing to have surgery with Dr Alcantara",Colon cancer w/ resection, laryngeal cancer w/ radiation/surgery-has intermittent coughing at times swallowing saliva, colon & throat polyps, postitive stool for C-Diff/Lactoferrin 11/12/18, skin cancer removal, equilibrium problems, arthritis hands/legs, seasonal allergies. Hx fall w/ injury Lt shoulder, in PT. Last Myocardial Infarction Date:: 1994 History of Any Multi-Drug Resistant Organisms: None Reported, C-DIFF Date of last positivie culture/infection: 2018 MDRO Source:: stool Past Surgical History: Appendectomy, Bowel Resection, Heart Catheterization, Heart Catheterization With Stent, Orthopedic Surgery Additional Past Surgical History / Comment(s): PCI with total 4 stents. EGD, colonoscopies, bowel resection-8 inches removed, suspension microlarygoscopy for laryngeal lesion, skin cancer removals, R knee arthroscopy, R rotator cuff repair, bilat cataract removals/lens implants. Past Anesthesia/Blood Transfusion Reactions: No Reported Reaction Date of Last Stent Placement:: 12/19/18 Past Psychological History: Depression Smoking Status: Former smoker Past Alcohol Use History: None Reported Past Drug Use History: None Reported - Past Family History Mother Family Medical History: Diabetes Mellitus Additional Family Medical History / Comment(s): Mother lived to be 78yrs old. Father Family Medical History: Myocardial Infarction ([place]) Additional Family Medical History / Comment(s): FATHER @ AGE 46 WITH [place] Sister(s) Family Medical History: Cancer Additional Family Medical History / Comment(s): BREAST & BONE CA Medications and Allergies Home Medications Medication Instructions Recorded Confirmed Type PARoxetine [Paxil] 30 mg PO DAILY 03/13/14 12/31/21 History Multivitamins, Thera [Multivitamin 1 tab PO DAILY 01/14/15 12/31/21 History (formulary)] Atorvastatin [Lipitor] 40 mg PO HS 12/18/18 12/31/21 History L.acidoph,Paracasei, B.lactis 1 cap PO DAILY 12/18/18 12/31/21 History [Probiotic] amLODIPine BESYLATE/BENAZEPRIL 1 cap PO DAILY 09/13/19 12/31/21 History [Lotrel 10-20 MG] Acetaminophen [Tylenol Extra 500 - 1,000 mg PO Q6H PRN 07/27/21 12/31/21 History Strength] Aspirin [Adult Low Dose Aspirin EC] 81 mg PO HS 07/27/21 12/31/21 History Apixaban [Eliquis] 2.5 mg PO BID 10/28/21 12/31/21 History Ascorbic Acid [Vitamin C] 500 mg PO DAILY 10/28/21 12/31/21 History Ferrous Sulfate [Iron] 325 mg PO BID 10/28/21 12/31/21 History Omeprazole 20 mg PO DAILY 10/28/21 12/31/21 History Nitroglycerin Sl Tabs [Nitrostat] 0.4 mg SL Q5M PRN 12/17/21 12/31/21 History Cholecalciferol [Vitamin D3 (25 50 mcg PO DAILY 12/27/21 12/31/21 History Mcg = 1000 Iu)] Furosemide [Lasix] 40 mg PO BID@0900,1600 30 Days #60 01/06/22 Rx tab Allergies Allergy/AdvReac Type Severity Reaction Status Date / Time No Known Allergies Allergy Verified 12/31/21 21:08 Physical Exam Vitals: Vital Signs Temp Pulse Resp BP Pulse Ox 03/23/23 02:58 98.3 F 71 16 173/61 95 Intake and Output 12/20/22 12/20/22 12/21/22 14:59 22:59 06:59 Other: Weight 102.058 kg Constitutional: No acute distress, conversant, pleasant Eyes: Anicteric sclerae, moist conjunctiva, Pupils equal round reactive to light ENMT: NC/AT Oropharynx clear, no erythema, or exudates Neck: Supple, no masses, or JVD No carotid bruits No thyromegaly Lungs: good breath sounds, with fine inspiratory rales at lung basis Clear to percussion Normal respiratory effort, no accessory muscle use Cardiovascular: Heart regular with skipped beats No murmurs, gallops, or rubs +2 bilateral peripheral edema Abdominal: Soft Nontender, no guarding, rebound or rigidity Abdomen moving with respiration Normoactive bowel sounds No hepatomegaly, No splenomegaly No palpable mass No abdominal wall hernia noted Skin: Normal temperature, tone, texture, turgor No induration No subcutaneous nodules No rash, lesions No ulcers Extremities: No digital cyanosis No clubbing Pedal pulses intact and symmetrical Radial pulses intact and symmetrical No calf tenderness Psychiatric: Alert and oriented to person, place and time Appropriate affect fair judgment Neuro Muscles Strength 5/5 in all 4 extremities Sensation to light touch grossly present throughout Cranial nerves II-XII grossly intact Lymphatics: no palpable cervical or supraclavicular lymph nodes Results CBC & Chem 7: 12/21/22 03:55 12/21/22 03:55 Labs: Abnormal Lab Results - Last 24 Hours (Table) 12/21/22 12/21/22 Range/Units 03:55 03:55 RBC 3.68 L (4.30-5.90) m/uL Hgb 10.9 L (13.0-17.5) gm/dL Hct 34.5 L (39.0-53.0) % Sodium 146 H (137-145) mmol/L Chloride 108 H (98-107) mmol/L BUN 28 H (9-20) mg/dL Glucose 107 H (74-99) mg/dL Assessment and Plan Assessment: 87 year old male with CHF and CAD s/p stents, coming in due to worsening exertional dyspnea and leg edema , I discussed the case with ED doc, I accepted the admission for gentle IV diuresis re-evaluate echocardiogram ,and pulmonary consult for possible pulmonary fibrosis , anticipated length of stay > 2 midnights acute hypoxic respiratory failure , oxygen sat 90% on room air pulmonary fibrosis mild acute systolic CHF exacerbation , CXR no pleural effusion , possible congestion , and increase leg edema plan gentle IV diuresis with lasix 20 mg BID IVP daily weight CXR showed no pleural effusion , but suggestive of some congestion or pulmonary fibrosis supplemental oxygen NC to keep oxygen sat > 94% pulmonary consult check echo cardiogram assess home oxygen requirement continue eliquis 2.5 mg continue lotrel 10-20 mg monitor vital signs project management manager BUN 28 , Cr 1.18 , trops negative monitor renal function and urine output chronic anemia ,stable , hgb 10.9 denies GI bleeding follow up hgb h/o CAD s/p stents continue aspirin 81 mg daily continue atorvastatin full code DVT PPX on eliquis 2. 5 mg bid
[2022-12-21] MEDS: PANTOPRAZOLE 40 MG TABLET PO SCH (07:32)
--- NOTE | 2022-12-21 08:15 | P.CNPUL ---
History of Present Illness Consult date: 12/21/22 Requesting physician: Janette León Reason for consult: dyspnea Chief complaint: Shortness of breath for approximately 1-2 weeks History of present illness: Seeing this patient in new consultation today 12/21/2022 for progressive shortness of breath over the last 1-2 weeks. This is a pleasant 87-year-old male with past medical history of congestive heart failure, coronary artery disease with previous stenting 4, atrial fibrillation normally anticoagulated on Eliquis, previous thoracentesis 01/05/2022, history of colon cancer with resection, history of laryngeal CA post radiation therapy, shoulder surgery. Apparently, patient has been expressing progressive shortness of br eath last one to 2 weeks especially with exertion. Patient admits associated orthopnea, and has been sleeping in the recliner. He's also had some increased lower extremity swelling. Patient denies any cough, fever, chest pain. Denies any sick contacts. Patient has remote smoking history of approximately 10 years. Although patient's clinical history indicates CHF, patient did have a chest x-ray on arrival, which showed no significant pleural fluid to suggest heart failure and some stable mild cardiomegaly. There were also some moderate coarse interstitial density throughout the lungs that could relate pulmonary fibrosis which wasn't significantly different from prior exam. Patient did have a preoperative clearance in the office for a shoulder surgery approximately 1 year ago with limited PFT that did not indicate any restrictive disease at that time. Patient is currently sitting in a stretcher, on 2 L nasal cannula, in no acute distress. Patient's CBC on arrival shows a WBC count of 6.6, hemoglobin 10.9, hematocrit 34.5, platelets 216,000. BMP shows a sodium 136, potassium 4.1, chloride 108, serum CO2 29, BUN 28, creatinine 1.18, glucose 107. Plans were negative 1. ProBNP was mildly elevated at 1900. Patient is receiving Lasix 20 mg every 12 hours. Vital signs are stable. Heart rhythm is currently atrial fibrillation with controlled ventricular rate. Anticoagulated on Eliquis. Also, the patient has been reporting some difficulty swallowing liquids and reports some significant choking episodes since his radiation treatments for laryngeal CA. Review of Systems REVIEW OF SYSTEMS: CONSTITUTIONAL: Denies any recent significant weight loss or weight gain. EYES: Denies change in vision. EARS, NOSE, MOUTH, THROAT: Denies headaches, denies sore throat. CARDIOVASCULAR: Denies chest pain, palpitations or syncopal episodes. RESPIRATORY: See HPI GASTROINTESTINAL: Denies change in appetite, abdominal pain, nausea and vomiting, or diarrhea. Does report some dysphagia GENITOURINARY: Denies hematuria, denies infections. MUSKULOSKELETAL: Denies pain, Admits bilateral lower extremity swelling INTEGUMENTARY: Denies rash, denies eczema. NEUROLOGICAL: Denies recent memory loss, no recent seizure activity. PSYCHIATRIC: Denies anxiety, denies depression. HEMATOLOGIC/LYMPHATIC: Denies anemia, denies enlarged lymph node Past Medical History Past Medical History: Heart Failure, Myocardial Infarction ([place]) Additional Past Medical History / Comment(s): spouse states "unable to do recent heartcath due to low hgb, having increased SOB, and fatigue. Recent fall injurying left shoulder/rotator cuff-needing to have surgery with Dr Alcantara",Col on cancer w/ resection, laryngeal cancer w/ radiation/surgery-has intermittent coughing at times swallowing saliva, colon & throat polyps, postitive stool for C-Diff/Lactoferrin 11/12/18, skin cancer removal, equilibrium problems, arthritis hands/legs, seasonal allergies. Hx fall w/ injury Lt shoulder, in PT. Last Myocardial Infarction Date:: 1994 History of Any Multi-Drug Resistant Organisms: None Reported, C-DIFF Date of last positivie culture/infection: 2018 MDRO Source:: stool Past Surgical History: Appendectomy, Bowel Resection, Heart Catheterization, Heart Catheterization With Stent, Orthopedic Surgery Additional Past Surgical History / Comment(s): PCI with total 4 stents. EGD, colonoscopies, bowel resection-8 inches removed, suspension microlarygoscopy for laryngeal lesion, skin cancer removals, R knee arthroscopy, R rotator cuff re pair, bilat cataract removals/lens implants. Past Anesthesia/Blood Transfusion Reactions: No Reported Reaction Date of Last Stent Placement:: 12/19/18 Past Psychological History: Depression Smoking Status: Former smoker Past Alcohol Use History: None Reported Past Drug Use History: None Reported - Past Family History Mother Family Medical History: Diabetes Mellitus Additional Family Medical History / Comment(s): Mother lived to be 78yrs old. Father Family Medical History: Myocardial Infarction ([place]) Additional Family Medical History / Comment(s): FATHER @ AGE 46 WITH [place] Sister(s) Family Medical History: Cancer Additional Family Medical History / Comment(s): BREAST & BONE CA Medications and Allergies Home Medications Medication Instructions Recorded Confirmed Type PARoxetine [Paxil] 30 mg PO DAILY 03/13/14 12/21/22 History Atorvastatin [Lipitor] 40 mg PO HS 12/18/18 12/21/22 History Aspirin [Adult Low Dose Aspirin EC] 81 mg PO HS 07/27/21 12/21/22 History Apixaban [Eliquis] 2.5 mg PO BID-W/MEALS 10/28/21 12/21/22 History Ascorbic Acid [Vitamin C] 500 mg PO W/SUPPER 10/28/21 12/21/22 History Nitroglycerin Sl Tabs [Nitrostat] 0.4 mg SL Q5M PRN 12/17/21 12/21/22 History Cholecalciferol [Vitamin D3 (25 25 mcg PO W/SUPPER 12/27/21 12/21/22 History Mcg = 1000 Iu)] Furosemide [Lasix] 20 mg PO DAILY 12/21/22 12/21/22 History Furosemide [Lasix] 40 mg PO DAILY PRN 12/21/22 12/21/22 History Multivit-Min/FA/Lycopen/Lutein 1 tab PO DAILY 12/21/22 12/21/22 History [Centrum Silver Tablet] amLODIPine BESYLATE/BENAZEPRIL 1 cap PO DAILY 12/21/22 12/21/22 History [Lotrel 10-40 mg Capsule] Allergies Allergy/AdvReac Type Severity Reaction Status Date / Time No Known Allergies Allergy Verified 12/21/22 07:39 Physical Exam Vitals: Vital Signs Temp Pulse Resp BP Pulse Ox 12/21/22 06:05 52 L 16 162/67 93 L 12/21/22 02:58 98.3 F 71 16 173/61 95 Intake and Output 12/20/22 12/21/22 12/21/22 22:59 06:59 14:59 Other: Weight 102.058 kg GENERAL EXAM: Alert, 87-year-old white male, comfortable in no apparent distress . HEAD: Normocephalic and atraumatic EYES: Normal reaction of pupils, equal size. NOSE: Clear with pink turbinates. THROAT: No erythema or exudates. NECK: No masses, no JVD. CHEST: No chest wall deformity. LUNGS: Equal air entry with no crackles, wheeze, rhonchi or dullness. On 2 L nasal cannula. No conversational dyspnea or accessory muscle use.. CVS: S1 and S2 normal with no audible murmur, irregular rhythm with a heart rate of 52 bpm. No extra heart sounds ABDOMEN: No hepatosplenomegaly, active bowel sounds, no guarding or rigidity. SPINE: No scoliosis or deformity SKIN: No rashes CENTRAL NERVOUS SYSTEM: No focal deficits, tone is normal in all 4 extremities. EXTREMITIES: There is 4+ bilateral lower extremity pitting edema. There is no clubbing, or cyanosis. Peripheral pulses are intact. Results - Laboratory Findings CBC and BMP: 12/21/22 03:55 12/21/22 03:55 PT/INR, D-dimer PT 11.8 sec (9.0-12.0) 12/21/22 03:55 INR 1.1 (<1.2) 12/21/22 03:55 Abnormal lab findings: Abnormal Labs 12/21/22 12/21/22 03:55 03:55 RBC 3.68 L Hgb 10.9 L Hct 34.5 L Sodium 146 H Chloride 108 H BUN 28 H Glucose 107 H - Diagnostic Findings Chest x-ray: image reviewed Assessment and Plan Assessment: Suspected acute mild exacerbation of congestive heart failure due to patient's reported clinical history. No recent echocardiogram to review. Echocardiogram is pending. Possible underlying pulmonary fibrosis. Chest x-ray on arrival showed moderate coarse interstitial densities throughout the lungs that could correlate with pulmonary fibrosis there were not significant leak different from previous examination. Acute hypoxic respiratory failure secondary to above, currently on 2 L nasal cannula Atrial fibrillation with slow ventricular response. Normally anticoagulated on Eliquis Coronary artery disease requiring previous stents 4 History of laryngeal CA post radiation. Dysphagia secondary to above History of previous bilateral pleural effusions requiring thoracentesis History of colon cancer with resection Remote history of smoking for approximately 10 years Plan: Patient's medications, labs, chest x-ray reviewed Continue IV diuretics Echocardiogram pending Anticoagulated on Eliquis We will consult speech for swallow evaluation Check patient for COVID-19 and influenza Recommend following up in the office once cleared for discharge to evaluate potential pulmonary fibrosis with full PFT and high-resolution CT. We will continue to follow I have personally seen and examined the patient, performed the documentation and the assessment and plan as written. Number of minutes spent on the visit:20 Time with Patient: Greater than 30
[2022-12-21] MEDS: FUROSEMIDE 10 MG/ML 4 ML VIAL IV SCH ×2 (08:27→21:24)
[2022-12-21] MEDS: APIXABAN 2.5 MG TABLET PO SCH ×2 (08:28→21:24)
[2022-12-21] MEDS: amLODIPine 10 MG TAB PO SCH (08:47)
[2022-12-21] MEDS ORDERED: lisinopriL 20 MG TAB PO SCH (09:00)
[2022-12-21] MEDS ORDERED: FUROSEMIDE 10 MG/ML 2 ML VIAL IV SCH (09:00)
[2022-12-21] MEDS ORDERED: amLODIPine 10 MG TAB PO SCH (09:00)
--- NOTE | 2022-12-21 10:32 | P.CRDCN ---
History of Present Illness Consult date: 12/21/22 Consult reason: congestive heart failure History of present illness: HISTORY OF PRESENTING ILLNESS Patient is an 87-year-old male patient of Dr. Mckeon with a history of persistent atrial fibrillation on Eliquis, coronary artery disease with previous stenting, hypertension, hyperlipidemia, anemia. he was just in the office on December 18 and was stable at that time. Echocardiogram and lab work were ordered to be done prior to his next visit. Patient subsequently developed increasing shortness of breath with exertion over the past week with a little weight gain. He also noted increased edema to his lower extremities. No fever or chills, no cough or sputum production and he denies chest pain. He states he has been taking all his medications as directed and follows a low-salt diet. Patient is seen today in the emergency center waiting for a bed on the observation unit. EKG shows atrial fibrillation with right bundle branch block and nonspecific ST, T-wave abnormalities chest x-ray moderate coarse interstitial density throughout the lungs could relate pulmonary fibrosis. No significant pleural fluid to suggest heart failure. Stable mild cardiomegaly. WBC 6.6, hemoglobin 10.9, platelet count 216. INR 1.1. Sodium 146, potassium 4.1, chloride 108, CO2 29, BUN 20 creatinine 1.18. Blood sugar 107. Liver function tests are within normal limits. Troponin negative 1. Magnesium 2.1. ProBNP 1900. Lipase 81.Coronavirus PCR, Influenza A and influenza B not detected. Home cardiac medications: amlodipine/benazepril 1040 milligrams daily, eliquis 2.5 mg twice daily, aspirin 81 mg daily, Lasix 20 mg daily and 40 mg as needed, Nitrostat as needed. Cardiac catheterization 11/2021:70% proximal OM 3, right dominant, patent stent in the RCA, mild to moderate triple-vessel disease echocardiogram 12/2021: EF 40-45%, moderate concentric left hypertrophy, mild mitral regurgitation, mild tricuspid regurgitation, mild pulmonary hypertension. REVIEW OF SYSTEMS At the time of my exam: CONSTITUTIONAL: Denies fever, no chills. CARDIOVASCULAR: No chest pain, + shortness of breath with exertion, + orthopnea, no PND, no palpitations. RESPIRATORY: Denies cough. No sputum production. GASTROINTESTINAL: Denies abdominal pain, diarrhea, constipation, nausea or vomiting. MUSCULOSKELETAL: Denies myalgias. NEUROLOGIC: Denies numbness, tingling or weakness. ENDOCRINE: Denies fatigue, mild increased weight, no polydipsia or polyurina. GENITOURINARY: Denies burning, hematuria or urgency with micturation. HEMATOLOGIC: Denies history of bleeding. PHYSICAL EXAMINATION Vital signs reviewed. CONSTITUTIONAL: this is an 87-year-old male, resting in the ER stretcher and appears to be comfortable and in no acute distress. Patient's is at bedside. HEENT: Head is normocephalic. Pupils are equal, round. Sclerae anicteric. Mucous membranes of the mouth are moist. No JVD. No carotid bruit. CHEST EXAMINATION: Bilat wheezing, no accessory muscle usage. HEART EXAMINATION: Irregular rate and rhythm. S1, S2 heard. No murmurs, gallops or rub. ABDOMEN: Soft, nontender. Positive bowel sounds. EXTREMITIES: 2+ peripheral pulses, 2+ lower extremity edema and no calf tenderness. NEUROLOGIC EXAMINATION: Patient is awake, alert and oriented x3. ASSESSMENT Acute on chronic diastolic heart failure History of coronary artery disease with heart catheterization 11/2021 showing mild to moderate CAD as well as very small caliber obtuse marginal third branch treated medically Hypertension Hyperlipidemia Persistent atrial fibrillation with controlled ventricular rates Anemia appears stable PLAN Continue patient on IV Lasix and increase to 40 mg every 12 hours Monitor I&O, daily weights, electrolytes and renal function Home medications have been resumed Further recommendations as patient progresses. Thank you kindly for this consultation Nurse practitioner note has been reviewed, I agree with the documented findings and plan of care. Patient was seen and examined. Past Medical History Past Medical History: Heart Failure, Myocardial Infarction ([place]) Additional Past Medical History / Comment(s): spouse states "unable to do recent heartcath due to low hgb, having increased SOB, and fatigue. Recent fall injurying left shoulder/rotator cuff-needing to have surgery with Dr Alcantara",Colon cancer w/ resection, laryngeal cancer w/ radiation/surgery-has int ermittent coughing at times swallowing saliva, colon & throat polyps, postitive stool for C-Diff/Lactoferrin 11/12/18, skin cancer removal, equilibrium problems, arthritis hands/legs, seasonal allergies. Hx fall w/ injury Lt shoulder, in PT. Last Myocardial Infarction Date:: 1994 History of Any Multi-Drug Resistant Organisms: None Reported, C-DIFF Date of last positivie culture/infection: 2018 MDRO Source:: stool Past Surgical History: Appendectomy, Bowel Resection, Heart Catheterization, Heart Catheterization With Stent, Orthopedic Surgery Additional Past Surgical History / Comment(s): PCI with total 4 stents. EGD, colonoscopies, bowel resection-8 inches removed, suspension microlarygoscopy for laryngeal lesion, skin cancer removals, R knee arthroscopy, R rotator cuff repair, bilat cataract removals/lens implants. Past Anesthesia/Blood Transfusion Reactions: No Reported Reaction Date of Last Stent Placement:: 12/19/18 Past Psychological History: Depression Smoking Status: Former smoker Past Alcohol Use History: None Reported Past Drug Use History: None Reported - Past Family History Mother Family Medical History: Diabetes Mellitus Additional Family Medical History / Comment(s): Mother lived to be 78yrs old. Father Family Medical History: Myocardial Infarction ([place]) Additional Family Medical History / Comment(s): FATHER @ AGE 46 WITH [place] Sister(s) Family Medical History: Cancer Additional Family Medical History / Comment(s): BREAST & BONE CA Medications and Allergies Home Medications Medication Instructions Recorded Confirmed Type PARoxetine [Paxil] 30 mg PO DAILY 03/13/14 12/21/22 History Atorvastatin [Lipitor] 40 mg PO HS 12/18/18 12/21/22 History Aspirin [Adult Low Dose Aspirin EC] 81 mg PO HS 07/27/21 12/21/22 History Apixaban [Eliquis] 2.5 mg PO BID-W/MEALS 10/28/21 12/21/22 History Ascorbic Acid [Vitamin C] 500 mg PO W/SUPPER 10/28/21 12/21/22 History Nitroglycerin Sl Tabs [Nitrostat] 0.4 mg SL Q5M PRN 12/17/21 12/21/22 History Cholecalciferol [Vitamin D3 (25 25 mcg PO W/SUPPER 12/27/21 12/21/22 History Mcg = 1000 Iu)] Furosemide [Lasix] 20 mg PO DAILY 12/21/22 12/21/22 History Furosemide [Lasix] 40 mg PO DAILY PRN 12/21/22 12/21/22 History Multivit-Min/FA/Lycopen/Lutein 1 tab PO DAILY 12/21/22 12/21/22 History [Centrum Silver Tablet] amLODIPine BESYLATE/BENAZEPRIL 1 cap PO DAILY 12/21/22 12/21/22 History [Lotrel 10-40 mg Capsule] Allergies Allergy/AdvReac Type Severity Reaction Status Date / Time No Known Allergies Allergy Verified 12/21/22 07:39 Physical Exam Vitals: Vital Signs Temp Pulse Resp BP Pulse Ox 12/21/22 06:05 52 L 16 162/67 93 L 12/21/22 02:58 98.3 F 71 16 173/61 95 Intake and Output 12/20/22 12/21/22 12/21/22 22:59 06:59 14:59 Other: Weight 102.058 kg Results 12/21/22 03:55 12/21/22 03:55 Cardiac Enzymes 12/21/22 12/21/22 Range/Units 03:55 03:55 AST 22 (17-59) U/L Troponin I <0.012 (0.000-0.034) ng/mL Coagulation 12/21/22 Range/Units 03:55 PT 11.8 (9.0-12.0) sec APTT 26.6 (22.0-30.0) sec CBC 12/21/22 Range/Units 03:55 WBC 6.6 (3.8-10.6) k/uL RBC 3.68 L (4.30-5.90) m/uL Hgb 10.9 L (13.0-17.5) gm/dL Hct 34.5 L (39.0-53.0) % Plt Count 216 (150-450) k/uL Comprehensive Metabolic Panel 12/21/22 Range/Units 03:55 Sodium 146 H (137-145) mmol/L Potassium 4.1 (3.5-5.1) mmol/L Chloride 108 H (98-107) mmol/L Carbon Dioxide 29 (22-30) mmol/L BUN 28 H (9-20) mg/dL Creatinine 1.18 (0.66-1.25) mg/dL Glucose 107 H (74-99) mg/dL Calcium 9.4 (8.4-10.2) mg/dL AST 22 (17-59) U/L ALT 19 (4-49) U/L Alkaline Phosphatase 113 (38-126) U/L Total Protein 6.9 (6.3-8.2) g/dL Albumin 4.1 (3.5-5.0) g/dL Current Medications Generic Name Dose Route Start Last Admin Trade Name Freq PRN Reason Stop Dose Admin Amlodipine Besylate 1 mg 12/21/22 09:00 Amlodipine 10 Mg Tab PO DAILY [facility] Apixaban 2.5 mg 12/21/22 09:00 Apixaban 2.5 Mg Tablet PO BID [facility] Protocol Aspirin 81 mg 12/21/22 21:00 Aspirin 81 Mg PO HS [facility] Atorvastatin Calcium 40 mg 12/21/22 21:00 Atorvastatin 40 Mg Tab PO HS [facility] Furosemide 20 mg 12/21/22 09:00 Furosemide 10 Mg/Ml 2 Ml Vial IV Q12HR [facility] Lisinopril 20 mg 12/21/22 09:00 Lisinopril 20 Mg Tab PO DAILY [facility] Naloxone HCl 0.2 mg 12/21/22 05:17 Naloxone 0.4 Mg/Ml 1 Ml Vial IV Q2M PRN Opioid Reversal Pantoprazole Sodium 40 mg 12/21/22 07:30 12/21/22 07:32 Pantoprazole 40 Mg Tablet PO 40 mg [id number] [facility] Administration Intake and Output 12/20/22 12/21/22 12/21/22 22:59 06:59 14:59 Other: Weight 102.058 kg 12/21/22 03:55 12/21/22 03:55
--- NOTE | 2022-12-21 11:50 | CA ---
Transthoracic Echo Report Name: Erlin Mejia Age: 87 Gender: M : 1935 Exam Date: 12/21/2022 07:11 Exam Location: [facility] Ht (in): 72 Wt (lb): 220 Ordering Physician: Janette León MD Attending/Referring Phys: [id number], [facility] Trauma Coordinator Cece Tomas RDCS Procedure CPT: Indications: exertional dyspnea Cardiac Hx: CAD s/p stents Technical Quality: Fair Contrast 1: Total Dose (mL): Contrast 2: Total Dose (mL): MEASUREMENTS (Male / Female) Normal Values 2D ECHO LV Diastolic Diameter PLAX 6.2 cm 4.2 - 5.9 / 3.9 - 5.3 cm LV Systolic Diameter PLAX 4.3 cm IVS Diastolic Thickness 1.2 cm 0.6 - 1.0 / 0.6 - 0.9 cm LVPW Diastolic Thickness 1.1 cm 0.6 - 1.0 / 0.6 - 0.9 cm LV Relative Wall Thickness 0.4 RV Internal Dim ED PLAX 4.4 cm LA Volume 110.8 cm??? 18 - 58 / 22 - 52 cm??? Ascending Aorta Diameter 3.8 cm M-MODE Aortic Root Diameter MM 3.2 cm LA Systolic Diameter MM 6.4 cm LA Ao Ratio MM 2.0 AV Cusp Separation MM 2.0 cm DOPPLER AV Peak Velocity 136.8 cm/s AV Peak Gradient 7.5 mmHg LVOT Peak Velocity 101.1 cm/s LVOT Peak Gradient 4.1 mmHg MV Peak Velocity 136.5 cm/s MV Peak Gradient 7.5 mmHg MV Mean Velocity 63.0 cm/s MV Mean Gradient 2.1 mmHg MV Velocity Time Integral 44.8 cm MV Area PHT 2.4 cm??? Mitral E Point Velocity 127.2 cm/s Mitral A Point Velocity 26.0 cm/s Mitral E to A Ratio 4.9 MV Deceleration Time 221.1 ms TR Peak Velocity 302.6 cm/s TR Peak Gradient 36.6 mmHg Right Atrial Pressure 8.0 mmHg Pulmonary Artery Systolic Pressu 44.6 mmHg Right Ventricular Systolic Press 44.6 mmHg PV Peak Velocity 105.6 cm/s PV Peak Gradient 4.5 mmHg FINDINGS Left Ventricle Mildly increased septal wall thickness. Mild left ventricular dilatation. Grade 4 diastolic dysfunction. Left ventricular ejection fraction is estimated at 30 %. Right Ventricle Right ventricular dilatation. RVOT 5.2 cm. Reduced right ventricular global systolic function. Moderate pulmonary hypertension. Right Atrium Severe right atrial dilatation. Left Atrium Severely increased left atrial volume. Mitral Valve Holc-[id number] mitral regurgitation. Aortic Valve Trileaflet aortic valve. Aortic valve sclerosis. Mild aortic regurgitation. No aortic stenosis. Tricuspid Valve Moderate tricuspid regurgitation. Pulmonic Valve Mild pulmonic regurgitation. Pericardium Minimal pericardial effusion (normal variant). No pleural effusion. Aorta Normal size aortic root and proximal ascending aorta. CONCLUSIONS Extremely difficult study for interpretation The ejection fraction is probably about 35% Dilated right ventricle with mildly impaired function. Moderate pulmonary hypertension Moderate tricuspid regurgitation Mild to moderate mitral regurgitation Previewed by: Dr. Luis Alberto Schwarz MD (Electronically Signed) Final Date: 21 December 2022 11:49
--- NOTE | 2022-12-21 17:05 | P.PN ---
Progress Note - Text [facility] Patient seen and examined at bedside. Shortness of breath has greatly improved since receiving IV Lasix. She denies chest pain, nausea, vomiting, fever, or chills. Patient is resting in bed comfortably. Cardiology consult reviewed.
[2022-12-21] MEDS ORDERED: ASPIRIN 81 MG PO SCH (21:00)
[2022-12-21] MEDS ORDERED: ATORVASTATIN 40 MG TAB PO SCH (21:00)
[2022-12-21] MEDS ORDERED: ACETAMINOPHEN TAB 325 MG TAB PO PRN (23:22)
[2022-12-22] MEDS: PANTOPRAZOLE 40 MG TABLET PO SCH (06:27)
--- NOTE | 2022-12-22 07:30 | P.PN ---
Subjective Progress Note Date: 12/22/22 Principal diagnosis: CHF The patient is a very pleasant 87-year-old gentleman with a past medical history significant for mild nonobstructive CAD based on heart catheterization in 2020 almost a year ago as well as hypertension and dyslipidemia and permanent atrial fibrillation presented to the hospital with shortness of breath which was progressive as well as bilateral lower extremity edema and he was diagnosed was congestive heart failure. His previous echo showed normal ejection fraction with this time he underwent an echo which revealed cardiomyopathy with EF around 35%. The heart catheterization from December 2021 showed mild nonobstructive coronary artery disease. His pressure has been elevated. I believe the cardiomyopathy is likely related to hypertensive heart disease and is nonischemic cardiomyopathy. As a matter of fact his pressure continues to be elevated and I'm going to increase the dose of lisinopril to 30 mg by mouth daily. He is feeling better. The shortness of breath has improved. No lower extremities edema noted. He would like to go home. The examination is remarkable for elevated blood pressure with irregular rhythm and diminished luiz athing sounds bilaterally and no lower extremity edema noted. Assessment Heart failure exacerbation secondary to heart failure with reduced ejection fraction Cardiomyopathy with EF around 35% likely to be nonischemic and related to hypertensive heart disease Permanent nature fibrillation with controlled heart rate. As a matter of fact the patient is bradycardic Multiple comorbid conditions Plan Continue the current medical regimen including current dose of oral anticoagulation Increase the dose of lisinopril Consider adding Aldactone as an outpatient No need for beta natividad in the light of the patient's being bradycardic already DC Lasix IV and start the patient on Lasix by mouth Follow-up with the patient Objective - Vital Signs Vital signs: Vital Signs Temp 98.2 F 12/22/22 02:33 Pulse 51 L 12/22/22 02:33 Resp 18 12/22/22 02:33 BP 163/73 12/22/22 02:33 Pulse Ox 95 12/22/22 02:33 FiO2 Intake & Output 12/21/22 12/22/22 12/22/22 18:59 06:59 18:59 Weight 102.058 kg 103.4 kg Other: # Voids 1 2 - Labs CBC & Chem 7: 12/21/22 03:55 12/21/22 03:55
[2022-12-22 08:49] LABS: Basophils # (A) 0.07 X 10*3/uL (0.00-0.10); Eosinophils # (A) 0.13 X 10*3/uL (0.04-0.35); Eosinophils % (A) 1.9 %; HCT 34.7 % (39.6-50.0); HGB 10.4 g/dL (13.0-17.0); Immature Grans, Automated 0.1 %; Lymphocytes % (A) 22.1 %; MCH 28.7 pg (27.0-32.0); MCV 95.9 fL (80.0-97.0); Mean Platelet Volume 11.2 fL (9.5-12.2); Monocytes # (A) 0.74 X 10*3/uL (0.20-1.00); Monocytes % (A) 10.9 %; NRBC Per 100 WBC 0 /100 WBCS (0.0-0.0); Neutrophils # (A) 4.34 X 10*3/uL (1.80-7.70); Platelet Count 226 X 10*3/uL (140-440); RBC 3.62 X 10*6/uL (4.40-5.60); WBC 6.79 X 10*3/uL (4.50-10.00)
[2022-12-22] MEDS ORDERED: FUROSEMIDE 40 MG TAB PO SCH (09:00)
[2022-12-22] MEDS ORDERED: lisinopriL 10 MG TAB PO SCH (09:00)
[2022-12-22 09:01] LABS: African American GFR (CKD) 56.1 (60.0-200.0); Albumin/Globulin Ratio 1.6 (1.60-3.17); Anion Gap 11.5 mmol/L (10.00-18.00); BUN/Creat Ratio 19.85 Ratio (12.00-20.00); Blood Urea Nitrogen 25.8 mg/dL (9.0-27.0); Calcium 9.6 mg/dL (8.7-10.3); Carbon Dioxide 28.5 mmol/L (20.0-27.5); Globulin 2.5 g/dL (1.6-3.3); Non-African American GFR(CKD) 48.4 (60.0-200.0); Potassium 3.1 mmol/L (3.5-5.5); Total Bilirubin 0.7 mg/dL (0.30-1.20); Total Protein 6.5 g/dL (6.2-8.2)
[2022-12-22] MEDS: APIXABAN 2.5 MG TABLET PO SCH (09:06)
[2022-12-22] MEDS: amLODIPine 10 MG TAB PO SCH (09:06)
[2022-12-22 10:09] VITALS: BP 179/81; PULSE 63; RESP 16; TEMP 97.8
--- NOTE | 2022-12-22 10:37 | P.DS ---
Providers Date of admission: 12/21/22 05:17 Attending physician: Janette León MD Consults: 12/21/22 05:17 Consult Physician Routine Consulting Provider: [facility] Consult Reason/Comments: CHF exas Do you want consulting provider notified?: Yes, Notify in am 12/21/22 05:57 Consult Physician Routine Consulting Provider: Lianna Kasper Consult Reason/Comments: dyspnea, pulmonary fibrosis , hypoxemia Do you want consulting provider notified?: Yes, Notify in am Primary care physician: Cristian Mari MD Hospital Course: Discharge Diagnosis: Acute on chronic systolic heart failure Cardiomyopathy with an EF around 35% Permanent atrial fibrillation History of pulmonary fibrosis Hospital Course: 87 year old male with CAD, CHF , not on home oxygen patient coming in due to worsening shortness of breath over the past week, reporting orthopnea, and PNDs, along with exertional dyspnea with mild exertion. Patient was admitted for heart failure exacerbation. Patient was started on IV Lasix. At the time of discharge patient reported he is feeling much better and he was satting well on room air. Cardiology started patient on oral Lasix 40 mg twice a day. Previously at home patient was taking 20 mg Lasix daily and 40 mg Lasix when necessary. Patient looking forward to going home. Patient deemed stable for discharge and he was instructed to follow cardiology in a week. Patient seen and examined at bedside on 12/22/2022.[] Vital signs reviewed and stable. General: [non toxic], [no distress], [appears at stated age] Derm: [warm], [dry] Head: [atraumatic], [normocephalic], [symmetric] Eyes: [EOMI], [no lid lag], [anicteric sclera] Mouth: [no lip lesion], [mucus membranes moist] Cardiovascular: [S1S2 reg], [no murmur], [positive posterior tibial pulse bilateral], Lungs: [CTA bilateral], [no rhonchi, no rales] , [no accessory muscle use] Abdominal: [soft], [ nontender to palpation], [no guarding], [no appreciable organomegaly] Ext: [no gross muscle atrophy], [no edema], [no contractures] Neuro: [ CN II-XI grossly intact], [no focal neuro deficits] Psych: [Alert], [oriented], [appropriate affect] Patient discharge on 12/22/2022 A total of [33] minutes of time were spent preparing this complex discharge summary . Patient Condition at Discharge: Stable Plan - Discharge Summary Discharge Rx Participant: No New Discharge Prescriptions: New Potassium Chloride [Klor-Con 20 Packets] 20 meq PO DAILY #7 packet Furosemide [Lasix] 40 mg PO BID@0900,1600 7 Days #14 tab Continue PARoxetine [Paxil] 30 mg PO DAILY Atorvastatin [Lipitor] 40 mg PO HS Aspirin [Adult Low Dose Aspirin EC] 81 mg PO HS Ascorbic Acid [Vitamin C] 500 mg PO W/SUPPER Nitroglycerin Sl Tabs [Nitrostat] 0.4 mg SL Q5M PRN PRN Reason: Chest Pain Apixaban [Eliquis] 2.5 mg PO BID-W/MEALS Cholecalciferol [Vitamin D3 (25 Mcg = 1000 Iu)] 25 mcg PO W/SUPPER amLODIPine BESYLATE/BENAZEPRIL [Lotrel 10-40 mg Capsule] 1 cap PO DAILY Multivit-Min/FA/Lycopen/Lutein [Centrum Silver Tablet] 1 tab PO DAILY Discontinued Furosemide [Lasix] 20 mg PO DAILY Furosemide [Lasix] 40 mg PO DAILY PRN PRN Reason: Edema Discharge Medication List PARoxetine [Paxil] 30 mg PO DAILY 03/13/14 [History] Atorvastatin [Lipitor] 40 mg PO HS 12/18/18 [History] Aspirin [Adult Low Dose Aspirin EC] 81 mg PO HS 07/27/21 [History] Apixaban [Eliquis] 2.5 mg PO BID-W/MEALS 10/28/21 [History] Ascorbic Acid [Vitamin C] 500 mg PO W/SUPPER 10/28/21 [History] Nitroglycerin Sl Tabs [Nitrostat] 0.4 mg SL Q5M PRN 12/17/21 [History] Cholecalciferol [Vitamin D3 (25 Mcg = 1000 Iu)] 25 mcg PO W/SUPPER 12/27/21 [History] Multivit-Min/FA/Lycopen/Lutein [Centrum Silver Tablet] 1 tab PO DAILY 12/21/22 [History] amLODIPine BESYLATE/BENAZEPRIL [Lotrel 10-40 mg Capsule] 1 cap PO DAILY 12/21/22 [History] Furosemide [Lasix] 40 mg PO BID@0900,1600 7 Days #14 tab 12/22/22 [Rx] Potassium Chloride [Klor-Con 20 Packets] 20 meq PO DAILY #7 packet 12/22/22 [Rx] Follow up Appointment(s)/Referral(s): Luis Alberto Schwarz MD [STAFF PHYSICIAN] - 1 Week Cristian Mari MD [Primary Care Provider] - 1-2 days Fredo Horan DO [Doctor of Osteopathic Medicine] - 1 Week Discharge Disposition: HOME SELF-CARE
--- NOTE | 2022-12-22 11:30 | P.PN ---
Subjective Progress Note Date: 12/22/22 Seeing this patient in new consultation today 12/21/2022 for progressive shortness of breath over the last 1-2 weeks. This is a pleasant 87-year-old male with past medical history of congestive heart failure, coronary artery disease with previous stenting 4, atrial fibrillation normally antico agulated on Eliquis, previous thoracentesis 01/05/2022, history of colon cancer with resection, history of laryngeal CA post radiation therapy, shoulder surgery. Apparently, patient has been expressing progressive shortness of breath last one to 2 weeks especially with exertion. Patient admits associated orthopnea, and has been sleeping in the recliner. He's also had some increased lower extremity swelling. Patient denies any cough, fever, chest pain. Denies any sick contacts. Patient has remote smoking history of approximately 10 years. Although patient's clinical history indicates CHF, patient did have a chest x-ray on arrival, which showed no significant pleural fluid to suggest he art failure and some stable mild cardiomegaly. There were also some moderate coarse interstitial density throughout the lungs that could relate pulmonary fibrosis which wasn't significantly different from prior exam. Patient did have a preoperative clearance in the office for a shoulder surgery approximately 1 year ago with limited PFT that did not indicate any restrictive disease at that time. Patient is currently sitting in a stretcher, on 2 L nasal cannula, in no acute distress. Patient's CBC on arrival shows a WBC count of 6.6, hemoglobin 10.9, hematocrit 34.5, platelets 216,000. BMP shows a sodium 136, potassium 4.1, chloride 108, serum CO2 29, BUN 28, creatinine 1.18, glucose 107. Plans were negative 1. ProBNP was mildly elevated at 1900. Patient is receiving Lasix 20 mg every 12 hours. Vital signs are stable. Heart rhythm is currently atrial fibrillation with controlled ventricular rate. Anticoagulated on Eliquis. Also, the patient has been reporting some difficulty swallowing liquids and reports some significant choking episodes since his radiation treatments for laryngeal CA. The patient is seen today 12/22/2022 in follow-up on the regular medical floor. He is currently sitting up in bed. Awake and alert in no acute distress. Feeling quite a bit better today compared to yesterday. He is maintaining good O2 saturations in the 90s on room air. He has less peripheral edema. Left shortness of breath. White count 6.7. Hemoglobin 10.4. Platelets 226. Sodium 147. Potassium 3.1. Bicarb 28. He was treated with IV diuretics. echocardiogram did reveal impaired left ventricular systolic function with an ejection fraction 35%. There is also mildly impaired right ventricular function and moderate pulmonary hypertension. Objective - Vital Signs Vital signs: Vital Signs Temp 97.8 F 12/22/22 07:00 Pulse 63 12/22/22 07:00 Resp 16 12/22/22 07:00 BP 179/81 12/22/22 07:00 Pulse Ox 95 12/22/22 07:00 FiO2 Intake & Output 12/21/22 12/22/22 12/22/22 18:59 06:59 18:59 Intake Total 118 Balance 118 Weight 102.058 kg 103.4 kg Intake: Oral 118 Other: # Voids 1 2 - Exam GENERAL EXAM: Alert, very pleasant 87-year-old white male, on room air, comfortable in no apparent distress. HEAD: Normocephalic and atraumatic EYES: Normal reaction of pupils, equal size. NOSE: Clear with pink turbinates. THROAT: No erythema or exudates. NECK: No masses, no JVD. CHEST: No chest wall deformity. LUNGS: Equal air entry with no crackles, wheeze, rhonchi or dullness. No conversational dyspnea or accessory muscle use.. CVS: S1 and S2 normal with no audible murmur, irregular rhythm with a heart rate of 52 bpm. No extra heart sounds ABDOMEN: No hepatosplenomegaly, active bowel sounds, no guarding or rigidity. SPINE: No scoliosis or deformity SKIN: No rashes CENTRAL NERVOUS SYSTEM: No focal deficits, tone is normal in all 4 extremities. EXTREMITIES: There is 1+ bilateral lower extremity pitting edema. There is no clubbing, or cyanosis. Peripheral pulses are intact. - Labs CBC & Chem 7: 12/22/22 05:12 12/22/22 05:12 Labs: Abnormal Lab Results - Last 24 Hours (Table) 12/22/22 12/22/22 Range/Units 05:12 05:12 RBC 3.62 L (4.40-5.60) X 10*6/uL Hgb 10.4 L (13.0-17.0) g/dL Hct 34.7 L (39.6-50.0) % MCHC 30.0 L (32.0-37.0) g/dL RDW 16.0 H (11.5-14.5) % Sodium 147 H (135-145) mmol/L Potassium 3.1 L (3.5-5.5) mmol/L Carbon Dioxide 28.5 H (20.0-27.5) mmol/L Est GFR (CKD-EPI)AfAm 56.1 L (60.0-200.0) Est GFR (CKD-EPI)NonAf 48.4 L (60.0-200.0) Assessment and Plan Assessment: Acute exacerbation of systolic congestive heart failure due to patient's reported clinical history. Ehocardiogram revealed impaired left ventricular systolic function with an ejection fraction of 30% Possible underlying pulmonary fibrosis. Chest x-ray on arrival showed moderate coarse interstitial densities throughout the lungs that could correlate with pulmonary fibrosis there were not significant leak different from previous examination. Acute hypoxic respiratory failure secondary to above, improved and on room air Atrial fibrillation with slow ventricular response. Normally anticoagulated on Eliquis Coronary artery disease requiring previous stents 4 History of laryngeal CA post radiation. Dysphagia secondary to above History of previous bilateral pleural effusions requiring thoracentesis History of colon cancer with resection Remote history of smoking for approximately 10 years Plan: The patient was seen and evaluated Stable and on room air Feeling back to his baseline Hoping to go home today Follow-up in our office in 1 week I have personally seen and examined the patient, performed the documentation and the assessment and plan as written. Number of minutes spent on the visit: 10.
== END 2022-12-22 11:29 | disposition home or self-care (01) ==
LOC: EC 02:33 → 6NMEDSUR 05:17
PROVIDERS: ADMIT Internal Medicine; ATTEND Internal Medicine
DX: I50.23 Acute on chronic systolic (congestive) heart failure (principal); I45.10 Unspecified right bundle-branch block; I48.91 Unspecified atrial fibrillation; I25.10 Atherosclerotic heart disease of native coronary artery without angina pectoris; Z95.5 Presence of coronary angioplasty implant and graft; F99 Mental disorder, not otherwise specified; I50.9 Heart failure, unspecified; I25.2 Old myocardial infarction; F32.A Depression, unspecified; Z85.038 Personal history of other malignant neoplasm of large intestine; Z90.49 Acquired absence of other specified parts of digestive tract; Z20.822 Contact with and (suspected) exposure to COVID-19; Z92.3 Personal history of irradiation; Z86.19 Personal history of other infectious and parasitic diseases; Z98.890 Other specified postprocedural states; Z85.828 Personal history of other malignant neoplasm of skin; Z98.42 Cataract extraction status, left eye; Z98.41 Cataract extraction status, right eye; Z96.1 Presence of intraocular lens; Z87.891 Personal history of nicotine dependence; Z83.3 Family history of diabetes mellitus; Z82.49 Family history of ischemic heart disease and other diseases of the circulatory system; Z80.8 Family history of malignant neoplasm of other organs or systems; Z79.82 Long term (current) use of aspirin; Z79.01 Long term (current) use of anticoagulants; Z79.899 Other long term (current) drug therapy
CPT/HCPCS: 96376; 96374; 99285; 36415; 93005; 93306; 92610; 83880; 80053 ×2; 83690; 83735; 84484; 85025 ×2; 85610; 85730; 87502; 87635; 71046; G0378 ×2; J1940

== ENCOUNTER → 2022-12-26 | Outpatient (CLI) | payer MEDICARE ==
[2022-12-27 00:54] LABS: African American GFR (CKD) 51.3 (60.0-200.0); Anion Gap 12.8 mmol/L (10.00-18.00); BUN/Creat Ratio 17.64 Ratio (12.00-20.00); Blood Urea Nitrogen 24.7 mg/dL (9.0-27.0); Calcium 9.5 mg/dL (8.7-10.3); Carbon Dioxide 27.2 mmol/L (20.0-27.5); Non-African American GFR(CKD) 44.2 (60.0-200.0); Potassium 3.7 mmol/L (3.5-5.5)
== END | disposition home or self-care (01) ==
LOC: LABWHC1 15:49
PROVIDERS: ATTEND Nurse Practitioner Adult Health
DX: R06.02 Shortness of breath (principal); R60.0 Localized edema
CPT/HCPCS: 36415; 80048; 83880

== ENCOUNTER → 2023-01-17 | Outpatient (CLI) | payer MEDICARE ==
[2023-01-18 02:05] LABS: African American GFR (CKD) 51.3 (60.0-200.0); Anion Gap 16.2 mmol/L (10.00-18.00); BUN/Creat Ratio 16.79 Ratio (12.00-20.00); Blood Urea Nitrogen 23.5 mg/dL (9.0-27.0); Calcium 10.2 mg/dL (8.7-10.3); Carbon Dioxide 23.8 mmol/L (20.0-27.5); Non-African American GFR(CKD) 44.2 (60.0-200.0); Potassium 4.5 mmol/L (3.5-5.5)
== END | disposition home or self-care (01) ==
LOC: LABWHC1 15:36
PROVIDERS: ATTEND Nurse Practitioner Adult Health
DX: I42.9 Cardiomyopathy, unspecified (principal)
CPT/HCPCS: 36415; 80048; 83880

== ENCOUNTER → 2023-05-03 | Outpatient (CLI) | payer MEDICARE ==
[2023-05-03 11:17] LABS: NT-Pro-B-Type Natriuretic Pept 1380 pg/mL
[2023-05-03 12:07] LABS: ALT 24 U/L (4-49); AST 27 U/L (17-59); African American GFR (CKD) 67 (>60 ml/min/1.73 sqM); Albumin 4.2 g/dL (3.5-5.0); Albumin/Globulin Ratio 1.3; Alkaline Phosphatase 136 U/L (38-126); Anion Gap 8 mmol/L; Blood Urea Nitrogen 22 mg/dL (9-20); Calcium 9.5 mg/dL (8.4-10.2); Carbon Dioxide 28 mmol/L (22-30); Chloride 106 mmol/L (98-107); Globulin 3.2 g/dL; Glucose 96 mg/dL (74-99); Non-African American GFR(CKD) 58 (>60 ml/min/1.73 sqM); Potassium 4.2 mmol/L (3.5-5.1); Sodium 142 mmol/L (137-145); Total Bilirubin 1.1 mg/dL (0.2-1.3); Total Protein 7.4 g/dL (6.3-8.2)
[2023-05-03 17:18] LABS: Chol/HDL Ratio 2.96 Ratio; LDL Cholesterol,Calculated 55.5 mg/dL (0.0-131.0)
== END | disposition home or self-care (01) ==
LOC: LABWHC1 09:53
PROVIDERS: ATTEND Internal Medicine Interventional Cardiology
DX: E78.2 Mixed hyperlipidemia (principal)
CPT/HCPCS: 36415; 80053; 80061; 83880